=== PATIENT | female | born 1950 | race Caucasian/White ===

== ENCOUNTER 2020-11-04 13:41 | Inpatient (IN) ==
[~2020-11-04 13:41] MED LIST: KETAMINE 50 MG/ML ML IV PRN; MIDAZOLAM 2 MG/2 ML VIAL IV SCH; PROPOFOL 200 MG/20 ML VIAL IV SCH
--- NOTE | 2020-11-04 17:17 | General Surg History&Physical ---
HPI History of Present Illness Patient information: Note initiated : 11/04/20 at 5:16 pm Service Date, if different from initiated Date: [] Patient: Marge Benitez a 70 y/o F admitted on 11/04/20 for Esophogogastroduodenoscopy and Colonoscopy. Chief Complaint: [Abdominal pain] History of present illness: Ms. Benitez is a 70 year old F who presented to [facility] for evaluation of abdominal and pelvic cramping, had colonoscopy preformed by Dr Blank today who found a stricture in the sigmoid colon. No mass, felt to be more extrinsic compression likely due to scar tissue. Given her long history and good bowel prep, she is desires to be admitted to have the problem taken care of. no fever, no chills, no nausea or emisis. Review of Systems Review of systems: All systems reviewed, negative other than above. PFSH PFSH All Active Problems Palpitations (Chronic) Dyspnea (Chronic) Bronchiectasis (Chronic) Essential hypertension (Chronic) Breast lump or mass (Chronic) Squeezing chest pain (Chronic) Reactive airway disease (Chronic) Cough (Chronic) Dyspareunia (Chronic) Depression (Chronic) Headache (Chronic) Hair loss (Chronic) Hematochezia (Chronic) Elevated blood pressure reading without diagnosis of hypertension (Chronic) IBS (irritable bowel syndrome) (Chronic) Tuberculosis (Chronic) Numbness (Chronic) Malignant melanoma of skin of upper extremity (Chronic) Multiple sclerosis (Chronic) Medical History Breast lump or mass Bronchiectasis Cough Depression Dyspareunia Dyspnea Elevated blood pressure reading without diagnosis of hypertension Essential hypertension Hair loss Headache Hematochezia IBS (irritable bowel syndrome) Malignant melanoma of skin of upper extremity Multiple sclerosis Numbness Palpitations Reactive airway disease Squeezing chest pain Tuberculosis Indeterminate TB diagnosis Surgical History History of adenoidectomy History of cholecystectomy (~1980) History of hysterectomy History of melanoma excision (~2012) History of tonsillectomy Family History Father , age 63 Diabetes mellitus Heart disease Mother , age 61 Malignant carcinoid tumor of lung Lung cancer Unknown Arthritis Brother , age 56 Pancreatitis Sister Pancreatitis Grandmother , age 91 Colon cancer Social History marital status: life partner occupational status: employed physical activity: walking and bicycling smoking status: Former smoker quit date: 08/15/77 pack-years: 4 smoking status stop date: 08/15/79 alcohol intake frequency: a few times a month substance use type: does not use MEDS/ALLERGIES Home Medications and Allergies Home Medications Medication Instructions Recorded Confirmed Type losartan 25 mg tablet 25 mg PO QDAY 01/21/20 11/04/20 History cholecalciferol (vitamin D3) 125 125 mcg PO QDAY 01/30/20 11/04/20 History mcg (5,000 unit) capsule peginterferon beta-1a [Plegridy] 125 mcg SUBCUT Q2W 11/04/20 11/04/20 History Allergies Allergy/AdvReac Type Severity Reaction Status Date / Time No Known Drug Allergies Allergy Verified 11/04/20 13:57 Physical Examination Vital Signs Vital signs: Temp Pulse Resp BP Pulse Ox 97.1 F 66 18 153/98 100 11/04/20 14:38 11/04/20 16:53 11/04/20 16:53 11/04/20 16:53 11/04/20 16:53 General physical appearance General physical exam: well developed, well nourished and no distress Eyes Eye exam: PERRL and normal ocular movement ENT ENT exam: normal pinna, normal nares, normal mucosa, no hearing loss and no co ngestion Head Head exam IM: Present atraumatic and normocephalic Neck Neck exam: no masses, no bruits, trachea midline, no lymphadenopathy and no venous distension Cardiovascular Cardiovascular exam IM: Present normal rate and rhythm Respiratory Respiratory exam: normal expansion, normal respiratory effort, clear to percussion and clear to auscultation Abdomen Abdomen: Present soft, non tender and bowel sounds Hernia: Present none Genitourinary Genitourinary (Female): Present normal external genitalia Rectum Rectum: Present normal sphincter tone, no hemorrhoids, no tenderness, no masses and no bleeding Integumentary Integumentary: Present no rash, no growths and no abnormal pigmentation Neurologic Neurologic: Present normal coordination and normal sensation Musculoskeletal Musculoskeletal: Present normal gait and normal posture Psychiatric Psychiatric: Present oriented to time, oriented to person, oriented to place, speech is normal and memory intact Results Labs Labs: All other labs normal. A/P Narrative A/P Narrative: pelvic pain, sigmoid stricture. admit, clear liquid tonight, will add on schedule tomorrow for laparoscopic exploration, possible sigmoid colectomy Time Spent With Patient Time: Total time spent is greater than 50% in coordination of care (as documented) at patient's floor/unit and/or counseling patient: Total time spent with greater than 50% in coordination of care (as documented) at patient's floor/unit and/or counseling patient:: Greater than 35 minutes
[2020-11-04] MEDS: LACTATED RINGERS 1,000 ML IV SCH (17:54)
[2020-11-04] MEDS ORDERED: ACETAMINOPHEN 325 MG TABLET PO PRN (18:40)
[2020-11-04] MEDS: 0.9 % SODIUM CHLORIDE 10 ML SYRINGE IV SCH (21:41)
[2020-11-05] MEDS: LACTATED RINGERS 1,000 ML IV SCH ×3 (04:16→16:41)
[2020-11-05] MEDS: 0.9 % SODIUM CHLORIDE 10 ML SYRINGE IV SCH ×2 (04:42→16:41)
[2020-11-05] MEDS ORDERED: SCOPOLAMINE 1 PATCH PATCH TOPICAL PRN (08:14)
--- NOTE | 2020-11-05 09:01 | EGD Procedure Note ---
EGD Procedure Notes Procedure Information Patient information: Note initiated : 11/05/20 at 9:01 am Service Date: 11/04/20 Patient: Marge Benitez 70 y/o F admitted on 11/04/20 for Esophogogastroduodenoscopy and Colonoscopy. Pre-op diagnosis general: Abdominal pain. Weight loss. Post-Op Diagnosis general: Normal EGD. Nonulcer dyspepsia. Procedure: EGD with Bx Procedure Narrative: The procedure, alternatives and risks were discussed with the patient and the patient's questions were answered. With endoscopist-administered intravenous sedation, the Olympus video endoscope was introduced into the esophagus. The esophagus, stomach, and duodenum were examined sequentially. An inlet patch was seen in the proximal esophagus. There is no esophagitis nor hiatal hernia. The gastric mucosa, antrum, pyloric ring and duodenum were otherwise normal. Antral biopsy was taken for TYRELL test. The scope was withdrawn. Assessment: Normal EGD. Nonulcer dyspepsia.
--- NOTE | 2020-11-05 09:07 | Colonoscopy Procedure Note ---
Colonoscopy Procedure Notes Procedure Information Patient information: Note initiated : 11/05/20 at 9:02 am Service Date: 11/04/20 Patient: Marge Benitez 70 y/o F admitted on 11/04/20 for Esophogogastroduodenoscopy and Colonoscopy. Pre-op diagnosis general: Abdominal pain. Post-op diagnosis general: Fixed stenotic sigmoid colon causing obstruction. Procedure: Colonoscopy Procedure narrative: The procedure, alternatives and risks were discussed with the patient and the patient's questions were answered. With endoscopist- administered intravenous sedation, the Olympus colonoscope was introduced into the rectum. There was a fixed, strictured sigmoid colon with multiple diverticula. It was impossible to pass either the colonoscope or the pediatric colonoscope. Therefore an upper endoscope was maneuvered through to the hepatic flexure. There was no malignancy. Assessment: Fixed stenotic sigmoid colon causing obstruction. General surgeon Dr. Burnett was consulted and will see her for sigmoid resection.
[2020-11-05 09:45] LABS: Basophils # (Auto) 0.02 K/mcL (0.00-0.20); Basophils % (Auto) 0.4 % (0.0-2.0); Eosinophils # (Auto) 0.07 K/mcL (0.00-0.70); Eosinophils % (Auto) 1.5 % (0.0-7.0); Hematocrit 36.3 % (36.0-48.0); Lymphocytes % (Auto) 35.4 % (15.0-49.0); Mean Cell Volume 91.9 fL (80.0-100.0); Mean Corpuscular HGB Conc 33.1 g/dL (31.0-36.0); Mean Platelet Volume 10.6 fL (7.4-10.4); Monocytes % (Auto) 8.8 % (1.0-12.0); Neutrophils % (Auto) 53.9 % (38.0-78.0); Platelet Count 214 K/mcL (140-440); RBC 3.95 M/mcL (4.00-5.20); Red Cell Distribution Width 12.4 % (11.5-14.5); WBC 4.5 K/mcL (4.5-11.0)
[2020-11-05 10:03] LABS: Blood Urea Nitrogen 14 mg/dL (8-23); Calcium 8.7 mg/dL (8.6-10.4); Carbon Dioxide 29 mmol/L (22-30); Chloride 102 mmol/L (96-108); Glomerular Filtration Rate 89; Glucose 85 mg/dL (70-105)
[2020-11-05 10:26] LABS: INR 0.9 (0.9-1.1); Prothrombin Time 12.7 sec (11.9-14.5)
[2020-11-05 12:09] LABS: Appearance,Urine CLEAR (Clear); Bilirubin,Urine Negative (Negative); Color,Urine YELLOW; Culture Indicated,Urine No; Glucose,Urine (UA) Negative (Negative); Ketones,Urine 5 mg/dL (Negative); Leukocyte Esterase,Urine Negative /ug (Negative); Nitrate,Urine Negative (Negative); Protein,Urine Negative (Negative); Specific Gravity,Urine 1.009 (1.000-1.035); Urine Blood Negative (Negative); Urobilinogen,Urine Negative
[2020-11-05] MEDS ORDERED: SCOPOLAMINE 1 PATCH PATCH TOPICAL ONE (12:39)
[2020-11-05] MEDS ORDERED: ceFAZolin 2 GM in DEXTROSE 5% IN WATER 50 ML IV SCH (12:45)
[2020-11-05] MEDS ORDERED: SUGAMMADEX SODIUM 200 MG/2 ML VIAL IV ONE (13:00)
[2020-11-05] MEDS ORDERED: PROPOFOL 200 MG/20 ML VIAL IV ONE (13:00)
[2020-11-05] MEDS ORDERED: NALBUPHINE 10 MG/ML AMPUL IV ONE (13:00)
[2020-11-05] MEDS ORDERED: ONDANSETRON 4 MG/2 ML VIAL ONE (13:00)
[2020-11-05] MEDS ORDERED: LIDOCAINE HCL/PF 100 MG/5 ML SYRINGE IV ONE (13:00)
[2020-11-05] MEDS ORDERED: ROCURONIUM 10 MG/ML ML IV ONE (13:00)
[2020-11-05] MEDS ORDERED: NALOXONE HCL 0.4 MG/ML VIAL ONE (13:00)
[2020-11-05] MEDS ORDERED: PROMETHAZINE 25 MG/ML VIAL ONE (13:00)
[2020-11-05] MEDS ORDERED: MIDAZOLAM 5 MG/5 ML VIAL ONE (13:00)
[2020-11-05] MEDS ORDERED: fentaNYL 100 MCG/2 ML VIAL IV ONE (13:00)
[2020-11-05] MEDS ORDERED: DEXAMETHASONE 10 MG/ML VIAL ONE (13:00)
[2020-11-05] MEDS ORDERED: ceFAZolin 1 GM VIAL ONE (13:07)
[2020-11-05] MEDS ORDERED: METOPROLOL TARTRATE 5 MG/5 ML VIAL IV PRN (13:47)
[2020-11-05] MEDS ORDERED: ONDANSETRON 4 MG/2 ML VIAL IV PRN (13:47)
[2020-11-05] MEDS ORDERED: NALOXONE HCL 0.4 MG/ML VIAL IV PRN (13:47)
[2020-11-05] MEDS ORDERED: diphenhydrAMINE 50 MG/ML VIAL IV PRN (13:47)
[2020-11-05] MEDS ORDERED: METHOCARBAMOL 1,000 MG/10 ML VIAL IV PRN (13:47)
[2020-11-05] MEDS ORDERED: ePHEDrine 50 MG/ML AMPUL IV PRN (13:47)
[2020-11-05] MEDS ORDERED: IPRATROPIUM/ALBUTEROL 3 ML AMPUL.NEB NEB PRN (13:47)
[2020-11-05] MEDS ORDERED: MEPERIDINE 25 MG/ML VIAL IV PRN (13:47)
[2020-11-05] MEDS ORDERED: FLUMAZENIL 0.1 MG/ML ML IV PRN (13:47)
[2020-11-05] MEDS ORDERED: ATROPINE SULFATE 0.4 MG/ML VIAL IV PRN (13:47)
[2020-11-05] MEDS ORDERED: ACETAMINOPHEN 1,000 MG/100 ML BAG IV ONE (13:47)
[2020-11-05] MEDS ORDERED: fentaNYL 100 MCG/2 ML VIAL IV PRN (13:47)
[2020-11-05] MEDS ORDERED: LACTATED RINGERS 1,000 ML IV SCH (14:00)
[2020-11-05] MEDS ORDERED: LIDOCAINE 1% 20 ML VIAL SQ ONE (14:16)
[2020-11-05] MEDS ORDERED: BUPIVACAINE W/EPI 0.5% 50 ML VIAL IJ ONE (14:16)
--- NOTE | 2020-11-05 15:27 | Operative Note ---
Brief Operative Note Date of procedure: 11/05/20 Pre-op diagnosis: Sigmoid stricture, possible due to external compression Post-op diagnosis: other (Redundant sigmoid causing scar tissue and stricture in the pelvis) Procedure: Laparoscopic lysis of adhesions, laparoscopic sigmoid colectomy Grafts/Implants: No Anesthesia: GETA Findings: Redundant colon densely adherent to vaginal cuff Complications: none Surgeon: Hernán Burnett Estimated blood loss (cc): 25 Specimens Removed/Pathology: other (Sigmoid colon) Condition: stable Disposition: PACU Operative Note Operative Note: After risk benefits and alternatives to the procedure were discussed with the patient at length she verbalized understanding and desire to continue with the procedure. Patient was taken main operating room placed upon the operative table. General anesthesia was induced over endotracheal tube. Patient's prepped and draped in the standard sterile surgical fashion. Surgical timeout was taken to verify patient and procedure being performed. 1% lidocaine half percent Marcaine was used for local anesthesia throughout the case. A supraumbilical incision was made carried down through skin subtenons tissue. The fascia was opened under direct vision and a 12 mm trocar was placed. Abdominal cavity was insufflated with carbon dioxide and visual inspection revealed no injuries. 5 mm right upper quadrant and a 5 mm right lower quadrant trochars were then placed under direct vision. Attention was turned to the pelvis where there is a large amount of adhesions in the right lower quadrant. These were carefully taken down with sharp dissection. This allowed the small bowel to be removed out of the pelvis. The colon was then identified and followed from the descend ing colon to the sigmoid colon where there was a loop of sigmoid colon that was densely adherent to the vaginal cuff causing a obstructing lesion. This was carefully dissected free from the surrounding structures with sharp and electrocautery dissection. Once this is removed the colon was redundant and the area that was densely adherent appeared to be somewhat strictured therefore decision was made at this time to do a sigmoid resection. The the right lower quadrant 5 mm trocar was switched to a 12 mm trocar. A retrocolonic window was created at the rectosigmoid junction with a vessel sealing device the colon was then transected with Endo JAY stapler at this location. The mesentery was taken down with the vessel sealer device until adequate dissection was carried out proximal to the area of inflammation and stricture. A Pfannenstiel incision was then made and the colon was brought out through this area. The colon was transected approximately 5 cm proximal to the area of inflammation and sized up to 29 mm. A 29 EEA anvil was then placed in the colon it was pursestring closed with a 3-0 PDS suture and returned to the abdominal cavity. The appendiceal incision was closed with a oh looped PDS suture and pneumoperitoneum was reestablished. The colon was inspected down in the pelvis and it laid without tension therefore the rectum was serially dilated and a 29 EEA stapler was passed up the rectum under direct vision the anvil was brought out through the colon and attached to the anvil. A 29 EEA stapled anastomosis was performed and 2 good donuts were confirmed after anastomosis. A leak test was performed which showed no air leak around the anastomosis. Small amount of Tisseel was placed on the anastomosis, the colon was verified to not be twisted it laid without tension in the pelvis and the anastomosis was within good limits. Once this was done visual specks of the remainder the abdomen was once again inspected and found to be in good position. The right l ower quadrant 12 mm and the supraumbilical 12 mm trochars were both closed with interrupted 0 Vicryl sutures. CO2 and trochars were removed from the abdominal cavity under direct vision. Trocar sites were inspected for hemostasis. All skin incisions were closed with 4 Monocryl sutures and skin glue dressings were applied. Patient was then awakened from general anesthesia transported postanesthesia care unit awake alert in good condition.q
[2020-11-05] MEDS: KETOROLAC 15 MG/ML VIAL IV SCH ×2 (17:56→23:48)
[2020-11-06] MEDS: LACTATED RINGERS 1,000 ML IV SCH ×3 (02:32→22:06)
[2020-11-06] MEDS: KETOROLAC 15 MG/ML VIAL IV SCH ×3 (05:26→20:48)
--- NOTE | 2020-11-06 08:33 | General Surgery Progress Note ---
SUBJECTIVE Subjective Patient information: Note initiated : 11/06/20 at 8:31 am Service Date, if different from initiated Date: [] Patient: Marge Benitez 70 y/o F admitted on 11/04/20 for Esophogogastroduodenoscopy and Colonoscopy. Chief Complaint: [] Interval history: Postop day #1 status post laparoscopic assisted sigmoid colectomy. Patient is doing well, no complaints. She has no return of bowel function at this time. Constitutional Vitals: Vital Signs Temp Pulse Resp BP Pulse Ox 99 F 62 14 120/71 94 11/06/20 04:10 11/06/20 04:10 11/06/20 04:10 11/06/20 04:10 11/06/20 04:10 Period Temp Pulse Resp BP Sys/Allen Pulse Ox Last 24 Hr 97.0 F-99.0 F 62-84 9-20 120-165/69-99 94-100 Intake and Output 11/05/20 11/06/20 11/06/20 21:59 05:59 13:59 Intake Total 3100 1350 Output Total 600 1650 Balance 2500 -300 Weight 118 lb 6.4 oz Intake & Output: Intake & Output 11/05/20 11/06/20 11/06/20 21:59 05:59 13:59 Intake Total 3100 1350 Output Total 600 1650 Balance 2500 -300 Weight 118 lb 6.4 oz Intake: IV 1150 1000 Lactated Ringers 1,000 ml @ 100 1000 1000 mls/hr IV .Q10H [facility] Rx#: [id number] Ancef 2 gm In Dextrose 5% in 50 Water 50 ml @ 100 mls/hr IV PREOP [facility] Rx#:[id number] Oral 350 IV - Manual Only 1950 Output: Urine Catheter Amount 550 1650 Uretheral (Frank) 150 Estimated Blood Loss 50 Other: Urine Appearance Clear Clear Uretheral (Frank) Clear Clear Urine Color Pale Bright Yellow Uretheral (Frank) Pale Bright Yellow Urine Odor Normal General appearance: cooperative and no acute distress GI/Abdominal GI/Abdominal exam: Present soft and tenderness (Appropriately tender to palpation); Absent distended A/P Narrative A/P Narrative: Postop day #1 status post laparoscopic sigmoid colectomy. Awaiting return of bowel function. We will continue on clear liquid diet until return of bowel function. Encourage ambulation in the hallway minimum 3 times a day. Time Spent With Patient Time: Total time spent is greater than 50% in coordination of care (as documented) at patient's floor/unit and/or counseling patient:
[2020-11-06] MEDS: LOSARTAN 25 MG TABLET PO SCH (10:02)
[2020-11-07] MEDS: KETOROLAC 15 MG/ML VIAL IV SCH ×5 (03:25→16:49)
[2020-11-07] MEDS: ACETAMINOPHEN 500 MG TABLET PO PRN ×2 (03:32→23:59)
[2020-11-07] MEDS ORDERED: FAMOTIDINE/PF 20 MG/2 ML VIAL IV ONE (03:36)
[2020-11-07] MEDS: LOSARTAN 25 MG TABLET PO SCH (08:23)
[2020-11-07] MEDS: morphine 2 MG/ML VIAL IV PRN (08:23)
[2020-11-07] MEDS: LACTATED RINGERS 1,000 ML IV SCH ×2 (08:25→16:51)
[2020-11-08] MEDS: LACTATED RINGERS 1,000 ML IV SCH ×3 (02:52→22:41)
[2020-11-08 06:17] LABS: Basophils # (Auto) 0.03 K/mcL (0.00-0.20); Basophils % (Auto) 0.3 % (0.0-2.0); Eosinophils # (Auto) 0.04 K/mcL (0.00-0.70); Eosinophils % (Auto) 0.5 % (0.0-7.0); Hematocrit 32.6 % (36.0-48.0); Hemoglobin 10.6 g/dL (12.0-15.0); Lymphocytes # (Auto) 2.14 K/mcL (1.50-4.80); Lymphocytes % (Auto) 24.3 % (15.0-49.0); Mean Cell Volume 93.7 fL (80.0-100.0); Mean Corpuscular HGB Conc 32.5 g/dL (31.0-36.0); Mean Platelet Volume 10.6 fL (7.4-10.4); Monocytes # (Auto) 0.57 K/mcL (0.10-0.90); Monocytes % (Auto) 6.5 % (1.0-12.0); Neutrophils % (Auto) 68.4 % (38.0-78.0); Platelet Count 174 K/mcL (140-440); RBC 3.48 M/mcL (4.00-5.20); Red Cell Distribution Width 12.5 % (11.5-14.5); WBC 8.8 K/mcL (4.5-11.0)
[2020-11-08 06:39] LABS: Blood Urea Nitrogen 7 mg/dL (8-23); Calcium 8.2 mg/dL (8.6-10.4); Carbon Dioxide 28 mmol/L (22-30); Chloride 105 mmol/L (96-108); Glomerular Filtration Rate 75; Glucose 91 mg/dL (70-105)
[2020-11-08] MEDS: LOSARTAN 25 MG TABLET PO SCH (08:57)
--- NOTE | 2020-11-08 10:22 | General Surgery Progress Note ---
SUBJECTIVE Subjective Patient information: Note initiated : 11/08/20 at 10:20 am Service Date, if different from initiated Date: [] Patient: Marge Benitez 70 y/o F admitted on 11/04/20 for Esophogogastroduodenoscopy and Colonoscopy. Chief Complaint: [] Interval history: Postop day #3 status post laparoscopic sigmoid colectomy. Patient is doing well, ambulating, pain controlled. She is passing flatus. No bowel movement as of yet. Patient had a low-grade temperature last night to 101.2. Constitutional Vitals: Vital Signs Temp Pulse Resp BP Pulse Ox 98.9 F 75 20 138/73 97 11/08/20 07:24 11/08/20 02:54 11/08/20 07:24 11/08/20 07:24 11/08/20 07:24 Period Temp Pulse Resp BP Sys/Allen Pulse Ox Last 24 Hr 98.3 F-101.1 F 75-94 16-20 129-152/72-81 94-97 Intake and Output 11/07/20 11/08/20 11/08/20 21:59 05:59 13:59 Intake Total 1203 1200 Output Total 1300 700 Balance -97 500 Weight 116 lb 4.8 oz Intake & Output: Intake & Output 11/07/20 11/08/20 11/08/20 21:59 05:59 13:59 Intake Total 1203 1200 Output Total 1300 700 Balance -97 500 Weight 116 lb 4.8 oz Intake: IV 843 1000 Lactated Ringers 1,000 ml @ 028 904 0190 mls/hr IV .Q10H [facility] Rx#: [id number] Oral 360 200 Output: Void Amount 1300 700 Other: Urine Appearance Clear Clear Urine Color Pale Dark Yellow Urine Odor Normal General appearance: cooperative and no acute distress GI/Abdominal GI/Abdominal exam: Present normal bowel sounds, soft and tenderness (Appropriately tender to palpation); Absent distended Additional comments: Incisions are clean dry and intact A/P Narrative A/P Narrative: This is a pleasant 70-year-old female status post laparoscopic as sisted sigmoid colectomy. Patient is progressing as expected. We will keep 1 more day awaiting full return of bowel function. Time Spent With Patient Time: Total time spent is greater than 50% in coordination of care (as documented) at patient's floor/unit and/or counseling patient:
[2020-11-08] MEDS: ACETAMINOPHEN 500 MG TABLET PO PRN ×2 (13:12→23:03)
[2020-11-08] MEDS: ONDANSETRON 4 MG/2 ML VIAL IV PRN (13:13)
[2020-11-09 06:11] LABS: Basophils # (Auto) 0.03 K/mcL (0.00-0.20); Basophils % (Auto) 0.3 % (0.0-2.0); Eosinophils # (Auto) 0.03 K/mcL (0.00-0.70); Eosinophils % (Auto) 0.3 % (0.0-7.0); Hematocrit 31.7 % (36.0-48.0); Hemoglobin 10.6 g/dL (12.0-15.0); Lymphocytes # (Auto) 1.67 K/mcL (1.50-4.80); Lymphocytes % (Auto) 14.1 % (15.0-49.0); Mean Cell Volume 90.3 fL (80.0-100.0); Mean Corpuscular HGB Conc 33.4 g/dL (31.0-36.0); Mean Platelet Volume 10.3 fL (7.4-10.4); Monocytes # (Auto) 0.65 K/mcL (0.10-0.90); Monocytes % (Auto) 5.5 % (1.0-12.0); Neutrophils % (Auto) 79.8 % (38.0-78.0); Platelet Count 196 K/mcL (140-440); RBC 3.51 M/mcL (4.00-5.20); Red Cell Distribution Width 12.2 % (11.5-14.5); WBC 11.9 K/mcL (4.5-11.0)
[2020-11-09] MEDS: morphine 2 MG/ML VIAL IV PRN (07:38)
[2020-11-09] MEDS: LACTATED RINGERS 1,000 ML IV SCH (08:50)
--- NOTE | 2020-11-09 09:57 | General Surgery Progress Note ---
SUBJECTIVE Subjective Patient information: Note initiated : 11/09/20 at 9:55 am Service Date, if different from initiated Date: [] Patient: Marge Benitez 70 y/o F admitted on 11/04/20 for Esophogogastroduodenoscopy and Colonoscopy. Chief Complaint: [] Interval history: Postop day #4 status post laparoscopic sigmoid colectomy. Tolerating regular diet, has had multiple bowel movements however overnight she felt increased amount of abdominal pain. White blood cell count elevated this morning, temperature to 101.1. Constitutional Vitals: Vital Signs Temp Pulse Resp BP Pulse Ox 98.6 F 78 18 124/77 97 11/09/20 06:42 11/09/20 06:42 11/09/20 06:42 11/09/20 06:42 11/09/20 06:42 Period Temp Pulse Resp BP Sys/Allen Pulse Ox Last 24 Hr 97.8 F-100.6 F 78-93 16-20 124-163/71-86 94-98 Intake and Output 11/08/20 11/09/20 11/09/20 21:59 05:59 13:59 Intake Total 470 1370 1000 Output Total 1400 625 Balance -021 947 7796 Weight 118 lb 4.8 oz Intake & Output: Intake & Output 11/08/20 11/09/20 11/09/20 21:59 05:59 13:59 Intake Total 470 1370 1000 Output Total 1400 625 Balance -033 475 3381 Weight 118 lb 4.8 oz Intake: IV 970 1000 Lactated Ringers 1,000 ml @ 657 648 3365 mls/hr IV .Q10H [facility] Rx#: [id number] Oral 470 400 Output: Urine Catheter Amount 700 Void Amount 700 550 Stool 75 Other: Urine Appearance Clear Urine Color Bright Yellow Pale Bright Yellow Urine Odor Normal Normal Stool Size Small Stool Color Brown Blood Tinged Stool Consistency Liquid # Bowel Movements 2 General appearance: cooperative and no acute distress Respiratory Respiratory exam: Present normal respiratory exam GI/Abdominal GI/Abdominal exam: Present normal bowel sounds, soft and tenderness (Mild tender to palpation throughout, no rebound tenderness); Absent distended Psychiatric Psychiatric exam: Present normal affect A/P Narrative A/P Narrative: Postop day #4 status post laparoscopic sigmoid colectomy. Has return of bowel function, however elevated white blood cell count and increased abdominal pain overnight. We will get CT scan abdomen pelvis to rule out intra-abdominal pathology. Time Spent With Patient Time: Total time spent is greater than 50% in coordination of care (as documented) at patient's floor/unit and/or counseling patient:
[2020-11-09] MEDS ORDERED: 0.9 % SODIUM CHLORIDE 500 ML IV ONE (10:14)
[2020-11-09] MEDS: ONDANSETRON 4 MG/2 ML VIAL IV PRN (10:30)
[2020-11-09] MEDS ORDERED: VANCOMYCIN PER PHARMACY IV SCH (10:43)
--- NOTE | 2020-11-09 10:55 | Emergency Department Note ---
HPI General Limitations: no limitations History of Present Illness HPI Narrative: Narrative: Called to code white for hypotention Related Data Home Medications Medication Instructions Recorded Confirmed losartan 25 mg tablet 25 mg PO QDAY 01/21/20 11/04/20 cholecalciferol (vitamin D3) 125 125 mcg PO QDAY 01/30/20 11/04/20 mcg (5,000 unit) capsule Senna-S 1 tab PO BID 11/04/20 11/04/20 chromium picolinate 1,000 mcg PO QDAY 11/04/20 11/04/20 peginterferon beta-1a [Plegridy] 125 mcg SUBCUT Q2W 11/04/20 11/04/20 Allergies Allergy/AdvReac Type Severity Reaction Status Date / Time No Known Drug Allergies Allergy Verified 11/04/20 13:57 Review of Systems ROS ROS Narrative: Narrative: PFSH Narrative Patient History Narrative: Narrative: Medical/Surgical/Family History All Active Problems Palpitations (Chronic) Dyspnea (Chronic) Bronchiectasis (Chronic) Essential hypertension (Chronic) Breast lump or mass (Chronic) Squeezing chest pain (Chronic) Reactive airway disease (Chronic) Cough (Chronic) Dyspareunia (Chronic) Depression (Chronic) Headache (Chronic) Hair loss (Chronic) Hematochezia (Chronic) Elevated blood pressure reading without diagnosis of hypertension (Chronic) IBS (irritable bowel syndrome) (Chronic) Tuberculosis (Chronic) Numbness (Chronic) Malignant melanoma of skin of upper extremity (Chronic) Multiple sclerosis (Chronic) Medical History Breast lump or mass Bronchiectasis Cough Depression Dyspareunia Dyspnea Elevated blood pressure reading without diagnosis of hypertension Essential hypertension Hair loss Headache Hematochezia IBS (irritable bowel syndrome) Malignant melanoma of skin of upper extremity Multiple sclerosis Numbness Palpitations Reactive airway disease Squeezing chest pain Tuberculosis Indeterminate TB diagnosis Surgical History History of adenoidectomy History of cholecystectomy (~1980) History of hysterectomy History of melanoma excision (~2012) History of tonsillectomy Family History Father , age 63 Diabetes mellitus Heart disease Mother , age 61 Malignant carcinoid tumor of lung Lung cancer Unknown Arthritis Brother , age 56 Pancreatitis Sister Pancreatitis Grandmother , age 91 Colon cancer Social History Smoking Status: Former smoker Alcohol Intake Frequency: a few times a month Substance Use: does not use Exam Narrative Narrative: Narrative: General Limitations: no limitations General appearance: Present alert and in no apparent distress Head Head: Present atraumatic and normocephalic Eye Eye: Present normal appearance ENT ENT: Present mucous membranes dry Neck Neck: Present normal inspection Chest Chest: Present normal inspection Respiratory Respiratory: Present normal lung sounds bilaterally Cardiovascular Cardiovascular: Present regular rate and normal rhythm Adbominal Abdominal: Present soft Neurological Neurological: Present alert Psychiatric Psychiatric: Present normal affect Course Course Course Narrative: I was called to room 125 for a code white. Ms. Benitez is postop she was being taken to radiology for an abdominal CT scan where she became hypotensive and less responsive. When patient was placed back into bed no laying position blood pressure increased and mental status started clearing. Patient is noted to have elevated temperature. I ordered 2 L of IV normal saline, blood cultures urine cultures and a chest x-ray. When stable the patient should receive her abdominal pelvic CT scan as ordered. Vital Signs Vital signs: Vital Signs Temperature 97.1 F 11/04/20 14:01 Pulse Rate 75 11/04/20 14:01 Respiratory Rate 16 11/04/20 14:01 Blood Pressure 164/88 11/04/20 14:01 Pulse Oximetry (%) 97 11/04/20 14:01 Temperature 98.7 F 11/09/20 15:58 Pulse Rate 77 11/09/20 15:58 Respiratory Rate 16 11/09/20 15:58 Blood Pressure 111/73 11/09/20 15:58 Pulse Oximetry (%) 96 11/09/20 15:58 MDM MDM Narrative Medical decision making narrative: Narrative: Lab Data Result diagrams: 11/09/20 10:23 11/09/20 10:23 Labs: Lab Results 11/05/20 11/05/20 11/05/20 Range/Units 08:39 08:39 08:39 WBC (4.5-11.0) K/mcL RBC (4.00-5.20) M/mcL Hgb (12.0-15.0) g/dL Hct (36.0-48.0) % MCV (80.0-100.0) fL MCH (26.0-34.0) pg MCHC (31.0-36.0) g/dL RDW (11.5-14.5) % Plt Count (140-440) K/mcL MPV (7.4-10.4) fL Neut % (Auto) (38.0-78.0) % Lymph % (Auto) (15.0-49.0) % [place] % (Auto) (1.0-12.0) % Eos % (Auto) (0.0-7.0) % Baso % (Auto) (0.0-2.0) % Lymph # (Auto) (1.50-4.80) K/mcL [place] # (Auto) (0.10-0.90) K/mcL Eos # (Auto) (0.00-0.70) K/mcL Baso # (Auto) (0.00-0.20) K/mcL Seg Neutrophils % (38-78) % Lymphocytes % (15-49) % Monocytes % (Manual) (1-12) % Absolute Neutrophils (1.80-8.00) K/mcL Reactive Lymphocytes (0-2) % Platelet Estimate (Normal) RBC Morphology (Normal) PT 12.7 (11.9-14.5) sec INR 0.9 (0.9-1.1) Sodium 136 (133-145) mmol/L Potassium 3.6 (3.3-5.1) mmol/L Chloride 102 (96-108) mmol/L Carbon Dioxide 29 (22-30) mmol/L Anion Gap 5.0 L (8.0-16.0) BUN 14 (8-23) mg/dL Creatinine 0.7 (0.6-1.1) mg/dL GFR Calculation 89 Glucose 85 (70-105) mg/dL Uric Acid (2.5-8.0) mg/dL Calcium 8.7 (8.6-10.4) mg/dL Phosphorus (2.5-4.5) mg/dL Magnesium (1.6-2.5) mg/dL Total Bilirubin (0.1-1.0) mg/dL Direct Bilirubin (0-0.3) mg/dL GGT (5-36) U/L AST (<32) U/L ALT (<40) U/L Alkaline Phosphatase (39-117) U/L Lactate Dehydrogenase (135-225) U/L Total Protein (5.9-8.4) gm/dL Albumin (3.2-5.2) gm/dL Globulin (2.2-3.7) gm/dL Albumin/Globulin Ratio (1.0-2.3) Triglycerides (<150) mg/dL Urine Color Cancelled Urine Appearance Cancelled Urine pH Cancelled Ur Specific [place] Cancelled Urine Protein Cancelled Urine Glucose (UA) Cancelled Urine Ketones Cancelled Urine Occult Blood Cancelled Urine Nitrate Cancelled Ur Reducing Substances Cancelled Urine Bilirubin Cancelled Urine Ictotest Cancelled Prot Sulfosalicylic Acd Cancelled Urine Urobilinogen Cancelled Ur Leukocyte Esterase Cancelled Urine RBC Cancelled Urine WBC Cancelled Ur Squamous Epith Cells Cancelled Ur Transition Epith Cell Cancelled Ur Renal Epithelial Cell Cancelled Calcium Carbonate Cryst Cancelled Calcium Phosphate Cryst Cancelled Calcium Oxalate Crystal Cancelled Leucine Crystals Cancelled Cystine Crystals Cancelled Uric Acid Crystals Cancelled Triple Phos Crystals Cancelled Tyrosine Crystals Cancelled Other Crystals Cancelled Amorphous Crystals Cancelled Urine Bacteria Cancelled Cellular Casts Cancelled Epithelial Casts Cancelled Fatty Casts Cancelled Hyaline Casts Cancelled Granular Casts Cancelled Waxy Casts Cancelled Broad Casts Cancelled RBC Casts Cancelled WBC Casts Cancelled Other Casts Cancelled Urine Mucus Cancelled Urine Trichomonas Cancelled Ur Yeast w Hyphae Cancelled Urine Yeast (Budding) Cancelled Urine Sperm Cancelled Ur Oval Fat Bodies Cancelled Ur Free Fat Droplets Cancelled Ur Culture Indicated? Cancelled 11/05/20 11/05/20 11/08/20 Range/Units 08:39 09:15 05:14 WBC 4.5 8.8 (4.5-11.0) K/mcL RBC 3.95 L 3.48 L (4.00-5.20) M/mcL Hgb 12.0 10.6 L (12.0-15.0) g/dL Hct 36.3 32.6 L (36.0-48.0) % MCV 91.9 93.7 (80.0-100.0) fL MCH 30.4 30.5 (26.0-34.0) pg MCHC 33.1 32.5 (31.0-36.0) g/dL RDW 12.4 12.5 (11.5-14.5) % Plt Count 214 174 (140-440) K/mcL MPV 10.6 H 10.6 H (7.4-10.4) fL Neut % (Auto) 53.9 68.4 (38.0-78.0) % Lymph % (Auto) 35.4 24.3 (15.0-49.0) % [place] % (Auto) 8.8 6.5 (1.0-12.0) % Eos % (Auto) 1.5 0.5 (0.0-7.0) % Baso % (Auto) 0.4 0.3 (0.0-2.0) % Lymph # (Auto) 1.60 2.14 (1.50-4.80) K/mcL [place] # (Auto) 0.40 0.57 (0.10-0.90) K/mcL Eos # (Auto) 0.07 0.04 (0.00-0.70) K/mcL Baso # (Auto) 0.02 0.03 (0.00-0.20) K/mcL Seg Neutrophils % (38-78) % Lymphocytes % (15-49) % Monocytes % (Manual) (1-12) % Absolute Neutrophils 2.43 6.01 (1.80-8.00) K/mcL Reactive Lymphocytes (0-2) % Platelet Estimate (Normal) RBC Morphology (Normal) PT (11.9-14.5) sec INR (0.9-1.1) Sodium (133-145) mmol/L Potassium (3.3-5.1) mmol/L Chloride (96-108) mmol/L Carbon Dioxide (22-30) mmol/L Anion Gap (8.0-16.0) BUN (8-23) mg/dL Creatinine (0.6-1.1) mg/dL GFR Calculation Glucose (70-105) mg/dL Uric Acid (2.5-8.0) mg/dL Calcium (8.6-10.4) mg/dL Phosphorus (2.5-4.5) mg/dL Magnesium (1.6-2.5) mg/dL Total Bilirubin (0.1-1.0) mg/dL Direct Bilirubin (0-0.3) mg/dL GGT (5-36) U/L AST (<32) U/L ALT (<40) U/L Alkaline Phosphatase (39-117) U/L Lactate Dehydrogenase (135-225) U/L Total Protein (5.9-8.4) gm/dL Albumin (3.2-5.2) gm/dL Globulin (2.2-3.7) gm/dL Albumin/Globulin Ratio (1.0-2.3) Triglycerides (<150) mg/dL Urine Color Yellow Urine Appearance Clear Urine pH 7.0 Ur Specific [place] 1.009 Urine Protein Negative Urine Glucose (UA) Negative Urine Ketones 5 A Urine Occult Blood Negative Urine Nitrate Negative Ur Reducing Substances Urine Bilirubin Negative Urine Ictotest Prot Sulfosalicylic Acd Urine Urobilinogen Negative Ur Leukocyte Esterase Negative Urine RBC Urine WBC Ur Squamous Epith Cells Ur Transition Epith Cell Ur Renal Epithelial Cell Calcium Carbonate Cryst Calcium Phosphate Cryst Calcium Oxalate Crystal Leucine Crystals Cystine Crystals Uric Acid Crystals Triple Phos Crystals Tyrosine Crystals Other Crystals Amorphous Crystals Urine Bacteria Cellular Casts Epithelial Casts Fatty Casts Hyaline Casts Granular Casts Waxy Casts Broad Casts RBC Casts WBC Casts Other Casts Urine Mucus Urine Trichomonas Ur Yeast w Hyphae Urine Yeast (Budding) Urine Sperm Ur Oval Fat Bodies Ur Free Fat Droplets Ur Culture Indicated? No 11/08/20 11/09/20 11/09/20 Range/Units 05:14 05:04 10:23 WBC 11.9 H 12.6 H (4.5-11.0) K/mcL RBC 3.51 L 3.62 L (4.00-5.20) M/mcL Hgb 10.6 L 11.1 L (12.0-15.0) g/dL Hct 31.7 L 32.7 L (36.0-48.0) % MCV 90.3 90.3 (80.0-100.0) fL MCH 30.2 30.7 (26.0-34.0) pg MCHC 33.4 33.9 (31.0-36.0) g/dL RDW 12.2 12.2 (11.5-14.5) % Plt Count 196 204 (140-440) K/mcL MPV 10.3 10.5 H (7.4-10.4) fL Neut % (Auto) 79.8 H (38.0-78.0) % Lymph % (Auto) 14.1 L (15.0-49.0) % [place] % (Auto) 5.5 (1.0-12.0) % Eos % (Auto) 0.3 (0.0-7.0) % Baso % (Auto) 0.3 (0.0-2.0) % Lymph # (Auto) 1.67 (1.50-4.80) K/mcL [place] # (Auto) 0.65 (0.10-0.90) K/mcL Eos # (Auto) 0.03 (0.00-0.70) K/mcL Baso # (Auto) 0.03 (0.00-0.20) K/mcL Seg Neutrophils % 88 H (38-78) % Lymphocytes % 8 L (15-49) % Monocytes % (Manual) 3 (1-12) % Absolute Neutrophils 9.49 H (1.80-8.00) K/mcL Reactive Lymphocytes 1 (0-2) % Platelet Estimate Normal (Normal) RBC Morphology Normal (Normal) PT (11.9-14.5) sec INR (0.9-1.1) Sodium 139 (133-145) mmol/L Potassium 3.6 (3.3-5.1) mmol/L Chloride 105 (96-108) mmol/L Carbon Dioxide 28 (22-30) mmol/L Anion Gap 6.0 L (8.0-16.0) BUN 7 L (8-23) mg/dL Creatinine 0.8 (0.6-1.1) mg/dL GFR Calculation 75 Glucose 91 (70-105) mg/dL Uric Acid (2.5-8.0) mg/dL Calcium 8.2 L (8.6-10.4) mg/dL Phosphorus (2.5-4.5) mg/dL Magnesium (1.6-2.5) mg/dL Total Bilirubin (0.1-1.0) mg/dL Direct Bilirubin (0-0.3) mg/dL GGT (5-36) U/L AST (<32) U/L ALT (<40) U/L Alkaline Phosphatase (39-117) U/L Lactate Dehydrogenase (135-225) U/L Total Protein (5.9-8.4) gm/dL Albumin (3.2-5.2) gm/dL Globulin (2.2-3.7) gm/dL Albumin/Globulin Ratio (1.0-2.3) Triglycerides (<150) mg/dL Urine Color Urine Appearance Urine pH Ur Specific [place] Urine Protein Urine Glucose (UA) Urine Ketones Urine Occult Blood Urine Nitrate Ur Reducing Substances Urine Bilirubin Urine Ictotest Prot Sulfosalicylic Acd Urine Urobilinogen Ur Leukocyte Esterase Urine RBC Urine WBC Ur Squamous Epith Cells Ur Transition Epith Cell Ur Renal Epithelial Cell Calcium Carbonate Cryst Calcium Phosphate Cryst Calcium Oxalate Crystal Leucine Crystals Cystine Crystals Uric Acid Crystals Triple Phos Crystals Tyrosine Crystals Other Crystals Amorphous Crystals Urine Bacteria Cellular Casts Epithelial Casts Fatty Casts Hyaline Casts Granular Casts Waxy Casts Broad Casts RBC Casts WBC Casts Other Casts Urine Mucus Urine Trichomonas Ur Yeast w Hyphae Urine Yeast (Budding) Urine Sperm Ur Oval Fat Bodies Ur Free Fat Droplets Ur Culture Indicated? 11/09/20 Range/Units 10:23 WBC (4.5-11.0) K/mcL RBC (4.00-5.20) M/mcL Hgb (12.0-15.0) g/dL Hct (36.0-48.0) % MCV (80.0-100.0) fL MCH (26.0-34.0) pg MCHC (31.0-36.0) g/dL RDW (11.5-14.5) % Plt Count (140-440) K/mcL MPV (7.4-10.4) fL Neut % (Auto) (38.0-78.0) % Lymph % (Auto) (15.0-49.0) % [place] % (Auto) (1.0-12.0) % Eos % (Auto) (0.0-7.0) % Baso % (Auto) (0.0-2.0) % Lymph # (Auto) (1.50-4.80) K/mcL [place] # (Auto) (0.10-0.90) K/mcL Eos # (Auto) (0.00-0.70) K/mcL Baso # (Auto) (0.00-0.20) K/mcL Seg Neutrophils % (38-78) % Lymphocytes % (15-49) % Monocytes % (Manual) (1-12) % Absolute Neutrophils (1.80-8.00) K/mcL Reactive Lymphocytes (0-2) % Platelet Estimate (Normal) RBC Morphology (Normal) PT (11.9-14.5) sec INR (0.9-1.1) Sodium 133 (133-145) mmol/L Potassium 3.9 (3.3-5.1) mmol/L Chloride 99 (96-108) mmol/L Carbon Dioxide 24 (22-30) mmol/L Anion Gap 10.0 (8.0-16.0) BUN 9 (8-23) mg/dL Creatinine 0.7 (0.6-1.1) mg/dL GFR Calculation 89 Glucose 97 (70-105) mg/dL Uric Acid 2.7 (2.5-8.0) mg/dL Calcium 8.2 L (8.6-10.4) mg/dL Phosphorus 2.5 (2.5-4.5) mg/dL Magnesium 2.0 (1.6-2.5) mg/dL Total Bilirubin 0.6 (0.1-1.0) mg/dL Direct Bilirubin < 0.2 (0-0.3) mg/dL GGT 8 (5-36) U/L AST 15 (<32) U/L ALT 8 (<40) U/L Alkaline Phosphatase 48 (39-117) U/L Lactate Dehydrogenase 177 (135-225) U/L Total Protein 5.8 L (5.9-8.4) gm/dL Albumin 3.0 L (3.2-5.2) gm/dL Globulin 2.8 (2.2-3.7) gm/dL Albumin/Globulin Ratio 1.1 (1.0-2.3) Triglycerides 102 (<150) mg/dL Urine Color Urine Appearance Urine pH Ur Specific [place] Urine Protein Urine Glucose (UA) Urine Ketones Urine Occult Blood Urine Nitrate Ur Reducing Substances Urine Bilirubin Urine Ictotest Prot Sulfosalicylic Acd Urine Urobilinogen Ur Leukocyte Esterase Urine RBC Urine WBC Ur Squamous Epith Cells Ur Transition Epith Cell Ur Renal Epithelial Cell Calcium Carbonate Cryst Calcium Phosphate Cryst Calcium Oxalate Crystal Leucine Crystals Cystine Crystals Uric Acid Crystals Triple Phos Crystals Tyrosine Crystals Other Crystals Amorphous Crystals Urine Bacteria Cellular Casts Epithelial Casts Fatty Casts Hyaline Casts Granular Casts Waxy Casts Broad Casts RBC Casts WBC Casts Other Casts Urine Mucus Urine Trichomonas Ur Yeast w Hyphae Urine Yeast (Budding) Urine Sperm Ur Oval Fat Bodies Ur Free Fat Droplets Ur Culture Indicated? Discharge Plan Patient/Caregiver Discharge Instructions Prescriptions: No Action losartan 25 mg tablet 25 mg PO QDAY RF: 0 cholecalciferol (vitamin D3) 125 mcg (5,000 unit) capsule 125 mcg PO QDAY RF: 0 Plegridy 125 mcg/0.5 mL Syringe 125 mcg SUBCUT Q2W RF: 0 Senna-S 1 tab PO BID RF: 0 chromium picolinate 1,000 mcg Tablet 1,000 mcg PO QDAY RF: 0 Follow Up Plan Follow up with: Hernán Burnett MD [Physician] - 11/20/20 8:15 am Noa Key ARNP [Primary Care Provider] - Patient Disposition: Still a Patient
[2020-11-09] MEDS: SODIUM CHLORIDE IV SCH ×3 (11:00→12:20)
[2020-11-09] MEDS: COLD IV SCH ×3 (11:00→12:20)
[2020-11-09] MEDS ORDERED: PIPERACILLIN SODIUM/TAZOBACTAM 4.5 GM in DEXTROSE 5% IN WATER 50 ML IV SCH (11:00)
[2020-11-09 11:02] LABS: Hematocrit 32.7 % (36.0-48.0); Hemoglobin 11.1 g/dL (12.0-15.0); Mean Cell Volume 90.3 fL (80.0-100.0); Mean Corpuscular HGB Conc 33.9 g/dL (31.0-36.0); Mean Platelet Volume 10.5 fL (7.4-10.4); Platelet Count 204 K/mcL (140-440); RBC 3.62 M/mcL (4.00-5.20); Red Cell Distribution Width 12.2 % (11.5-14.5); WBC 12.6 K/mcL (4.5-11.0)
[2020-11-09] MEDS ORDERED: IOPAMIDOL 100 ML BOTTLE IV ONE (11:02)
--- NOTE | 2020-11-09 11:09 | Internal Medicine Consult Note ---
HPI Data of Consult Primary Care Provider: Hospitalist was consulted for a rapid response CODE sepsis triggered by fever, orthostatic hypotension, and trending leukocytosis. Noa Key is a 70-year-old female with a history of hypertension, reactive airway disease, multiple sclerosis (treated with pegylated interferon beta-1a), currently hospitalized following a laparoscopic sigmoid colon resection for a obstructing sigmoid stricture noted on colonoscopy 11/05/20. Briefly, the patient was hospitalized on 11/04/20 for EGD and colonoscopy noting the aforementioned stricture then underwent a laparoscopic lysis of adhesions and laparoscopic sigmoid colectomy on 11/05/2020. The post operative impression w as that there was redundant sigmoid causing scar tissue and stricture in the pelvis. The patient was progressing slowly post operatively however developed a fever of 101.2 on 11/08/20 and again had a fever on 11/09/20 along with orthostatic hypotension and new leukocytosis. Physical exam was most notable for abdominal tenderness, guarding, and erythema around the suprapubic laparoscopic surgical incision. Constitutional: positive for fever and fatigue Eyes: no vision changes or pain Cardiovascular: no chest pain, no palpitations Respiratory: no cough or dyspnea Gastrointestinal: positive for abodminal pain Genitourinary: no dysuria or difficulty voiding Musculoskeletal: no arthralgia or myalgia Integumentary: positive for abdominal erythema Neurological: no focal weakness or numbness Psychiatric: no anxiety or depression Head: Atraumatic, normal inspection. Eyes: normal appearance, no scleral icterus. Neck: full ROM Respiratory: no respiratory distress. Cardiovascular: normal rate and rhythm, S1, S2. GI/Abdominal: tenderness, guarding, erythema/cellulitis at suprapubic laparoscopic incision site. Extremities: full range of motion, nontender. Neurological: CN II-XII intact, intact motor, intact sensation. Psychiatric: anxious Skin: warm, normal color Consult Narrative cc:: CC: Hernán Burnett MD [facility] PFS All Active Problems Palpitations (Chronic) Dyspnea (Chronic) Bronchiectasis (Chronic) Essential hypertension (Chronic) Breast lump or mass (Chronic) Squeezing chest pain (Chronic) Reactive airway disease (Chronic) Cough (Chronic) Dyspareunia (Chronic) Depression (Chronic) Headache (Chronic) Hair loss (Chronic) Hematochezia (Chronic) Elevated blood pressure reading without diagnosis of hypertension (Chronic) IBS (irritable bowel syndrome) (Chronic) Tuberculosis (Chronic) Numbness (Chronic) Malignant melanoma of skin of upper extremity (Chronic) Multiple sclerosis (Chronic) Medical History Breast lump or mass Bronchiectasis Cough Depression Dyspareunia Dyspnea Elevated blood pressure reading without diagnosis of hypertension Essential hypertension Hair loss Headache Hematochezia IBS (irritable bowel syndrome) Malignant melanoma of skin of upper extremity Multiple sclerosis Numbness Palpitations Reactive airway disease Squeezing chest pain Tuberculosis Indeterminate TB diagnosis Surgical History History of adenoidectomy History of cholecystectomy (~1980) History of hysterectomy History of melanoma excision (~2012) History of tonsillectomy Family History Father , age 63 Diabetes mellitus Heart disease Mother , age 61 Malignant carcinoid tumor of lung Lung cancer Unknown Arthritis Brother , age 56 Pancreatitis Sister Pancreatitis Grandmother , age 91 Colon cancer Social History marital status: life partner occupational status: employed physical activity: walking and bicycling smoking status stop date: 08/15/79 alcohol intake frequency: a few times a month substance use type: does not use MEDS/ALLERGIES Home Medications and Allergies Home Medications Medication Instructions Recorded Confirmed Type losartan 25 mg tablet 25 mg PO QDAY 01/21/20 11/04/20 History cholecalciferol (vitamin D3) 125 125 mcg PO QDAY 01/30/20 11/04/20 History mcg (5,000 unit) capsule Senna-S 1 tab PO BID 11/04/20 11/04/20 History chromium picolinate 1,000 mcg PO QDAY 11/04/20 11/04/20 History peginterferon beta-1a [Plegridy] 125 mcg SUBCUT Q2W 11/04/20 11/04/20 History Allergies Allergy/AdvReac Type Severity Reaction Status Date / Time No Known Drug Allergies Allergy Verified 11/04/20 13:57 EXAM Constitutional Vitals: Temp Pulse Resp BP Pulse Ox 98.6 F 78 18 124/77 97 11/09/20 06:42 11/09/20 06:42 11/09/20 06:42 11/09/20 06:42 11/09/20 06:42 DATA Data Completed and Pending Labs: Labs from last 24 hours 11/09/20 11/09/20 11/09/20 10:23 10:23 05:04 WBC Pending 11.9 H RBC Pending 3.51 L Hgb Pending 10.6 L Hct Pending 31.7 L MCV Pending 90.3 MCH Pending 30.2 MCHC Pending 33.4 RDW Pending 12.2 Plt Count Pending 196 MPV Pending 10.3 Neut % (Auto) 79.8 H Lymph % (Auto) 14.1 L [place] % (Auto) 5.5 Eos % (Auto) 0.3 Baso % (Auto) 0.3 Lymph # (Auto) 1.67 [place] # (Auto) 0.65 Eos # (Auto) 0.03 Baso # (Auto) 0.03 Absolute Neutrophils 9.49 H Platelet Estimate Pending RBC Morphology Pending Sodium Pending Potassium Pending Chloride Pending Carbon Dioxide Pending Anion Gap Pending BUN Pending Creatinine Pending GFR Calculation Pending Glucose Pending Uric Acid Pending Calcium Pending Phosphorus Pending Magnesium Pending Total Bilirubin Pending Direct Bilirubin Pending GGT Pending AST Pending ALT Pending Alkaline Phosphatase Pending Lactate Dehydrogenase Pending Total Protein Pending Albumin Pending Globulin Pending Albumin/Globulin Ratio Pending Triglycerides Pending A/P Narrative A/P Narrative: Assessment: 70-year-old female with history of HTN, multiple sclerosis, status post laparoscopic sigmoid colectomy 11/05/20 for obstructing sigmoid stenosis now developing fever, cytosis, orthostatic hypotension, abdominal tenderness and possible abdominal cellulitis. Concerning for early sepsis secondary to surgical site infection/complication. Currently hemo dynamically stable, lactic acid 1.0. #Possible sepsis #Possible surgical site infection/complication #Abdominal cellulitis #Sigmoid stricture status post endoscopic colectomy #Essential hypertension #Multiple sclerosis Plan -IVF bolus 30 mL/kg then continuous (switched IVF from LR to NS for Zosyn to be compatible) -Blood cultures x2. -Vancomycin IV per Rx and Zosyn -CT abd/pelvis w/ con -Hold Losartan. -Transfer to ICU if hypotensive. -Surgery aware. Time Spent With Patient Time: Total time spent is greater than 50% in coordination of care (as documented) at patient's floor/unit and/or counseling patient:
[2020-11-09] MEDS: LOSARTAN 25 MG TABLET PO SCH (11:44)
[2020-11-09 11:51] LABS: ALT/SGPT 8 U/L (<40); AST/SGOT 15 U/L (<32); Albumin/Globulin Ratio 1.1 (1.0-2.3); Alkaline Phosphatase 48 U/L (39-117); Bilirubin,Direct < 0.2 mg/dL (0-0.3); Bilirubin,Total 0.6 mg/dL (0.1-1.0); Blood Urea Nitrogen 9 mg/dL (8-23); Calcium 8.2 mg/dL (8.6-10.4); Carbon Dioxide 24 mmol/L (22-30); Chloride 99 mmol/L (96-108); Globulin 2.8 gm/dL (2.2-3.7); Glomerular Filtration Rate 89; Glucose 97 mg/dL (70-105); Lactate Dehydrogenase 177 U/L (135-225); Lymphocytes % 8 % (15-49); Monocytes % (Manual) 3 % (1-12); Phosphorous 2.5 mg/dL (2.5-4.5); Platelet Estimate NORMAL (Normal); RBC Morphology NORMAL (Normal); Reactive Lymphocytes 1 % (0-2); Segmented Neutrophils % 88 % (38-78); Triglycerides 102 mg/dL (<150); Uric Acid 2.7 mg/dL (2.5-8.0)
[2020-11-09] MEDS: 0.9 % SODIUM CHLORIDE 1,000 ML IV SCH ×2 (12:00→21:58)
[2020-11-09] MEDS: VANCOMYCIN 1,000 MG in 0.9 % SODIUM CHLORIDE 250 ML IV SCH (12:54)
[2020-11-09] MEDS: ACETAMINOPHEN 500 MG TABLET PO PRN ×2 (14:30→21:58)
--- NOTE | 2020-11-09 15:09 | Cat Scan Report ---
CLINICAL INFORMATION: Abdominal pain. History of sigmoid colectomy. Possible rectal bleed. Hypotension COMPARISON: Abdomen and pelvic CT 10/10/2020 TECHNIQUE: Enteric contrast was utilized. 80 cc of Isovue-370 were injected intravenously, and 50 seconds later 2.5 mm helical slices were obtained from the lung apices through the subtrochanteric regions of the femurs. Following reconstruction, 2.5 mm sagittal, coronal and axial reformatted images were processed and reviewed at multiple windows and levels. 7 mm MIP reconstructions were obtained through the lungs to optimize nodule detection.The exam was performed using radiation dose optimization techniques including, but not limited to, automated exposure control, adjustment of the mA and/or kV according to patient size and use of iterative reconstruction technique. FINDINGS: Pulmonary parenchymal windows show subsegmental atelectasis in both posterior lower lobes. No infiltrates no effusions The mediastinal windows show the heart is normal in size with minimal scattered fibrofatty calcific plaque in the coronary arteries. The thoracic aorta is normal in diameter with mild diffuse intimal thickening. Pulmonary arteries also normal diameter - no emboli appreciated. There is no adenopathy in the mediastinal hilar or axillary regions. No mediastinal hemorrhage. The esophagus is grossly normal. Thyroid is unremarkable. Abdominal images show mild fatty change within the liver. There is a 14 mm cyst in the inferior right hepatic lobe. The gallbladder is surgically absent. Common bile duct is moderately dilated - 12 mm with abrupt tapering in the ampullary region. On prior CT, there was a periampullary diverticulum but this is difficult to appreciate on today's study. The pancreatic duct is normal in caliber. 18 mm cystic lesion in the uncinate process may represent simple cyst or low-grade IPMN. No change. Both kidneys, adrenal glands, spleen are normal. Aorta contains atherosclerotic plaque, but is normal diameter. Celiac, SMA, CANELO renal iliac arteries contain plaque, but no stenoses. Pelvic images show urinary bladder is unremarkable. Hysterectomy and oophorectomy changes noted. Partial sigmoid colectomy changes noted with surgical clips in the anastomotic site in the distal sigmoid colon. The stomach, small and large bowel are mildly dilated. No definite evidence for obstruction. Moderate simple ascites in the perihepatic, right paracolic gutter and deep true pelvis noted. 3.2 cm air-containing fluid collection in Camper's fascia in the anterior abdominal wall of the false pelvis appreciated. Small masses. Mild soft tissue swelling gas more inferiorly in Camper's fascia extending along the symphysis pubis. Presumably, this is related recent postsurgical incision. Moderate sheet like gas is seen in right upper quadrant anterior abdominal wall musculature between the external oblique and internal oblique appreciated also likely postsurgical. IMPRESSION: 1. No CT evidence for GI bleed. 2. Moderate simple ascites in the perihepatic and right paracolic gutter likely related related to recent surgery. No hemoperitoneum. 3. Mild ileus. No definite evidence for bowel obstruction. 4. Partial sigmoid colectomy changes 5. 3.2 cm fluid collection with gas in Camper's fascia in the false pelvis region at midline. Presumably, this represents site of surgical incision. Small abscess not excluded. 6. Moderate common bile duct dilatation - 14 mm presumably related to postcholecystectomy and periampullary diverticulum. No change 7. 18 mm cystic lesion in the uncinate process of the pancreas - stable. Simple cyst versus low-grade IPMN. Suggest follow-up CT or MRI in 6-12 months. Interpreted and Authenticated by: Arturo Jones 11/09/20
[2020-11-09 16:30] LABS: Appearance,Urine CLEAR (Clear); Bilirubin,Urine Negative (Negative); Color,Urine YELLOW; Culture Indicated,Urine No; Glucose,Urine (UA) Negative (Negative); Ketones,Urine 20 mg/dL (Negative); Leukocyte Esterase,Urine Negative /ug (Negative); Nitrate,Urine Negative (Negative); Protein,Urine Negative (Negative); Specific Gravity,Urine 1.058 (1.000-1.035); Urine Blood Negative (Negative); Urobilinogen,Urine Negative
[2020-11-09] MEDS: 0.9 % SODIUM CHLORIDE 10 ML SYRINGE IV SCH (21:04)
[2020-11-10] MEDS: morphine 2 MG/ML VIAL IV PRN (02:43)
[2020-11-10] MEDS: 0.9 % SODIUM CHLORIDE 1,000 ML IV SCH ×5 (02:51→19:57)
[2020-11-10] MEDS: 0.9 % SODIUM CHLORIDE 10 ML SYRINGE IV SCH ×3 (04:28→20:48)
[2020-11-10] MEDS: ONDANSETRON 4 MG/2 ML VIAL IV PRN (04:53)
--- NOTE | 2020-11-10 05:57 | XRay Report ---
INDICATION: ng tube placement TECHNIQUE: Supine abdomen. COMPARISON: CT scan dated 11/09/2020 FINDINGS:Esophagogastric tube in the body of the stomach. Sidehole of the catheter is below the diaphragm. Prominent gas-filled small bowel may represent ileus. Significant bowel obstruction was not demonstrated on CT scan dated 11/09/2020. Examination was initially interpreted by [facility] IMPRESSION: Esophagogastric tube in the stomach Interpreted and Authenticated by: Arturo Cuadra 11/10/20
[2020-11-10 06:21] LABS: Basophils # (Auto) 0.01 K/mcL (0.00-0.20); Basophils % (Auto) 0.2 % (0.0-2.0); Eosinophils # (Auto) 0.04 K/mcL (0.00-0.70); Eosinophils % (Auto) 0.9 % (0.0-7.0); Hematocrit 36.5 % (36.0-48.0); Hemoglobin 11.7 g/dL (12.0-15.0); Lymphocytes # (Auto) 1.95 K/mcL (1.50-4.80); Lymphocytes % (Auto) 42.6 % (15.0-49.0); Mean Cell Volume 96.1 fL (80.0-100.0); Mean Corpuscular HGB Conc 32.1 g/dL (31.0-36.0); Mean Platelet Volume 10.3 fL (7.4-10.4); Monocytes # (Auto) 0.26 K/mcL (0.10-0.90); Monocytes % (Auto) 5.7 % (1.0-12.0); Neutrophils % (Auto) 50.6 % (38.0-78.0); Platelet Count 280 K/mcL (140-440); Red Cell Distribution Width 12.8 % (11.5-14.5); WBC 4.6 K/mcL (4.5-11.0)
[2020-11-10 06:45] LABS: Blood Urea Nitrogen 12 mg/dL (8-23); Calcium 8.2 mg/dL (8.6-10.4); Carbon Dioxide 18 mmol/L (22-30); Chloride 108 mmol/L (96-108); Glomerular Filtration Rate 75; Glucose 101 mg/dL (70-105)
[2020-11-10] MEDS: VANCOMYCIN 1,000 MG in 0.9 % SODIUM CHLORIDE 250 ML IV SCH (09:09)
[2020-11-10] MEDS ORDERED: [UNRECOGNIZED DRUG - OTHER] IV PRN (10:14)
[2020-11-10] MEDS: ACETAMINOPHEN 650 MG/65 ML BAG IV PRN (10:38)
--- NOTE | 2020-11-10 12:59 | General Surgery Progress Note ---
SUBJECTIVE Subjective Patient information: Note initiated : 11/10/20 at 12:58 pm Service Date, if different from initiated Date: [] Patient: Marge Benitez 70 y/o F admitted on 11/04/20 for Esophogogastroduodenoscopy and Colonoscopy. Chief Complaint: [] Interval history: Post op from [facility] sigmoid, yesterdays work up noted. Over night, nausea and emisis along with abdominal cramping returned. CT with ileus and soft tissue fluid collection noted. Started on abx. Constitutional Vitals: Vital Signs Temp Pulse Resp BP Pulse Ox 100.4 F H 92 H 24 H 121/75 94 11/10/20 12:00 11/10/20 12:00 11/10/20 12:00 11/10/20 12:00 11/10/20 12:00 Period Temp Pulse Resp BP Sys/Allen Pulse Ox Last 24 Hr 97.9 F-103.0 F 77-93 15-24 111-141/71-77 93-98 Intake and Output 11/09/20 11/10/20 11/10/20 21:59 05:59 13:59 Intake Total 1000 1179 315 Output Total 650 301 Balance 350 878 315 Weight 118 lb 1 oz Intake & Output: Intake & Output 11/09/20 11/10/20 11/10/20 21:59 05:59 13:59 Intake Total 1000 1179 315 Output Total 650 301 Balance 350 878 315 Weight 118 lb 1 oz Intake: IV 1000 979 315 Sodium Chloride 0.9% 1,000 ml @ 1000 979 125 mls/hr IV .Q8H [facility] Rx#: [id number] Vancomycin 1,000 mg In Sodium 250 Chloride 0.9% 250 ml @ 250 mls/ hr IV Q24H [facility] Rx#:[id number] Oral 200 Tube Feeding 0 0 Output: Void Amount 500 100 # of times incontinent of urine 1 Urine/Stool Mix 150 200 Other: Urine Appearance Clear Clear Urine Color Dark Yellow Bright Yellow Urine Odor Normal Stool Size Moderate Moderate Moderate Stool Color Brown Brown Brown Yellow Stool Consistency Liquid Watery Liquid # Bowel Movements 1 # of times incontinent of 1 1 1 Bowels General appearance: cooperative and no acute distress GI/Abdominal GI/Abdominal exam: Present soft, distended and tenderness (Tender to palpation, no rebound, no garding) Additional comments: inferior incision opened at bedside, 15 cc pus removed. No evidence of stool. A/P Narrative A/P Narrative: Post op sigmoid colectomy, patient with superficial abscess and ileus. Continues to have good bowel function. Abscess opened cont NPO, ngt until distention resolves. Time Spent With Patient Time: Total time spent is greater than 50% in coordination of care (as documented) at patient's floor/unit and/or counseling patient:
--- NOTE | 2020-11-10 13:50 | Internal Med Progress Note ---
SUBJECTIVE Subjective Patient information: Note initiated : 11/10/20 at 1:38 pm Service Date, if different from initiated Date: [] Patient: Marge Benitez 70 y/o F admitted on 11/04/20 for Esophogoga stroduodenoscopy and Colonoscopy. Chief Complaint: [] Interval history: Hospitalist was consulted for a rapid response CODE sepsis triggered by fever, orthostatic hypotension, and trending leukocytosis. Noa Key is a 70-year-old female with a history of hypertension, reactive airway disease, multiple sclerosis (treated with pegylated interferon beta-1a), currently hospitalized following a laparoscopic sigmoid colon resection for a obstructing sigmoid stricture noted on colonoscopy on 11/05/20. The operative indicated there was redundant sigmoid causing scar tissue/adhesions very likely the reason for the sigmoid stricture. The patient was progressing slowly post-operatively however developed a fever of 101.2 on 11/08/20 and again had a fever on 11/09/20 along with orthostatic hypotension and new leukocytosis. Physical exam was most notable for abdominal tenderness, guarding, and erythema around the suprapubic laparoscopic surgical incision. Blood cultures, UA and urine culture, CT chest/abd/pelvis and broad spectrum antibiotics started. Surgery did not feel the CT scan was suggestive of a cause for her symptoms and UA did not suggest UTI nor is was there evidence of pneumnoia therefore Zosyn was discontinued. Vancomycin IV was continued due to concern of abdominal cellulitis. 11/10 Had NG placed overnight for concern of possible ileus. Persistent fevers today but leukocytosis resolved. Mild anion gap metabolic acidosis, lactic acid normal. Blood cx NGTD. Per report had multiple loose stools overnight and incontinent. Surgery performed I&D of inferior laparoscopic incision and drained puss consistent with abscess and probably the cause of fevers. Head: Atraumatic, normal inspection. Eyes: normal appearance, no scleral icterus. Neck: full ROM Respiratory: no respiratory distress. Cardiovascular: normal rate and rhythm, S1, S2. GI/Abdominal: tenderness most prominent in suprapubic and LLQ Extremities: full range of motion, nontender. Neurological: CN II-XII intact, intact motor, intact sensation. Psychiatric: normal mood. Skin: redness in suprapubic abdomen with stria Constitutional Vitals: Vital Signs Temp Pulse Resp BP Pulse Ox 100.4 F H 92 H 24 H 121/75 94 11/10/20 12:00 11/10/20 12:00 11/10/20 12:00 11/10/20 12:00 11/10/20 12:00 Period Temp Pulse Resp BP Sys/Allen Pulse Ox Last 24 Hr 97.9 F-103.0 F 77-93 15-24 111-141/71-77 93-98 Intake and Output 11/09/20 11/10/20 11/10/20 21:59 05:59 13:59 Intake Total 1000 1179 315 Output Total 650 301 275 Balance 350 878 40 Weight 53.552 kg Intake & Output: Intake & Output 11/09/20 11/10/20 11/10/20 21:59 05:59 13:59 Intake Total 1000 1179 315 Output Total 650 301 275 Balance 350 878 40 Weight 53.552 kg Intake: IV 1000 979 315 Sodium Chloride 0.9% 1,000 ml @ 1000 979 125 mls/hr IV .Q8H [facility] Rx#: [id number] Vancomycin 1,000 mg In Sodium 250 Chloride 0.9% 250 ml @ 250 mls/ hr IV Q24H [facility] Rx#:[id number] Oral 200 Tube Feeding 0 0 Output: Void Amount 500 100 # of times incontinent of urine 1 Urine/Stool Mix 150 200 275 Other: Urine Appearance Clear Clear Urine Color Dark Yellow Bright Yellow Urine Odor Normal Stool Size Moderate Moderate Moderate Stool Color Brown Brown Brown Yellow Stool Consistency Liquid Watery Liquid # Bowel Movements 1 # of times incontinent of 1 1 1 Bowels OBJ DATA Labs CBC & Chem 7: 11/10/20 05:05 11/10/20 05:05 Labs: Abnormal Lab Results 11/10/20 11/10/20 11/10/20 05:05 05:05 05:05 WBC RBC 3.80 L Hgb 11.7 L Hct MPV Neut % (Auto) Lymph % (Auto) Seg Neutrophils % Lymphocytes % Absolute Neutrophils Carbon Dioxide 18 L Anion Gap 17.0 H BUN Calcium 8.2 L C-Reactive Protein 11.80 H Total Protein Albumin Urine Ketones 11/09/20 11/09/20 11/09/20 15:10 10:23 10:23 WBC 12.6 H RBC 3.62 L Hgb 11.1 L Hct 32.7 L MPV 10.5 H Neut % (Auto) Lymph % (Auto) Seg Neutrophils % 88 H Lymphocytes % 8 L Absolute Neutrophils Carbon Dioxide Anion Gap BUN Calcium 8.2 L C-Reactive Protein Total Protein 5.8 L Albumin 3.0 L Urine Ketones 20 A 11/09/20 11/08/20 11/08/20 05:04 05:14 05:14 WBC 11.9 H RBC 3.51 L 3.48 L Hgb 10.6 L 10.6 L Hct 31.7 L 32.6 L MPV 10.6 H Neut % (Auto) 79.8 H Lymph % (Auto) 14.1 L Seg Neutrophils % Lymphocytes % Absolute Neutrophils 9.49 H Carbon Dioxide Anion Gap 6.0 L BUN 7 L Calcium 8.2 L C-Reactive Protein Total Protein Albumin Urine Ketones Meds: Medications Acetaminophen (Acetaminophen 500 Mg Tablet) 500 mg PO Q6HP PRN; Protocol PRN Reason: Per Pain Protocol Last Admin: 11/09/20 21:58 Dose: 500 mg Documented by: Sodium Chloride (Sodium Chloride 0.9%) 1,000 mls @ 125 mls/hr IV .Q8H [facility] Last Admin: 11/10/20 05:48 Dose: 125 mls/hr Documented by: Vancomycin HCl 1,000 mg/ (Sodium Chloride) 250 mls @ 250 mls/hr IV Q24H [facility] Last Infusion: 11/10/20 10:24 Dose: Infused Documented by: Acetaminophen (Ofirmev) 650 mg in 65 mls @ 130 mls/hr IV Q6HP PRN PRN Reason: PAIN/FEVER > 101 Last Infusion: 11/10/20 11:10 Dose: Infused Documented by: Morphine Sulfate (Morphine 2 Mg/Ml Vial) 2 mg IV Q2HP PRN; Protocol PRN Reason: Per Pain Protocol Last Admin: 11/10/20 02:43 Dose: 2 mg Documented by: Ondansetron HCl (Ondansetron 4 Mg/2 Ml Vial) 4 mg IV Q4HP PRN PRN Reason: Nausea And Vomiting Last Admin: 11/10/20 04:53 Dose: 4 mg Documented by: Sodium Chloride (0.9 % Sodium Chloride 10 Ml Syringe) 10 ml IV Q8 [facility] Last Admin: 11/10/20 04:28 Dose: Not Given Documented by: Vancomycin HCl (Vancomycin Per Pharmacy) 1 [place] [facility] [place] Protocol A/P Narrative A/P Narrative: Assessment: 70-year-old female with history of HTN, multiple sclerosis, status post laparoscopic sigmoid colectomy 11/05/20 for obstructing sigmoid stenosis later developed fever, cytosis, orthostatic hypotension, abdominal tenderness and possible abdominal cellulitis. CT abd/pelvis showed a fluid collection with gas in the lower laparoscopic surgical incision. This was opened at bedside by surgery and drained puss consistent with a small abscess, this abscess/cellulitis was likely the cause of the patient's fevers. #Abscess of laparoscopic incision site: drained at bedside #Abdominal cellulitis: improving #Possible ileus: resolving #Anion gap metabolic acidosis #Sigmoid stricture: status post laparoscopic colectomy #Essential hypertension #Multiple sclerosis #Stool incontinence Plan -Vancomycin IV per Rx continue until fevers resolve then could transition to doxycycline or linezolid to complete treatment. -F/u blood cultures x2: NGTD. -Follow CBC/CMP/CRP -Hold Losartan until fevers resolve. -NG per surgery. -Surgery following. Time Spent With Patient Time: Total time spent is greater than 50% in coordination of care (as documented) at patient's floor/unit and/or counseling patient: QUALITY VTE Deep Vein Thrombosis/Pulmonary Embolism Present on Admission: No
[2020-11-11] MEDS: 0.9 % SODIUM CHLORIDE 1,000 ML IV SCH ×2 (00:06→01:47)
[2020-11-11] MEDS: ACETAMINOPHEN 650 MG/65 ML BAG IV PRN ×3 (00:20→14:03)
[2020-11-11] MEDS: 0.9 % SODIUM CHLORIDE 10 ML SYRINGE IV SCH ×3 (04:13→21:13)
[2020-11-11 06:08] LABS: Hemoglobin 10.5 g/dL (12.0-15.0); Mean Cell Volume 92.2 fL (80.0-100.0); Mean Corpuscular HGB Conc 32.8 g/dL (31.0-36.0); Mean Platelet Volume 9.6 fL (7.4-10.4); Platelet Count 284 K/mcL (140-440); RBC 3.47 M/mcL (4.00-5.20); Red Cell Distribution Width 13.1 % (11.5-14.5); WBC 11.6 K/mcL (4.5-11.0)
[2020-11-11 06:32] LABS: ALT/SGPT 7 U/L (<40); AST/SGOT 12 U/L (<32); Albumin 2.4 gm/dL (3.2-5.2); Albumin/Globulin Ratio 0.9 (1.0-2.3); Alkaline Phosphatase 36 U/L (39-117); Bilirubin,Total 0.4 mg/dL (0.1-1.0); Blood Urea Nitrogen 16 mg/dL (8-23); Calcium 8.1 mg/dL (8.6-10.4); Carbon Dioxide 17 mmol/L (22-30); Chloride 111 mmol/L (96-108); Globulin 2.7 gm/dL (2.2-3.7); Glomerular Filtration Rate 65; Glucose 96 mg/dL (70-105)
[2020-11-11] MEDS ORDERED: POTASSIUM CHLORIDE 20 MEQ TABLET PO ONE (06:53)
[2020-11-11 07:33] LABS: Anisocytosis 1+ (None Seen); Band Neutrophils % 51 % (0-10); Lymphocytes % 8 % (15-49); Monocytes % (Manual) 2 % (1-12); Ovalocytes 2+ (None Seen); Platelet Estimate NORMAL (Normal); RBC Fragments FEW (None Seen); RBC Morphology ABNORMAL (Normal); Segmented Neutrophils % 39 % (38-78)
--- NOTE | 2020-11-11 07:49 | Internal Med Progress Note ---
SUBJECTIVE Subjective Patient information: Note initiated : 11/11/20 at 7:48 am Service Date, if different from initiated Date: [] Patient: Marge Benitez 70 y/o F admitted on 11/04/20 for Esophogoga stroduodenoscopy and Colonoscopy. Chief Complaint: [] Interval history: Hospitalist was consulted for a rapid response CODE sepsis triggered by fever, orthostatic hypotension, and trending leukocytosis. Marge Benitez is a 70-year-old female with a history of hypertension, reactive airway disease, multiple sclerosis (treated with pegylated interferon beta-1a), currently hospitalized following a laparoscopic sigmoid colon resection for a obstructing sigmoid stricture noted on colonoscopy on 11/05/20. The operative indicated there was redundant sigmoid causing scar tissue/adhesions very likely the reason for the sigmoid stricture. The patient was progressing slowly post- operatively however developed a fever of 101.2 on 11/08/20 and again had a fever on 11/09/20 along with orthostatic hypotension and new leukocytosis. Physical exam was most notable for abdominal tenderness, guarding, and erythema around the suprapubic laparoscopic surgical incision. Blood cultures, UA and urine culture, CT chest/abd/pelvis and broad spectrum antibiotics started. Surgery did not feel the CT scan was suggestive of a cause for her symptoms and UA did not suggest UTI nor is was there evidence of pneumonoia therefore Zosyn was discontinued. Vancomycin IV was continued due to concern of abdominal cellulitis. 11/10 Had NG placed overnight for concern of possible ileus. Persistent fevers today but leukocytosis resolved. Mild anion gap metabolic acidosis, lactic acid normal. Blood cx NGTD. Per report had multiple loose stools overnight and incontinent. Surgery performed I&D of inferior laparoscopic incision and drained puss consistent with abscess and probably the cause of fevers. 11/11 Afebrile overnight, still has NG tube, low potassium replaced. CRP increased and mild leukocytosis but overall looks better. Head: Atraumatic, normal inspection. Eyes: normal appearance, no scleral icterus. Neck: full ROM Respiratory: no respiratory distress. Cardiovascular: normal rate and rhythm, S1, S2. GI/Abdominal: tenderness most prominent in suprapubic and LLQ Extremities: full range of motion, nontender. Neurological: CN II-XII intact, intact motor, intact sensation. Psychiatric: normal mood. Skin: redness in suprapubic abdomen with stria Constitutional Vitals: Vital Signs Temp Pulse Resp BP Pulse Ox 98.7 F 90 22 137/80 96 11/11/20 03:58 11/11/20 03:58 11/11/20 03:58 11/11/20 03:58 11/11/20 03:58 Period Temp Pulse Resp BP Sys/Allen Pulse Ox Last 24 Hr 97.7 F-103.0 F 90-99 15-24 121-146/70-80 93-98 Intake and Output 11/10/20 11/11/20 11/11/20 21:59 05:59 13:59 Intake Total 0 1065 65 Output Total 800 450 Balance -800 615 65 Weight 54.522 kg Intake & Output: Intake & Output 11/10/20 11/11/20 11/11/20 21:59 05:59 13:59 Intake Total 0 1065 65 Output Total 800 450 Balance -800 615 65 Weight 54.522 kg Intake: IV 1065 65 Sodium Chloride 0.9% 1,000 ml @ 1000 125 mls/hr IV .Q8H [facility] Rx#: [id number] Tube Feeding 0 Output: Gastric Drainage 200 150 Right Nare 200 150 Void Amount 200 Urine/Stool Mix 600 100 Other: Urine Color Dark Yellow Stool Size Small Small Stool Color Green Green Stool Consistency Liquid Liquid Loose Watery # of times incontinent of 1 1 Bowels OBJ DATA Labs CBC & Chem 7: 11/11/20 05:09 11/11/20 05:09 Labs: Abnormal Lab Results 11/11/20 11/11/20 11/10/20 05:09 05:09 05:05 WBC 11.6 H RBC 3.47 L Hgb 10.5 L Hct 32.0 L MPV Neut % (Auto) Lymph % (Auto) Seg Neutrophils % Band Neutrophils % 51 H Lymphocytes % 8 L Absolute Neutrophils RBC Morphology Abnormal A Anisocytosis 1+ A Ovalocytes 2+ A RBC Fragments Few A Potassium 3.1 L Chloride 111 H Carbon Dioxide 17 L Anion Gap Calcium 8.1 L Alkaline Phosphatase 36 L C-Reactive Protein 30.00 H 11.80 H Total Protein 5.1 L Albumin 2.4 L Albumin/Globulin Ratio 0.9 L Urine Ketones 11/10/20 11/10/20 11/09/20 05:05 05:05 15:10 WBC RBC 3.80 L Hgb 11.7 L Hct MPV Neut % (Auto) Lymph % (Auto) Seg Neutrophils % Band Neutrophils % Lymphocytes % Absolute Neutrophils RBC Morphology Anisocytosis Ovalocytes RBC Fragments Potassium Chloride Carbon Dioxide 18 L Anion Gap 17.0 H Calcium 8.2 L Alkaline Phosphatase C-Reactive Protein Total Protein Albumin Albumin/Globulin Ratio Urine Ketones 20 A 11/09/20 11/09/20 11/09/20 10:23 10:23 05:04 WBC 12.6 H 11.9 H RBC 3.62 L 3.51 L Hgb 11.1 L 10.6 L Hct 32.7 L 31.7 L MPV 10.5 H Neut % (Auto) 79.8 H Lymph % (Auto) 14.1 L Seg Neutrophils % 88 H Band Neutrophils % Lymphocytes % 8 L Absolute Neutrophils 9.49 H RBC Morphology Anisocytosis Ovalocytes RBC Fragments Potassium Chloride Carbon Dioxide Anion Gap Calcium 8.2 L Alkaline Phosphatase C-Reactive Protein Total Protein 5.8 L Albumin 3.0 L Albumin/Globulin Ratio Urine Ketones Meds: Medications Acetaminophen (Acetaminophen 500 Mg Tablet) 500 mg PO Q6HP PRN; Protocol PRN Reason: Per Pain Protocol Last Admin: 11/09/20 21:58 Dose: 500 mg Documented by: Vancomycin HCl 1,000 mg/ (Sodium Chloride) 250 mls @ 250 mls/hr IV Q24H [facility] Last Infusion: 11/10/20 10:24 Dose: Infused Documented by: Acetaminophen (Ofirmev) 650 mg in 65 mls @ 130 mls/hr IV Q6HP PRN PRN Reason: PAIN/FEVER > 101 Last Infusion: 11/11/20 06:32 Dose: Infused Documented by: Potassium Chloride/Dextrose/Sod Cl (Dextrose 5%-1/2ns W/20meq Kcl) 1,000 mls @ 100 mls/hr IV .Q10H [facility] Morphine Sulfate (Morphine 2 Mg/Ml Vial) 2 mg IV Q2HP PRN; Protocol PRN Reason: Per Pain Protocol Last Admin: 11/10/20 02:43 Dose: 2 mg Documented by: Ondansetron HCl (Ondansetron 4 Mg/2 Ml Vial) 4 mg IV Q4HP PRN PRN Reason: Nausea And Vomiting Last Admin: 11/10/20 04:53 Dose: 4 mg Documented by: Sodium Chloride (0.9 % Sodium Chloride 10 Ml Syringe) 10 ml IV Q8 [facility] Last Admin: 11/11/20 04:13 Dose: Not Given Documented by: Vancomycin HCl (Vancomycin Per Pharmacy) 1 order IV UD [facility]; Protocol A/P Narrative A/P Narrative: Assessment: 70-year-old female with history of HTN, multiple sclerosis, status post laparoscopic sigmoid colectomy 11/05/20 for obstructing sigmoid stenosis later developed fever, cytosis, orthostatic hypotension, abdominal tenderness and possible abdominal cellulitis. CT abd/pelvis showed a fluid collection with gas in the lower laparoscopic surgical incision. This was opened at bedside by surgery and drained puss consistent with a small abscess, this abscess/cellulitis was likely the cause of the patient's fevers. #Abscess of laparoscopic incision site: drained at bedside #Abdominal cellulitis: probably resolved (has chronic erythema from Plegridy SQ injections) #Possible ileus: resolving #Anion gap metabolic acidosis: resolved #Sigmoid stricture: status post laparoscopic colectomy #Essential hypertension: stable #Multiple sclerosis: treated with Plegridy #Stool incontinence #Malnourishment #Generalized weakness Plan -Vancomycin IV per Rx continue until fevers resolve 48 hrs then could transition to doxycycline or linezolid to complete treatment for presumed MRSA abscess/[place] lulitis. -F/u blood cultures x2: NGTD. -Holding Losartan for now. -Wound cares for abscess. -NG per surgery. -Surgery following. Time Spent With Patient Time: Total time spent is greater than 50% in coordination of care (as documented) at patient's floor/unit and/or counseling patient: QUALITY VTE Deep Vein Thrombosis/Pulmonary Embolism Present on Admission: No
[2020-11-11] MEDS: DEXTROSE 5%-1/2NS W/20MEQ KCL 1,000 ML IV SCH ×3 (07:57→23:35)
[2020-11-11] MEDS: VANCOMYCIN 1,000 MG in 0.9 % SODIUM CHLORIDE 250 ML IV SCH ×3 (09:17→22:01)
--- NOTE | 2020-11-11 12:48 | General Surgery Progress Note ---
SUBJECTIVE Subjective Patient information: Note initiated : 11/11/20 at 12:45 pm Service Date, if different from initiated Date: [] Patient: Marge Benitez 70 y/o F admitted on 11/04/20 for Esophogogastroduodenoscopy and Colonoscopy. Chief Complaint: [] Interval history: Patient with elevated temperatures yesterday, have since decreased since drainage of abdominal incision. Patient feels less distended, less crampy abdominal pain, continues with loose bowel movements. Constitutional Vitals: Vital Signs Temp Pulse Resp BP Pulse Ox 97.9 F 89 20 132/72 97 11/11/20 12:00 11/11/20 12:00 11/11/20 12:00 11/11/20 12:00 11/11/20 12:00 Period Temp Pulse Resp BP Sys/Allen Pulse Ox Last 24 Hr 97.7 F-99.3 F 88-99 15-24 128-146/70-80 96-98 Intake and Output 11/10/20 11/11/20 11/11/20 21:59 05:59 13:59 Intake Total 0 1065 965 Output Total 800 450 501 Balance -800 615 464 Weight 120 lb 3.2 oz Intake & Output: Intake & Output 11/10/20 11/11/20 11/11/20 21:59 05:59 13:59 Intake Total 0 1065 965 Output Total 800 450 501 Balance -800 615 464 Weight 120 lb 3.2 oz Intake: IV 1065 865 Sodium Chloride 0.9% 1,000 ml @ 1000 800 125 mls/hr IV .Q8H [facility] Rx#: [id number] Oral 100 Tube Feeding 0 0 Output: Gastric Drainage 200 150 Right Nare 200 150 Void Amount 200 # of times incontinent of urine 1 Urine/Stool Mix 600 100 500 Other: Urine Color Dark Yellow Stool Size Small Small Small Stool Color Green Green Yellow Green Stool Consistency Liquid Liquid Watery Loose Watery Loose # Bowel Movements 1 # of times incontinent of 1 1 1 Bowels General appearance: cooperative and no acute distress Cardiovascular Cardiovascular exam: Present normal rate and rhythm GI/Abdominal GI/Abdominal exam: Present soft and tenderness (Mild tenderness throughout, less so since yesterday); Absent distended Additional comments: Incisions are clean dry and intact, inferior incision is open with good relation tissue, no evidence of continued drainage. A/P Narrative A/P Narrative: Postop laparoscopic assisted sigmoid colectomy, patient is slowly improving with what appears to be her return of bowel function. Clamp NG tube for 6 hours if tolerates will remove. Continue with ice chips as tolerated. Encourage ambulation. We will continue to follow fever curve and white blood cell count. Time Spent With Patient Time: Total time spent is greater than 50% in coordination of care (as documented) at patient's floor/unit and/or counseling patient:
[2020-11-11] MEDS ORDERED: 0.9 % SODIUM CHLORIDE 1,000 ML IV ONE (19:41)
[2020-11-11 20:59] LABS: Hematocrit 32.7 % (36.0-48.0); Hemoglobin 11.1 g/dL (12.0-15.0); Mean Cell Volume 89.3 fL (80.0-100.0); Mean Corpuscular HGB Conc 33.9 g/dL (31.0-36.0); Mean Platelet Volume 10.1 fL (7.4-10.4); Platelet Count 364 K/mcL (140-440); RBC 3.66 M/mcL (4.00-5.20); Red Cell Distribution Width 13.2 % (11.5-14.5); WBC 11.1 K/mcL (4.5-11.0)
[2020-11-11 21:01] LABS: ALT/SGPT 8 U/L (<40); AST/SGOT 16 U/L (<32); Albumin 2.7 gm/dL (3.2-5.2); Albumin/Globulin Ratio 0.9 (1.0-2.3); Alkaline Phosphatase 46 U/L (39-117); Bilirubin,Direct < 0.2 mg/dL (0-0.3); Bilirubin,Total 0.4 mg/dL (0.1-1.0); Blood Urea Nitrogen 20 mg/dL (8-23); Carbon Dioxide 19 mmol/L (22-30); Chloride 110 mmol/L (96-108); Glomerular Filtration Rate 75; Glucose 162 mg/dL (70-105); Lactate Dehydrogenase 170 U/L (135-225); Phosphorous 1.1 mg/dL (2.5-4.5); Triglycerides 97 mg/dL (<150); Uric Acid 3.3 mg/dL (2.5-8.0)
[2020-11-11 21:02] LABS: Band Neutrophils % 7 % (0-10); Lymphocytes % 6 % (15-49); Monocytes % (Manual) 4 % (1-12); Platelet Estimate NORMAL (Normal); RBC Morphology NORMAL (Normal); Segmented Neutrophils % 83 % (38-78)
[2020-11-11] MEDS: VANCOMYCIN ORAL SOL 1,000 MG/10 ML BOTTLE PO SCH (21:12)
[2020-11-11] MEDS: ONDANSETRON 4 MG/2 ML VIAL IV PRN (21:25)
[2020-11-11] MEDS: morphine 2 MG/ML VIAL IV PRN (21:28)
[2020-11-11] MEDS ORDERED: POTASSIUM PHOSPHATE 20 MEQ in DEXTROSE 5% IN WATER 250 ML IV ONE (21:57)
[2020-11-11] MEDS ORDERED: POTASSIUM PHOSPHATE 66 MEQ/15 ML VIAL IV ONE (22:59)
[2020-11-12] MEDS: DEXTROSE 5%-1/2NS W/20MEQ KCL 1,000 ML IV SCH ×2 (03:42→16:29)
[2020-11-12] MEDS: 0.9 % SODIUM CHLORIDE 10 ML SYRINGE IV SCH ×3 (04:12→20:54)
[2020-11-12 06:32] LABS: Hematocrit 28.6 % (36.0-48.0); Hemoglobin 9.7 g/dL (12.0-15.0); Mean Cell Volume 90.2 fL (80.0-100.0); Mean Corpuscular HGB Conc 33.9 g/dL (31.0-36.0); Platelet Count 340 K/mcL (140-440); RBC 3.17 M/mcL (4.00-5.20); Red Cell Distribution Width 13.4 % (11.5-14.5); WBC 11.4 K/mcL (4.5-11.0)
[2020-11-12 06:55] LABS: ALT/SGPT 7 U/L (<40); AST/SGOT 12 U/L (<32); Albumin 2.3 gm/dL (3.2-5.2); Albumin/Globulin Ratio 0.9 (1.0-2.3); Alkaline Phosphatase 41 U/L (39-117); Bilirubin,Direct < 0.2 mg/dL (0-0.3); Bilirubin,Total 0.3 mg/dL (0.1-1.0); Blood Urea Nitrogen 18 mg/dL (8-23); Calcium 8.4 mg/dL (8.6-10.4); Carbon Dioxide 20 mmol/L (22-30); Chloride 114 mmol/L (96-108); Globulin 2.7 gm/dL (2.2-3.7); Glomerular Filtration Rate 89; Glucose 142 mg/dL (70-105); Lactate Dehydrogenase 131 U/L (135-225); Phosphorous 1.9 mg/dL (2.5-4.5); Triglycerides 98 mg/dL (<150)
[2020-11-12] MEDS ORDERED: POTASSIUM PHOSPHATE 20 MEQ in DEXTROSE 5% IN WATER 250 ML IV ONE (08:00)
[2020-11-12 08:23] LABS: Acanthocytes FEW (None Seen); Band Neutrophils % 29 % (0-10); Dohle Bodies 1+ (None Seen); Lymphocytes % 12 % (15-49); Monocytes % (Manual) 2 % (1-12); Ovalocytes 1+ (None Seen); Platelet Estimate NORMAL (Normal); Poikilocytosis 1+ (None Seen); RBC Fragments FEW (None Seen); RBC Morphology ABNORMAL (Normal); Segmented Neutrophils % 57 % (38-78)
[2020-11-12] MEDS ORDERED: HYDROmorphone 0.5 MG/0.5 ML SYRINGE IV PRN (09:10)
[2020-11-12] MEDS ORDERED: IOPAMIDOL 100 ML BOTTLE IV ONE (09:47)
[2020-11-12] MEDS: VANCOMYCIN 1,000 MG in 0.9 % SODIUM CHLORIDE 250 ML IV SCH ×3 (10:00→20:51)
[2020-11-12] MEDS: ONDANSETRON 4 MG/2 ML VIAL IV PRN (10:16)
--- NOTE | 2020-11-12 10:33 | Cat Scan Report ---
INDICATION: abdominal pain and persistent fevers COMPARISON: None. TECHNIQUE: Axial images were obtained through the chest,abdomen and pelvis. Sagittally and coronally reformatted images. 70ml Isovue 370 injected intravenously. Oral contrast material was not administered FINDINGS: Chest CT: Lungs:No focal pulmonary parenchymal infiltrates. No calcified or noncalcified pulmonary parenchymal nodule. There is no honeycombing. No interlobular septal thickening. No significant centrilobular or paraseptal emphysema. There is mild parenchymal density in both lower lobes consistent with dependent atelectasis. Mediastinum:No pathologic mediastinal adenopathy. No hilar mass. Thoracic aorta is normal without aneurysmal dilatation Heart:No significant cardiomegaly. No pericardial effusion. Mild coronary artery calcification Pleura:Small bilateral pleural effusions Axilla, supraclavicular regions, chest wall:No pathologic axillary or supraclavicular adenopathy Musculoskeletal:Negative thoracic spine. No compression fractures. No lytic lesions. No paraspinal mass Abdomen/Pelvis: Liver:Negative liver. No focal intrahepatic mass. Liver contour is smooth. There is no ascites Gallbladder, bilary:Previous cholecystectomy. Common bile direct is dilated to 8 mm. No intrahepatic bile duct dilatation Spleen:No splenomegaly. No focal intrasplenic abnormality. Normal enhancement of splenic and portal veins. Pancreas:Low density lesion in the uncinate process of the pancreas. This measures approximately 11 x 12 mm. This may be a cyst. I PMT as possible. 6-[address] or MR follow-up recommended. Pancreas is otherwise negative Adrenal glands:Negative Kidneys, ureters, bladder:No solid renal mass. No hydronephrosis. No hydroureter. No ureteral stones Bladder is collapsed. There is intravesical gas. Clinical correlation for history of catheterization recommended. Gastrointestinal: Colon is relatively collapsed. There is an anastomotic suture line at the rectosigmoid junction consistent with previous partial colectomy. Dilated fluid and gas filled small bowel. Jejunal measures approximately 3 cm in cross-sectional diameter. A well-defined transition point is not identified although there is some collapsed small bowel in the pelvis. Appearance is consistent with mechanical small bowel obstruction. Appendix: The appendix is not well visualized. No evidence for appendicitis Vascular:There is calcification of the abdominal aorta. No abdominal aortic aneurysm. Celiac trunk and superior mesenteric artery are negative. No significant stenosis. Inferior mesenteric artery enhances Lymphatic:No pathologic retroperitoneal or mesenteric adenopathy Mesentery, peritoneum:There is ascitic fluid. With in the ascitic fluid in the pelvis there is free air. I am not given history of instrumentation. Infection is possible. Ruptured viscus is also possible. There is no free air in the upper abdomen. Reproductive:Uterus is not optimally visualized but appears to be present. No adnexal mass Musculoskeletal:No compression fractures. No lytic lesions. Sacrum, pelvis, hips are negative. No inguinal or abdominal wall hernia. There is subcutaneous gas within the infraumbilical abdominal wall. This has decreased since 11/09/2020. There is also gas within the anterolateral upper abdominal wall. This is unchanged. Dr. Burnett was called with these results, 11/12/2020, 10:15 IMPRESSION: 1. Small bilateral pleural effusions 2. 11 mm low-density lesion in the pancreatic head, unchanged 3. Dilated fluid and gas-filled small bowel consistent with mechanical small bowel obstruction 4. Ascitic fluid, increased since previous examination. There are gas bubbles within the pelvic ascitic fluid. 5. Intravesical gas 6. Previous partial colectomy with anastomotic sutures at the sigmoid rectal junction The exam was performed using radiation dose optimization techniques including, but not limited to, automated exposure control, adjustment of the mA and/or kV according to patient size and use of iterative reconstruction technique. Interpreted and Authenticated by: Arturo Cuadra 11/12/20
--- NOTE | 2020-11-12 10:43 | General Surgery Progress Note ---
SUBJECTIVE Subjective Patient information: Note initiated : 11/12/20 at 10:41 am Service Date, if different from initiated Date: [] Patient: Marge Benitez 70 y/o F admitted on 11/04/20 for Esophogogastroduodenoscopy and Colonoscopy. Chief Complaint: [] Interval history: Postop laparoscopic assisted sigmoid colectomy, patient reports feeling somewhat better today less distended with less abdominal cramping. Denies any fevers or chills. Constitutional Vitals: Vital Signs Temp Pulse Resp BP Pulse Ox 98.8 F 92 H 14 142/75 97 11/12/20 07:04 11/12/20 07:04 11/12/20 07:04 11/12/20 07:04 11/12/20 07:04 Period Temp Pulse Resp BP Sys/Allen Pulse Ox Last 24 Hr 97.9 F-101 F 89-104 14-24 132-176/72-94 96-98 Intake and Output 11/11/20 11/12/20 11/12/20 21:59 05:59 13:59 Intake Total 2415 1506.5455 Output Total 300 452 Balance 2115 1054.5455 Weight 120 lb 12.8 oz Intake & Output: Intake & Output 11/11/20 11/12/20 11/12/20 21:59 05:59 13:59 Intake Total 2415 1506.5455 Output Total 300 452 Balance 2115 1054.5455 Weight 120 lb 12.8 oz Intake: IV 2315 1506.5455 Sodium Chloride 0.9% 1,000 ml @ 1000 Wide Open IV BOLUS ONE Rx#: [id number] Dextrose 5%-1/2Ns W/20Meq KCl 1 1000 2 ,000 ml @ 100 mls/hr IV .Q10H [facility] Rx#:[id number] Lactated Ringers 1,000 ml @ 100 1000 mls/hr IV .Q10H [facility] Rx#: [id number] Potassium Phosphate 20 Meq In 254.5455 Dextrose 5% in Water 250 ml @ 127.273 mls/hr IV ONCE ONE Rx#: [id number] Vancomycin 1,000 mg In Sodium 250 250 Chloride 0.9% 250 ml @ 250 mls/ hr IV Q12H [facility] Rx#:[id number] Oral 100 0 Output: Void Amount 450 # of times incontinent of urine 2 Urine/Stool Mix 300 Other: Urine Appearance Clear Clear Urine Color Dark Yellow Dark Yellow Urine Odor Normal Normal Stool Size Moderate Copious Stool Color Green Green Stool Consistency Watery Watery # of times incontinent of 1 5 Bowels General appearance: cooperative and no acute distress GI/Abdominal GI/Abdominal exam: Present soft and tenderness (Improved tender to palpation); Absent distended A/P Narrative A/P Narrative: After patient seen by me, patient told hospitalist that her right lower quadrant pain has increased. CT scan was ordered. Review of CT scan with the radiologist shows increased peritoneal fluid adjacent to rectal stump. We will ask radiology to place drain and fluid for possible rectal stump leak. Time Spent With Patient Time: Total time spent is greater than 50% in coordination of care (as documented) at patient's floor/unit and/or counseling patient:
[2020-11-12] MEDS: VANCOMYCIN ORAL SOL 1,000 MG/10 ML BOTTLE PO SCH (11:13)
--- NOTE | 2020-11-12 11:44 | Internal Med Progress Note ---
SUBJECTIVE Subjective Patient information: Note initiated : 11/12/20 at 11:35 am Service Date, if different from initiated Date: [] Patient: Marge Benitez 70 y/o F admitted on 11/04/20 for Esophogog astroduodenoscopy and Colonoscopy. Chief Complaint: [] Interval history: Hospitalist was consulted for a rapid response CODE sepsis triggered by fever, orthostatic hypotension, and trending leukocytosis. Marge Benitez is a 70-year-old female with a history of hypertension, reactive airway disease, multiple sclerosis (treated with pegylated interferon beta-1a), currently hospitalized following a laparoscopic sigmoid colon resection for a obstructing sigmoid stricture noted on colonoscopy on 11/05/20. The operative indicated there was redundant sigmoid causing scar tissue/adhesions very likely the reason for the sigmoid stricture. The patient was progressing slowly post- operatively however developed a fever of 101.2 on 11/08/20 and again had a fever on 11/09/20 along with orthostatic hypotension and new leukocytosis. Physical exam was most notable for abdominal tenderness, guarding, and erythema around the suprapubic laparoscopic surgical incision. Blood cultures, UA and urine culture, CT chest/abd/pelvis and broad spectrum antibiotics started. Surgery did not feel the CT scan was suggestive of a cause for her symptoms and UA did not suggest UTI nor is was there evidence of pneumonoia therefore Zosyn was discontinued. Vancomycin IV was continued due to concern of abdominal cellulitis. 11/10 Had NG placed overnight for concern of possible ileus. Persistent fevers today but leukocytosis resolved. Mild anion gap metabolic acidosis, lactic acid normal. Blood cx NGTD. Per report had multiple loose stools overnight and incontinent. Surgery performed I&D of inferior laparoscopic incision and drained puss consistent with abscess and probably the cause of fevers. 11/11 Afebrile overnight, still has NG tube, low potassium replaced. CRP increased and mild leukocytosis but overall looks better. C diff GDH positive but A/B toxin negative-reflexed to C diff prc. Intermittent fevers. Nutritional status concerning-days since meals may need to consider TPN. 11/12 Continues to have abdominal pain, most sever in RLQ. Persistent watery diarrhea, C diff pcr negative. Repeat CT chest/abdomen/pelvis concerning for pelvis fluid collection and mechanical small bowel obstruction. Surgery ordered CT guided drain placement. Head: Atraumatic, normal inspection. Eyes: normal appearance, no scleral icterus. Neck: full ROM Respiratory: no respiratory distress. Cardiovascular: normal rate and rhythm, S1, S2. GI/Abdominal: tenderness most prominent in suprapubic and LLQ Extremities: full range of motion, nontender. Neurological: CN II-XII intact, intact motor, intact sensation. Psychiatric: normal mood. Skin: laparoscopic incision does not appear infected, redness in suprapubic abdomen with stria-chronic per patient. Constitutional Vitals: Vital Signs Temp Pulse Resp BP Pulse Ox 98.8 F 92 H 14 142/75 97 11/12/20 07:04 11/12/20 07:04 11/12/20 07:04 11/12/20 07:04 11/12/20 07:04 Period Temp Pulse Resp BP Sys/Allen Pulse Ox Last 24 Hr 97.9 F-101 F 89-104 14-24 132-176/72-94 96-98 Intake and Output 11/11/20 11/12/20 11/12/20 21:59 05:59 13:59 Intake Total 2415 1506.5455 254.5455 Output Total 300 452 Balance 2115 1054.5455 254.5455 Weight 54.794 kg Intake & Output: Intake & Output 11/11/20 11/12/20 11/12/20 21:59 05:59 13:59 Intake Total 2415 1506.5455 254.5455 Output Total 300 452 Balance 2115 1054.5455 254.5455 Weight 54.794 kg Intake: IV 2315 1506.5455 254.5455 Sodium Chloride 0.9% 1,000 ml @ 1000 Wide Open IV BOLUS ONE Rx#: [id number] Dextrose 5%-1/2Ns W/20Meq KCl 1 1000 2 ,000 ml @ 100 mls/hr IV .Q10H [facility] Rx#:[id number] Lactated Ringers 1,000 ml @ 100 1000 mls/hr IV .Q10H [facility] Rx#: [id number] Potassium Phosphate 20 Meq In 254.5455 254.5455 Dextrose 5% in Water 250 ml @ 127.273 mls/hr IV ONCE ONE Rx#: [id number] Vancomycin 1,000 mg In Sodium 250 250 Chloride 0.9% 250 ml @ 250 mls/ hr IV Q12H [facility] Rx#:[id number] Oral 100 0 Output: Void Amount 450 # of times incontinent of urine 2 Urine/Stool Mix 300 Other: Urine Appearance Clear Clear Urine Color Dark Yellow Dark Yellow Urine Odor Normal Normal Stool Size Moderate Copious Stool Color Green Green Stool Consistency Watery Watery # of times incontinent of 1 5 Bowels OBJ DATA Labs CBC & Chem 7: 11/12/20 05:16 11/12/20 05:16 Labs: Abnormal Lab Results 11/12/20 11/12/20 11/12/20 05:16 05:16 05:16 WBC 11.4 H RBC 3.17 L Hgb 9.7 L Hct 28.6 L Seg Neutrophils % Band Neutrophils % 29 H Lymphocytes % 12 L WBC Morphology Abnormal A Dohle Bodies 1+ A RBC Morphology Abnormal A Poikilocytosis 1+ A Anisocytosis Ovalocytes 1+ A Acanthocytes (Spur) Few A RBC Fragments Few A Potassium Chloride 114 H Carbon Dioxide 20 L Anion Gap Glucose 142 H Calcium 8.4 L Phosphorus 1.9 L Alkaline Phosphatase Lactate Dehydrogenase 131 L C-Reactive Protein 23.20 H Total Protein 5.0 L Albumin 2.3 L Albumin/Globulin Ratio 0.9 L Procalcitonin 60.98 H Urine Ketones 11/11/20 11/11/20 11/11/20 19:41 19:41 19:41 WBC 11.1 H RBC 3.66 L Hgb 11.1 L Hct 32.7 L Seg Neutrophils % 83 H Band Neutrophils % Lymphocytes % 6 L WBC Morphology Dohle Bodies RBC Morphology Poikilocytosis Anisocytosis Ovalocytes Acanthocytes (Spur) RBC Fragments Potassium Chloride 110 H Carbon Dioxide 19 L Anion Gap Glucose 162 H Calcium Phosphorus 1.1 L Alkaline Phosphatase Lactate Dehydrogenase C-Reactive Protein 33.00 H Total Protein 5.7 L Albumin 2.7 L Albumin/Globulin Ratio 0.9 L Procalcitonin Urine Ketones 11/11/20 11/11/20 11/10/20 05:09 05:09 05:05 WBC 11.6 H RBC 3.47 L Hgb 10.5 L Hct 32.0 L Seg Neutrophils % Band Neutrophils % 51 H Lymphocytes % 8 L WBC Morphology Dohle Bodies RBC Morphology Abnormal A Poikilocytosis Anisocytosis 1+ A Ovalocytes 2+ A Acanthocytes (Spur) RBC Fragments Few A Potassium 3.1 L Chloride 111 H Carbon Dioxide 17 L Anion Gap Glucose Calcium 8.1 L Phosphorus Alkaline Phosphatase 36 L Lactate Dehydrogenase C-Reactive Protein 30.00 H 11.80 H Total Protein 5.1 L Albumin 2.4 L Albumin/Globulin Ratio 0.9 L Procalcitonin Urine Ketones 11/10/20 11/10/20 11/09/20 05:05 05:05 15:10 WBC RBC 3.80 L Hgb 11.7 L Hct Seg Neutrophils % Band Neutrophils % Lymphocytes % WBC Morphology Dohle Bodies RBC Morphology Poikilocytosis Anisocytosis Ovalocytes Acanthocytes (Spur) RBC Fragments Potassium Chloride Carbon Dioxide 18 L Anion Gap 17.0 H Glucose Calcium 8.2 L Phosphorus Alkaline Phosphatase Lactate Dehydrogenase C-Reactive Protein Total Protein Albumin Albumin/Globulin Ratio Procalcitonin Urine Ketones 20 A 11/09/20 11/09/20 10:23 10:23 WBC RBC Hgb Hct Seg Neutrophils % 88 H Band Neutrophils % Lymphocytes % 8 L WBC Morphology Dohle Bodies RBC Morphology Poikilocytosis Anisocytosis Ovalocytes Acanthocytes (Spur) RBC Fragments Potassium Chloride Carbon Dioxide Anion Gap Glucose Calcium 8.2 L Phosphorus Alkaline Phosphatase Lactate Dehydrogenase C-Reactive Protein Total Protein 5.8 L Albumin 3.0 L Albumin/Globulin Ratio Procalcitonin Urine Ketones Meds: Medications Acetaminophen (Acetaminophen 500 Mg Tablet) 500 mg PO Q6HP PRN; Protocol PRN Reason: Per Pain Protocol Last Admin: 11/09/20 21:58 Dose: 500 mg Documented by: Hydromorphone HCl (Hydromorphone 0.5 Mg/0.5 Ml Syringe) 0.5 mg IV Q4HP PRN; Protocol PRN Reason: Per Pain Protocol Last Admin: 11/12/20 10:16 Dose: 0.5 mg Documented by: Acetaminophen (Ofirmev) 650 mg in 65 mls @ 130 mls/hr IV Q6HP PRN PRN Reason: PAIN/FEVER > 101 Last Infusion: 11/11/20 15:05 Dose: Infused Documented by: Potassium Chloride/Dextrose/Sod Cl (Dextrose 5%-1/2ns W/20meq Kcl) 1,000 mls @ 100 mls/hr IV .Q10H [facility] Last Admin: 11/12/20 03:42 Dose: Not Given Documented by: Vancomycin HCl 1,000 mg/ (Sodium Chloride) 250 mls @ 250 mls/hr IV Q12H [facility] Last Admin: 11/12/20 10:00 Dose: Not Given Documented by: Ondansetron HCl (Ondansetron 4 Mg/2 Ml Vial) 4 mg IV Q4HP PRN PRN Reason: Nausea And Vomiting Last Admin: 11/12/20 10:16 Dose: 4 mg Documented by: Sodium Chloride (0.9 % Sodium Chloride 10 Ml Syringe) 10 ml IV Q8 [facility] Last Admin: 11/12/20 04:12 Dose: Not Given Documented by: Vancomycin HCl (Vancomycin Per Pharmacy) 1 order IV UD [facility]; Protocol A/P Narrative A/P Narrative: Assessment: 70-year-old female with history of HTN, multiple sclerosis, status post laparoscopic sigmoid colectomy 11/05/20 for obstructing sigmoid stenosis later developed fever, cytosis, orthostatic hypotension, abdominal tenderness and possible abdominal cellulitis. Initial CT abd/pelvis showed a fluid collection with gas in the lower laparoscopic surgical incision, also mild ileus. The wound was opened at bedside by surgery and drained puss consistent with a small abscess, this abscess/cellulitis. Fever trend improved for about a day then recurred. C diff checked for diarrhea-positive GDH but negative toxin A/B, reflexed to C diff pcr which was negative. Repeat Abdominal xray consistent with mild ileus. NG tube placed and started suction, IV fluids, abdominal exam which initially improved but pain later recurred. Repeat CT chest/abd/pelvis concerning for mechanical small bowel obstruction, increased ascitic fluid compared to previous CT with gas bubbles in pelvic fluid, there was intravesicular gas. UA was not suggestive of UTI. Blood cultures NGTD. The patient continues to have intermittent fevers and generally not feeling well. CRP and procalcitonin elevated, CRP down trending. Concern for poor nutritional status. Surgery plans for CT guided drain placement into the pelvic fluid collection. #Free pelvis fluid and gas concerning for infection/abscess/small anastomotic leak #Recurrent fevers and leukocytosis possibly related to free pelvic fluid? #Abscess of laparoscopic incision site: stable drained 15 ml puss at bedside (secondary healing) #Abdominal cellulitis: resolved (has chronic erythema attributed Plegridy SQ injections) #Partial small bowel obstruction: surgery feels SBO is improving #Anion gap metabolic acidosis: improving #Diarrhea/tool incontinence: C diff GDH positive/toxin A/B negative, reflexed C diff pcr negative #Essential hypertension: stable #Severe protein calorie malnourishment #Sigmoid stricture d/t adhesions: s/p laparoscopic lysis of adhesions and sigmoid colectomy (11/05) #Multiple sclerosis: treated at home with intermittent Plegridy SQ (held this hospitalization) #Generalized weakness #Physical deconditioning Plan -CT guided drain placement w/ radiology-surgery to manage. -Follow culture for abdominal fluid collection-consider abx depending on results. -Vancomycin IV per Rx for cellulitis, could probably transition to oral soon, potentially doxycycline. -Discontinued oral vancomycin as C diff pcr negative. -IV fluid, monitor and replace electrolytes prn. -Start TPN per pharmacy, PICC placement. -Analgesics prn. -Daily labs. -F/u all cultures: NGTD. -Check stool WBC. -Holding Losartan and Plegridy for now. -Wound cares. -Diet per surgery. -Surgery primary/Hospitalist consulting. -DVT: per surgery -Code status: Statement Distribution Clerk Spent With Patient Time: Total time spent is greater than 50% in coordination of care (as documented) at patient's floor/unit and/or counseling patient: QUALITY VTE Deep Vein Thrombosis/Pulmonary Embolism Present on Admission: No
--- NOTE | 2020-11-12 11:48 | Surgical Pathology Report ---
Histology Microscopic Diagnosis Specimen A- COLON, SIGMOID, PARTIAL COLECTOMY: --- DIVERTICULOSIS, FIBROUS SEROSAL ADHESIONS AND ENTRAPPED MESONEPHRIC REMNANTS. --- VIABLE MARGINS OF RESECTION. --- ONE BENIGN LYMPH NODE. --- NO DYSPLASIA OR MALIGNANCY IDENTIFIED. (RLF) Clinical History Pelvic pain; sigmoid stricture. Microscopic Description: Within the muscular layer of the colon, there is a focus of bland cystic epithelial structures. Immunohistochemistry for CD10 (block A3) shows focal staining, and no iron staining is present. 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 Gross Description Received in formalin labeled sigmoid colon segment, is a segment of sigmoid colon received with both margins open. It measures 8.6 cm in length by 2.9 cm in diameter. The serosal surface is harrison-nguyen with up to 3.5 cm of pink-nguyen attached fat. The wall is up to 0.6 cm thick. The mucosa is nguyen and plicated. 1.7 cm from one margin there is a region of possible diverticula and a folded/kinked area, resulting in a possible area of stricture up to 1.9 cm in diameter. The margin closest to this is inked black. Sectioning through the fat reveals a 0.1 cm candidate lymph node. Certified Registered Nurse Practitioner sections are submitted in six cassettes: A1 - margins; A2 - possible diverticulum closest to inked margin; A3-A4 - composite section through area of possible stricture; A5 - random sections; A6 - candidate lymph node. (SCB:adj) IHC Disclaimer Some of the tests reported may not have been cleared or approved by the U.S. Food Drug Administration (FDA). However, the FDA has determined that such clearance or approval is not necessary. Pursuant to the requirements of CLIA, this laboratory has established and verified the accuracy and precision of all tests, and additional information about these tests is available upon request. All technical controls are adequate. Electronically Signed Ying Lehman MD, FCAP Electronically Signed 11/12/2020 11:46
[2020-11-12] MEDS ORDERED: TPN PER PHARMACY IV SCH (11:58)
[2020-11-12] MEDS ORDERED: LIDOCAINE 1% 20 ML VIAL SQ ONE (14:18)
--- NOTE | 2020-11-12 15:49 | Cat Scan Report ---
INDICATION: Abdominal pain. Previous partial sigmoid colectomy with end to side anastomosis and rectal stump. Large pelvic fluid collection consistent with abscess TECHNIQUE: Informed consent was obtained. Discussed the procedure as well as potential risks and complications including risk of bleeding. Large pelvic fluid collection was localized. 1% lidocaine was injected subcutaneously and deep. Serial dilatations were performed. A 10 Czech pigtail catheter was placed within the fluid collection. 50 mL foul-smelling fluid was removed and sent to the laboratory. The catheter was then hooked to a bag with gravity suction. Catheter was affixed to the skin and sutured in place. No immediate complications. IMPRESSION: Percutaneous pelvic abscess drainage as above. Interpreted and Authenticated by: Arturo Cuadra 11/12/20
[2020-11-12] MEDS ORDERED: FAT EMULSION 20% 250 ML IV SCH (16:00)
[2020-11-12] MEDS: CALCIUM GLUCONATE IV SCH (16:28)
[2020-11-12] MEDS: MAGNESIUM SULFATE IV SCH (16:28)
[2020-11-12] MEDS: [UNRECOGNIZED DRUG - OTHER] IV SCH (16:28)
[2020-11-12] MEDS: POTASSIUM CHLORIDE IV SCH (16:28)
[2020-11-12 17:59] LABS: ALT/SGPT 7 U/L (<40); AST/SGOT 14 U/L (<32); Albumin 2.4 gm/dL (3.2-5.2); Albumin/Globulin Ratio 0.8 (1.0-2.3); Alkaline Phosphatase 44 U/L (39-117); Bilirubin,Direct < 0.2 mg/dL (0-0.3); Bilirubin,Total 0.3 mg/dL (0.1-1.0); Blood Urea Nitrogen 17 mg/dL (8-23); Calcium 8.8 mg/dL (8.6-10.4); Carbon Dioxide 21 mmol/L (22-30); Chloride 111 mmol/L (96-108); Globulin 2.9 gm/dL (2.2-3.7); Glomerular Filtration Rate 99; Glucose 130 mg/dL (70-105); Lactate Dehydrogenase 164 U/L (135-225); Phosphorous 2.4 mg/dL (2.5-4.5); Triglycerides 127 mg/dL (<150); Uric Acid 2.8 mg/dL (2.5-8.0)
[2020-11-12 18:01] LABS: Prealbumin < 3.0 mg/dL (20-40)
[2020-11-12] MEDS: ACETAMINOPHEN 500 MG TABLET PO PRN (22:30)
[2020-11-13] MEDS: 0.9 % SODIUM CHLORIDE 10 ML SYRINGE IV SCH ×3 (05:32→22:49)
[2020-11-13 07:22] LABS: ALT/SGPT 7 U/L (<40); AST/SGOT 18 U/L (<32); Albumin 2.2 gm/dL (3.2-5.2); Albumin/Globulin Ratio 0.8 (1.0-2.3); Alkaline Phosphatase 65 U/L (39-117); Bilirubin,Direct < 0.2 mg/dL (0-0.3); Bilirubin,Total 0.3 mg/dL (0.1-1.0); Blood Urea Nitrogen 18 mg/dL (8-23); Carbon Dioxide 23 mmol/L (22-30); Chloride 111 mmol/L (96-108); Globulin 2.7 gm/dL (2.2-3.7); Glomerular Filtration Rate 93; Glucose 108 mg/dL (70-105); Lactate Dehydrogenase 156 U/L (135-225); Phosphorous 2.3 mg/dL (2.5-4.5); Triglycerides 138 mg/dL (<150); Uric Acid 2.7 mg/dL (2.5-8.0)
[2020-11-13 07:46] LABS: Basophils # (Auto) 0.03 K/mcL (0.00-0.20); Basophils % (Auto) 0.4 % (0.0-2.0); Eosinophils # (Auto) 0.04 K/mcL (0.00-0.70); Eosinophils % (Auto) 0.5 % (0.0-7.0); Hematocrit 26.8 % (36.0-48.0); Hemoglobin 9.1 g/dL (12.0-15.0); Lymphocytes # (Auto) 1.39 K/mcL (1.50-4.80); Lymphocytes % (Auto) 17.6 % (15.0-49.0); Mean Cell Volume 88.4 fL (80.0-100.0); Mean Platelet Volume 9.8 fL (7.4-10.4); Monocytes # (Auto) 0.56 K/mcL (0.10-0.90); Monocytes % (Auto) 7.1 % (1.0-12.0); Neutrophils % (Auto) 74.4 % (38.0-78.0); Platelet Count 364 K/mcL (140-440); RBC 3.03 M/mcL (4.00-5.20); Red Cell Distribution Width 13.3 % (11.5-14.5); WBC 7.9 K/mcL (4.5-11.0)
[2020-11-13] MEDS: ACETAMINOPHEN 500 MG TABLET PO PRN ×2 (07:56→22:45)
--- NOTE | 2020-11-13 09:55 | General Surgery Progress Note ---
SUBJECTIVE Subjective Patient information: Note initiated : 11/13/20 at 9:53 am Service Date, if different from initiated Date: [] Patient: Marge Benitez 70 y/o F admitted on 11/04/20 for Esophogogastroduodenoscopy and Colonoscopy. Chief Complaint: [] Interval history: Status post drainage of intra-abdominal fluid collection yesterday, patient feels much better today. She reports she feels that her bowels are returning back to normal, her pain is much less and she is starting to be able to tolerate a regular diet. She does report it takes her a while to eat however she is tolerating a regular diet at this time. She denies any fevers chills nausea or vomiting over the last 24 hours. Constitutional Vitals: Vital Signs Temp Pulse Resp BP Pulse Ox 96.9 F L 64 20 145/84 95 11/13/20 08:00 11/13/20 08:00 11/13/20 08:00 11/13/20 08:00 11/13/20 08:00 Period Temp Pulse Resp BP Sys/Allen Pulse Ox Last 24 Hr 96.9 F-100.1 F 64-104 16-22 130-167/70-89 93-97 Intake and Output 11/12/20 11/13/20 11/13/20 21:59 05:59 13:59 Intake Total 1488 250 Output Total 1375 515 Balance 113 -265 Weight 121 lb 9.6 oz Intake & Output: Intake & Output 11/12/20 11/13/20 11/13/20 21:59 05:59 13:59 Intake Total 1488 250 Output Total 1375 515 Balance 113 -265 Weight 121 lb 9.6 oz Intake: IV 1248 250 Dextrose 5%-1/2Ns W/20Meq KCl 1 998 ,000 ml @ 100 mls/hr IV .Q10H [facility] Rx#:[id number] Vancomycin 1,000 mg In Sodium 250 250 Chloride 0.9% 250 ml @ 250 mls/ hr IV Q12H [facility] Rx#:[id number] Oral 240 0 Output: Gastric Drainage 525 15 Right Lower Quadrant 525 15 Void Amount 550 Urine/Stool Mix 300 500 Other: Meal Nourishment/Supplement Percent of Meal Consumed 75% Feeding Ability Independent Urine Appearance Clear Urine Color Dark Yellow Urine Odor Normal Stool Size Moderate Stool Color Yellow Green Stool Consistency Liquid # of times incontinent of 5 1 Bowels General appearance: cooperative and no acute distress GI/Abdominal GI/Abdominal exam: Present soft; Absent distended and tenderness Additional comments: Abdominal drain with cloudy fluid A/P Narrative A/P Narrative: Postop laparoscopic assisted sigmoid colectomy with infected intra-abdominal fluid collection status post drainage yesterday. Patient's white count has decreased today, abdominal pain is much better, fever curve is improved. Continue with regular diet as tolerated. Time Spent With Patient Time: Total time spent is greater than 50% in coordination of care (as documented) at patient's floor/unit and/or counseling patient:
--- NOTE | 2020-11-13 11:08 | Internal Med Progress Note ---
SUBJECTIVE Subjective Patient information: Note initiated : 11/13/20 at 10:56 am Service Date, if different from initiated Date: [] Patient: Marge Benitez 70 y/o F admitted on 11/04/20 for Esophogog astroduodenoscopy and Colonoscopy. Chief Complaint: [] Interval history: Hospitalist was consulted for a rapid response CODE sepsis triggered by fever, orthostatic hypotension, and trending leukocytosis. Marge Benitez is a 70-year-old female with a history of hypertension, reactive airway disease, multiple sclerosis (treated with pegylated interferon beta-1a), currently hospitalized following a laparoscopic sigmoid colon resection for a obstructing sigmoid stricture noted on colonoscopy on 11/05/20. The operative indicated there was redundant sigmoid causing scar tissue/adhesions very likely the reason for the sigmoid stricture. The patient was progressing slowly post- operatively however developed a fever of 101.2 on 11/08/20 and again had a fever on 11/09/20 along with orthostatic hypotension and new leukocytosis. Physical exam was most notable for abdominal tenderness, guarding, and erythema around the suprapubic laparoscopic surgical incision. Blood cultures, UA and urine culture, CT chest/abd/pelvis and broad spectrum antibiotics started. Surgery did not feel the CT scan was suggestive of a cause for her symptoms and UA did not suggest UTI nor is was there evidence of pneumonoia therefore Zosyn was discontinued. Vancomycin IV was continued due to concern of abdominal cellulitis. 11/10 Had NG placed overnight for concern of possible ileus. Persistent fevers today but leukocytosis resolved. Mild anion gap metabolic acidosis, lactic acid normal. Blood cx NGTD. Per report had multiple loose stools overnight and incontinent. Surgery performed I&D of inferior laparoscopic incision and drained puss consistent with abscess and probably the cause of fevers. 11/11 Afebrile overnight, still has NG tube, low potassium replaced. CRP increased and mild leukocytosis but overall looks better. C diff GDH positive but A/B toxin negative-reflexed to C diff prc. Intermittent fevers. Nutritional status concerning-days since meals may need to consider TPN. 11/12 Continues to have abdominal pain, most sever in RLQ. Persistent watery diarrhea, C diff pcr negative. Repeat CT chest/abdomen/pelvis concerning for pelvis fluid collection and mechanical small bowel obstruction. Surgery ordered CT guided drain placement. 11/13 Improvement in oral intake so will hold off on TPN pending calorie count. Overall feels better after abdominal drain placement yesterday. Deescalate to Doxycycline for cellulitis. Downtrending hemoglobin. [facility]ge [facility]itez [address]OB[address] 1950 [address]Service Date:11/04/20 Admit Date: 11/04/20 [place], [place] [address]Rphejr # [id number] Ascencion Valadez M.D. MR #: [id number] Internal Med Progress NoteSigned with Addenda ADDENDUMThe patient is reluctant to start TPN, she wants to try oral intake first. That is reasonable, we discussed the rational for supplemental TPN in detail. I also updated her daughter by phone. Asked nursing staff to start a calorie count. Discontinued IV fluid now that a diet has been started. Amended By: Ascencion Valadez M.D. 11/12/201621 16211/12/201621 SUBJECTIVE Subjective Patient information: Note initiated : 11/12/20 at 11:35 am Service Date, if different from initiated Date: [] Patient: Marge Benitez a 70 y/o F admitted on 11/04/20 for Esophagogastroduodenoscopy and Colonoscopy. Chief Complaint: [] Interval history: Hospitalist was consulted for a rapid response CODE sepsis triggered by fever, orthostatic hypotension, and trending leukocytosis. Marge Benitez is a 70-year-old female with a history of hypertension, reactive airway disease, multiple sclerosis (treated with pegylated interferon beta-1a), currently hospitalized following a laparoscopic sigmoid colon resection for a obstructing sigmoid stricture noted on colonoscopy on 11/05/20. The operative indicated there was redundant sigmoid causing scar tissue/adhesions very likely the reason for the sigmoid stricture. The patient was progressing slowly post-o peratively however developed a fever of 101.2 on 11/08/20 and again had a fever on 11/09/20 along with orthostatic hypotension and new leukocytosis. Physical exam was most notable for abdominal tenderness, guarding, and erythema around the suprapubic laparoscopic surgical incision. Blood cultures, UA and urine culture, CT chest/abd/pelvis and broad spectrum antibiotics started. Surgery did not feel the CT scan was suggestive of a cause for her symptoms and UA did not suggest UTI nor is was there evidence of pneumonoia therefore Zosyn was discontinued. Vancomycin IV was continued due to concern of abdominal cellulitis. 11/10 Had NG placed overnight for concern of possible ileus. Persistent fevers today but leukocytosis resolved. Mild anion gap metabolic acidosis, lactic acid normal. Blood cx NGTD. Per report had multiple loose stools overnight and incontinent. Surgery performed I&D of inferior laparoscopic incision and drained puss consistent with abscess and probably the cause of fevers. 11/11 Afebrile overnight, still has NG tube, low potassium replaced. CRP increased and mild leukocytosis but overall looks better. C diff GDH positive but A/B toxin negative-reflexed to C diff prc. Intermittent fevers. Nutritional status concerning-days since meals may need to consider TPN. 11/12 Continues to have abdominal pain, most sever in RLQ. Persistent watery diarrhea, C diff pcr negative. Repeat CT chest/abdomen/pelvis concerning for pelvis fluid collection and mechanical small bowel obstruction. Surgery ordered CT guided drain placement. Head: Atraumatic, normal inspection. Eyes: normal appearance, no scleral icterus. Neck: full ROM Respiratory: no respiratory distress. Cardiovascular: normal rate and rhythm, S1, S2. GI/Abdominal: improvement in suprapubic abdominal tenderness, abdominal drain with serosanguinous fluid Extremities: full range of motion, nontender. Neurological: CN II-XII intact, intact motor, intact sensation. Psychiatric: normal mood. Skin: laparoscopic incision does not appear infected, redness in suprapubic abdomen with stria (chronic per patient). Constitutional Vitals: Vital Signs Temp Pulse Resp BP Pulse Ox 96.9 F L 64 20 145/84 95 11/13/20 08:00 11/13/20 08:00 11/13/20 08:00 11/13/20 08:00 11/13/20 08:00 Period Temp Pulse Resp BP Sys/Allen Pulse Ox Last 24 Hr 96.9 F-100.1 F 64-104 16-22 130-167/70-89 93-97 Intake and Output 11/12/20 11/13/20 11/13/20 21:59 05:59 13:59 Intake Total 1488 250 Output Total 1375 515 Balance 113 -265 Weight 55.157 kg Intake & Output: Intake & Output 11/12/20 11/13/20 11/13/20 21:59 05:59 13:59 Intake Total 1488 250 Output Total 1375 515 Balance 113 -265 Weight 55.157 kg Intake: IV 1248 250 Dextrose 5%-1/2Ns W/20Meq KCl 1 998 ,000 ml @ 100 mls/hr IV .Q10H [facility] Rx#:[id number] Vancomycin 1,000 mg In Sodium 250 250 Chloride 0.9% 250 ml @ 250 mls/ hr IV Q12H [facility] Rx#:[id number] Oral 240 0 Output: Gastric Drainage 525 15 Right Lower Quadrant 525 15 Void Amount 550 Urine/Stool Mix 300 500 Other: Meal Nourishment/Supplement Percent of Meal Consumed 75% Feeding Ability Independent Urine Appearance Clear Urine Color Dark Yellow Urine Odor Normal Stool Size Moderate Stool Color Yellow Green Stool Consistency Liquid # of times incontinent of 5 1 Bowels OBJ DATA Labs CBC & Chem 7: 11/13/20 05:30 11/13/20 05:30 Labs: Abnormal Lab Results 11/13/20 11/13/20 11/12/20 05:30 05:30 12:38 WBC RBC 3.03 L Hgb 9.1 L Hct 26.8 L Lymph # (Auto) 1.39 L Seg Neutrophils % Band Neutrophils % Lymphocytes % WBC Morphology Dohle Bodies RBC Morphology Poikilocytosis Anisocytosis Ovalocytes Acanthocytes (Spur) RBC Fragments Potassium Chloride 111 H 111 H Carbon Dioxide 21 L Creatinine 0.5 L Glucose 108 H 130 H Calcium Phosphorus 2.3 L 2.4 L Alkaline Phosphatase Lactate Dehydrogenase C-Reactive Protein Total Protein 4.9 L 5.3 L Albumin 2.2 L 2.4 L Albumin/Globulin Ratio 0.8 L 0.8 L Prealbumin < 3.0 L Procalcitonin 11/12/20 11/12/20 11/12/20 12:22 05:16 05:16 WBC RBC Hgb 9.6 L Hct Lymph # (Auto) Seg Neutrophils % Band Neutrophils % Lymphocytes % WBC Morphology Dohle Bodies RBC Morphology Poikilocytosis Anisocytosis Ovalocytes Acanthocytes (Spur) RBC Fragments Potassium Chloride 114 H Carbon Dioxide 20 L Creatinine Glucose 142 H Calcium 8.4 L Phosphorus 1.9 L Alkaline Phosphatase Lactate Dehydrogenase 131 L C-Reactive Protein 23.20 H Total Protein 5.0 L Albumin 2.3 L Albumin/Globulin Ratio 0.9 L Prealbumin Procalcitonin 60.98 H 11/12/20 11/11/20 11/11/20 05:16 19:41 19:41 WBC 11.4 H RBC 3.17 L Hgb 9.7 L Hct 28.6 L Lymph # (Auto) Seg Neutrophils % Band Neutrophils % 29 H Lymphocytes % 12 L WBC Morphology Abnormal A Dohle Bodies 1+ A RBC Morphology Abnormal A Poikilocytosis 1+ A Anisocytosis Ovalocytes 1+ A Acanthocytes (Spur) Few A RBC Fragments Few A Potassium Chloride 110 H Carbon Dioxide 19 L Creatinine Glucose 162 H Calcium Phosphorus 1.1 L Alkaline Phosphatase Lactate Dehydrogenase C-Reactive Protein 33.00 H Total Protein 5.7 L Albumin 2.7 L Albumin/Globulin Ratio 0.9 L Prealbumin Procalcitonin 11/11/20 11/11/20 11/11/20 19:41 05:09 05:09 WBC 11.1 H 11.6 H RBC 3.66 L 3.47 L Hgb 11.1 L 10.5 L Hct 32.7 L 32.0 L Lymph # (Auto) Seg Neutrophils % 83 H Band Neutrophils % 51 H Lymphocytes % 6 L 8 L WBC Morphology Dohle Bodies RBC Morphology Abnormal A Poikilocytosis Anisocytosis 1+ A Ovalocytes 2+ A Acanthocytes (Spur) RBC Fragments Few A Potassium 3.1 L Chloride 111 H Carbon Dioxide 17 L Creatinine Glucose Calcium 8.1 L Phosphorus Alkaline Phosphatase 36 L Lactate Dehydrogenase C-Reactive Protein 30.00 H Total Protein 5.1 L Albumin 2.4 L Albumin/Globulin Ratio 0.9 L Prealbumin Procalcitonin 11/10/20 05:05 WBC RBC Hgb Hct Lymph # (Auto) Seg Neutrophils % Band Neutrophils % Lymphocytes % WBC Morphology Dohle Bodies RBC Morphology Poikilocytosis Anisocytosis Ovalocytes Acanthocytes (Spur) RBC Fragments Potassium Chloride Carbon Dioxide Creatinine Glucose Calcium Phosphorus Alkaline Phosphatase Lactate Dehydrogenase C-Reactive Protein 11.80 H Total Protein Albumin Albumin/Globulin Ratio Prealbumin Procalcitonin Meds: Medications Acetaminophen (Acetaminophen 500 Mg Tablet) 500 mg PO Q6HP PRN; Protocol PRN Reason: Per Pain Protocol Last Admin: 11/13/20 07:56 Dose: 500 mg Documented by: Hydromorphone HCl (Hydromorphone 0.5 Mg/0.5 Ml Syringe) 0.5 mg IV Q4HP PRN; Protocol PRN Reason: Per Pain Protocol Acetaminophen (Ofirmev) 650 mg in 65 mls @ 130 mls/hr IV Q6HP PRN PRN Reason: PAIN/FEVER > 101 Last Infusion: 11/11/20 15:05 Dose: Infused Documented by: Vancomycin HCl 1,000 mg/ (Sodium Chloride) 250 mls @ 250 mls/hr IV Q12H COUNTS INCLUDE 234 BEDS AT THE [facility] Last Infusion: 11/12/20 22:30 Dose: Infused Documented by: Calcium Gluconate 4.65 meq/Magnesium Sulfate 16.24 meq/Potassium Chloride 20 meq/Potassium Phosphate 20 meq/Multivitamins/Minerals 10 ml/Amino Acids 1,038.5455 mls @ 25 mls/hr IV DAILY@1800 COUNTS INCLUDE 234 BEDS AT THE [facility] Last Admin: 11/12/20 16:28 Dose: Not Given Documented by: Fat Emulsion Intravenous (Intralipid 20%) 250 mls @ 25 mls/hr IV MoWeFr@1600 COUNTS INCLUDE 234 BEDS AT THE [facility] Last Admin: 11/12/20 16:28 Dose: Not Given Documented by: Ondansetron HCl (Ondansetron 4 Mg/2 Ml Vial) 4 mg IV Q4HP PRN PRN Reason: Nausea And Vomiting Last Admin: 11/12/20 10:16 Dose: 4 mg Documented by: Sodium Chloride (0.9 % Sodium Chloride 10 Ml Syringe) 10 ml IV Q8 COUNTS INCLUDE 234 BEDS AT THE [facility] Last Admin: 11/13/20 05:32 Dose: 10 ml Documented by: Vancomycin HCl (Vancomycin Per Pharmacy) 1 order IV [place] [facility] [place]; Protocol A/P Narrative A/P Narrative: 70-year-old female with history of HTN, multiple sclerosis, status post laparoscopic sigmoid colectomy 11/05/20 for obstructing sigmoid stenosis later developed fever, cytosis, orthostatic hypotension, abdominal tenderness and possible abdominal cellulitis. Initial CT abd/pelvis showed a fluid collection with gas in the lower laparoscopic surgical incision, also mild ileus. The wound was opened at bedside by surgery and drained puss consistent with a small abscess, this abscess/cellulitis. Fever trend improved for about a day then recurred. C diff checked for diarrhea-positive GDH but negative toxin A/B, reflexed to C diff pcr which was negative. Repeat Abdominal xray consistent with mild ileus. NG tube placed and started suction, IV fluids, abdominal exam which initially improved but pain later recurred. Repeat CT chest/abd/pelvis concerning for mechanical small bowel obstruction, increased ascitic fluid compared to previous CT with gas bubbles in pelvic fluid, there was intravesicular gas. UA was not suggestive of UTI. Blood cultures NGTD. The patient continues to have intermittent fevers and generally not feeling well. CRP and procalcitonin elevated, CRP down trending. Concern for poor nutritional status. Surgery ordered a CT guided drain placement into the pelvic fluid collection. The patient felt better after the drain was placed, serosanguineous fluid drained. #Free pelvis fluid and gas concerning for possible infection/abscess/small anastomotic leak: s/p CT drain placement 11/12 #Recurrent fevers and leukocytosis possibly related to free pelvic fluid: fever trend seems to be improving #Laparoscopic incision site abscess: drained 15 ml puss at bedside (secondary healing), stable #Abdominal cellulitis: resolved (has chronic erythema attributed Plegridy SQ injections) #Partial small bowel obstruction: probably resolved #Anion gap metabolic acidosis: resolved #Diarrhea/tool incontinence: C diff GDH positive/toxin A/B negative, reflexed C diff pcr negative #Sigmoid stricture d/t adhesions: s/p laparoscopic lysis of adhesions and sigmoid colectomy (11/05) #Multiple sclerosis: treated at home with intermittent Plegridy SQ (held this hospitalization) #Essential hypertension: stable #Severe protein calorie malnourishment #Generalized weakness #Physical deconditioning #Diarrhea Plan -Monitoring pelvic drain output. -Follow culture for abdominal fluid collection-consider abx depending on results. -Deescalate to doxycycline for abdominal cellulitis, discontinued Vanco. -Monitor and replace electrolytes prn. -Start TPN per pharmacy, PICC placement. -Analgesics prn. -F/u all cultures: NGTD. -Follow stool WBC. -Holding Losartan and Plegridy for now. -Wound cares. -Nutrition following. -Surgery primary/Hospitalist consulting. 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
[2020-11-13] MEDS: VANCOMYCIN 1,000 MG in 0.9 % SODIUM CHLORIDE 250 ML IV SCH ×2 (11:11→12:01)
[2020-11-13] MEDS: DOXYCYCLINE HYCLATE 100 MG TABLET.ORL PO SCH ×2 (11:48→22:44)
--- NOTE | 2020-11-13 13:16 | Internal Med Progress Note ---
SUBJECTIVE Subjective Patient information: Note initiated : 11/13/20 at 1:13 pm Service Date, if different from initiated Date: [] Patient: Marge Bentiez 70 y/o F admitted on 11/04/20 for Esophogoga stroduodenoscopy and Colonoscopy. Chief Complaint: [] Interval history: Interval history: Hospitalist was consulted for a rapid response CODE sepsis triggered by fever, orthostatic hypotension, and trending leukocytosis. Marge Benitez is a 70-year-old female with a history of hypertension, reactive airway disease, multiple sclerosis (treated with p egylated interferon beta-1a), currently hospitalized following a laparoscopic sigmoid colon resection for a obstructing sigmoid stricture noted on colonoscopy on 11/05/20. The operative indicated there was redundant sigmoid causing scar tissue/adhesions very likely the reason for the sigmoid stricture. The patient was progressing slowly post-operatively however developed a fever of 101.2 on 11/08/20 and again had a fever on 11/09/20 along with orthostatic hypotension and new leukocytosis. Physical exam was most notable for abdominal tenderness, guarding, and erythema around the suprapubic laparoscopic surgical incision. Blood cultures, UA and urine culture, CT chest/abd/pelvis and broad spectrum antibiotics started. Surgery did not feel the CT scan was suggestive of a cause for her symptoms and UA did not suggest UTI nor is was there evidence of pneumonoia therefore Zosyn was discontinued. Vancomycin IV was continued due to concern of abdominal cellulitis. 11/10 Had NG placed overnight for concern of possible ileus. Persistent fevers today but leukocytosis resolved. Mild anion gap metabolic acidosis, lactic acid normal. Blood cx NGTD. Per report had multiple loose stools overnight and incontinent. Surgery performed I&D of inferior laparoscopic incision and drained puss consistent with abscess and probably the cause of fevers. 11/11 Afebrile overnight, still has NG tube, low potassium replaced. CRP increased and mild leukocytosis but overall looks better. C diff GDH positive but A/B toxin negative-reflexed to C diff prc. Intermittent fevers. Nutritional status concerning-days since meals may need to consider TPN. 11/12 Continues to have abdominal pain, most sever in RLQ. Persistent watery diarrhea, C diff pcr negative. Repeat CT chest/abdomen/pelvis concerning for pelvis fluid collection and mechanical small bowel obstruction. Surgery ordered CT guided drain placement. 11/13 Improvement in oral intake so will hold off on TPN pending calorie count. Overall feels better after abdominal drain placement yesterday. Deescalate to Doxycycline for cellulitis. Downtrending hemoglobin. 11/14 Constitutional Vitals: Vital Signs Temp Pulse Resp BP Pulse Ox 96.9 F L 64 20 145/84 95 11/13/20 08:00 11/13/20 08:00 11/13/20 08:00 11/13/20 08:00 11/13/20 08:00 Period Temp Pulse Resp BP Sys/Allen Pulse Ox Last 24 Hr 96.9 F-100.1 F 64-104 16-22 130-167/70-89 93-97 Intake and Output 11/12/20 11/13/20 11/13/20 21:59 05:59 13:59 Intake Total 1488 250 Output Total 1375 515 Balance 113 -265 Weight 55.157 kg 55.157 kg Patient Weight 11/14/20 05:59 Weight 55.157 kg Intake & Output: Intake & Output 11/12/20 11/13/20 11/13/20 21:59 05:59 13:59 Intake Total 1488 250 Output Total 1375 515 Balance 113 -265 Weight 55.157 kg 55.157 kg Intake: IV 1248 250 Dextrose 5%-1/2Ns W/20Meq KCl 1 998 ,000 ml @ 100 mls/hr IV .Q10H [facility] Rx#:[id number] Vancomycin 1,000 mg In Sodium 250 250 Chloride 0.9% 250 ml @ 250 mls/ hr IV Q12H [facility] Rx#:[id number] Oral 240 0 Output: Gastric Drainage 525 15 Right Lower Quadrant 525 15 Void Amount 550 Urine/Stool Mix 300 500 Other: Meal Nourishment/Supplement Percent of Meal Consumed 75% Feeding Ability Independent Urine Appearance Clear Urine Color Dark Yellow Urine Odor Normal Stool Size Moderate Stool Color Yellow Green Stool Consistency Liquid # of times incontinent of 5 1 Bowels Exam: General: Alert, Awake, No acute Distress Eyes/N/T: EOMI, Head/Neck: neck supple, CV: RRR, No murmurs, Pulm: Clear b/l, no wheezing/rhonchi/rales Abd: soft, +BS x4, abd drain, Ext: no clubbing/cyanosis/edema Neuro: Alert, no focal deficits, moves all extremities, Skin: warm/dry OBJ DATA Labs CBC & Chem 7: 11/13/20 05:30 11/13/20 05:30 Labs: Abnormal Lab Results 11/13/20 11/13/20 11/12/20 05:30 05:30 12:38 WBC RBC 3.03 L Hgb 9.1 L Hct 26.8 L Lymph # (Auto) 1.39 L Seg Neutrophils % Band Neutrophils % Lymphocytes % WBC Morphology Dohle Bodies RBC Morphology Poikilocytosis Anisocytosis Ovalocytes Acanthocytes (Spur) RBC Fragments Potassium Chloride 111 H 111 H Carbon Dioxide 21 L Creatinine 0.5 L Glucose 108 H 130 H Calcium Phosphorus 2.3 L 2.4 L Alkaline Phosphatase Lactate Dehydrogenase C-Reactive Protein Total Protein 4.9 L 5.3 L Albumin 2.2 L 2.4 L Albumin/Globulin Ratio 0.8 L 0.8 L Prealbumin < 3.0 L Procalcitonin 11/12/20 11/12/20 11/12/20 12:22 05:16 05:16 WBC RBC Hgb 9.6 L Hct Lymph # (Auto) Seg Neutrophils % Band Neutrophils % Lymphocytes % WBC Morphology Dohle Bodies RBC Morphology Poikilocytosis Anisocytosis Ovalocytes Acanthocytes (Spur) RBC Fragments Potassium Chloride 114 H Carbon Dioxide 20 L Creatinine Glucose 142 H Calcium 8.4 L Phosphorus 1.9 L Alkaline Phosphatase Lactate Dehydrogenase 131 L C-Reactive Protein 23.20 H Total Protein 5.0 L Albumin 2.3 L Albumin/Globulin Ratio 0.9 L Prealbumin Procalcitonin 60.98 H 11/12/20 11/11/20 11/11/20 05:16 19:41 19:41 WBC 11.4 H RBC 3.17 L Hgb 9.7 L Hct 28.6 L Lymph # (Auto) Seg Neutrophils % Band Neutrophils % 29 H Lymphocytes % 12 L WBC Morphology Abnormal A Dohle Bodies 1+ A RBC Morphology Abnormal A Poikilocytosis 1+ A Anisocytosis Ovalocytes 1+ A Acanthocytes (Spur) Few A RBC Fragments Few A Potassium Chloride 110 H Carbon Dioxide 19 L Creatinine Glucose 162 H Calcium Phosphorus 1.1 L Alkaline Phosphatase Lactate Dehydrogenase C-Reactive Protein 33.00 H Total Protein 5.7 L Albumin 2.7 L Albumin/Globulin Ratio 0.9 L Prealbumin Procalcitonin 11/11/20 11/11/20 11/11/20 19:41 05:09 05:09 WBC 11.1 H 11.6 H RBC 3.66 L 3.47 L Hgb 11.1 L 10.5 L Hct 32.7 L 32.0 L Lymph # (Auto) Seg Neutrophils % 83 H Band Neutrophils % 51 H Lymphocytes % 6 L 8 L WBC Morphology Dohle Bodies RBC Morphology Abnormal A Poikilocytosis Anisocytosis 1+ A Ovalocytes 2+ A Acanthocytes (Spur) RBC Fragments Few A Potassium 3.1 L Chloride 111 H Carbon Dioxide 17 L Creatinine Glucose Calcium 8.1 L Phosphorus Alkaline Phosphatase 36 L Lactate Dehydrogenase C-Reactive Protein 30.00 H Total Protein 5.1 L Albumin 2.4 L Albumin/Globulin Ratio 0.9 L Prealbumin Procalcitonin Meds: Medications Acetaminophen (Acetaminophen 500 Mg Tablet) 500 mg PO Q6HP PRN; Protocol PRN Reason: Per Pain Protocol Last Admin: 11/13/20 07:56 Dose: 500 mg Documented by: Doxycycline Hyclate (Doxycycline Hyclate 100 Mg Tablet.Orl) 100 mg PO BID [facility]; Protocol Stop: 11/16/20 11:27 Last Admin: 11/13/20 11:48 Dose: 100 mg Documented by: Hydromorphone HCl (Hydromorphone 0.5 Mg/0.5 Ml Syringe) 0.5 mg IV Q4HP PRN; Protocol PRN Reason: Per Pain Protocol Acetaminophen (Ofirmev) 650 mg in 65 mls @ 130 mls/hr IV Q6HP PRN PRN Reason: PAIN/FEVER > 101 Last Infusion: 11/11/20 15:05 Dose: Infused Documented by: Calcium Gluconate 4.65 meq/Magnesium Sulfate 16.24 meq/Potassium Chloride 20 meq/Potassium Phosphate 20 meq/Multivitamins/Minerals 10 ml/Amino Acids 1,038.5455 mls @ 25 mls/hr IV DAILY@1800 [facility] Last Admin: 11/12/20 16:28 Dose: Not Given Documented by: Fat Emulsion Intravenous (Intralipid 20%) 250 mls @ 25 mls/hr IV MoWeFr@1600 [facility] Last Admin: 11/12/20 16:28 Dose: Not Given Documented by: Ondansetron HCl (Ondansetron 4 Mg/2 Ml Vial) 4 mg IV Q4HP PRN PRN Reason: Nausea And Vomiting Last Admin: 11/12/20 10:16 Dose: 4 mg Documented by: Sodium Chloride (0.9 % Sodium Chloride 10 Ml Syringe) 10 ml IV Q8 [facility] Last Admin: 11/13/20 05:32 Dose: 10 ml Documented by: A/P Narrative A/P Narrative: A: #Free pelvis fluid & gas concerning for possible infection/abscess/small anastomotic leak: s/p CT drain placement 11/12 #Recurrent fevers and leukocytosis possibly related to free pelvic fluid: fever trend seems to be improving #Laparoscopic incision site abscess: drained 15 ml puss at bedside (secondary healing), stable #Abdominal cellulitis: resolved (has chronic erythema attributed Plegridy SQ injections) #Partial small bowel obstruction: probably resolved #Anion gap metabolic acidosis: resolved #Diarrhea/tool incontinence: C diff GDH positive/toxin A/B negative, reflexed C diff pcr negative #Sigmoid stricture d/t adhesions: s/p laparoscopic lysis of adhesions and sigmoid colectomy (11/05) #Multiple sclerosis: treated at home with intermittent Plegridy SQ (held this hospitalization) #Essential hypertension: stable #Severe protein calorie malnourishment #Generalized weakness #Physical deconditioning #Diarrhea Plan -Monitoring pelvic drain output per surgeon. -Follow culture for abdominal fluid collection-consider abx depending on results. -Deescalate to doxycycline for abdominal cellulitis, discontinued Vanco. -Monitor and replace electrolytes prn. -Start TPN per pharmacy, PICC placement. -Analgesics prn. -F/u all cultures: NGTD. -Follow stool WBC. -Holding Losartan and Plegridy for now. -Wound cares. -Nutrition following. -Surgery primary/Hospitalist consulting -DVT: per surgery Code status: Stock Digger Spent With Patient Time: Total time spent is greater than 50% in coordination of care (as documented) at patient's floor/unit and/or counseling patient: QUALITY VTE Deep Vein Thrombosis/Pulmonary Embolism Present on Admission: No
[2020-11-13] MEDS: CALCIUM GLUCONATE IV SCH (17:21)
[2020-11-13] MEDS: MAGNESIUM SULFATE IV SCH (17:21)
[2020-11-13] MEDS: POTASSIUM CHLORIDE IV SCH (17:21)
[2020-11-13] MEDS: [UNRECOGNIZED DRUG - OTHER] IV SCH (17:21)
[2020-11-13] MEDS ORDERED: ENALAPRILAT 1.25 MG/ML VIAL IV PRN (19:30)
[2020-11-13] MEDS ORDERED: DOXYCYCLINE HYCLATE 100 MG TABLET.ORL PO SCH (21:00)
[2020-11-13] MEDS: LOSARTAN 25 MG TABLET PO SCH (22:44)
[2020-11-14] MEDS: 0.9 % SODIUM CHLORIDE 10 ML SYRINGE IV SCH ×4 (04:52→21:22)
[2020-11-14] MEDS: LABETALOL 5 MG/ML ML IV PRN ×2 (05:18→08:58)
--- NOTE | 2020-11-14 07:41 | Internal Med Progress Note ---
SUBJECTIVE Subjective Patient information: Note initiated : 11/14/20 at 7:38 am Service Date, if different from initiated Date: [] Patient: Marge Benitez 70 y/o F admitted on 11/04/20 for Esophogoga stroduodenoscopy and Colonoscopy. Chief Complaint: [] Interval history: Interval history: Hospitalist was consulted for a rapid response CODE sepsis triggered by fever, orthostatic hypotension, and trending leukocytosis. Marge Benitez is a 70-year-old female with a history of hypertension, reactive airway disease, multiple sclerosis (treated with p egylated interferon beta-1a), currently hospitalized following a laparoscopic sigmoid colon resection for a obstructing sigmoid stricture noted on colonoscopy on 11/05/20. The operative indicated there was redundant sigmoid causing scar tissue/adhesions very likely the reason for the sigmoid stricture. The patient was progressing slowly post-operatively however developed a fever of 101.2 on 11/08/20 and again had a fever on 11/09/20 along with orthostatic hypotension and new leukocytosis. Physical exam was most notable for abdominal tenderness, guarding, and erythema around the suprapubic laparoscopic surgical incision. Blood cultures, UA and urine culture, CT chest/abd/pelvis and broad spectrum antibiotics started. Surgery did not feel the CT scan was suggestive of a cause for her symptoms and UA did not suggest UTI nor is was there evidence of pneumonoia therefore Zosyn was discontinued. Vancomycin IV was continued due to concern of abdominal cellulitis. 11/10 Had NG placed overnight for concern of possible ileus. Persistent fevers today but leukocytosis resolved. Mild anion gap metabolic acidosis, lactic acid normal. Blood cx NGTD. Per report had multiple loose stools overnight and incontinent. Surgery performed I&D of inferior laparoscopic incision and drained puss consistent with abscess and probably the cause of fevers. 11/11 Afebrile overnight, still has NG tube, low potassium replaced. CRP increased and mild leukocytosis but overall looks better. C diff GDH positive but A/B toxin negative-reflexed to C diff prc. Intermittent fevers. Nutritional status concerning-days since meals may need to consider TPN. 11/12 Continues to have abdominal pain, most sever in RLQ. Persistent watery diarrhea, C diff pcr negative. Repeat CT chest/abdomen/pelvis concerning for pelvis fluid collection and mechanical small bowel obstruction. Surgery ordered CT guided drain placement. 11/13 Improvement in oral intake so will hold off on TPN pending calorie count. Overall feels better after abdominal drain placement yesterday. Deescalate to Doxycycline for cellulitis. Downtrending hemoglobin. 11/14 No overnight issues or new complaints. Afebrile. Abdominal drain still draining. Encourage oral intake. Review of Systems: denies headache/fever/chills/nausea/vomiting/chest or abdominal pain/cough/dyspnea/diarrhea. Otherwise see above. Constitutional Vitals: Vital Signs Temp Pulse Resp BP Pulse Ox 98.8 F 76 16 159/84 96 11/14/20 07:10 11/14/20 07:10 11/14/20 07:10 11/14/20 07:10 11/14/20 07:10 Period Temp Pulse Resp BP Sys/Allen Pulse Ox Last 24 Hr 96.6 F-98.8 F 64-89 15-20 138-179/82-94 93-97 Intake and Output 11/13/20 11/14/20 11/14/20 21:59 05:59 13:59 Intake Total 360 100 Output Total 700 725 Balance -340 -625 Weight 55.792 kg Intake & Output: Intake & Output 11/13/20 11/14/20 11/14/20 21:59 05:59 13:59 Intake Total 360 100 Output Total 700 725 Balance -340 -625 Weight 55.792 kg Intake: Oral 360 100 Output: Gastric Drainage 200 Right Lower Quadrant 200 Drainage 425 Right Abdomen Pigtail 425 Void Amount 200 300 Urine/Stool Mix 300 Other: Meal Breakfast Nourishment/Supplement Percent of Meal Consumed 25% 100% Nourishment/Supplement name applesauce Urine Appearance Mucous Threads Clear Clear Urine Color Bright Yellow Bright Yellow Straw Urine Odor Normal Normal Exam: General: Alert, Awake, No acute Distress Eyes/N/T: EOMI, Head/Neck: neck supple, CV: RRR, No murmurs, Pulm: Clear b/l, no wheezing/rhonchi/rales Abd: soft, +BS x4, abd drain, Ext: no clubbing/cyanosis/edema Neuro: Alert, no focal deficits, moves all extremities, Skin: warm/dry OBJ DATA Labs CBC & Chem 7: 11/13/20 05:30 11/13/20 05:30 Labs: Abnormal Lab Results 11/13/20 11/13/20 11/12/20 05:30 05:30 12:38 WBC RBC 3.03 L Hgb 9.1 L Hct 26.8 L Lymph # (Auto) 1.39 L Seg Neutrophils % Band Neutrophils % Lymphocytes % WBC Morphology Dohle Bodies RBC Morphology Poikilocytosis Ovalocytes Acanthocytes (Spur) RBC Fragments Chloride 111 H 111 H Carbon Dioxide 21 L Creatinine 0.5 L Glucose 108 H 130 H Calcium Phosphorus 2.3 L 2.4 L Lactate Dehydrogenase C-Reactive Protein Total Protein 4.9 L 5.3 L Albumin 2.2 L 2.4 L Albumin/Globulin Ratio 0.8 L 0.8 L Prealbumin < 3.0 L Procalcitonin 11/12/20 11/12/20 11/12/20 12:22 05:16 05:16 WBC RBC Hgb 9.6 L Hct Lymph # (Auto) Seg Neutrophils % Band Neutrophils % Lymphocytes % WBC Morphology Dohle Bodies RBC Morphology Poikilocytosis Ovalocytes Acanthocytes (Spur) RBC Fragments Chloride 114 H Carbon Dioxide 20 L Creatinine Glucose 142 H Calcium 8.4 L Phosphorus 1.9 L Lactate Dehydrogenase 131 L C-Reactive Protein 23.20 H Total Protein 5.0 L Albumin 2.3 L Albumin/Globulin Ratio 0.9 L Prealbumin Procalcitonin 60.98 H 11/12/20 11/11/20 11/11/20 05:16 19:41 19:41 WBC 11.4 H RBC 3.17 L Hgb 9.7 L Hct 28.6 L Lymph # (Auto) Seg Neutrophils % Band Neutrophils % 29 H Lymphocytes % 12 L WBC Morphology Abnormal A Dohle Bodies 1+ A RBC Morphology Abnormal A Poikilocytosis 1+ A Ovalocytes 1+ A Acanthocytes (Spur) Few A RBC Fragments Few A Chloride 110 H Carbon Dioxide 19 L Creatinine Glucose 162 H Calcium Phosphorus 1.1 L Lactate Dehydrogenase C-Reactive Protein 33.00 H Total Protein 5.7 L Albumin 2.7 L Albumin/Globulin Ratio 0.9 L Prealbumin Procalcitonin 11/11/20 19:41 WBC 11.1 H RBC 3.66 L Hgb 11.1 L Hct 32.7 L Lymph # (Auto) Seg Neutrophils % 83 H Band Neutrophils % Lymphocytes % 6 L WBC Morphology Dohle Bodies RBC Morphology Poikilocytosis Ovalocytes Acanthocytes (Spur) RBC Fragments Chloride Carbon Dioxide Creatinine Glucose Calcium Phosphorus Lactate Dehydrogenase C-Reactive Protein Total Protein Albumin Albumin/Globulin Ratio Prealbumin Procalcitonin Meds: Medications Acetaminophen (Acetaminophen 500 Mg Tablet) 500 mg PO Q6HP PRN; Protocol PRN Reason: Per Pain Protocol Last Admin: 11/13/20 22:45 Dose: 500 mg Documented by: Doxycycline Hyclate (Doxycycline Hyclate 100 Mg Tablet.Orl) 100 mg PO BID [facility]; Protocol Stop: 11/16/20 11:27 Last Admin: 11/13/20 22:44 Dose: 100 mg Documented by: Enalaprilat (Enalaprilat 1.25 Mg/Ml Vial) 0 mg IV Q2HP PRN PRN Reason: Hypertension Hydromorphone HCl (Hydromorphone 0.5 Mg/0.5 Ml Syringe) 0.5 mg IV Q4HP PRN; Protocol PRN Reason: Per Pain Protocol Acetaminophen (Ofirmev) 650 mg in 65 mls @ 130 mls/hr IV Q6HP PRN PRN Reason: PAIN/FEVER > 101 Last Infusion: 11/11/20 15:05 Dose: Infused Documented by: Calcium Gluconate 4.65 meq/Magnesium Sulfate 16.24 meq/Potassium Chloride 20 meq/Potassium Phosphate 20 meq/Multivitamins/Minerals 10 ml/Amino Acids 1,038.5455 mls @ 25 mls/hr IV DAILY@1800 [facility] Last Admin: 11/13/20 17:21 Dose: Not Given Documented by: Fat Emulsion Intravenous (Intralipid 20%) 250 mls @ 25 mls/hr IV MoWeFr@1600 [facility] Last Admin: 11/12/20 16:28 Dose: Not Given Documented by: Labetalol HCl (Labetalol 5 Mg/Ml Ml) 0 mg IV Q2HP PRN PRN Reason: Hypertension Last Admin: 11/14/20 05:18 Dose: 10 mg Documented by: Losartan Potassium (Losartan 25 Mg Tablet) 25 mg PO DAILY [facility] Last Admin: 11/13/20 22:44 Dose: 25 mg Documented by: Ondansetron HCl (Ondansetron 4 Mg/2 Ml Vial) 4 mg IV Q4HP PRN PRN Reason: Nausea And Vomiting Last Admin: 03/31/21 10:16 Dose: 4 mg Documented by: Sodium Chloride (0.9 % Sodium Chloride 10 Ml Syringe) 10 ml IV Q8 [facility] Last Admin: 11/14/20 04:52 Dose: 10 ml Documented by: A/P Narrative A/P Narrative: A: #Free pelvis fluid & gas concerning for possible infection/abscess/small anastomotic leak: s/p CT drain placement 11/12 #Recurrent fevers and leukocytosis likely related to free pelvic fluid: fever trend improved -afebrile since 11/11 #Laparoscopic incision site abscess: drained 15 ml puss at bedside (secondary healing), stable #Abdominal cellulitis: resolved (has chronic erythema attributed Plegridy SQ injections) #Partial small bowel obstruction: probably resolved #Anion gap metabolic acidosis: resolved #Diarrhea/tool incontinence: C diff GDH positive/toxin A/B negative, reflexed C diff pcr negative #Sigmoid stricture d/t adhesions: s/p laparoscopic lysis of adhesions and sigmoid colectomy (11/05) #Multiple sclerosis: treated at home with intermittent Plegridy SQ (held this hospitalization) #Essential hypertension: stable #Severe protein calorie malnourishment #Generalized weakness #Physical deconditioning #Diarrhea #HTN: Plan -Monitoring pelvic drain output per surgeon. -Follow culture for abdominal fluid collection-consider abx depending on results. -Deescalate to doxycycline for abdominal cellulitis, discontinued Vanco. -Monitor and replace electrolytes prn. -regular diet -Analgesics prn. -F/u all cultures: NGTD. -Follow stool WBC -restarted home Losartan, holding Plegridy for now. -Wound cares. -Nutrition following. -Surgery primary/Hospitalist consulting -DVT: per surgery Code status: Oyster Tonger Spent With Patient Time: Total time spent is greater than 50% in coordination of care (as documented) at patient's floor/unit and/or counseling patient: QUALITY VTE Deep Vein Thrombosis/Pulmonary Embolism Present on Admission: No
[2020-11-14] MEDS: LOSARTAN 25 MG TABLET PO SCH (08:06)
[2020-11-14] MEDS: DOXYCYCLINE HYCLATE 100 MG TABLET.ORL PO SCH ×2 (08:06→21:20)
[2020-11-14 08:32] LABS: ALT/SGPT 16 U/L (<40); AST/SGOT 37 U/L (<32); Albumin 2.4 gm/dL (3.2-5.2); Albumin/Globulin Ratio 0.9 (1.0-2.3); Alkaline Phosphatase 40 U/L (39-117); Bilirubin,Direct < 0.2 mg/dL (0-0.3); Bilirubin,Total 0.3 mg/dL (0.1-1.0); Blood Urea Nitrogen 18 mg/dL (8-23); Calcium 9.1 mg/dL (8.6-10.4); Carbon Dioxide 26 mmol/L (22-30); Chloride 108 mmol/L (96-108); Globulin 2.6 gm/dL (2.2-3.7); Glomerular Filtration Rate 99; Glucose 100 mg/dL (70-105); Lactate Dehydrogenase 199 U/L (135-225); Phosphorous 2.5 mg/dL (2.5-4.5); Triglycerides 142 mg/dL (<150); Uric Acid 2.2 mg/dL (2.5-8.0)
[2020-11-14] MEDS ORDERED: POTASSIUM CHLORIDE 20 MEQ TABLET PO ONE (08:43)
[2020-11-14] MEDS ORDERED: POTASSIUM CHLORIDE 40 MEQ in DEXTROSE 5% IN WATER 500 ML IV ONE (08:43)
[2020-11-14 08:54] LABS: Hematocrit 27.4 % (36.0-48.0); Hemoglobin 9.2 g/dL (12.0-15.0)
[2020-11-14] MEDS ORDERED: 0.9 % SODIUM CHLORIDE 10 ML SYRINGE IV PRN (14:01)
[2020-11-14] MEDS ORDERED: TPN PER PHARMACY IV SCH (14:01)
--- NOTE | 2020-11-14 16:59 | General Surgery Progress Note ---
SUBJECTIVE Subjective Patient information: Note initiated : 11/14/20 at 4:57 pm Service Date, if different from initiated Date: [] Patient: Marge Benitez 70 y/o F admitted on 11/04/20 for Esophogogastroduodenoscopy and Colonoscopy. Chief Complaint: [] Interval history: POD 8 s/p sigmoid colectomy, post op course complicated by superficial wound infection, intra-abdominal fluid collection, s/p drainage. Patient feels much better today, is tolerating more of a diet today, slowly more ambulatory. Constitutional Vitals: Vital Signs Temp Pulse Resp BP Pulse Ox 98.5 F 82 16 148/83 96 11/14/20 15:59 11/14/20 15:59 11/14/20 15:59 11/14/20 15:59 11/14/20 15:59 Period Temp Pulse Resp BP Sys/Allen Pulse Ox Last 24 Hr 97.6 F-98.8 F 75-89 15-16 138-159/75-88 93-97 Intake and Output 11/14/20 11/14/20 11/14/20 05:59 13:59 21:59 Intake Total 100 520 800 Output Total 725 400 400 Balance -625 120 400 Intake & Output: Intake & Output 11/14/20 11/14/20 11/14/20 05:59 13:59 21:59 Intake Total 100 520 800 Output Total 725 400 400 Balance -625 120 400 Intake: IV 520 Potassium Chloride 40 Meq In 520 Dextrose 5% in Water 500 ml @ 130 mls/hr IV ONCE ONE Rx#: [id number] Oral 100 800 Output: Drainage 425 200 Right Abdomen Pigtail 425 200 Void Amount 300 400 200 Other: Meal Nourishment/Supplement Breakfast Lunch Percent of Meal Consumed 100% 75% 100% Feeding Ability Independent Independent Nourishment/Supplement name applesauce Urine Appearance Clear Clear Clear Mucous Threads Mucous Threads Urine Color Bright Yellow Bright Yellow Bright Yellow Urine Odor Normal Normal General appearance: cooperative and no acute distress GI/Abdominal GI/Abdominal exam: Present soft; Absent distended and tenderness Additional comments: wound is clean, dry, pink. A/P Narrative A/P Narrative: POD 8, returning to baseline. continue with regular diet plan Home with drain, follow up next week for removal awaiting hospitalist clearance for discharge. Anticipate SNF tomorrow Time Spent With Patient Time: Total time spent is greater than 50% in coordination of care (as documented) at patient's floor/unit and/or counseling patient:
[2020-11-14] MEDS ORDERED: LORazepam 2 MG/ML VIAL IV ONE (17:00)
--- NOTE | 2020-11-15 06:10 | XRay Report ---
INDICATION: PICC PLACEMENT TECHNIQUE: AP portable supine chest x-ray COMPARISON: Previous chest x-ray dated 06/15/2006 FINDINGS:Left-sided PICC line with its tip in the superior vena cava. Lungs:Lungs are negative. No focal pulmonary parenchymal infiltrate or mass Heart, vascular:No significant cardiomegaly. Pulmonary vascularity is normal. No pulmonary edema or pulmonary congestion Mediastinum, shawn:No mediastinal widening. No hilar mass Pleura:No pleural fluid. No pleural-based mass or calcification Skeletal:Negative. Examination was initially interpreted by [facility] IMPRESSION: Left-sided PICC line in the superior vena cava Interpreted and Authenticated by: Arturo Cuadra 11/15/20
[2020-11-15 06:45] LABS: ALT/SGPT 29 U/L (<40); AST/SGOT 47 U/L (<32); Albumin 2.3 gm/dL (3.2-5.2); Albumin/Globulin Ratio 0.9 (1.0-2.3); Alkaline Phosphatase 41 U/L (39-117); Bilirubin,Direct < 0.2 mg/dL (0-0.3); Bilirubin,Total 0.2 mg/dL (0.1-1.0); Blood Urea Nitrogen 21 mg/dL (8-23); Calcium 8.7 mg/dL (8.6-10.4); Carbon Dioxide 27 mmol/L (22-30); Chloride 105 mmol/L (96-108); Globulin 2.6 gm/dL (2.2-3.7); Glomerular Filtration Rate 99; Glucose 96 mg/dL (70-105); Lactate Dehydrogenase 177 U/L (135-225); Phosphorous 2.9 mg/dL (2.5-4.5); Triglycerides 130 mg/dL (<150); Uric Acid 1.8 mg/dL (2.5-8.0)
--- NOTE | 2020-11-15 07:52 | Internal Med Progress Note ---
SUBJECTIVE Subjective Patient information: Note initiated : 11/15/20 at 7:51 am Service Date, if different from initiated Date: [] Patient: Marge Benitez 70 y/o F admitted on 11/04/20 for Esophogoga stroduodenoscopy and Colonoscopy. Chief Complaint: [] Interval history: Interval history: Hospitalist was consulted for a rapid response CODE sepsis triggered by fever, orthostatic hypotension, and trending leukocytosis. Marge Benitez is a 70-year-old female with a history of hypertension, reactive airway disease, multiple sclerosis (treated with p egylated interferon beta-1a), currently hospitalized following a laparoscopic sigmoid colon resection for a obstructing sigmoid stricture noted on colonoscopy on 11/05/20. The operative indicated there was redundant sigmoid causing scar tissue/adhesions very likely the reason for the sigmoid stricture. The patient was progressing slowly post-operatively however developed a fever of 101.2 on 11/08/20 and again had a fever on 11/09/20 along with orthostatic hypotension and new leukocytosis. Physical exam was most notable for abdominal tenderness, guarding, and erythema around the suprapubic laparoscopic surgical incision. Blood cultures, UA and urine culture, CT chest/abd/pelvis and broad spectrum antibiotics started. Surgery did not feel the CT scan was suggestive of a cause for her symptoms and UA did not suggest UTI nor is was there evidence of pneumonoia therefore Zosyn was discontinued. Vancomycin IV was continued due to concern of abdominal cellulitis. 11/10 Had NG placed overnight for concern of possible ileus. Persistent fevers today but leukocytosis resolved. Mild anion gap metabolic acidosis, lactic acid normal. Blood cx NGTD. Per report had multiple loose stools overnight and incontinent. Surgery performed I&D of inferior laparoscopic incision and drained puss consistent with abscess and probably the cause of fevers. 11/11 Afebrile overnight, still has NG tube, low potassium replaced. CRP increased and mild leukocytosis but overall looks better. C diff GDH positive but A/B toxin negative-reflexed to C diff prc. Intermittent fevers. Nutritional status concerning-days since meals may need to consider TPN. 11/12 Continues to have abdominal pain, most sever in RLQ. Persistent watery diarrhea, C diff pcr negative. Repeat CT chest/abdomen/pelvis concerning for pelvis fluid collection and mechanical small bowel obstruction. Surgery ordered CT guided drain placement. 4/ Improvement in oral intake so will hold off on TPN pending calorie count. Overall feels better after abdominal drain placement yesterday. Deescalate to Doxycycline for cellulitis. Downtrending hemoglobin. / No overnight issues or new complaints. Afebrile. Abdominal drain still draining. Encourage oral intake. /3 Feeling better. Sitting up in bed starting to eat her breakfast. No new pains or complaints. No nausea vomiting. Review of Systems: denies headache/fever/chills/nausea/vomiting/chest or abdominal pain/cough/dyspnea/diarrhea. Otherwise see above. Constitutional Vitals: Vital Signs Temp Pulse Resp BP Pulse Ox 98.5 F 79 16 133/84 96 11/15/20 06:41 11/15/20 06:41 11/15/20 06:41 11/15/20 06:41 11/15/20 06:41 Period Temp Pulse Resp BP Sys/Allen Pulse Ox Last 24 Hr 98.3 F-98.8 F 79-98 16-18 126-151/75-89 93-96 Intake and Output 11/14/20 11/15/20 11/15/20 21:59 05:59 13:59 Intake Total 800 300 Output Total 525 400 200 Balance 275 -100 -200 Weight 54.794 kg Intake & Output: Intake & Output 11/14/20 11/15/20 11/15/20 21:59 05:59 13:59 Intake Total 800 300 Output Total 525 400 200 Balance 275 -100 -200 Weight 54.794 kg Intake: Oral 800 300 Output: Drainage 200 125 Right Abdomen Pigtail 200 125 Void Amount 325 275 200 Other: Meal Lunch Percent of Meal Consumed 100% Feeding Ability Independent Urine Appearance Clear Clear Clear Urine Color Bright Yellow Bright Yellow Dark Yellow Urine Odor Normal Exam: General: Alert, Awake, No acute Distress Eyes/N/T: EOMI, Head/Neck: neck supple, CV: RRR, No murmurs, Pulm: Clear b/l, no wheezing/rhonchi/rales Abd: soft, +BS x4, abd drain, Ext: no clubbing/cyanosis/edema Neuro: Alert, no focal deficits, moves all extremities, Skin: warm/dry OBJ DATA Labs CBC & Chem 7: 11/14/20 05:15 11/15/20 05:28 Labs: Abnormal Lab Results 11/15/20 11/14/20 11/14/20 05:28 05:15 05:15 RBC Hgb 9.2 L Hct 27.4 L Lymph # (Auto) Band Neutrophils % Lymphocytes % WBC Morphology Dohle Bodies RBC Morphology Poikilocytosis Ovalocytes Acanthocytes (Spur) RBC Fragments Potassium 2.9 L* Chloride Carbon Dioxide Creatinine 0.5 L 0.5 L Glucose Uric Acid 1.8 L 2.2 L Phosphorus Magnesium 1.5 L AST 47 H 37 H Total Protein 4.9 L 5.0 L Albumin 2.3 L 2.4 L Albumin/Globulin Ratio 0.9 L 0.9 L Prealbumin 11/13/20 11/13/20 11/12/20 05:30 05:30 12:38 RBC 3.03 L Hgb 9.1 L Hct 26.8 L Lymph # (Auto) 1.39 L Band Neutrophils % Lymphocytes % WBC Morphology Dohle Bodies RBC Morphology Poikilocytosis Ovalocytes Acanthocytes (Spur) RBC Fragments Potassium Chloride 111 H 111 H Carbon Dioxide 21 L Creatinine 0.5 L Glucose 108 H 130 H Uric Acid Phosphorus 2.3 L 2.4 L Magnesium AST Total Protein 4.9 L 5.3 L Albumin 2.2 L 2.4 L Albumin/Globulin Ratio 0.8 L 0.8 L Prealbumin < 3.0 L 11/12/20 11/12/20 12:22 05:16 RBC Hgb 9.6 L Hct Lymph # (Auto) Band Neutrophils % 29 H Lymphocytes % 12 L WBC Morphology Abnormal A Dohle Bodies 1+ A RBC Morphology Abnormal A Poikilocytosis 1+ A Ovalocytes 1+ A Acanthocytes (Spur) Few A RBC Fragments Few A Potassium Chloride Carbon Dioxide Creatinine Glucose Uric Acid Phosphorus Magnesium AST Total Protein Albumin Albumin/Globulin Ratio Prealbumin Meds: Medications Acetaminophen (Acetaminophen 500 Mg Tablet) 500 mg PO Q6HP PRN; Protocol PRN Reason: Per Pain Protocol Last Admin: 11/13/20 22:45 Dose: 500 mg Documented by: Doxycycline Hyclate (Doxycycline Hyclate 100 Mg Tablet.Orl) 100 mg PO BID CRESCENCIO; Protocol Stop: 11/16/20 11:27 Last Admin: 11/14/20 21:20 Dose: 100 mg Documented by: Enalaprilat (Enalaprilat 1.25 Mg/Ml Vial) 0 mg IV Q2HP PRN PRN Reason: Hypertension Last Admin: 11/14/20 11:13 Dose: 0.625 mg Documented by: Heparin Sodium (Porcine) (Heparin Flush 10 Units/Ml 5 Ml Syringe) 2 ml IV Q12 [facility] Last Admin: 11/14/20 21:20 Dose: 2 ml Documented by: Hydromorphone HCl (Hydromorphone 0.5 Mg/0.5 Ml Syringe) 0.5 mg IV Q4HP PRN; Protocol PRN Reason: Per Pain Protocol Acetaminophen (Ofirmev) 650 mg in 65 mls @ 130 mls/hr IV Q6HP PRN PRN Reason: PAIN/FEVER > 101 Last Infusion: 11/11/20 15:05 Dose: Infused Documented by: Labetalol HCl (Labetalol 5 Mg/Ml Ml) 0 mg IV Q2HP PRN PRN Reason: Hypertension Last Admin: 11/14/20 08:58 Dose: 10 mg Documented by: Losartan Potassium (Losartan 25 Mg Tablet) 25 mg PO DAILY [facility] Last Admin: 11/14/20 08:06 Dose: 25 mg Documented by: Ondansetron HCl (Ondansetron 4 Mg/2 Ml Vial) 4 mg IV Q4HP PRN PRN Reason: Nausea And Vomiting Last Admin: 11/12/20 10:16 Dose: 4 mg Documented by: Sodium Chloride (0.9 % Sodium Chloride 10 Ml Syringe) 10 ml IV UD PRN PRN Reason: FLUSH Sodium Chloride (0.9 % Sodium Chloride 10 Ml Syringe) 10 ml IV Q12 [facility] Last Admin: 11/14/20 21:21 Dose: 10 ml Documented by: A/P Narrative A/P Narrative: A: #Free pelvis fluid & gas concerning for possible infection/abscess/small anastomotic leak: s/p CT drain placement 11/12 #Recurrent fevers and leukocytosis likely related to free pelvic fluid: fever trend improved -afebrile since 11/11 #Laparoscopic incision site abscess: drained 15 ml puss at bedside (secondary healing), stable #Abdominal cellulitis: resolved (has chronic erythema attributed Plegridy SQ i njections) #Partial small bowel obstruction: probably resolved #Anion gap metabolic acidosis: resolved #Diarrhea/tool incontinence: C diff GDH positive/toxin A/B negative, reflexed C diff pcr negative #Sigmoid stricture d/t adhesions: s/p laparoscopic lysis of adhesions and sigmoid colectomy (11/05) #Multiple sclerosis: treated at home with intermittent Plegridy SQ (held this hospitalization) #Essential hypertension: stable #Severe protein calorie malnourishment #Generalized weakness #Physical deconditioning #Diarrhea #HTN: Plan -Monitoring pelvic drain output per surgeon. -Follow culture for abdominal fluid collection-consider abx depending on results. -Deescalated to doxycycline for abdominal cellulitis, discontinued Vanco. -Monitor and replace electrolytes prn. -TPN ordered, defer diet advancement to surgeon -Analgesics prn. -restarted home Losartan, holding Plegridy for now. -Wound cares. -Nutrition following. 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
[2020-11-15] MEDS: 0.9 % SODIUM CHLORIDE 10 ML SYRINGE IV SCH ×2 (08:05→22:15)
[2020-11-15] MEDS: LOSARTAN 25 MG TABLET PO SCH (08:05)
[2020-11-15] MEDS: DOXYCYCLINE HYCLATE 100 MG TABLET.ORL PO SCH (08:05)
[2020-11-15] MEDS ORDERED: MAGNESIUM SULFATE 8.12 MEQ in DEXTROSE 5% IN WATER 50 ML IV ONE (10:00)
[2020-11-15] MEDS ORDERED: MAGNESIUM SULFATE IV SCH (13:00)
[2020-11-15] MEDS ORDERED: CALCIUM GLUCONATE IV SCH (13:00)
[2020-11-15] MEDS ORDERED: POTASSIUM CHLORIDE IV SCH (13:00)
[2020-11-15] MEDS ORDERED: [UNRECOGNIZED DRUG - OTHER] IV SCH (13:00)
--- NOTE | 2020-11-15 13:58 | General Surgery Progress Note ---
SUBJECTIVE Subjective Patient information: Note initiated : 11/15/20 at 1:56 pm Service Date, if different from initiated Date: [] Patient: Marge Benitez 70 y/o F admitted on 11/04/20 for Esophogogastroduodenoscopy and Colonoscopy. Chief Complaint: [] Principal diagnosis: Postop colectomy; pelvic abscess Interval history: Patient states that she feels better. She has been afebrile and her vital signs have been stable with normal pressures and pulse. She is anorexic and has been started on TPN. She has had a small amount of flatus but has not had a bowel movement of any kind for the last 3 days. The drainage from her pelvic drain is gross purulence. The volumes are actually increasing. Constitutional Vitals: Vital Signs Temp Pulse Resp BP Pulse Ox 98.4 F 82 18 130/73 94 11/15/20 11:42 11/15/20 11:42 11/15/20 11:42 11/15/20 11:42 11/15/20 11:42 Period Temp Pulse Resp BP Sys/Allen Pulse Ox Last 24 Hr 98.3 F-98.8 F 79-98 16-18 126-148/73-89 93-96 Intake and Output 11/14/20 11/15/20 11/15/20 21:59 05:59 13:59 Intake Total 800 300 292 Output Total 525 400 200 Balance 275 -100 92 Weight 120 lb 12.8 oz 120 lb 12.8 oz Patient Weight 11/16/20 05:59 Weight 120 lb 12.8 oz Intake & Output: Intake & Output 11/14/20 11/15/20 11/15/20 21:59 05:59 13:59 Intake Total 800 300 292 Output Total 525 400 200 Balance 275 -100 92 Weight 120 lb 12.8 oz 120 lb 12.8 oz Intake: Nourishment/Supplement quantity 240 (ml) IV 52 Magnesium Sulfate 8.12 Meq In 52 Dextrose 5% in Water 50 ml @ 52 mls/hr IV ONCE ONE Rx#: [id number] Oral 800 300 Output: Drainage 200 125 Right Abdomen Pigtail 200 125 Void Amount 325 275 200 Other: Meal Lunch Breakfast Percent of Meal Consumed 100% 75% Feeding Ability Independent Independent Urine Appearance Clear Clear Clear Urine Color Bright Yellow Bright Yellow Straw Urine Odor Normal Normal Head Head exam: Present atraumatic, normal inspection and normocephalic Eye Eye exam: Present EOMI, normal appearance and PERRL ENT ENT exam: Present mucous membranes moist and normal oropharynx Neck Neck exam: Present full ROM; Absent tenderness Respiratory Respiratory exam: Present normal respiratory exam and CTAB; Absent rales, rhonchi and wheezes Cardiovascular Cardiovascular exam: Present normal rate and rhythm, RRR, +S1 and +S2; Absent JVD GI/Abdominal GI/Abdominal exam: Present soft and tenderness (Mild tenderness in lower hypogastric area; drainage is grossly.; Open wound in the suprapubic area is clean) Extremities Exam Extremities exam: Present full ROM, normal inspection and neurovascular intact Neurological Exam Neurological exam: Present alert and normal gait Psychiatric Psychiatric exam: Present normal affect and normal mood Skin Skin exam: Absent erythema and rash A/P Assessment and plan (1) History of partial colectomy: Status: Acute (2) Pelvic abscess: Status: Acute (3) Essential hypertension: Status: Chronic Narrative A/P Narrative: We will continue on present therapy Advance TPN as tolerated Delay advancement of diet Time Spent With Patient Time: Total time spent is greater than 50% in coordination of care (as documented) at patient's floor/unit and/or counseling patient:
[2020-11-15] MEDS: PIPERACILLIN SODIUM/TAZOBACTAM 3.375 GM in DEXTROSE 5% IN WATER 50 ML IV SCH ×2 (15:24→21:00)
[2020-11-15] MEDS: HYDROmorphone 0.5 MG/0.5 ML SYRINGE IV PRN ×2 (16:08→20:58)
[2020-11-16] MEDS: PIPERACILLIN SODIUM/TAZOBACTAM 3.375 GM in DEXTROSE 5% IN WATER 50 ML IV SCH ×5 (00:17→23:46)
[2020-11-16 06:37] LABS: Basophils # (Auto) 0.03 K/mcL (0.00-0.20); Basophils % (Auto) 0.4 % (0.0-2.0); Eosinophils # (Auto) 0.21 K/mcL (0.00-0.70); Eosinophils % (Auto) 2.7 % (0.0-7.0); Hematocrit 26.9 % (36.0-48.0); Hemoglobin 8.9 g/dL (12.0-15.0); Lymphocytes % (Auto) 24.8 % (15.0-49.0); Mean Cell Volume 90.3 fL (80.0-100.0); Mean Corpuscular HGB Conc 33.1 g/dL (31.0-36.0); Mean Platelet Volume 9.4 fL (7.4-10.4); Monocytes # (Auto) 0.69 K/mcL (0.10-0.90); Neutrophils % (Auto) 63.1 % (38.0-78.0); Platelet Count 409 K/mcL (140-440); RBC 2.98 M/mcL (4.00-5.20); Red Cell Distribution Width 13.1 % (11.5-14.5); WBC 7.7 K/mcL (4.5-11.0)
[2020-11-16] MEDS: LOSARTAN 25 MG TABLET PO SCH (08:28)
[2020-11-16] MEDS: 0.9 % SODIUM CHLORIDE 10 ML SYRINGE IV SCH ×2 (08:29→21:41)
[2020-11-16 09:18] LABS: ALT/SGPT 45 U/L (<40); AST/SGOT 62 U/L (<32); Albumin 2.4 gm/dL (3.2-5.2); Albumin/Globulin Ratio 0.9 (1.0-2.3); Alkaline Phosphatase 41 U/L (39-117); Bilirubin,Direct < 0.2 mg/dL (0-0.3); Bilirubin,Total 0.2 mg/dL (0.1-1.0); Blood Urea Nitrogen 23 mg/dL (8-23); Calcium 8.3 mg/dL (8.6-10.4); Carbon Dioxide 28 mmol/L (22-30); Chloride 101 mmol/L (96-108); Globulin 2.6 gm/dL (2.2-3.7); Glomerular Filtration Rate 99; Glucose 112 mg/dL (70-105); Lactate Dehydrogenase 186 U/L (135-225); Phosphorous 3.4 mg/dL (2.5-4.5); Triglycerides 165 mg/dL (<150)
[2020-11-16] MEDS ORDERED: [UNRECOGNIZED DRUG - OTHER] IV SCH (13:00)
[2020-11-16] MEDS ORDERED: CALCIUM GLUCONATE IV SCH (13:00)
[2020-11-16] MEDS ORDERED: POTASSIUM CHLORIDE IV SCH (13:00)
[2020-11-16] MEDS ORDERED: MAGNESIUM SULFATE IV SCH (13:00)
[2020-11-16] MEDS: HYDROmorphone 0.5 MG/0.5 ML SYRINGE IV PRN ×2 (13:17→19:46)
--- NOTE | 2020-11-16 17:32 | General Surgery Progress Note ---
SUBJECTIVE Subjective Patient information: Note initiated : 11/16/20 at 5:27 pm Service Date, if different from initiated Date: [] Patient: Marge Benitez 70 y/o F admitted on 11/04/20 for Esophogogastroduodenoscopy and Colonoscopy. Chief Complaint: [] Principal diagnosis: Postop colectomy; pelvic abscess Interval history: Patient states that she feels better. She has had some flatus output but still has not had a bowel movement. She took in some solid food earlier today and states that she feels tight. She denies nausea or vomiting. She has been afebrile and her white blood count remains normal. Cultures of the drainage taken directly from the pigtail catheter is growing gram-negative bacillus. Identification is not available but it should be covered by Zosyn. The amount of drainage is slightly decreased from yesterday. She had 375 cc of output yesterday. She probably needs to have another pelvic CT but I will wait until Dr. Burnett decides this tomorrow since she is stable. Constitutional Vitals: Vital Signs Temp Pulse Resp BP Pulse Ox 97.9 F 86 16 130/76 97 11/16/20 15:25 11/16/20 15:25 11/16/20 15:25 11/16/20 15:25 11/16/20 15:25 Period Temp Pulse Resp BP Sys/Allen Pulse Ox Last 24 Hr 97.8 F-99.3 F 82-93 16-24 120-153/73-88 95-97 Intake and Output 11/16/20 11/16/20 11/16/20 05:59 13:59 21:59 Intake Total 340 340 360 Output Total 570 550 400 Balance -230 -210 -40 Intake & Output: Intake & Output 11/16/20 11/16/20 11/16/20 05:59 13:59 21:59 Intake Total 340 340 360 Output Total 570 550 400 Balance -230 -210 -40 Intake: Nourishment/Supplement quantity 240 (ml) IV 100 100 Zosyn 3.375 gm In Dextrose 5% 100 100 in Water 50 ml @ 100 mls/hr IV Q6H [facility] Rx#:[id number] Oral 240 360 Output: Gastric Drainage 120 Right Lower Quadrant 120 Void Amount 450 550 400 Other: Meal Nourishment/Supplement Breakfast Lunch Percent of Meal Consumed 100% 75% 75% Feeding Ability Independent Independent Nourishment/Supplement name Ensure Urine Appearance Clear Clear Mucous Threads Mucous Threads Urine Color Bright Yellow Bright Yellow Bright Yellow Urine Odor Normal Normal Neck Neck exam: Present full ROM; Absent tenderness Respiratory Respiratory exam: Present normal respiratory exam and CTAB; Absent rales, rh onchi and wheezes Cardiovascular Cardiovascular exam: Present normal rate and rhythm, RRR, +S1 and +S2; Absent JVD GI/Abdominal GI/Abdominal exam: Present soft and tenderness (Mild tenderness in lower hypogastric area; drainage is grossly purulent.; Open wound in the suprapubic area is clean) Extremities Exam Extremities exam: Present full ROM, normal inspection and neurovascular intact A/P Assessment and plan (1) Pelvic abscess: Status: Acute (2) History of partial colectomy: Status: Acute Narrative A/P Narrative: We will continue on present antibiotics and continue TPN since her p.o. intake is marginal. 2 view abdominal x-ray because of continued complaints of bloating Time Spent With Patient Time: Total time spent is greater than 50% in coordination of care (as documented) at patient's floor/unit and/or counseling patient:
--- NOTE | 2020-11-16 18:46 | XRay Report ---
INDICATION: FOR F/U OF ILEUS TECHNIQUE: Supine and upright abdomen. COMPARISON: Previous CT scan dated 11/12/2020 and plain film abdomen dated 11/10/2020 FINDINGS:There is a percutaneous drainage catheter within the pelvis. There is pelvic gas which may be within the bladder or probable abscess cavity. There is gas and fecal material within the colon. There is small bowel gas. Bowel gas pattern is nonspecific. Small bowel is dilated to approximately 4.0 cm in maximum cross-sectional diameter. Follow-up CT scan may be helpful to assess probable abscess and gas collection. IMPRESSION: 1. Gas and fecal material within the colon. There is mildly dilated gas-filled small bowel 2. Gas collection within the pelvis. Anatomic location is not certain and follow-up CT scan may be helpful. Interpreted and Authenticated by: Arturo Cuadra 11/16/20
[2020-11-17] MEDS: PIPERACILLIN SODIUM/TAZOBACTAM 3.375 GM in DEXTROSE 5% IN WATER 50 ML IV SCH ×4 (06:05→23:55)
--- NOTE | 2020-11-17 08:02 | Internal Med Progress Note ---
SUBJECTIVE Subjective Patient information: Note initiated : 11/17/20 at 7:56 am Service Date, if different from initiated Date: [] Patient: Marge Benitez 70 y/o F admitted on 11/04/20 for Esophogoga stroduodenoscopy and Colonoscopy. Chief Complaint: [] Principal diagnosis: Postop colectomy; pelvic abscess Interval history: Interval history: Hospitalist was consulted for a rapid response CODE sepsis triggered by fever, orthostatic hypotension, and trending leukocytosis. Marge Benitez is a 70-year-old female with a history of hypertension, reactive airway disease, multiple sclerosis (treated with pegylated interferon beta-1a), currently hospitalized following a laparoscopic sigmoid colon resection for a obstructing sigmoid stricture noted on colonoscopy on 11/05/20. The operative indicated there was redundant sigmoid causing scar tissue/adhesions very likely the reason for the sigmoid stricture. The patient was progressing slowly post-operatively however developed a fever of 101.2 on 11/08/20 and again had a fever on 11/09/20 along with orthostatic hypotension and new leukocytosis. Physical exam was most notable for abdominal tenderness, guarding, and erythema around the suprapubic laparoscopic surgical incision. Blood cultures, UA and urine culture, CT chest/abd/pelvis and broad spectrum antibiotics started. Surgery did not feel the CT scan was suggestive of a cause for her symptoms and UA did not suggest UTI nor is was there evidence of pneumonoia therefore Zosyn was discontinued. Vancomycin IV was continued due to concern of abdominal cellulitis. 11/10 Had NG placed overnight for concern of possible ileus. Persistent fevers today but leukocytosis resolved. Mild anion gap metabolic acidosis, lactic acid normal. Blood cx NGTD. Per report had multiple loose stools overnight and incontinent. Surgery performed I&D of inferior laparoscopic incision and drained puss consistent with abscess and probably the cause of fevers. 11/11 Afebrile overnight, still has NG tube, low potassium replaced. CRP increased and mild leukocytosis but overall looks better. C diff GDH positive but A/B toxin negative-reflexed to C diff prc. Intermittent fevers. Nutritional status concerning-days since meals may need to consider TPN. 11/12 Continues to have abdominal pain, most sever in RLQ. Persistent watery diarrhea, C diff pcr negative. Repeat CT chest/abdomen/pelvis concerning for pelvis fluid collection and mechanical small bowel obstruction. Surgery ordered CT guided drain placement. 4/ Improvement in oral intake so will hold off on TPN pending calorie count. Overall feels better after abdominal drain placement yesterday. Deescalate to Doxycycline for cellulitis. Downtrending hemoglobin. 4/2 No overnight issues or new complaints. Afebrile. Abdominal drain still draining. Encourage oral intake. 4/3 Feeling better. Sitting up in bed starting to eat her breakfast. No new pains or complaints. No nausea vomiting. 4/5 No new events overnight complaints. Patient states she her appetite is getting little bit better. Fluid culture growing gram-negative bacillus. Review of Systems: denies headache/fever/chills/nausea/vomiting/chest or abdominal pain/cough/dyspnea/diarrhea. Otherwise see above. Constitutional Vitals: Vital Signs Temp Pulse Resp BP Pulse Ox 98.2 F 81 20 128/78 95 11/17/20 06:49 11/17/20 06:49 11/17/20 06:49 11/17/20 06:49 11/17/20 06:49 Period Temp Pulse Resp BP Sys/Allen Pulse Ox Last 24 Hr 97.9 F-98.9 F 81-87 14-20 128-146/76-81 94-97 Intake and Output 11/16/20 11/17/20 11/17/20 21:59 05:59 13:59 Intake Total 410 50 50 Output Total 950 650 200 Balance -540 -600 -150 Weight 54.93 kg Intake & Output: Intake & Output 11/16/20 11/17/20 11/17/20 21:59 05:59 13:59 Intake Total 410 50 50 Output Total 950 650 200 Balance -540 -600 -150 Weight 54.93 kg Intake: IV 50 50 50 Zosyn 3.375 gm In Dextrose 5% 50 50 50 in Water 50 ml @ 100 mls/hr IV Q6H [facility] Rx#:[id number] Oral 360 Output: Void Amount 950 650 200 Other: Meal Lunch Percent of Meal Consumed 75% Feeding Ability Independent Urine Appearance Clear Clear Urine Color Bright Yellow Bright Yellow Straw Urine Odor Normal Normal Normal Stool Size Small Stool Color Brown Stool Consistency Soft # Bowel Movements 1 Exam: General: Alert, Awake, No acute Distress Eyes/N/T: EOMI, Head/Neck: neck supple, CV: RRR, No murmurs, Pulm: Clear b/l, no wheezing/rhonchi/rales Abd: soft, +BS x4, abd drain, Ext: no clubbing/cyanosis/edema Neuro: Alert, no focal deficits, moves all extremities, Skin: warm/dry OBJ DATA Labs CBC & Chem 7: 11/16/20 05:15 11/16/20 08:32 Labs: Abnormal Lab Results 11/16/20 11/16/20 11/15/20 08:32 05:15 05:28 RBC 2.98 L Hgb 8.9 L Hct 26.9 L Potassium 3.2 L Anion Gap 6.0 L Creatinine 0.5 L 0.5 L Glucose 112 H Uric Acid 1.0 L 1.8 L Calcium 8.3 L Magnesium 1.5 L AST 62 H 47 H ALT 45 H Total Protein 5.0 L 4.9 L Albumin 2.4 L 2.3 L Albumin/Globulin Ratio 0.9 L 0.9 L Triglycerides 165 H 11/14/20 11/14/20 05:15 05:15 RBC Hgb 9.2 L Hct 27.4 L Potassium 2.9 L* Anion Gap Creatinine 0.5 L Glucose Uric Acid 2.2 L Calcium Magnesium AST 37 H ALT Total Protein 5.0 L Albumin 2.4 L Albumin/Globulin Ratio 0.9 L Triglycerides Meds: Medications Acetaminophen (Acetaminophen 500 Mg Tablet) 500 mg PO Q6HP PRN; Protocol PRN Reason: Per Pain Protocol Last Admin: 11/13/20 22:45 Dose: 500 mg Documented by: Enalaprilat (Enalaprilat 1.25 Mg/Ml Vial) 0 mg IV Q2HP PRN PRN Reason: Hypertension Last Admin: 11/14/20 11:13 Dose: 0.625 mg Documented by: Heparin Sodium (Porcine) (Heparin Flush 10 Units/Ml 5 Ml Syringe) 2 ml IV Q12 [facility] Last Admin: 11/16/20 21:41 Dose: 2 ml Documented by: Hydromorphone HCl (Hydromorphone 0.5 Mg/0.5 Ml Syringe) 0.5 mg IV Q4HP PRN; Protocol PRN Reason: Per Pain Protocol Last Admin: 11/16/20 19:46 Dose: 0.5 mg Documented by: Acetaminophen (Ofirmev) 650 mg in 65 mls @ 130 mls/hr IV Q6HP PRN PRN Reason: PAIN/FEVER > 101 Last Infusion: 11/11/20 15:05 Dose: Infused Documented by: Fat Emulsion Intravenous (Intralipid 20%) 250 mls @ 25 mls/hr IV [id number] [facility] Piperacillin Sod/Tazobactam (Sod 3.375 gm/ Dextrose) 50 mls @ 100 mls/hr IV Q6H [facility]; Protocol Last Infusion: 11/17/20 06:35 Dose: Infused Documented by: Calcium Gluconate 4.65 meq/Magnesium Sulfate 16.24 meq/Potassium Chloride 30 meq/Potassium Phosphate 20 meq/Multivitamins/Minerals 10 ml/Sodium Chloride 30 meq/ Amino Acids 1,051.0455 mls @ 50 mls/hr IV DAILY@1300 [facility] Last Admin: 11/16/20 13:18 Dose: 50 mls/hr Documented by: Labetalol HCl (Labetalol 5 Mg/Ml Ml) 0 mg IV Q2HP PRN PRN Reason: Hypertension Last Admin: 11/14/20 08:58 Dose: 10 mg Documented by: Losartan Potassium (Losartan 25 Mg Tablet) 25 mg PO DAILY [facility] Last Admin: 11/16/20 08:28 Dose: 25 mg Documented by: Ondansetron HCl (Ondansetron 4 Mg/2 Ml Vial) 4 mg IV Q4HP PRN PRN Reason: Nausea And Vomiting Last Admin: 11/12/20 10:16 Dose: 4 mg Documented by: Sodium Chloride (0.9 % Sodium Chloride 10 Ml Syringe) 10 ml IV UD PRN PRN Reason: FLUSH Sodium Chloride (0.9 % Sodium Chloride 10 Ml Syringe) 10 ml IV Q12 [facility] Last Admin: 11/16/20 21:41 Dose: 10 ml Documented by: A/P Narrative A/P Narrative: A: #Free pelvis fluid & gas concerning for possible infection/abscess/small anastomotic leak: s/p CT drain placement 11/12 -drain cx with GNB #Recurrent fevers and leukocytosis likely related to free pelvic fluid: fever trend improved -resolved #Laparoscopic incision site abscess: drained 15 ml puss at bedside (secondary healing), stable #Abdominal cellulitis: resolved (has chronic erythema attributed Plegridy SQ injections) #Partial small bowel obstruction: resolved #Anion gap metabolic acidosis: resolved #Diarrhea/tool incontinence: C diff GDH positive/toxin A/B negative, reflexed C diff pcr negative #Sigmoid stricture d/t adhesions: s/p laparoscopic lysis of adhesions and sigmoid colectomy (11/05) #Multiple sclerosis: treated at home with intermittent Plegridy SQ (held this hospitalization) #Essential hypertension: stable #Severe protein calorie malnourishment #Generalized weakness #Physical deconditioning #HTN: Plan -Monitoring pelvic drain output per surgeon -Abx per Surgery -TPN ordered, defer diet advancement to surgeon -Analgesics prn. -restarted home Losartan, holding Plegridy for now. -Wound cares. -Nutrition following. 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
[2020-11-17] MEDS: ACETAMINOPHEN 650 MG/65 ML BAG IV PRN ×2 (08:51→21:19)
[2020-11-17] MEDS: LOSARTAN 25 MG TABLET PO SCH (09:15)
[2020-11-17] MEDS ORDERED: POTASSIUM CHLORIDE IV SCH ×2 (11:00→14:00)
[2020-11-17] MEDS ORDERED: MAGNESIUM SULFATE IV SCH ×2 (11:00→14:00)
[2020-11-17] MEDS ORDERED: [UNRECOGNIZED DRUG - OTHER] IV SCH ×2 (11:00→14:00)
[2020-11-17] MEDS ORDERED: CALCIUM GLUCONATE IV SCH ×2 (11:00→14:00)
[2020-11-17] MEDS: 0.9 % SODIUM CHLORIDE 10 ML SYRINGE IV SCH ×2 (11:19→22:22)
[2020-11-17] MEDS: HYDROmorphone 0.5 MG/0.5 ML SYRINGE IV PRN ×2 (11:23→18:21)
[2020-11-17 12:21] LABS: ALT/SGPT 58 U/L (<40); AST/SGOT 63 U/L (<32); Albumin 2.7 gm/dL (3.2-5.2); Alkaline Phosphatase 54 U/L (39-117); Bilirubin,Direct < 0.2 mg/dL (0-0.3); Bilirubin,Total 0.2 mg/dL (0.1-1.0); Blood Urea Nitrogen 19 mg/dL (8-23); Calcium 8.4 mg/dL (8.6-10.4); Carbon Dioxide 27 mmol/L (22-30); Chloride 100 mmol/L (96-108); Globulin 2.8 gm/dL (2.2-3.7); Glomerular Filtration Rate 93; Glucose 131 mg/dL (70-105); Lactate Dehydrogenase 259 U/L (135-225); Phosphorous 3.5 mg/dL (2.5-4.5); Triglycerides 160 mg/dL (<150); Uric Acid 0.9 mg/dL (2.5-8.0)
[2020-11-17] MEDS ORDERED: IOPAMIDOL 100 ML BOTTLE IV ONE ×3 (12:45→17:50)
--- NOTE | 2020-11-17 12:56 | Cat Scan Report ---
INDICATION: follow up drain COMPARISON: Previous CT scan dated 11/12/2020. Previous plain film examination dated 11/16/2020 TECHNIQUE: Axial images were obtained through the abdomen and pelvis. Sagittally and coronally reformatted images. 80 mL Isovue 370 injected intravenously. Rectal contrast material was given FINDINGS: Lung bases:Negative. No pulmonary parenchymal nodule. There are bilateral pleural effusions. These are slightly larger than on 11/12/2020 Liver:Negative. No focal intrahepatic mass. No focal abnormality. Liver contour is smooth. No evidence for cirrhosis Gallbladder, bilary:Previous cholecystectomy. Common bile measures 10 mm. No significant intrahepatic bile duct dilatation. No detectable choledocholithiasis Spleen:No splenomegaly. Normal enhancement of splenic and portal veins. Pancreas:Low-density lesion in the uncinate process of the pancreatic head is again identified. This is unchanged. Adrenal glands:Negative Kidneys, ureters, bladder:No solid renal mass. No hydronephrosis. No obstructing calculi. There is no hydroureter. No ureteral stone Bladder is not well distended. There is a small amount of intravesical gas. Clinical correlation for history of instrumentation recommended Gastrointestinal: Colon is distended due to rectal contrast administration. There is irregularity of the rectal stump and apparent contrast extravasation into this patient's abscess cavity. Appearance is consistent with dehiscence at the rectal stump. Small bowel is fluid-filled and moderately distended. This may be due to abscess. Mechanical small bowel obstruction is not suspected. Stomach and duodenum are unremarkable Appendix: The appendix is not well visualized. No evidence for appendicitis Vascular:There is atherosclerotic calcification of the abdominal aorta. No abdominal aortic aneurysm Lymphatic:No retroperitoneal or mesenteric adenopathy Mesentery, peritoneum: There is a pelvic abscess. There is a drainage catheter within this abscess. Abscess contains fluid and gas. This has decreased in size since predrainage study dated 11/12/2020. There is contrast with in this abscess cavity consistent with dehiscence at the rectal stump Reproductive:Uterus is not identified Musculoskeletal:No lumbar compression fractures. Sacrum and pelvis are negative. No hip fracture. No abdominal wall or inguinal hernia IMPRESSION: 1. Fluid, gas, contrast material within the pelvic abscess. Pelvic drainage catheter remains present 2. Findings are consistent with dehiscence at the rectal stump and contrast leaking 3. Mildly dilated fluid filled small bowel suggesting ileus 4. Low density lesion in the uncinate process of the pancreatic head, unchanged 5. Bilateral pleural effusions The exam was performed using radiation dose optimization techniques including, but not limited to, automated exposure control, adjustment of the mA and/or kV according to patient size and use of iterative reconstruction technique. Interpreted and Authenticated by: Arturo Cuadra 11/17/20
[2020-11-17] MEDS ORDERED: 0.9 % SODIUM CHLORIDE 250 ML IV SCH (14:45)
[2020-11-17] MEDS ORDERED: LIDOCAINE HCL/PF 100 MG/5 ML SYRINGE IV ONE (15:19)
[2020-11-17] MEDS ORDERED: ROCURONIUM 10 MG/ML ML IV ONE (15:19)
[2020-11-17] MEDS ORDERED: ONDANSETRON 4 MG/2 ML VIAL ONE (15:19)
[2020-11-17] MEDS ORDERED: GLYCOPYRROLATE 0.2 MG/ML VIAL IV ONE (15:19)
[2020-11-17] MEDS ORDERED: DEXAMETHASONE 10 MG/ML VIAL ONE (15:19)
[2020-11-17] MEDS ORDERED: MIDAZOLAM 2 MG/2 ML VIAL ONE (15:19)
[2020-11-17] MEDS ORDERED: fentaNYL 100 MCG/2 ML VIAL IV ONE (15:19)
[2020-11-17] MEDS ORDERED: KETAMINE 100 MG/ML ML ONE (15:19)
[2020-11-17] MEDS ORDERED: PROPOFOL 200 MG/20 ML VIAL IV ONE (15:19)
[2020-11-17] MEDS ORDERED: DEXTROSE 31 GM ORAL.SUSP PO PRN ×2 (15:47→17:50)
[2020-11-17] MEDS ORDERED: DEXTROSE 50% 50 ML VIAL IV PRN ×2 (15:47→17:50)
[2020-11-17] MEDS ORDERED: FAT EMULSION 20% 250 ML IV SCH (16:00)
[2020-11-17] MEDS ORDERED: IPRATROPIUM/ALBUTEROL 3 ML AMPUL.NEB NEB PRN (16:05)
[2020-11-17] MEDS ORDERED: ONDANSETRON 4 MG/2 ML VIAL IV PRN (16:05)
[2020-11-17] MEDS ORDERED: PROMETHAZINE 25 MG/ML VIAL IV PRN (16:05)
[2020-11-17] MEDS ORDERED: MEPERIDINE 25 MG/ML VIAL IV PRN (16:05)
[2020-11-17] MEDS ORDERED: BENZOCAINE/MENTHOL 1 LOZENGE PO PRN (16:05)
[2020-11-17] MEDS ORDERED: LACTATED RINGERS 1,000 ML IV SCH (16:15)
--- NOTE | 2020-11-17 16:37 | Operative Note ---
Brief Operative Note Date of procedure: 11/17/20 Pre-op diagnosis: Status post laparoscopic assisted sigmoid with rectal stump leak Post-op diagnosis: same Procedure: Exploratory laparotomy, resection of sigmoid rectal anastomosis with end ostomy Anesthesia: GETA Findings: Small rectal stump leak Complications: none Surgeon: Hernán Bunrett Estimated blood loss (cc): 10 Specimens Removed/Pathology: other (Portion of sigmoid and end rectum) Condition: stable Disposition: PACU Operative Note Operative Note: After risk benefits and alternatives to the procedure discussed with patient at length she verbalized understanding and desire to continue with the procedure. Patient was taken main operating place upon the operative table. General anesthesia was induced over endotracheal tube. Patient's prepped and draped in the standard sterile surgical fashion. Surgical timeout was taken to verify patient and procedure being performed. A midline laparotomy incision was made carried down through skin and simultaneous tissue. Abdominal cavity was entered under direct vision and expiration showed mildly dilated small bowel and a fluid collection in the pelvis. The previous adhesions were carefully broken up and the pelvis was irrigated and inspected. There was a small rectal stump leak the right side of the staple line. The previous anastomosis appeared intact, however due to the infection decision was made to take down the anastomosis and do a diverting ostomy. The sigmoid colon was transected and then the rectum was transected just distal to the anastomosis. This portion of the sigmoid and rectum were passed off the field for surgical pathology. Hemostasis was obtained, small additional amount of mesentery was mobilized in between clamps and 2-0 Vicryl ties. The sigmoid colon was mobilized until it reached the anterior abdominal wall without tension. Several adhesions of the small bowel were carefully broken up and the small bowel was ran from the ligament of Treitz down to the terminal ileum to ensure no pathology. The small bowel was then returned to this anatomical position. The pelvis was copiously irrigated and all irrigant was removed from the abdominal cavity. A ten Cymro Kristian drain was placed into the pelvis and brought out through a right-sided incision. A ostomy site was created on the left side with a cruciate incision on the fascia the rectus muscle was spread and the ostomy site was dilated to 2 fingerbreadths in the normal fashion. The end of the sigmoid was brought out to the skin. The midline fascial defect was reapproximated with a running looped PDS suture. Skin edges were stapled closed. Dressings were applied. The drain was sutured in place with interrupted 2-0 nylon suture and then the ostomy was matured with interrupted 3-0 Vicryl sutures in the standard fashion. The ostomy was pink and patent and a ostomy appliance was applied. Patient was then awakened from anesthesia transferred postanesthesia care unit awake alert in good condition.
[2020-11-17] MEDS: fentaNYL 100 MCG/2 ML VIAL IV PRN ×4 (16:52→17:08)
[2020-11-17] MEDS ORDERED: ACETAMINOPHEN 500 MG TABLET PO PRN (17:50)
[2020-11-17] MEDS ORDERED: ENALAPRILAT 1.25 MG/ML VIAL IV PRN (17:50)
[2020-11-17] MEDS ORDERED: LABETALOL 5 MG/ML ML IV PRN (17:50)
[2020-11-17] MEDS ORDERED: TPN PER PHARMACY IV SCH (17:50)
[2020-11-17] MEDS ORDERED: INSULIN LISPRO 1 UNIT/0.01 ML UNIT SQ SCH (18:00)
[2020-11-17] MEDS: FAT EMULSION 20% 250 ML IV SCH (18:02)
[2020-11-17] MEDS: INSULIN LISPRO 1 UNIT/0.01 ML UNIT SQ SCH ×2 (18:11→23:55)
[2020-11-17] MEDS: KETOROLAC 15 MG/ML VIAL IV PRN (22:15)
[2020-11-18] MEDS: HYDROmorphone 0.5 MG/0.5 ML SYRINGE IV PRN ×5 (00:02→21:22)
[2020-11-18] MEDS: ACETAMINOPHEN 650 MG/65 ML BAG IV PRN ×3 (04:59→19:27)
[2020-11-18] MEDS: KETOROLAC 15 MG/ML VIAL IV PRN ×3 (05:02→19:26)
[2020-11-18] MEDS: 0.9 % SODIUM CHLORIDE 10 ML SYRINGE IV PRN (05:06)
[2020-11-18] MEDS: INSULIN LISPRO 1 UNIT/0.01 ML UNIT SQ SCH ×4 (05:49→23:45)
[2020-11-18] MEDS: PIPERACILLIN SODIUM/TAZOBACTAM 3.375 GM in DEXTROSE 5% IN WATER 50 ML IV SCH ×4 (05:50→23:46)
[2020-11-18 06:58] LABS: Basophils # (Auto) 0.08 K/mcL (0.00-0.20); Basophils % (Auto) 0.2 % (0.0-2.0); Eosinophils # (Auto) 0 K/mcL (0.00-0.70); Eosinophils % (Auto) 0 % (0.0-7.0); Hematocrit 27.6 % (36.0-48.0); Hemoglobin 9.2 g/dL (12.0-15.0); Lymphocytes # (Auto) 1.49 K/mcL (1.50-4.80); Lymphocytes % (Auto) 4.4 % (15.0-49.0); Mean Cell Volume 90.5 fL (80.0-100.0); Mean Corpuscular HGB Conc 33.3 g/dL (31.0-36.0); Mean Platelet Volume 9.3 fL (7.4-10.4); Monocytes # (Auto) 1.02 K/mcL (0.10-0.90); Neutrophils % (Auto) 92.4 % (38.0-78.0); Platelet Count 526 K/mcL (140-440); RBC 3.05 M/mcL (4.00-5.20); Red Cell Distribution Width 13.2 % (11.5-14.5); WBC 34.2 K/mcL (4.5-11.0)
[2020-11-18 07:31] LABS: Prealbumin 16.8 mg/dL (20.0-40.0)
[2020-11-18 07:32] LABS: ALT/SGPT 42 U/L (<40); AST/SGOT 37 U/L (<32); Albumin 2.6 gm/dL (3.2-5.2); Alkaline Phosphatase 45 U/L (39-117); Bilirubin,Direct < 0.2 mg/dL (0-0.3); Bilirubin,Total < 0.2 mg/dL (0.1-1.0); Blood Urea Nitrogen 17 mg/dL (8-23); Calcium 8.3 mg/dL (8.6-10.4); Carbon Dioxide 25 mmol/L (22-30); Chloride 102 mmol/L (96-108); Globulin 2.5 gm/dL (2.2-3.7); Glomerular Filtration Rate 93; Glucose 203 mg/dL (70-105); Lactate Dehydrogenase 206 U/L (135-225); Phosphorous 3.3 mg/dL (2.5-4.5); Triglycerides 101 mg/dL (<150)
--- NOTE | 2020-11-18 07:47 | Internal Med Progress Note ---
SUBJECTIVE Subjective Patient information: Note initiated : 11/18/20 at 7:41 am Service Date, if different from initiated Date: [] Patient: Marge Benitez 70 y/o F admitted on 11/04/20 for Esophogoga stroduodenoscopy and Colonoscopy. Chief Complaint: [] Principal diagnosis: Postop colectomy; pelvic abscess Interval history: Interval history: Hospitalist was consulted for a rapid response CODE sepsis triggered by fever, orthostatic hypotension, and trending leukocytosis. Marge Benitez is a 70-year-old female with a history of hypertension, reactive airway disease, multiple sclerosis (treated with pegylated interferon beta-1a), currently hospitalized following a laparoscopic sigmoid colon resection for a obstructing sigmoid stricture noted on colonoscopy on 11/05/20. The operative indicated there was redundant sigmoid causing scar tissue/adhesions very likely the reason for the sigmoid stricture. The patient was progressing slowly post-operatively however developed a fever of 101.2 on 11/08/20 and again had a fever on 11/09/20 along with orthostatic hypotension and new leukocytosis. Physical exam was most notable for abdominal tenderness, guarding, and erythema around the suprapubic laparoscopic surgical incision. Blood cultures, UA and urine culture, CT chest/abd/pelvis and broad spectrum antibiotics started. Surgery did not feel the CT scan was suggestive of a cause for her symptoms and UA did not suggest UTI nor is was there evidence of pneumonoia therefore Zosyn was discontinued. Vancomycin IV was continued due to concern of abdominal cellulitis. 11/10 Had NG placed overnight for concern of possible ileus. Persistent fevers today but leukocytosis resolved. Mild anion gap metabolic acidosis, lactic acid normal. Blood cx NGTD. Per report had multiple loose stools overnight and incontinent. Surgery performed I&D of inferior laparoscopic incision and drained puss consistent with abscess and probably the cause of fevers. 11/11 Afebrile overnight, still has NG tube, low potassium replaced. CRP increased and mild leukocytosis but overall looks better. C diff GDH positive but A/B toxin negative-reflexed to C diff prc. Intermittent fevers. Nutritional status concerning-days since meals may need to consider TPN. 11/12 Continues to have abdominal pain, most sever in RLQ. Persistent watery diarrhea, C diff pcr negative. Repeat CT chest/abdomen/pelvis concerning for pelvis fluid collection and mechanical small bowel obstruction. Surgery ordered CT guided drain placement. 4/ Improvement in oral intake so will hold off on TPN pending calorie count. Overall feels better after abdominal drain placement yesterday. Deescalate to Doxycycline for cellulitis. Downtrending hemoglobin. 4/2 No overnight issues or new complaints. Afebrile. Abdominal drain still draining. Encourage oral intake. / Feeling better. Sitting up in bed starting to eat her breakfast. No new pains or complaints. No nausea vomiting. /5 No new events overnight complaints. Patient states she her appetite is getting little bit better. Fluid culture growing gram-negative bacillus. / Patient had rectal stump leak and had to be taken back to the OR yesterday. Resting in bed this morning. Tolerating a clear liquid diet. Review of Systems: denies headache/fever/chills/nausea/vomiting/chest pain/cough/dyspnea/diarrhea. Otherwise see above. Constitutional Vitals: Vital Signs Temp Pulse Resp BP Pulse Ox 98.0 F 71 18 146/84 98 11/18/20 07:24 11/18/20 07:24 11/18/20 07:24 11/18/20 07:24 11/18/20 07:24 Period Temp Pulse Resp BP Sys/Allen Pulse Ox Last 24 Hr 96.9 F-98.5 F 71-96 12-33 126-187/61-98 85-100 Intake and Output 11/17/20 11/18/20 11/18/20 21:59 05:59 13:59 Intake Total 2931.5455 530 Output Total 1210 1180 Balance 1721.5455 -650 Weight 60.192 kg Intake & Output: Intake & Output 11/17/20 11/18/20 11/18/20 21:59 05:59 13:59 Intake Total 2931.5455 530 Output Total 1210 1180 Balance 1721.5455 -650 Weight 60.192 kg Intake: IV 1331.5455 430 Calcium Gluconate 4.65 Meq 281.5455 Magnesium Sulfate 16.24 Meq Potassium Chloride 30 Meq Potassium Phosphate 20 Meq Infuvite Adult 10 ml Sodium Chloride 40 Meq In Clinimix 5%- 20% Solution 1,000 ml @ 50 mls/ hr IV Q21H [facility] Rx#:[id number] Intralipid 20% 250 ml @ 25 mls/ 250 hr IV [id number]@1600 [facility] Rx#: [id number] Lactated Ringers 1,000 ml @ 20 1000 mls/hr IV .Q24H [facility] Rx#: [id number] Zosyn 3.375 gm In Dextrose 5% 50 50 in Water 50 ml @ 100 mls/hr IV Q6H [facility] Rx#:[id number] Oral 100 IV - Manual Only 1600 Output: Drainage 110 Right Abdomen Pigtail 110 Drainage 350 80 Right Abdomen RUSS Drain 100 80 Right Abdomen Pigtail 250 Urine Catheter Amount 100 1100 Void Amount 650 Other: Urine Appearance Clear Clear Reinserted Frank Clear Urine Color Bright Yellow Bright Yellow Reinserted Frank Bright Yellow Urine Odor Normal Stool Size Moderate Stool Color Brown Stool Consistency Liquid Loose # Bowel Movements 1 Exam: General: Alert, Awake, No acute Distress Eyes/N/T: EOMI, Head/Neck: neck supple, CV: RRR, No murmurs, Pulm: Clear b/l, no wheezing/rhonchi/rales Abd: soft, decreased BS x4, abd drain, Ext: no clubbing/cyanosis/edema Neuro: Alert, no focal deficits, moves all extremities, Skin: warm/dry OBJ DATA Labs CBC & Chem 7: 11/18/20 05:14 11/18/20 05:14 Labs: Abnormal Lab Results 11/18/20 11/18/20 11/17/20 05:14 05:14 10:31 WBC 34.2 H* RBC 3.05 L Hgb 9.2 L Hct 27.6 L Plt Count 526 H Neut % (Auto) 92.4 H Lymph % (Auto) 4.4 L Lymph # (Auto) 1.49 L [place] # (Auto) 1.02 H Absolute Neutrophils 31.65 H Sodium 132 L Potassium Anion Gap 5.0 L 7.0 L Creatinine Glucose 203 H 131 H Uric Acid 1.0 L 0.9 L Calcium 8.3 L 8.4 L AST 37 H 63 H ALT 42 H 58 H Lactate Dehydrogenase 259 H Total Protein 5.1 L 5.5 L Albumin 2.6 L 2.7 L Albumin/Globulin Ratio Prealbumin 16.8 L Triglycerides 160 H 11/16/20 11/16/20 08:32 05:15 WBC RBC 2.98 L Hgb 8.9 L Hct 26.9 L Plt Count Neut % (Auto) Lymph % (Auto) Lymph # (Auto) [place] # (Auto) Absolute Neutrophils Sodium Potassium 3.2 L Anion Gap 6.0 L Creatinine 0.5 L Glucose 112 H Uric Acid 1.0 L Calcium 8.3 L AST 62 H ALT 45 H Lactate Dehydrogenase Total Protein 5.0 L Albumin 2.4 L Albumin/Globulin Ratio 0.9 L Prealbumin Triglycerides 165 H Meds: Medications Acetaminophen (Acetaminophen 500 Mg Tablet) 500 mg PO Q6HP PRN; Protocol PRN Reason: Per Pain Protocol Dextrose (Dextrose 50% 50 Ml Vial) 0 ml IV UD PRN PRN Reason: Hypoglycemia Diagnostic Test (Pha) (Accu-Chek 1 Each Strip) 1 each FS Q6 [facility] Last Admin: 11/18/20 05:48 Dose: 1 each Documented by: Enalaprilat (Enalaprilat 1.25 Mg/Ml Vial) 0 mg IV Q2HP PRN PRN Reason: Hypertension Glucose (Dextrose 31 Gm Oral.Susp) 15 gm PO PRN PRN PRN Reason: Hypoglycemia Heparin Sodium (Porcine) (Heparin Flush 10 Units/Ml 5 Ml Syringe) 2 ml IV Q12 [facility] Last Admin: 11/17/20 21:19 Dose: 2 ml Documented by: Hydromorphone HCl (Hydromorphone 0.5 Mg/0.5 Ml Syringe) 0.5 mg IV Q4HP PRN; Protocol PRN Reason: Per Pain Protocol Last Admin: 11/18/20 00:02 Dose: 0.5 mg Documented by: Calcium Gluconate 4.65 meq/Magnesium Sulfate 16.24 meq/Potassium Chloride 30 meq/Potassium Phosphate 20 meq/Multivitamins/Minerals 10 ml/Sodium Chloride 40 meq/ Amino Acids 1,053.5455 mls @ 50 mls/hr IV Q21H [facility] Last Admin: 11/17/20 18:00 Dose: 50 mls/hr Documented by: Fat Emulsion Intravenous (Intralipid 20%) 250 mls @ 25 mls/hr IV [id number]@1600 [facility] Last Infusion: 11/18/20 04:18 Dose: Infused Documented by: Piperacillin Sod/Tazobactam (Sod 3.375 gm/ Dextrose) 50 mls @ 100 mls/hr IV Q6H [facility]; Protocol Last Admin: 11/18/20 05:50 Dose: 100 mls/hr Documented by: Acetaminophen (Ofirmev) 650 mg in 65 mls @ 130 mls/hr IV Q6HP PRN; Protocol PRN Reason: PAIN/FEVER > 101 Last Infusion: 11/18/20 05:49 Dose: Infused Documented by: Calcium Gluconate 5 meq/Magnesium Sulfate 8.12 meq/Potassium Chloride 10 meq/Potassium Phosphate 20 meq/Multivitamins/Minerals 10 ml/Sodium Chloride 60 meq/ Amino Acids 1,047.2981 mls @ 50 mls/hr IV Q21H [facility] Insulin Human Lispro (Insulin Lispro 1 Unit/0.01 Ml Unit) 0 unit SQ Q6 [facility]; Protocol Last Admin: 11/18/20 05:49 Dose: 3 units Documented by: Ketorolac Tromethamine (Ketorolac 15 Mg/Ml Vial) 15 mg IV Q6HP PRN PRN Reason: Per Pain Protocol Stop: 11/20/20 20:22 Last Admin: 11/18/20 05:02 Dose: 15 mg Documented by: Labetalol HCl (Labetalol 5 Mg/Ml Ml) 0 mg IV Q2HP PRN PRN Reason: Hypertension Losartan Potassium (Losartan 25 Mg Tablet) 25 mg PO DAILY [facility] Sodium Chloride (0.9 % Sodium Chloride 10 Ml Syringe) 10 ml IV Q12 [facility] Last Admin: 11/17/20 22:22 Dose: 10 ml Documented by: Sodium Chloride (0.9 % Sodium Chloride 10 Ml Syringe) 10 ml IV UD PRN PRN Reason: FLUSH Last Admin: 11/18/20 05:06 Dose: 10 ml Documented by: A/P Narrative A/P Narrative: A: #Free pelvis fluid & gas concerning for possible infection/abscess/small anastomotic leak: -s/p CT drain placement 11/12; drain cx with GNB -s/p Ex lap for rectal stump leak with rectal anastomosis & end ostomy (11/17) #Recurrent fevers and leukocytosis likely related to free pelvic fluid: fever trend improved -fevers resolved. Leukocytosis resolved but increased after surgery (likely reactive) on good abx coverage #Laparoscopic incision site abscess: drained 15 ml puss at bedside (secondary healing), stable #Abdominal cellulitis: resolved (has chronic erythema attributed Plegridy SQ injections) #Partial small bowel obstruction: resolved #Anion gap metabolic acidosis: resolved #Diarrhea/tool incontinence: C diff GDH positive/toxin A/B negative, reflexed C diff pcr negative #Sigmoid stricture d/t adhesions: s/p laparoscopic lysis of adhesions and sigmoid colectomy (11/05) #Multiple sclerosis: treated at home with intermittent Plegridy SQ (held this hospitalization) #Essential hypertension: stable #Severe protein calorie malnourishment #Generalized weakness #Physical deconditioning #HTN: #Anemia: Plan -pelvic drain per surgeon -Abx per Surgery -TPN, defer diet advancement to surgeon -Analgesics prn -cont home Losartan, holding Plegridy for now. -Wound cares. -Nutrition following. -Surgery primary/Hospitalist consulting -DVT: per surgery Code status: Quality Tester Spent With Patient Time: Total time spent is greater than 50% in coordination of care (as documented) at patient's floor/unit and/or counseling patient: QUALITY VTE Deep Vein Thrombosis/Pulmonary Embolism Present on Admission: No
[2020-11-18] MEDS: CALCIUM GLUCONATE IV SCH (08:49)
[2020-11-18] MEDS: MAGNESIUM SULFATE IV SCH (08:49)
[2020-11-18] MEDS: [UNRECOGNIZED DRUG - OTHER] IV SCH (08:49)
[2020-11-18] MEDS: POTASSIUM CHLORIDE IV SCH (08:49)
[2020-11-18] MEDS: LOSARTAN 25 MG TABLET PO SCH (08:56)
[2020-11-18] MEDS: 0.9 % SODIUM CHLORIDE 10 ML SYRINGE IV SCH ×2 (08:57→21:15)
--- NOTE | 2020-11-18 09:31 | General Surgery Progress Note ---
SUBJECTIVE Subjective Patient information: Note initiated : 11/18/20 at 9:30 am Service Date, if different from initiated Date: [] Patient: Marge Benitez 70 y/o F admitted on 11/04/20 for Esophogogastroduodenoscopy and Colonoscopy. Chief Complaint: [] Principal diagnosis: Postop colectomy; pelvic abscess Interval history: Postop day #1 status post exploratory laparotomy, end ostomy for rectal stump leak. Patient is tolerating clears, no ostomy output as of yet. Constitutional Vitals: Vital Signs Temp Pulse Resp BP Pulse Ox 98.0 F 71 18 146/84 98 11/18/20 07:24 11/18/20 07:24 11/18/20 07:24 11/18/20 07:24 11/18/20 07:24 Period Temp Pulse Resp BP Sys/Allen Pulse Ox Last 24 Hr 96.9 F-98.5 F 71-96 12-33 126-187/61-98 85-100 Intake and Output 11/17/20 11/18/20 11/18/20 21:59 05:59 13:59 Intake Total 2931.5455 530 1103.5455 Output Total 1210 1180 Balance 1721.5455 -650 1103.5455 Weight 132 lb 11.2 oz Intake & Output: Intake & Output 11/17/20 11/18/20 11/18/20 21:59 05:59 13:59 Intake Total 2931.5455 530 1103.5455 Output Total 1210 1180 Balance 1721.5455 -650 1103.5455 Weight 132 lb 11.2 oz Intake: IV 1331.5455 430 1103.5455 Calcium Gluconate 4.65 Meq 281.5455 1053.5455 Magnesium Sulfate 16.24 Meq Potassium Chloride 30 Meq Potassium Phosphate 20 Meq Infuvite Adult 10 ml Sodium Chloride 40 Meq In Clinimix 5%- 20% Solution 1,000 ml @ 50 mls/ hr IV Q21H [facility] Rx#:[id number] Intralipid 20% 250 ml @ 25 mls/ 250 hr IV [id number]@1600 [facility] Rx#: [id number] Lactated Ringers 1,000 ml @ 20 1000 mls/hr IV .Q24H [facility] Rx#: [id number] Zosyn 3.375 gm In Dextrose 5% 50 50 50 in Water 50 ml @ 100 mls/hr IV Q6H [facility] Rx#:[id number] Oral 100 IV - Manual Only 1600 Output: Drainage 110 Right Abdomen Pigtail 110 Drainage 350 80 Right Abdomen RUSS Drain 100 80 Right Abdomen Pigtail 250 Urine Catheter Amount 100 1100 Void Amount 650 Other: Urine Appearance Clear Clear Reinserted Frank Clear Urine Color Bright Yellow Bright Yellow Reinserted Frank Bright Yellow Urine Odor Normal Stool Size Moderate Stool Color Brown Stool Consistency Liquid Loose # Bowel Movements 1 General appearance: cooperative and no acute distress GI/Abdominal GI/Abdominal exam: Present soft and tenderness; Absent distended Additional comments: Appropriate tender to palpation. Midline incision is clean dry and intact. Ostomy is pink A/P Narrative A/P Narrative: Postop day #1 status post exploratory laparotomy with and ostomy for rectal stump leak. Awaiting return of bowel function, encourage ambulation. Continue with TPN. Time Spent With Patient Time: Total time spent is greater than 50% in coordination of care (as documented) at patient's floor/unit and/or counseling patient:
[2020-11-19] MEDS: HYDROmorphone 0.5 MG/0.5 ML SYRINGE IV PRN ×8 (01:41→23:49)
[2020-11-19] MEDS: ACETAMINOPHEN 650 MG/65 ML BAG IV PRN ×3 (03:16→23:07)
[2020-11-19] MEDS: KETOROLAC 15 MG/ML VIAL IV PRN ×2 (03:16→16:41)
[2020-11-19] MEDS: PIPERACILLIN SODIUM/TAZOBACTAM 3.375 GM in DEXTROSE 5% IN WATER 50 ML IV SCH ×4 (05:40→23:50)
[2020-11-19] MEDS: INSULIN LISPRO 1 UNIT/0.01 ML UNIT SQ SCH ×4 (05:42→23:17)
[2020-11-19] MEDS: MAGNESIUM SULFATE IV SCH (06:15)
[2020-11-19] MEDS: CALCIUM GLUCONATE IV SCH (06:15)
[2020-11-19] MEDS: [UNRECOGNIZED DRUG - OTHER] IV SCH (06:15)
[2020-11-19] MEDS: POTASSIUM CHLORIDE IV SCH (06:15)
[2020-11-19 06:36] LABS: Basophils # (Auto) 0.06 K/mcL (0.00-0.20); Basophils % (Auto) 0.3 % (0.0-2.0); Eosinophils # (Auto) 0.32 K/mcL (0.00-0.70); Eosinophils % (Auto) 1.4 % (0.0-7.0); Hematocrit 28.5 % (36.0-48.0); Hemoglobin 9.4 g/dL (12.0-15.0); Lymphocytes # (Auto) 2.36 K/mcL (1.50-4.80); Lymphocytes % (Auto) 10.7 % (15.0-49.0); Mean Cell Volume 92.2 fL (80.0-100.0); Mean Platelet Volume 9.3 fL (7.4-10.4); Monocytes # (Auto) 1.22 K/mcL (0.10-0.90); Monocytes % (Auto) 5.5 % (1.0-12.0); Neutrophils % (Auto) 82.1 % (38.0-78.0); Platelet Count 640 K/mcL (140-440); RBC 3.09 M/mcL (4.00-5.20); Red Cell Distribution Width 13.2 % (11.5-14.5); WBC 22.1 K/mcL (4.5-11.0)
[2020-11-19] MEDS ORDERED: HYDROmorphone 0.5 MG/0.5 ML SYRINGE IV PRN (06:59)
[2020-11-19] MEDS: ONDANSETRON 4 MG/2 ML VIAL IV PRN (07:09)
[2020-11-19 07:11] LABS: ALT/SGPT 32 U/L (<40); AST/SGOT 33 U/L (<32); Albumin 2.6 gm/dL (3.2-5.2); Alkaline Phosphatase 47 U/L (39-117); Bilirubin,Direct < 0.2 mg/dL (0-0.3); Bilirubin,Total < 0.2 mg/dL (0.1-1.0); Blood Urea Nitrogen 23 mg/dL (8-23); Calcium 7.9 mg/dL (8.6-10.4); Carbon Dioxide 28 mmol/L (22-30); Chloride 101 mmol/L (96-108); Globulin 2.6 gm/dL (2.2-3.7); Glomerular Filtration Rate 93; Glucose 92 mg/dL (70-105); Lactate Dehydrogenase 159 U/L (135-225); Phosphorous 3.3 mg/dL (2.5-4.5); Triglycerides 211 mg/dL (<150); Uric Acid 1.2 mg/dL (2.5-8.0)
[2020-11-19 07:13] LABS: Prealbumin 16.9 mg/dL (20.0-40.0)
--- NOTE | 2020-11-19 08:05 | General Surgery Progress Note ---
SUBJECTIVE Subjective Patient information: Note initiated : 11/19/20 at 8:03 am Service Date, if different from initiated Date: [] Patient: Marge Benitez 70 y/o F admitted on 11/04/20 for Esophogogastroduodenoscopy and Colonoscopy. Chief Complaint: [] Principal diagnosis: Postop colectomy; pelvic abscess Interval history: Postop day #2 status post exploratory laparotomy and ostomy for rectal stump leak. Patient was feeling well yesterday, ambulatory. Overnight she had increased abdominal pain but reports that she feels somewhat better this morning. There is no flatus out of the ostomy appliance as of yet. She has abdominal distention this morning. Constitutional Vitals: Vital Signs Temp Pulse Resp BP Pulse Ox 98.2 F 82 18 119/71 96 11/19/20 07:25 11/19/20 07:25 11/19/20 07:25 11/19/20 07:25 11/19/20 07:25 Period Temp Pulse Resp BP Sys/Allen Pulse Ox Last 24 Hr 97.9 F-98.4 F 74-82 16-20 118-139/71-75 95-98 Intake and Output 11/18/20 11/19/20 11/19/20 21:59 05:59 13:59 Intake Total 565 1327.2981 50 Output Total 445 600 Balance 283 357.7537 50 Weight 131 lb 6.4 oz Intake & Output: Intake & Output 11/18/20 11/19/20 11/19/20 21:59 05:59 13:59 Intake Total 565 1327.2981 50 Output Total 445 600 Balance 255 644.5488 50 Weight 131 lb 6.4 oz Intake: IV 115 1127.2981 50 Calcium Gluconate 5 Meq 1012.2981 Magnesium Sulfate 8.12 Meq Potassium Chloride 10 Meq Potassium Phosphate 20 Meq Infuvite Adult 10 ml Sodium Chloride 60 Meq In Clinimix 5%- 20% Solution 1,000 ml @ 50 mls/ hr IV Q21H [facility] Rx#:[id number] Zosyn 3.375 gm In Dextrose 5% 50 50 50 in Water 50 ml @ 100 mls/hr IV Q6H [facility] Rx#:[id number] Oral 450 200 Output: Drainage 70 100 Right Abdomen RUSS Drain 70 100 Urine Catheter Amount 375 500 Other: Urine Appearance Clear Urine Color Bright Yellow Bright Yellow Urine Odor Normal Normal General appearance: cooperative and no acute distress GI/Abdominal GI/Abdominal exam: Present soft, distended and tenderness (Appropriately tender to palpation, midline incision is clean dry and intact. Ostomy is pink, small amount of fluid, no flatus) A/P Narrative A/P Narrative: Postop day #2 status post exploratory laparotomy. Awaiting return of bowel function, encourage ambulation. Continue with TPN. White count returning to normal Time Spent With Patient Time: Total time spent is greater than 50% in coordination of care (as documented) at patient's floor/unit and/or counseling patient:
[2020-11-19] MEDS: 0.9 % SODIUM CHLORIDE 10 ML SYRINGE IV SCH ×2 (08:55→20:24)
[2020-11-19] MEDS: LOSARTAN 25 MG TABLET PO SCH ×3 (10:02→12:36)
--- NOTE | 2020-11-19 12:24 | Internal Med Progress Note ---
SUBJECTIVE Subjective Patient information: Note initiated : 11/20/20 at 12:20 pm Service Date, if different from initiated Date: [] Patient: Marge Benitez 70 y/o F admitted on 11/04/20 for Esophogog astroduodenoscopy and Colonoscopy. Chief Complaint: [] Principal diagnosis: Postop colectomy; pelvic abscess Interval history: Hospitalist was consulted for a rapid response CODE sepsis triggered by fever, orthostatic hypotension, and trending leukocytosis. Marge Benitez is a 70-year-old female with a history of hypertension, reactive airway disease, multiple sclerosis (treated with pegylated interferon beta-1a), currently hospitalized following a laparoscopic sigmoid colon resection for a obstructing sigmoid stricture noted on colonoscopy on 11/05/20. The operative indicated there was redundant sigmoid causing scar tissue/adhesions very likely the reason for the sigmoid stricture. The patient was progressing slowly post- operatively however developed a fever of 101.2 on 11/08/20 and again had a fever on 11/09/20 along with orthostatic hypotension and new leukocytosis. Physical exam was most notable for abdominal tenderness, guarding, and erythema around the suprapubic laparoscopic surgical incision. Blood cultures, UA and urine culture, CT chest/abd/pelvis and broad spectrum antibiotics started. Surgery did not feel the CT scan was suggestive of a cause for her symptoms and UA did not suggest UTI nor is was there evidence of pneumonoia therefore Zosyn was discontinued. Vancomycin IV was continued due to concern of abdominal cellulitis. 11/10 Had NG placed overnight for concern of possible ileus. Persistent fevers today but leukocytosis resolved. Mild anion gap metabolic acidosis, lactic acid normal. Blood cx NGTD. Per report had multiple loose stools overnight and incontinent. Surgery performed I&D of inferior laparoscopic incision and drained puss consistent with abscess and probably the cause of fevers. 11/11 Afebrile overnight, still has NG tube, low potassium replaced. CRP increased and mild leukocytosis but overall looks better. C diff GDH positive but A/B toxin negative-reflexed to C diff prc. Intermittent fevers. Nutritional status concerning-days since meals may need to consider TPN. 11/12 Continues to have abdominal pain, most sever in RLQ. Persistent watery diarrhea, C diff pcr negative. Repeat CT chest/abdomen/pelvis concerning for pelvis fluid collection and mechanical small bowel obstruction. Surgery ordered CT guided drain placement. 4/ Improvement in oral intake so will hold off on TPN pending calorie count. Overall feels better after abdominal drain placement yesterday. Deescalate to Doxycycline for cellulitis. Downtrending hemoglobin. 4/2 No overnight issues or new complaints. Afebrile. Abdominal drain still draining. Encourage oral intake. / Feeling better. Sitting up in bed starting to eat her breakfast. No new pains or complaints. No nausea vomiting. 11/17 No new events overnight complaints. Patient states she her appetite is getting little bit better. Fluid culture growing gram-negative bacillus. 11/18 Patient had rectal stump leak and had to be taken back to the OR yesterday. Resting in bed this morning. Tolerating a clear liquid diet. 11/20 Resting today, feels nauseous. Head: Atraumatic, normal inspection. Eyes: normal appearance, no scleral icterus. Neck: full ROM Respiratory: no respiratory distress. Cardiovascular: normal rate and rhythm, S1, S2. GI/Abdominal: improvement in suprapubic abdominal tenderness, abdominal drain with serosanguinous fluid Extremities: full range of motion, nontender. Neurological: CN II-XII intact, intact motor, intact sensation. Psychiatric: normal mood. Skin: laparoscopic incision does not appear infected, redness in suprapubic abdomen with stria (chronic per patient). Constitutional Vitals: Vital Signs Temp Pulse Resp BP Pulse Ox 98.2 F 82 20 107/72 96 11/19/20 07:25 11/19/20 07:25 11/19/20 10:07 11/19/20 10:07 11/19/20 07:25 Period Temp Pulse Resp BP Sys/Allen Pulse Ox Last 24 Hr 97.9 F-98.4 F 74-82 16-20 107-133/71-75 95-98 Intake and Output 11/18/20 11/19/20 11/19/20 21:59 05:59 13:59 Intake Total 565 1327.2981 115 Output Total 445 600 Balance 494 020.1946 115 Weight 59.602 kg Intake & Output: Intake & Output 11/18/20 11/19/20 11/19/20 21:59 05:59 13:59 Intake Total 565 1327.2981 115 Output Total 445 600 Balance 318 810.5582 115 Weight 59.602 kg Intake: IV 115 1127.2981 115 Calcium Gluconate 5 Meq 1012.2981 Magnesium Sulfate 8.12 Meq Potassium Chloride 10 Meq Potassium Phosphate 20 Meq Infuvite Adult 10 ml Sodium Chloride 60 Meq In Clinimix 5%- 20% Solution 1,000 ml @ 50 mls/ hr IV Q21H [facility] Rx#:[id number] Zosyn 3.375 gm In Dextrose 5% 50 50 50 in Water 50 ml @ 100 mls/hr IV Q6H [facility] Rx#:[id number] Oral 450 200 Output: Drainage 70 100 Right Abdomen RUSS Drain 70 100 Urine Catheter Amount 375 500 Other: Urine Appearance Clear Urine Color Bright Yellow Bright Yellow Urine Odor Normal Normal Exam: General: Alert, Awake, No acute Distress Eyes/N/T: EOMI, Head/Neck: neck supple, CV: RRR, No murmurs, Pulm: Clear b/l, no wheezing/rhonchi/rales Abd: soft, decreased BS x4, abd drain, Ext: no clubbing/cyanosis/edema Neuro: Alert, no focal deficits, moves all extremities, Skin: warm/dry OBJ DATA Labs CBC & Chem 7: 11/19/20 05:35 11/19/20 05:35 Labs: Abnormal Lab Results 11/19/20 11/19/20 11/18/20 05:35 05:35 05:14 WBC 22.1 H RBC 3.09 L Hgb 9.4 L Hct 28.5 L Plt Count 640 H Neut % (Auto) 82.1 H Lymph % (Auto) 10.7 L Lymph # (Auto) [place] # (Auto) 1.22 H Absolute Neutrophils 18.16 H Sodium 132 L Anion Gap 5.0 L 5.0 L Glucose 203 H Uric Acid 1.2 L 1.0 L Calcium 7.9 L 8.3 L AST 33 H 37 H ALT 42 H Lactate Dehydrogenase Total Protein 5.2 L 5.1 L Albumin 2.6 L 2.6 L Prealbumin 16.9 L 16.8 L Triglycerides 211 H 11/18/20 11/17/20 05:14 10:31 WBC 34.2 H* RBC 3.05 L Hgb 9.2 L Hct 27.6 L Plt Count 526 H Neut % (Auto) 92.4 H Lymph % (Auto) 4.4 L Lymph # (Auto) 1.49 L [place] # (Auto) 1.02 H Absolute Neutrophils 31.65 H Sodium Anion Gap 7.0 L Glucose 131 H Uric Acid 0.9 L Calcium 8.4 L AST 63 H ALT 58 H Lactate Dehydrogenase 259 H Total Protein 5.5 L Albumin 2.7 L Prealbumin Triglycerides 160 H Meds: Medications Acetaminophen (Acetaminophen 500 Mg Tablet) 500 mg PO Q6HP PRN; Protocol PRN Reason: Per Pain Protocol Dextrose (Dextrose 50% 50 Ml Vial) 0 ml IV UD PRN PRN Reason: Hypoglycemia Diagnostic Test (Pha) (Accu-Chek 1 Each Strip) 1 each FS Q6 [facility] Last Admin: 11/19/20 12:02 Dose: 1 each Documented by: Enalaprilat (Enalaprilat 1.25 Mg/Ml Vial) 0 mg IV Q2HP PRN PRN Reason: Hypertension Glucose (Dextrose 31 Gm Oral.Susp) 15 gm PO PRN PRN PRN Reason: Hypoglycemia Heparin Sodium (Porcine) (Heparin Flush 10 Units/Ml 5 Ml Syringe) 2 ml IV Q12 [facility] Last Admin: 11/19/20 10:02 Dose: 2 ml Documented by: Hydromorphone HCl (Hydromorphone 0.5 Mg/0.5 Ml Syringe) 0.5 mg IV Q2HP PRN; Protocol PRN Reason: Per Pain Protocol Last Admin: 11/19/20 11:17 Dose: 0.5 mg Documented by: Fat Emulsion Intravenous (Intralipid 20%) 250 mls @ 25 mls/hr IV [id number]@1600 [facility] Last Infusion: 11/18/20 04:18 Dose: Infused Documented by: Piperacillin Sod/Tazobactam (Sod 3.375 gm/ Dextrose) 50 mls @ 100 mls/hr IV Q6H [facility]; Protocol Last Admin: 11/19/20 11:59 Dose: 100 mls/hr Documented by: Acetaminophen (Ofirmev) 650 mg in 65 mls @ 130 mls/hr IV Q6HP PRN; Protocol PRN Reason: PAIN/FEVER > 101 Last Infusion: 11/19/20 11:48 Dose: Infused Documented by: Calcium Gluconate 5 meq/Magnesium Sulfate 8.12 meq/Potassium Chloride 10 meq/Potassium Phosphate 20 meq/Multivitamins/Minerals 10 ml/Sodium Chloride 60 meq/ Amino Acids 1,047.2981 mls @ 50 mls/hr IV Q21H [facility] Last Admin: 11/19/20 06:15 Dose: 50 mls/hr Documented by: Insulin Human Lispro (Insulin Lispro 1 Unit/0.01 Ml Unit) 0 unit SQ Q6 [facility]; Protocol Last Admin: 11/19/20 12:02 Dose: Not Given Documented by: Ketorolac Tromethamine (Ketorolac 15 Mg/Ml Vial) 15 mg IV Q6HP PRN PRN Reason: Per Pain Protocol Stop: 11/20/20 20:22 Last Admin: 11/19/20 03:16 Dose: 15 mg Documented by: Labetalol HCl (Labetalol 5 Mg/Ml Ml) 0 mg IV Q2HP PRN PRN Reason: Hypertension Losartan Potassium (Losartan 25 Mg Tablet) 25 mg PO DAILY [facility] Ondansetron HCl (Ondansetron 4 Mg/2 Ml Vial) 4 mg IV Q4HP PRN PRN Reason: Nausea And Vomiting Last Admin: 11/19/20 07:09 Dose: 4 mg Documented by: Sodium Chloride (0.9 % Sodium Chloride 10 Ml Syringe) 10 ml IV Q12 [facility] Last Admin: 11/19/20 08:55 Dose: 10 ml Documented by: Sodium Chloride (0.9 % Sodium Chloride 10 Ml Syringe) 10 ml IV UD PRN PRN Reason: FLUSH Last Admin: 11/18/20 05:06 Dose: 10 ml Documented by: A/P Narrative A/P Narrative: Assessment: #Free pelvis fluid & gas concerning for possible infection/abscess/small anastomotic leak: -s/p CT drain placement 11/12; drain cx with GNB -s/p Ex lap for rectal stump leak with rectal anastomosis & end ostomy (11/17) #Recurrent fevers and leukocytosis likely related to free pelvic fluid: fever trend improved -fevers resolved. Leukocytosis resolved but increased after surgery (likely reactive) on good abx coverage #Laparoscopic incision site abscess: drained 15 ml puss at bedside (secondary healing), stable #Abdominal cellulitis: resolved (has chronic erythema attributed Plegridy SQ injections) #Partial small bowel obstruction: resolved #Anion gap metabolic acidosis: resolved #Diarrhea/tool incontinence: C diff GDH positive/toxin A/B negative, reflexed C diff pcr negative #Sigmoid stricture d/t adhesions: s/p laparoscopic lysis of adhesions and sigmoid colectomy (11/05) #Multiple sclerosis: treated at home with intermittent Plegridy SQ (held this hospitalization) #Essential hypertension: stable #Severe protein calorie malnourishment #Generalized weakness #Physical deconditioning #HTN: #Anemia: Plan -pelvic drain per surgeon -Abx per Surgery -TPN, defer diet advancement to surgeon -Analgesics prn -cont home Losartan, holding Plegridy for now. -Wound cares. -Nutrition following. -Surgery primary/Hospitalist consulting -DVT: per surgery Code status: [employer] Spent With Patient Time: Total time spent is greater than 50% in coordination of care (as documented) at patient's floor/unit and/or counseling patient: QUALITY VTE Deep Vein Thrombosis/Pulmonary Embolism Present on Admission: No
[2020-11-19] MEDS: FAT EMULSION 20% 250 ML IV SCH (16:40)
[2020-11-20] MEDS: HYDROmorphone 0.5 MG/0.5 ML SYRINGE IV PRN ×6 (02:46→21:37)
[2020-11-20] MEDS: POTASSIUM CHLORIDE IV SCH (02:49)
[2020-11-20] MEDS: CALCIUM GLUCONATE IV SCH (02:49)
[2020-11-20] MEDS: [UNRECOGNIZED DRUG - OTHER] IV SCH (02:49)
[2020-11-20] MEDS: MAGNESIUM SULFATE IV SCH (02:49)
[2020-11-20] MEDS: ONDANSETRON 4 MG/2 ML VIAL IV PRN ×2 (02:54→07:16)
[2020-11-20] MEDS: INSULIN LISPRO 1 UNIT/0.01 ML UNIT SQ SCH ×3 (05:40→17:38)
[2020-11-20] MEDS: PIPERACILLIN SODIUM/TAZOBACTAM 3.375 GM in DEXTROSE 5% IN WATER 50 ML IV SCH ×3 (05:53→17:05)
[2020-11-20] MEDS: 0.9 % SODIUM CHLORIDE 10 ML SYRINGE IV SCH ×2 (08:15→20:48)
[2020-11-20] MEDS: LOSARTAN 25 MG TABLET PO SCH (08:15)
[2020-11-20] MEDS ORDERED: PROMETHAZINE 25 MG/ML VIAL IV PRN (11:04)
--- NOTE | 2020-11-20 11:04 | General Surgery Progress Note ---
SUBJECTIVE Subjective Patient information: Note initiated : 11/20/20 at 11:02 am Service Date, if different from initiated Date: [] Patient: Marge Benitez 70 y/o F admitted on 11/04/20 for Esophogogastroduodenoscopy and Colonoscopy. Chief Complaint: [] Principal diagnosis: Postop colectomy; pelvic abscess Interval history: Postop day #3 status post exploratory laparotomy, end ostomy for rectal stump leak following sigmoid colectomy. Patient still feels distended, nausea and no ostomy output as of yet. Constitutional Vitals: Vital Signs Temp Pulse Resp BP Pulse Ox 97.2 F 97 H 20 140/77 97 11/20/20 08:00 11/20/20 08:00 11/20/20 08:00 11/20/20 08:00 11/20/20 08:00 Period Temp Pulse Resp BP Sys/Allen Pulse Ox Last 24 Hr 97.2 F-99.2 F 83-98 18-20 112-145/68-85 93-98 Intake and Output 11/19/20 11/20/20 11/20/20 21:59 05:59 13:59 Intake Total 250 1393 50 Output Total 550 1310 400 Balance -300 83 -350 Weight 132 lb 4.8 oz Intake & Output: Intake & Output 11/19/20 11/20/20 11/20/20 21:59 05:59 13:59 Intake Total 250 1393 50 Output Total 550 1310 400 Balance -300 83 -350 Weight 132 lb 4.8 oz Intake: IV 50 1393 50 Calcium Gluconate 5 Meq 1028 Magnesium Sulfate 8.12 Meq Potassium Chloride 10 Meq Potassium Phosphate 20 Meq Infuvite Adult 10 ml Sodium Chloride 60 Meq In Clinimix 5%- 20% Solution 1,000 ml @ 50 mls/ hr IV Q21H [facility] Rx#:[id number] Intralipid 20% 250 ml @ 25 mls/ 250 hr IV MoWeFr@1600 [facility] Rx#: [id number] Zosyn 3.375 gm In Dextrose 5% 50 50 50 in Water 50 ml @ 100 mls/hr IV Q6H [facility] Rx#:[id number] Oral 200 0 Output: Drainage 100 35 Right Abdomen RUSS Drain 100 35 Urine Catheter Amount 450 850 Stool 0 Emesis 425 400 Other: Urine Appearance Clear Clear Clear Reinserted Frank Clear Urine Color Light Alexandrea Bright Yellow Bright Yellow Reinserted Frank Bright Yellow Bright Yellow Urine Odor Normal Normal Reinserted Frank Normal Stool Size Smear Stool Color Green Brown Stool Consistency Liquid Soft # Bowel Movements 1 # Emeses 2 General appearance: cooperative and no acute distress GI/Abdominal GI/Abdominal exam: Present soft and distended; Absent guarding and rebound Additional comments: Ostomy is pink, no flatus in bag as of yet A/P Narrative A/P Narrative: Awaiting return of bowel function on postop day #3. Encourage ambulation, will continue with antinausea medications to allow her to ambulate without difficulty. Time Spent With Patient Time: Total time spent is greater than 50% in coordination of care (as documented) at patient's floor/unit and/or counseling patient:
--- NOTE | 2020-11-20 13:33 | Surgical Pathology Report ---
Histology Microscopic Diagnosis Specimen A- COLON, SIGMOID, SEGMENTAL RESECTION: --- SEGMENT OF COLON WITH SEROSAL ADHESIONS AND ATTACHED INFLAMMATORY EXUDATE. --- MARGINS VIABLE. Procedural Impression Status post laparoscopic assisted sigmoid with rectal stump leak. Gross Description Received in formalin labeled portion of sigmoid, is a segment of sigmoid received with both margins stapled. It is 4 cm in length by up to 4.5 cm in diameter. The serosa is harrison-nguyen with nguyen attached fat with possible harrison-nguyen exudate. The wall is up to 0.9 cm. The mucosa is nguyen and plicated. Grossly there are no candidate lymph nodes identified. [employer] sections are submitted in two cassettes: A1 - margins; A2 - random sections including areas containing possible exudate. Microscopic Diagnosis Specimen B- RECTUM, SUBMITTED "STUMP", SEGMENTAL RESECTION: --- DIVERTICULOSIS. --- SEROSAL ADHESIONS AND ATTACHED INFLAMMATORY EXUDATE. --- MARGINS VIABLE. (DMT) Gross Description Received in formalin labeled portion of rectal stump, is a portion of bowel received with both anand stapled. It is 4 cm in length by up to 3.5 cm in diameter. The serosa is harrison-nguyen with possible exudate. The wall is up to 0.6 cm thick. The serosa is nguyen and plicated. There is an area of possible diverticula. Grossly there are not candidate lymph nodes identified. [employer] sections are submitted in three cassettes: B1 - margins; B2 - cash posting representative section of possible diverticula; B3 - random sections including areas of harrison-nguyen exudate. (SCB:adj) Electronically Signed Jose Garcia MD, FCAP Electronically Signed 11/20/2020 13:31
[2020-11-21] MEDS: POTASSIUM CHLORIDE IV SCH ×2 (00:12→21:01)
[2020-11-21] MEDS: [UNRECOGNIZED DRUG - OTHER] IV SCH ×2 (00:12→21:01)
[2020-11-21] MEDS: MAGNESIUM SULFATE IV SCH ×2 (00:12→21:01)
[2020-11-21] MEDS: CALCIUM GLUCONATE IV SCH ×2 (00:12→21:01)
[2020-11-21] MEDS: PIPERACILLIN SODIUM/TAZOBACTAM 3.375 GM in DEXTROSE 5% IN WATER 50 ML IV SCH ×5 (00:13→23:50)
[2020-11-21] MEDS: INSULIN LISPRO 1 UNIT/0.01 ML UNIT SQ SCH ×5 (00:49→23:56)
[2020-11-21] MEDS: HYDROmorphone 0.5 MG/0.5 ML SYRINGE IV PRN ×4 (01:17→19:30)
[2020-11-21] MEDS: ACETAMINOPHEN 650 MG/65 ML BAG IV PRN ×4 (03:48→22:54)
[2020-11-21 06:35] LABS: Basophils # (Auto) 0.07 K/mcL (0.00-0.20); Basophils % (Auto) 0.5 % (0.0-2.0); Eosinophils % (Auto) 2.1 % (0.0-7.0); Hematocrit 23.5 % (36.0-48.0); Hemoglobin 7.6 g/dL (12.0-15.0); Lymphocytes # (Auto) 2.14 K/mcL (1.50-4.80); Lymphocytes % (Auto) 15.2 % (15.0-49.0); Mean Cell Volume 95.1 fL (80.0-100.0); Mean Corpuscular HGB Conc 32.3 g/dL (31.0-36.0); Mean Platelet Volume 9.1 fL (7.4-10.4); Monocytes # (Auto) 0.88 K/mcL (0.10-0.90); Monocytes % (Auto) 6.2 % (1.0-12.0); Platelet Count 646 K/mcL (140-440); RBC 2.47 M/mcL (4.00-5.20); Red Cell Distribution Width 13.5 % (11.5-14.5); WBC 14.1 K/mcL (4.5-11.0)
[2020-11-21 06:57] LABS: ALT/SGPT 35 U/L (<40); AST/SGOT 37 U/L (<32); Albumin 2.4 gm/dL (3.2-5.2); Albumin/Globulin Ratio 0.9 (1.0-2.3); Alkaline Phosphatase 76 U/L (39-117); Bilirubin,Direct < 0.2 mg/dL (0-0.3); Bilirubin,Total < 0.2 mg/dL (0.1-1.0); Blood Urea Nitrogen 18 mg/dL (8-23); Calcium 8.2 mg/dL (8.6-10.4); Carbon Dioxide 27 mmol/L (22-30); Chloride 102 mmol/L (96-108); Globulin 2.7 gm/dL (2.2-3.7); Glomerular Filtration Rate 99; Glucose 132 mg/dL (70-105); Lactate Dehydrogenase 149 U/L (135-225); Phosphorous 3.2 mg/dL (2.5-4.5); Prealbumin 15.6 mg/dL (20.0-40.0); Triglycerides 206 mg/dL (<150); Uric Acid 1.1 mg/dL (2.5-8.0)
[2020-11-21] MEDS: LOSARTAN 25 MG TABLET PO SCH (08:10)
[2020-11-21] MEDS: 0.9 % SODIUM CHLORIDE 10 ML SYRINGE IV SCH ×2 (08:10→21:00)
--- NOTE | 2020-11-21 08:22 | General Surgery Progress Note ---
SUBJECTIVE Subjective Patient information: Note initiated : 11/21/20 at 8:20 am Service Date, if different from initiated Date: [] Patient: Marge Benitez 70 y/o F admitted on 11/04/20 for Esophogogastroduodenoscopy and Colonoscopy. Chief Complaint: [] Principal diagnosis: Postop colectomy; pelvic abscess Interval history: Patient out of bed to chair this am, feels somewhat better, minimal drainage from ostomy. Constitutional Vitals: Vital Signs Temp Pulse Resp BP Pulse Ox 100.1 F H 80 15 133/72 98 11/21/20 06:46 11/21/20 06:46 11/21/20 06:46 11/21/20 06:46 11/21/20 06:46 Period Temp Pulse Resp BP Sys/Allen Pulse Ox Last 24 Hr 97.8 F-100.1 F 80-94 15-20 118-133/67-72 96-98 Intake and Output 11/20/20 11/21/20 11/21/20 21:59 05:59 13:59 Intake Total 50 1402.2981 50 Output Total 700 1175 250 Balance -461 868.5314 -200 Weight 129 lb 9 oz Intake & Output: Intake & Output 11/20/20 11/21/20 11/21/20 21:59 05:59 13:59 Intake Total 50 1402.2981 50 Output Total 700 1175 250 Balance -979 214.4765 -200 Weight 129 lb 9 oz Intake: IV 50 1162.2981 50 Calcium Gluconate 5 Meq 1047.2981 Magnesium Sulfate 8.12 Meq Potassium Chloride 10 Meq Potassium Phosphate 20 Meq Infuvite Adult 10 ml Sodium Chloride 60 Meq In Clinimix 5%- 20% Solution 1,000 ml @ 50 mls/ hr IV Q21H [facility] Rx#:[id number] Zosyn 3.375 gm In Dextrose 5% 50 50 50 in Water 50 ml @ 100 mls/hr IV Q6H [facility] Rx#:[id number] Oral 240 Output: Drainage 50 25 Right Abdomen RUSS Drain 50 25 Urine Catheter Amount 650 1150 250 Reinserted Frank 250 Other: Urine Appearance Cloudy Clear Clear Reinserted Frank Clear Urine Color Bright Yellow Bright Yellow Bright Yellow Reinserted Frank Bright Yellow Urine Odor Strong Normal Stool Size Small Stool Color Brown Stool Consistency Soft Loose General appearance: cooperative and no acute distress GI/Abdominal GI/Abdominal exam: Present soft, distended and tenderness (appropriate tenderness, inc clean, dry, ostomy pink); Absent guarding A/P Narrative A/P Narrative: Slowly improving, awaiting return of bowel function Time Spent With Patient Time: Total time spent is greater than 50% in coordination of care (as documented) at patient's floor/unit and/or counseling patient:
--- NOTE | 2020-11-21 11:38 | Internal Med Progress Note ---
SUBJECTIVE Subjective Patient information: Note initiated : 11/21/20 at 11:25 am Service Date, if different from initiated Date: [] Patient: Marge Benitez 70 y/o F admitted on 11/04/20 for Esophogog astroduodenoscopy and Colonoscopy. Chief Complaint: [] Principal diagnosis: Postop colectomy; pelvic abscess Interval history: Hospitalist was consulted for a rapid response CODE sepsis triggered by fever, orthostatic hypotension, and trending leukocytosis. Marge Benitez is a 70-year-old female with a history of hypertension, reactive airway disease, multiple sclerosis (treated with pegylated interferon beta-1a), currently hospitalized following a laparoscopic sigmoid colon resection for a obstructing sigmoid stricture noted on colonoscopy on 11/05/20. The operative indicated there was redundant sigmoid causing scar tissue/adhesions very likely the reason for the sigmoid stricture. The patient was progressing slowly post- operatively however developed a fever of 101.2 on 11/08/20 and again had a fever on 11/09/20 along with orthostatic hypotension and new leukocytosis. Physical exam was most notable for abdominal tenderness, guarding, and erythema around the suprapubic laparoscopic surgical incision. Blood cultures, UA and urine culture, CT chest/abd/pelvis and broad spectrum antibiotics started. Surgery did not feel the CT scan was suggestive of a cause for her symptoms and UA did not suggest UTI nor is was there evidence of pneumonoia therefore Zosyn was discontinued. Vancomycin IV was continued due to concern of abdominal cellulitis. 11/10 Had NG placed overnight for concern of possible ileus. Persistent fevers today but leukocytosis resolved. Mild anion gap metabolic acidosis, lactic acid normal. Blood cx NGTD. Per report had multiple loose stools overnight and incontinent. Surgery performed I&D of inferior laparoscopic incision and drained puss consistent with abscess and probably the cause of fevers. 11/11 Afebrile overnight, still has NG tube, low potassium replaced. CRP increased and mild leukocytosis but overall looks better. C diff GDH positive but A/B toxin negative-reflexed to C diff prc. Intermittent fevers. Nutritional status concerning-days since meals may need to consider TPN. 11/12 Continues to have abdominal pain, most sever in RLQ. Persistent watery diarrhea, C diff pcr negative. Repeat CT chest/abdomen/pelvis concerning for pelvis fluid collection and mechanical small bowel obstruction. Surgery ordered CT guided drain placement. 4 Improvement in oral intake so will hold off on TPN pending calorie count. Overall feels better after abdominal drain placement yesterday. Deescalate to Doxycycline for cellulitis. Downtrending hemoglobin. 4/2 No overnight issues or new complaints. Afebrile. Abdominal drain still draining. Encourage oral intake. / Feeling better. Sitting up in bed starting to eat her breakfast. No new pains or complaints. No nausea vomiting. 11/17 No new events overnight complaints. Patient states she her appetite is getting little bit better. Fluid culture growing gram-negative bacillus. 11/18 Patient had rectal stump leak and had to be taken back to the OR yesterday. Resting in bed this morning. Tolerating a clear liquid diet. 11/20 Resting today, feels nauseous. 11/21 Feels much better today, able to work with PT. Care conference held at bedside, likely discharge plan will be to [facility] due to ongoing need for TPN. WBC decreasing, overall improvement. General surgery planning to remove drain soon, anticipates about 4 more days of antibiotic. Constitutional Vitals: Vital Signs Temp Pulse Resp BP Pulse Ox 100.1 F H 80 15 133/72 98 11/21/20 06:46 11/21/20 06:46 11/21/20 06:46 11/21/20 06:46 11/21/20 06:46 Period Temp Pulse Resp BP Sys/Allen Pulse Ox Last 24 Hr 97.8 F-100.1 F 80-94 15-20 118-133/67-72 96-98 Intake and Output 11/20/20 11/21/20 11/21/20 21:59 05:59 13:59 Intake Total 50 1402.2981 115 Output Total 700 1175 251 Balance -033 611.7441 -136 Weight 58.769 kg Intake & Output: Intake & Output 11/20/20 11/21/20 11/21/20 21:59 05:59 13:59 Intake Total 50 1402.2981 115 Output Total 700 1175 251 Balance -405 816.2502 -136 Weight 58.769 kg Intake: IV 50 1162.2981 115 Calcium Gluconate 5 Meq 1047.2981 Magnesium Sulfate 8.12 Meq Potassium Chloride 10 Meq Potassium Phosphate 20 Meq Infuvite Adult 10 ml Sodium Chloride 60 Meq In Clinimix 5%- 20% Solution 1,000 ml @ 50 mls/ hr IV Q21H [facility] Rx#:[id number] Zosyn 3.375 gm In Dextrose 5% 50 50 50 in Water 50 ml @ 100 mls/hr IV Q6H [facility] Rx#:[id number] Oral 240 Output: Drainage 50 25 Right Abdomen RUSS Drain 50 25 Urine Catheter Amount 650 1150 250 Reinserted Frank 250 Urine/Stool Mix 1 Other: Urine Appearance Cloudy Clear Clear Reinserted Frank Clear Urine Color Bright Yellow Bright Yellow Bright Yellow Reinserted Frank Bright Yellow Urine Odor Strong Normal Stool Size Small Stool Color Brown Brown Stool Consistency Soft Liquid Loose # Voids 1 Exam: Head: Atraumatic, normal inspection. Eyes: normal appearance, no scleral icterus. Neck: full ROM Respiratory: no respiratory distress. Cardiovascular: normal rate and rhythm, S1, S2. GI/Abdominal: abdominal drain with serosanguineous fluid, ostomy with gas but minimal stool Extremities: full range of motion, nontender. Neurological: CN II-XII intact, intact motor, intact sensation. Psychiatric: normal mood. OBJ DATA Labs CBC & Chem 7: 11/21/20 05:15 11/21/20 05:15 Labs: Abnormal Lab Results 11/21/20 11/21/20 11/19/20 05:15 05:15 05:35 WBC 14.1 H RBC 2.47 L Hgb 7.6 L Hct 23.5 L Plt Count 646 H Neut % (Auto) Lymph % (Auto) Alfalfa # (Auto) Absolute Neutrophils 10.70 H Anion Gap 5.0 L 5.0 L Creatinine 0.5 L Glucose 132 H Uric Acid 1.1 L 1.2 L Calcium 8.2 L 7.9 L GGT 44 H AST 37 H 33 H Total Protein 5.1 L 5.2 L Albumin 2.4 L 2.6 L Albumin/Globulin Ratio 0.9 L Prealbumin 15.6 L 16.9 L Triglycerides 206 H 211 H 11/19/20 05:35 WBC 22.1 H RBC 3.09 L Hgb 9.4 L Hct 28.5 L Plt Count 640 H Neut % (Auto) 82.1 H Lymph % (Auto) 10.7 L Alfalfa # (Auto) 1.22 H Absolute Neutrophils 18.16 H Anion Gap Creatinine Glucose Uric Acid Calcium GGT AST Total Protein Albumin Albumin/Globulin Ratio Prealbumin Triglycerides Meds: Medications Acetaminophen (Acetaminophen 500 Mg Tablet) 500 mg PO Q6HP PRN; Protocol PRN Reason: Per Pain Protocol Dextrose (Dextrose 50% 50 Ml Vial) 0 ml IV UD PRN PRN Reason: Hypoglycemia Diagnostic Test (Pha) (Accu-Chek 1 Each Strip) 1 each FS Q6 [facility] Last Admin: 11/21/20 05:41 Dose: 1 each Documented by: Enalaprilat (Enalaprilat 1.25 Mg/Ml Vial) 0 mg IV Q2HP PRN PRN Reason: Hypertension Glucose (Dextrose 31 Gm Oral.Susp) 15 gm PO PRN PRN PRN Reason: Hypoglycemia Heparin Sodium (Porcine) (Heparin Flush 10 Units/Ml 5 Ml Syringe) 2 ml IV Q12 [facility] Last Admin: 11/21/20 08:07 Dose: 2 ml Documented by: Hydromorphone HCl (Hydromorphone 0.5 Mg/0.5 Ml Syringe) 0.5 mg IV Q2HP PRN; Protocol PRN Reason: Per Pain Protocol Last Admin: 11/21/20 08:07 Dose: 0.5 mg Documented by: Fat Emulsion Intravenous (Intralipid 20%) 250 mls @ 25 mls/hr IV MoWeFr@1600 [facility] Last Infusion: 11/20/20 02:44 Dose: Infused Documented by: Piperacillin Sod/Tazobactam (Sod 3.375 gm/ Dextrose) 50 mls @ 100 mls/hr IV Q6H [facility]; Protocol Last Infusion: 11/21/20 06:15 Dose: Infused Documented by: Acetaminophen (Ofirmev) 650 mg in 65 mls @ 130 mls/hr IV Q6HP PRN; Protocol PRN Reason: PAIN/FEVER > 101 Last Infusion: 11/21/20 10:35 Dose: Infused Documented by: Calcium Gluconate 5 meq/Magnesium Sulfate 8.12 meq/Potassium Chloride 10 meq/Potassium Phosphate 20 meq/Multivitamins/Minerals 10 ml/Sodium Chloride 60 meq/ Amino Acids 1,047.2981 mls @ 50 mls/hr IV Q21H [facility] Stop: 11/21/20 19:59 Last Admin: 11/21/20 00:12 Dose: 50 mls/hr Documented by: Calcium Gluconate 5 meq/Magnesium Sulfate 8.12 meq/Potassium Chloride 10 meq/Potassium Phosphate 20 meq/Multivitamins/Minerals 10 ml/Sodium Chloride 80 meq/ Amino Acids 1,052.2981 mls @ 50 mls/hr IV Q21H [facility] Insulin Human Lispro (Insulin Lispro 1 Unit/0.01 Ml Unit) 0 unit SQ Q6 [facility]; Protocol Last Admin: 11/21/20 05:41 Dose: Not Given Documented by: Labetalol HCl (Labetalol 5 Mg/Ml Ml) 0 mg IV Q2HP PRN PRN Reason: Hypertension Losartan Potassium (Losartan 25 Mg Tablet) 25 mg PO DAILY [facility] Last Admin: 11/21/20 08:10 Dose: 25 mg Documented by: Ondansetron HCl (Ondansetron 4 Mg/2 Ml Vial) 4 mg IV Q4HP PRN PRN Reason: Nausea And Vomiting Last Admin: 11/20/20 07:16 Dose: 4 mg Documented by: Promethazine HCl (Promethazine 25 Mg/Ml Vial) 12.5 mg IV Q4-6HP PRN PRN Reason: Nausea And Vomiting Sodium Chloride (0.9 % Sodium Chloride 10 Ml Syringe) 10 ml IV Q12 [facility] Last Admin: 11/21/20 08:10 Dose: 10 ml Documented by: Sodium Chloride (0.9 % Sodium Chloride 10 Ml Syringe) 10 ml IV UD PRN PRN Reason: FLUSH Last Admin: 11/18/20 05:06 Dose: 10 ml Documented by: A/P Narrative A/P Narrative: #Sigmoid stricture s/p laparoscopic resection c/b anastomotic leak followed by exploratory laparotomy for resection of sigmoid-rectal anastomosis and end ostomy creation. -s/p laparoscopic lysis of adhesions, sigmoid colectomy 11/05 -s/p CT drain placement 11/12; drain cx with Klebsiella, Enterobacter, Pseudomonas (all sensitive to Zosyn) -s/p Ex lap for rectal stump leak with rectal anastomosis & end ostomy (11/17) #Recurrent fevers and leukocytosis likely related to free pelvic fluid: fever trend improved -intermittent fevers -WBC improving #Multiple sclerosis: treated at home with intermittent Plegridy SQ (held this hospitalization) #Essential hypertension: stable #Severe protein calorie malnourishment #Generalized weakness #Physical deconditioning #HTN: #Anemia: Plan -pelvic drain per surgeon -Abx per Surgery -TPN, defer diet advancement to surgeon -Analgesics prn -cont home Losartan, holding Plegridy. -Wound cares. -Nutrition following. -Surgery primary/Hospitalist consulting -DVT ppx: per surgery -Code status: full -Disposition: NIACH Time Spent With Patient Time: Total time spent is greater than 50% in coordination of care (as documented) at patient's floor/unit and/or counseling patient: QUALITY VTE Deep Vein Thrombosis/Pulmonary Embolism Present on Admission: No
[2020-11-21] MEDS: FAT EMULSION 20% 250 ML IV SCH (15:13)
[2020-11-22] MEDS: HYDROmorphone 0.5 MG/0.5 ML SYRINGE IV PRN ×5 (01:11→19:38)
[2020-11-22] MEDS: INSULIN LISPRO 1 UNIT/0.01 ML UNIT SQ SCH ×4 (06:15→23:45)
[2020-11-22 07:08] LABS: ALT/SGPT 62 U/L (<40); AST/SGOT 56 U/L (<32); Albumin 2.4 gm/dL (3.2-5.2); Albumin/Globulin Ratio 0.8 (1.0-2.3); Alkaline Phosphatase 87 U/L (39-117); Bilirubin,Direct < 0.2 mg/dL (0-0.3); Bilirubin,Total 0.2 mg/dL (0.1-1.0); Blood Urea Nitrogen 18 mg/dL (8-23); Calcium 8.5 mg/dL (8.6-10.4); Carbon Dioxide 27 mmol/L (22-30); Chloride 103 mmol/L (96-108); Globulin 2.9 gm/dL (2.2-3.7); Glomerular Filtration Rate 99; Glucose 120 mg/dL (70-105); Lactate Dehydrogenase 170 U/L (135-225); Triglycerides 149 mg/dL (<150); Uric Acid 1.1 mg/dL (2.5-8.0)
[2020-11-22] MEDS: PIPERACILLIN SODIUM/TAZOBACTAM 3.375 GM in DEXTROSE 5% IN WATER 50 ML IV SCH ×4 (07:36→23:45)
--- NOTE | 2020-11-22 09:04 | General Surgery Progress Note ---
SUBJECTIVE Subjective Patient information: Note initiated : 11/22/20 at 9:02 am Service Date, if different from initiated Date: [] Patient: Marge Benitez 70 y/o F admitted on 11/04/20 for Esophogogastroduodenoscopy and Colonoscopy. Chief Complaint: [] Principal diagnosis: Postop colectomy; pelvic abscess Interval history: Postop exploratory laparotomy and ostomy for rectal stump leak following a sigmoid colectomy. Patient felt large amount of movement of bowels yesterday had felt better, she now has increased cramping with some distention with only minimal fluid out of the ostomy at this time. Constitutional Vitals: Vital Signs Temp Pulse Resp BP Pulse Ox 98.4 F 83 15 118/63 98 11/22/20 06:42 11/22/20 06:42 11/22/20 06:42 11/22/20 06:42 11/22/20 06:42 Period Temp Pulse Resp BP Sys/Allen Pulse Ox Last 24 Hr 97.7 F-98.9 F 83-94 15-24 116-142/63-77 97-100 Intake and Output 11/21/20 11/22/20 11/22/20 21:59 05:59 13:59 Intake Total 465 465 50 Output Total 195 900 Balance 270 -435 50 Weight 121 lb 12.8 oz Intake & Output: Intake & Output 11/21/20 11/22/20 11/22/20 21:59 05:59 13:59 Intake Total 465 465 50 Output Total 195 900 Balance 270 -435 50 Weight 121 lb 12.8 oz Intake: Nourishment/Supplement quantity 250 (ml) IV 115 365 50 Intralipid 20% 250 ml @ 25 mls/ 250 hr IV MoWeFr@1600 [facility] Rx#: [id number] Zosyn 3.375 gm In Dextrose 5% 50 50 50 in Water 50 ml @ 100 mls/hr IV Q6H [facility] Rx#:[id number] Oral 100 100 Output: Drainage 20 25 Right Abdomen RUSS Drain 20 25 Void Amount 175 875 Other: Nourishment/Supplement name ensure Urine Appearance Clear Clear Urine Color Bright Yellow Bright Yellow Urine Odor Normal Normal # Voids 1 General appearance: cooperative and no acute distress Respiratory Respiratory exam: Present normal respiratory exam GI/Abdominal GI/Abdominal exam: Present normal bowel sounds, soft and tenderness (Appropriately tender to palpation, ostomy is pink, midline incision is clean); Absent distended A/P Narrative A/P Narrative: Status post and ostomy, awaiting return of bowel function. No nausea or vomiting Encourage ambulation, continue with clear liquid diet. Time Spent With Patient Time: Total time spent is greater than 50% in coordination of care (as documented) at patient's floor/unit and/or counseling patient:
[2020-11-22] MEDS: 0.9 % SODIUM CHLORIDE 10 ML SYRINGE IV SCH ×2 (09:05→19:38)
[2020-11-22] MEDS: LOSARTAN 25 MG TABLET PO SCH (09:05)
[2020-11-22 09:48] LABS: Basophils % (Auto) 0.8 % (0.0-2.0); Eosinophils # (Auto) 0.44 K/mcL (0.00-0.70); Eosinophils % (Auto) 3.5 % (0.0-7.0); Hematocrit 24.3 % (36.0-48.0); Hemoglobin 7.7 g/dL (12.0-15.0); Lymphocytes # (Auto) 2.59 K/mcL (1.50-4.80); Lymphocytes % (Auto) 20.4 % (15.0-49.0); Mean Cell Volume 95.7 fL (80.0-100.0); Mean Corpuscular HGB Conc 31.7 g/dL (31.0-36.0); Monocytes # (Auto) 0.81 K/mcL (0.10-0.90); Monocytes % (Auto) 6.4 % (1.0-12.0); Neutrophils % (Auto) 68.9 % (38.0-78.0); Platelet Count 719 K/mcL (140-440); RBC 2.54 M/mcL (4.00-5.20); Red Cell Distribution Width 13.8 % (11.5-14.5); WBC 12.7 K/mcL (4.5-11.0)
[2020-11-22 10:15] LABS: ALT/SGPT 63 U/L (<40); AST/SGOT 53 U/L (<32); Albumin 2.4 gm/dL (3.2-5.2); Albumin/Globulin Ratio 0.8 (1.0-2.3); Alkaline Phosphatase 89 U/L (39-117); Bilirubin,Direct < 0.2 mg/dL (0-0.3); Bilirubin,Total 0.2 mg/dL (0.1-1.0); Blood Urea Nitrogen 19 mg/dL (8-23); Calcium 8.7 mg/dL (8.6-10.4); Carbon Dioxide 27 mmol/L (22-30); Chloride 103 mmol/L (96-108); Globulin 3.1 gm/dL (2.2-3.7); Glomerular Filtration Rate 93; Glucose 98 mg/dL (70-105); Lactate Dehydrogenase 174 U/L (135-225); Phosphorous 3.8 mg/dL (2.5-4.5); Triglycerides 144 mg/dL (<150); Uric Acid 1.1 mg/dL (2.5-8.0)
--- NOTE | 2020-11-22 14:20 | Internal Med Progress Note ---
SUBJECTIVE Subjective Patient information: Note initiated : 11/22/20 at 2:19 pm Service Date, if different from initiated Date: [] Patient: Marge Benitez 70 y/o F admitted on 11/04/20 for Esophogoga stroduodenoscopy and Colonoscopy. Chief Complaint: [] Principal diagnosis: Postop colectomy; pelvic abscess Interval history: Hospitalist was consulted for a rapid response CODE sepsis triggered by fever, orthostatic hypotension, and trending leukocytosis. Marge Benitez is a 70-year-old female with a history of hypertension, reactive airway disease, multiple sclerosis (treated with pegylated interferon beta-1a), currently hospitalized following a laparoscopic sigmoid colon resection for a obstructing sigmoid stricture noted on colonoscopy on 11/05/20. The operative indicated there was redundant sigmoid causing scar tissue/adhesions very likely the reason for the sigmoid stricture. The patient was progressing slowly post- operatively however developed a fever of 101.2 on 11/08/20 and again had a fever on 11/09/20 along with orthostatic hypotension and new leukocytosis. Physical exam was most notable for abdominal tenderness, guarding, and erythema around the suprapubic laparoscopic surgical incision. Blood cultures, UA and urine culture, CT chest/abd/pelvis and broad spectrum antibiotics started. Surgery did not feel the CT scan was suggestive of a cause for her symptoms and UA did not suggest UTI nor is was there evidence of pneumonoia therefore Zosyn was discontinued. Vancomycin IV was continued due to concern of abdominal cellulitis. 11/10 Had NG placed overnight for concern of possible ileus. Persistent fevers today but leukocytosis resolved. Mild anion gap metabolic acidosis, lactic acid normal. Blood cx NGTD. Per report had multiple loose stools overnight and incontinent. Surgery performed I&D of inferior laparoscopic incision and drained puss consistent with abscess and probably the cause of fevers. 11/11 Afebrile overnight, still has NG tube, low potassium replaced. CRP increased and mild leukocytosis but overall looks better. C diff GDH positive but A/B toxin negative-reflexed to C diff prc. Intermittent fevers. Nutritional status concerning-days since meals may need to consider TPN. 11/12 Continues to have abdominal pain, most sever in RLQ. Persistent watery diarrhea, C diff pcr negative. Repeat CT chest/abdomen/pelvis concerning for pelvis fluid collection and mechanical small bowel obstruction. Surgery ordered CT guided drain placement. 4 Improvement in oral intake so will hold off on TPN pending calorie count. Overall feels better after abdominal drain placement yesterday. Deescalate to Doxycycline for cellulitis. Downtrending hemoglobin. 4/2 No overnight issues or new complaints. Afebrile. Abdominal drain still draining. Encourage oral intake. 4/ Feeling better. Sitting up in bed starting to eat her breakfast. No new pains or complaints. No nausea vomiting. 11/17 No new events overnight complaints. Patient states she her appetite is getting little bit better. Fluid culture growing gram-negative bacillus. 11/18 Patient had rectal stump leak and had to be taken back to the OR yesterday. Resting in bed this morning. Tolerating a clear liquid diet. 11/20 Resting today, feels nauseous. 11/21 Feels much better today, able to work with PT. Care conference held at bedside, likely discharge plan will be to [facility] due to ongoing need for TPN. WBC decreasing, overall improvement. General surgery planning to remove drain soon, anticipates about 4 more days of antibiotic. 11/22 Feels bloated today. WBC continues to trend toward normal, no fevers. Constitutional Vitals: Vital Signs Temp Pulse Resp BP Pulse Ox 97.8 F 88 14 117/71 99 11/22/20 11:50 11/22/20 11:50 11/22/20 11:50 11/22/20 11:50 11/22/20 11:50 Period Temp Pulse Resp BP Sys/Allen Pulse Ox Last 24 Hr 97.7 F-98.9 F 83-94 14-24 117-142/63-77 97-100 Intake and Output 11/22/20 11/22/20 11/22/20 05:59 13:59 21:59 Intake Total 465 50 50 Output Total 900 Balance -435 50 50 Intake & Output: Intake & Output 11/22/20 11/22/20 11/22/20 05:59 13:59 21:59 Intake Total 465 50 50 Output Total 900 Balance -435 50 50 Intake: IV 365 50 50 Intralipid 20% 250 ml @ 25 mls/ 250 hr IV MoWeFr@1600 [facility] Rx#: [id number] Zosyn 3.375 gm In Dextrose 5% 50 50 50 in Water 50 ml @ 100 mls/hr IV Q6H [facility] Rx#:[id number] Oral 100 Output: Drainage 25 Right Abdomen RUSS Drain 25 Void Amount 875 Other: Urine Appearance Clear Urine Color Bright Yellow Urine Odor Normal Exam: Head: Atraumatic, normal inspection. Eyes: normal appearance, no scleral icterus. Neck: full ROM Respiratory: no respiratory distress. Cardiovascular: normal rate and rhythm, S1, S2. GI/Abdominal: abdominal distention, pelvic drain with serosanguineous fluid, ostomy with gas and some semi-formed stool, bowel sounds present, soft, no guarding Extremities: full range of motion, nontender. Neurological: CN II-XII intact, intact motor, intact sensation. Psychiatric: normal mood. OBJ DATA Labs CBC & Chem 7: 11/22/20 07:45 11/22/20 07:45 Labs: Abnormal Lab Results 11/22/20 11/22/20 11/22/20 07:45 07:45 05:40 WBC 12.7 H RBC 2.54 L Hgb 7.7 L Hct 24.3 L Plt Count 719 H Absolute Neutrophils 8.76 H Anion Gap 6.0 L 5.0 L Creatinine 0.5 L Glucose 120 H Uric Acid 1.1 L 1.1 L Calcium 8.5 L GGT 59 H 63 H AST 53 H 56 H ALT 63 H 62 H Total Protein 5.5 L 5.3 L Albumin 2.4 L 2.4 L Albumin/Globulin Ratio 0.8 L 0.8 L Prealbumin Triglycerides 11/21/20 11/21/20 05:15 05:15 WBC 14.1 H RBC 2.47 L Hgb 7.6 L Hct 23.5 L Plt Count 646 H Absolute Neutrophils 10.70 H Anion Gap 5.0 L Creatinine 0.5 L Glucose 132 H Uric Acid 1.1 L Calcium 8.2 L GGT 44 H AST 37 H ALT Total Protein 5.1 L Albumin 2.4 L Albumin/Globulin Ratio 0.9 L Prealbumin 15.6 L Triglycerides 206 H Meds: Medications Acetaminophen (Acetaminophen 500 Mg Tablet) 500 mg PO Q6HP PRN; Protocol PRN Reason: Per Pain Protocol Dextrose (Dextrose 50% 50 Ml Vial) 0 ml IV UD PRN PRN Reason: Hypoglycemia Diagnostic Test (Pha) (Accu-Chek 1 Each Strip) 1 each FS Q6 [facility] Last Admin: 11/22/20 12:00 Dose: 1 each Documented by: Enalaprilat (Enalaprilat 1.25 Mg/Ml Vial) 0 mg IV Q2HP PRN PRN Reason: Hypertension Glucose (Dextrose 31 Gm Oral.Susp) 15 gm PO PRN PRN PRN Reason: Hypoglycemia Heparin Sodium (Porcine) (Heparin Flush 10 Units/Ml 5 Ml Syringe) 2 ml IV Q12 [facility] Last Admin: 11/22/20 09:05 Dose: 2 ml Documented by: Hydromorphone HCl (Hydromorphone 0.5 Mg/0.5 Ml Syringe) 0.5 mg IV Q2HP PRN; Protocol PRN Reason: Per Pain Protocol Last Admin: 11/22/20 12:01 Dose: 0.5 mg Documented by: Fat Emulsion Intravenous (Intralipid 20%) 250 mls @ 25 mls/hr IV MoWeFr@1600 [facility] Last Infusion: 11/22/20 01:35 Dose: Infused Documented by: Piperacillin Sod/Tazobactam (Sod 3.375 gm/ Dextrose) 50 mls @ 100 mls/hr IV Q6H [facility]; Protocol Last Infusion: 11/22/20 14:14 Dose: Infused Documented by: Acetaminophen (Ofirmev) 650 mg in 65 mls @ 130 mls/hr IV Q6HP PRN; Protocol PRN Reason: PAIN/FEVER > 101 Last Infusion: 11/21/20 23:31 Dose: Infused Documented by: Calcium Gluconate 5 meq/Magnesium Sulfate 8.12 meq/Potassium Chloride 10 meq/Potassium Phosphate 20 meq/Multivitamins/Minerals 10 ml/Sodium Chloride 80 meq/ Amino Acids 1,052.2981 mls @ 50 mls/hr IV Q21H [facility] Stop: 11/22/20 17:59 Last Admin: 11/21/20 21:01 Dose: 50 mls/hr Documented by: Calcium Gluconate 5 meq/Magnesium Sulfate 8.12 meq/Potassium Chloride 10 meq/Potassium Phosphate 15 meq/Multivitamins/Minerals 10 ml/Sodium Chloride 80 meq/ Amino Acids 1,051.1617 mls @ 50 mls/hr IV Q21H [facility] Insulin Human Lispro (Insulin Lispro 1 Unit/0.01 Ml Unit) 0 unit SQ Q6 [facility]; Protocol Last Admin: 11/22/20 12:00 Dose: Not Given Documented by: Labetalol HCl (Labetalol 5 Mg/Ml Ml) 0 mg IV Q2HP PRN PRN Reason: Hypertension Losartan Potassium (Losartan 25 Mg Tablet) 25 mg PO DAILY [facility] Last Admin: 11/22/20 09:05 Dose: Not Given Documented by: Ondansetron HCl (Ondansetron 4 Mg/2 Ml Vial) 4 mg IV Q4HP PRN PRN Reason: Nausea And Vomiting Last Admin: 11/20/20 07:16 Dose: 4 mg Documented by: Promethazine HCl (Promethazine 25 Mg/Ml Vial) 12.5 mg IV Q4-6HP PRN PRN Reason: Nausea And Vomiting Sodium Chloride (0.9 % Sodium Chloride 10 Ml Syringe) 10 ml IV Q12 [facility] Last Admin: 11/22/20 09:05 Dose: 10 ml Documented by: Sodium Chloride (0.9 % Sodium Chloride 10 Ml Syringe) 10 ml IV UD PRN PRN Reason: FLUSH Last Admin: 11/18/20 05:06 Dose: 10 ml Documented by: A/P Narrative A/P Narrative: #Sigmoid stricture s/p laparoscopic resection c/b anastomotic leak followed by exploratory laparotomy for resection of sigmoid-rectal anastomosis and end ostomy creation. -s/p laparoscopic lysis of adhesions, sigmoid colectomy 11/05 -s/p CT drain placement 11/12; drain cx with Klebsiella, Enterobacter, Pseudomonas (all sensitive to Zosyn) -s/p Ex lap for rectal stump leak with rectal anastomosis & end ostomy (11/17) #Leukocytosis likely related to anastomotic leak: improving leukocytosis #Multiple sclerosis: treated at home with intermittent Plegridy SQ (held this hospitalization) #Essential hypertension: stable #Severe protein calorie malnourishment: on TPN #Generalized weakness #Physical deconditioning #HTN: #Anemia: Plan -pelvic drain per surgeon -Abx per Surgery -TPN, defer diet advancement to surgeon -Analgesics prn -cont home Losartan, holding Plegridy. -monitoring CBC -Wound cares. -Nutrition following. -Surgery primary/Hospitalist consulting -DVT ppx: per surgery -Code status: full -Disposition: NIACH Time Spent With Patient Time: Total time spent is greater than 50% in coordination of care (as documented) at patient's floor/unit and/or counseling patient: QUALITY VTE Deep Vein Thrombosis/Pulmonary Embolism Present on Admission: No
[2020-11-22] MEDS: [UNRECOGNIZED DRUG - OTHER] IV SCH (16:50)
[2020-11-22] MEDS: CALCIUM GLUCONATE IV SCH (16:50)
[2020-11-22] MEDS: POTASSIUM CHLORIDE IV SCH (16:50)
[2020-11-22] MEDS: MAGNESIUM SULFATE IV SCH (16:50)
[2020-11-22] MEDS ORDERED: CALCIUM GLUCONATE IV SCH (18:00)
[2020-11-22] MEDS ORDERED: [UNRECOGNIZED DRUG - OTHER] IV SCH (18:00)
[2020-11-22] MEDS ORDERED: MAGNESIUM SULFATE IV SCH (18:00)
[2020-11-22] MEDS ORDERED: POTASSIUM CHLORIDE IV SCH (18:00)
[2020-11-22] MEDS: 0.9 % SODIUM CHLORIDE 10 ML SYRINGE IV PRN (21:15)
[2020-11-22] MEDS: ACETAMINOPHEN 650 MG/65 ML BAG IV PRN (21:16)
[2020-11-23] MEDS: HYDROmorphone 0.5 MG/0.5 ML SYRINGE IV PRN ×6 (00:21→23:36)
[2020-11-23] MEDS: PIPERACILLIN SODIUM/TAZOBACTAM 3.375 GM in DEXTROSE 5% IN WATER 50 ML IV SCH ×4 (05:58→23:14)
[2020-11-23] MEDS: INSULIN LISPRO 1 UNIT/0.01 ML UNIT SQ SCH ×4 (05:58→23:17)
[2020-11-23] MEDS: LOSARTAN 25 MG TABLET PO SCH (08:46)
[2020-11-23] MEDS: 0.9 % SODIUM CHLORIDE 10 ML SYRINGE IV SCH ×3 (08:47→20:39)
[2020-11-23 08:48] LABS: Basophils # (Auto) 0.07 K/mcL (0.00-0.20); Basophils % (Auto) 0.8 % (0.0-2.0); Eosinophils % (Auto) 3.3 % (0.0-7.0); Hematocrit 25.6 % (36.0-48.0); Lymphocytes # (Auto) 2.17 K/mcL (1.50-4.80); Lymphocytes % (Auto) 23.8 % (15.0-49.0); Mean Cell Volume 110.8 fL (80.0-100.0); Mean Corpuscular HGB Conc 27.3 g/dL (31.0-36.0); Mean Platelet Volume 8.7 fL (7.4-10.4); Monocytes # (Auto) 0.73 K/mcL (0.10-0.90); Neutrophils % (Auto) 64.1 % (38.0-78.0); Platelet Count 644 K/mcL (140-440); RBC 2.31 M/mcL (4.00-5.20); Red Cell Distribution Width 14.6 % (11.5-14.5); WBC 9.1 K/mcL (4.5-11.0)
--- NOTE | 2020-11-23 08:55 | General Surgery Progress Note ---
SUBJECTIVE Subjective Patient information: Note initiated : 11/23/20 at 8:53 am Service Date, if different from initiated Date: [] Patient: Marge Benitez 70 y/o F admitted on 11/04/20 for Esophogogastroduodenoscopy and Colonoscopy. Chief Complaint: [] Principal diagnosis: Postop colectomy; pelvic abscess Interval history: Patient feels better this morning, her fullness and distention is gone, her ostomy started passing flatus and small amount of stool. She has been ambulatory. She has no nausea vomiting fevers or chills. Constitutional Vitals: Vital Signs Temp Pulse Resp BP Pulse Ox 97.4 F 82 16 120/71 96 11/23/20 07:08 11/23/20 07:08 11/23/20 07:08 11/23/20 07:08 11/23/20 07:08 Period Temp Pulse Resp BP Sys/Allen Pulse Ox Last 24 Hr 97.4 F-98.3 F 76-96 14-17 117-143/71-85 96-99 Intake and Output 11/22/20 11/23/20 11/23/20 21:59 05:59 13:59 Intake Total 2504.5962 450 690 Output Total 865 770 200 Balance 1639.5962 -320 490 Weight 120 lb 8 oz Intake & Output: Intake & Output 11/22/20 11/23/20 11/23/20 21:59 05:59 13:59 Intake Total 2504.5962 450 690 Output Total 865 770 200 Balance 1639.5962 -320 490 Weight 120 lb 8 oz Intake: IV 2264.5962 50 50 Calcium Gluconate 5 Meq 9.5962 Magnesium Sulfate 8.12 Meq Potassium Chloride 10 Meq Potassium Phosphate 20 Meq Infuvite Adult 10 ml Sodium Chloride 60 Meq In Clinimix 5%- 20% Solution 1,000 ml @ 50 mls/ hr IV Q21H [facility] Rx#:[id number] Zosyn 3.375 gm In Dextrose 5% 100 50 50 in Water 50 ml @ 100 mls/hr IV Q6H [facility] Rx#:[id number] Oral 240 400 640 Output: Drainage 15 10 Right Abdomen RUSS Drain 15 10 Void Amount 850 750 200 Stool 10 Other: Meal Breakfast Percent of Meal Consumed 75% Feeding Ability Independent Urine Appearance Clear Clear Clear Urine Color Bright Yellow Bright Yellow Bright Yellow Urine Odor Normal Normal Strong Stool Size Small Stool Color Brown Brown Stool Consistency Liquid Liquid Loose # Voids 1 General appearance: cooperative and no acute distress GI/Abdominal GI/Abdominal exam: Present normal bowel sounds and soft; Absent distended and tenderness Additional comments: Ostomy is pink A/P Narrative A/P Narrative: Postop sigmoid colectomy with end ostomy, now has ostomy output. Acute events diet as tolerated. Anticipate SNF tomorrow. Time Spent With Patient Time: Total time spent is greater than 50% in coordination of care (as documented) at patient's floor/unit and/or counseling patient:
[2020-11-23 10:07] LABS: Basophils # (Auto) 0.12 K/mcL (0.00-0.20); Eosinophils # (Auto) 0.39 K/mcL (0.00-0.70); Eosinophils % (Auto) 3.4 % (0.0-7.0); Hematocrit 25.7 % (36.0-48.0); Hemoglobin 8.1 g/dL (12.0-15.0); Lymphocytes # (Auto) 2.62 K/mcL (1.50-4.80); Lymphocytes % (Auto) 22.5 % (15.0-49.0); Mean Cell Volume 96.3 fL (80.0-100.0); Mean Corpuscular HGB Conc 31.5 g/dL (31.0-36.0); Mean Platelet Volume 8.7 fL (7.4-10.4); Monocytes # (Auto) 0.87 K/mcL (0.10-0.90); Monocytes % (Auto) 7.5 % (1.0-12.0); Neutrophils % (Auto) 65.6 % (38.0-78.0); Platelet Count 710 K/mcL (140-440); RBC 2.67 M/mcL (4.00-5.20); Red Cell Distribution Width 13.9 % (11.5-14.5); WBC 11.6 K/mcL (4.5-11.0)
[2020-11-23 10:28] LABS: ALT/SGPT 69 U/L (<40); AST/SGOT 55 U/L (<32); Albumin 2.6 gm/dL (3.2-5.2); Albumin/Globulin Ratio 0.8 (1.0-2.3); Alkaline Phosphatase 93 U/L (39-117); Bilirubin,Direct < 0.2 mg/dL (0-0.3); Bilirubin,Total < 0.2 mg/dL (0.1-1.0); Blood Urea Nitrogen 17 mg/dL (8-23); Calcium 8.7 mg/dL (8.6-10.4); Carbon Dioxide 24 mmol/L (22-30); Chloride 100 mmol/L (96-108); Globulin 3.2 gm/dL (2.2-3.7); Glomerular Filtration Rate 93; Glucose 107 mg/dL (70-105); Lactate Dehydrogenase 232 U/L (135-225); Phosphorous 3.6 mg/dL (2.5-4.5); Triglycerides 199 mg/dL (<150); Uric Acid 1.4 mg/dL (2.5-8.0)
--- NOTE | 2020-11-23 12:37 | Internal Med Progress Note ---
SUBJECTIVE Subjective Patient information: Note initiated : 11/23/20 at 12:36 pm Service Date, if different from initiated Date: [] Patient: Marge Benitez 70 y/o F admitted on 11/04/20 for Esophogog astroduodenoscopy and Colonoscopy. Chief Complaint: [] Principal diagnosis: Postop colectomy; pelvic abscess Interval history: Hospitalist was consulted for a rapid response CODE sepsis triggered by fever, orthostatic hypotension, and trending leukocytosis. Marge Benitez is a 70-year-old female with a history of hypertension, reactive airway disease, multiple sclerosis (treated with pegylated interferon beta-1a), currently hospitalized following a laparoscopic sigmoid colon resection for a obstructing sigmoid stricture noted on colonoscopy on 11/05/20. The operative indicated there was redundant sigmoid causing scar tissue/adhesions very likely the reason for the sigmoid stricture. The patient was progressing slowly post- operatively however developed a fever of 101.2 on 11/08/20 and again had a fever on 11/09/20 along with orthostatic hypotension and new leukocytosis. Physical exam was most notable for abdominal tenderness, guarding, and erythema around the suprapubic laparoscopic surgical incision. Blood cultures, UA and urine culture, CT chest/abd/pelvis and broad spectrum antibiotics started. Surgery did not feel the CT scan was suggestive of a cause for her symptoms and UA did not suggest UTI nor is was there evidence of pneumonoia therefore Zosyn was discontinued. Vancomycin IV was continued due to concern of abdominal cellulitis. 11/10 Had NG placed overnight for concern of possible ileus. Persistent fevers today but leukocytosis resolved. Mild anion gap metabolic acidosis, lactic acid normal. Blood cx NGTD. Per report had multiple loose stools overnight and incontinent. Surgery performed I&D of inferior laparoscopic incision and drained puss consistent with abscess and probably the cause of fevers. 11/11 Afebrile overnight, still has NG tube, low potassium replaced. CRP increased and mild leukocytosis but overall looks better. C diff GDH positive but A/B toxin negative-reflexed to C diff prc. Intermittent fevers. Nutritional status concerning-days since meals may need to consider TPN. 11/12 Continues to have abdominal pain, most sever in RLQ. Persistent watery diarrhea, C diff pcr negative. Repeat CT chest/abdomen/pelvis concerning for pelvis fluid collection and mechanical small bowel obstruction. Surgery ordered CT guided drain placement. 4 Improvement in oral intake so will hold off on TPN pending calorie count. Overall feels better after abdominal drain placement yesterday. Deescalate to Doxycycline for cellulitis. Downtrending hemoglobin. 4/2 No overnight issues or new complaints. Afebrile. Abdominal drain still draining. Encourage oral intake. 4/ Feeling better. Sitting up in bed starting to eat her breakfast. No new pains or complaints. No nausea vomiting. 11/17 No new events overnight complaints. Patient states she her appetite is getting little bit better. Fluid culture growing gram-negative bacillus. 11/18 Patient had rectal stump leak and had to be taken back to the OR yesterday. Resting in bed this morning. Tolerating a clear liquid diet. 11/20 Resting today, feels nauseous. 11/21 Feels much better today, able to work with PT. Care conference held at bedside, likely discharge plan will be to [facility] due to ongoing need for TPN. WBC decreasing, overall improvement. General surgery planning to remove drain soon, anticipates about 4 more days of antibiotic. 11/22 Feels bloated today. WBC continues to trend toward normal, no fevers. 11/23 More bowel movements today, continues to feel bloated but things she is on the mend now. Diet advanced to regular. Constitutional Vitals: Vital Signs Temp Pulse Resp BP Pulse Ox 97.4 F 82 16 120/71 96 11/23/20 07:08 11/23/20 07:08 11/23/20 07:08 11/23/20 07:08 11/23/20 07:08 Period Temp Pulse Resp BP Sys/Allen Pulse Ox Last 24 Hr 97.4 F-98.3 F 76-96 15-17 120-143/71-85 96-98 Intake and Output 11/22/20 11/23/20 11/23/20 21:59 05:59 13:59 Intake Total 2504.5962 450 690 Output Total 865 770 200 Balance 1639.5962 -320 490 Weight 54.658 kg Intake & Output: Intake & Output 11/22/20 11/23/20 11/23/20 21:59 05:59 13:59 Intake Total 2504.5962 450 690 Output Total 865 770 200 Balance 1639.5962 -320 490 Weight 54.658 kg Intake: IV 2264.5973 50 50 Calcium Gluconate 5 Meq 2099.5962 Magnesium Sulfate 8.12 Meq Potassium Chloride 10 Meq Potassium Phosphate 20 Meq Infuvite Adult 10 ml Sodium Chloride 60 Meq In Clinimix 5%- 20% Solution 1,000 ml @ 50 mls/ hr IV Q21H [facility] Rx#:[id number] Zosyn 3.375 gm In Dextrose 5% 100 50 50 in Water 50 ml @ 100 mls/hr IV Q6H [facility] Rx#:[id number] Oral 240 400 640 Output: Drainage 15 10 Right Abdomen RUSS Drain 15 10 Void Amount 850 750 200 Stool 10 Other: Meal Breakfast Percent of Meal Consumed 75% Feeding Ability Independent Urine Appearance Clear Clear Clear Urine Color Bright Yellow Bright Yellow Bright Yellow Urine Odor Normal Normal Strong Stool Size Small Stool Color Brown Brown Stool Consistency Liquid Liquid Loose # Voids 1 Exam: Head: Atraumatic, normal inspection. Eyes: normal appearance, no scleral icterus. Neck: full ROM Respiratory: no respiratory distress. Cardiovascular: normal rate and rhythm, S1, S2. GI/Abdominal: abdominal distention, pelvic drain with serosanguineous fluid, ostomy with gas and some semi-formed stool, bowel sounds present, soft, no guarding Extremities: full range of motion, nontender. Neurological: CN II-XII intact, intact motor, intact sensation. Psychiatric: normal mood. OBJ DATA Labs CBC & Chem 7: 11/23/20 09:28 11/23/20 09:28 Labs: Abnormal Lab Results 11/23/20 11/23/20 11/23/20 09:28 09:28 07:53 WBC 11.6 H RBC 2.67 L 2.31 L Hgb 8.1 L 7.0 L* Hct 25.7 L 25.6 L MCV 110.8 H MCHC 27.3 L RDW 14.6 H Plt Count 710 H 644 H Absolute Neutrophils Anion Gap Creatinine Glucose 107 H Uric Acid 1.4 L Calcium GGT 62 H AST 55 H ALT 69 H Lactate Dehydrogenase 232 H Total Protein 5.8 L Albumin 2.6 L Albumin/Globulin Ratio 0.8 L Prealbumin Triglycerides 199 H 11/22/20 11/22/20 11/22/20 07:45 07:45 05:40 WBC 12.7 H RBC 2.54 L Hgb 7.7 L Hct 24.3 L MCV MCHC RDW Plt Count 719 H Absolute Neutrophils 8.76 H Anion Gap 6.0 L 5.0 L Creatinine 0.5 L Glucose 120 H Uric Acid 1.1 L 1.1 L Calcium 8.5 L GGT 59 H 63 H AST 53 H 56 H ALT 63 H 62 H Lactate Dehydrogenase Total Protein 5.5 L 5.3 L Albumin 2.4 L 2.4 L Albumin/Globulin Ratio 0.8 L 0.8 L Prealbumin Triglycerides 11/21/20 11/21/20 05:15 05:15 WBC 14.1 H RBC 2.47 L Hgb 7.6 L Hct 23.5 L MCV MCHC RDW Plt Count 646 H Absolute Neutrophils 10.70 H Anion Gap 5.0 L Creatinine 0.5 L Glucose 132 H Uric Acid 1.1 L Calcium 8.2 L GGT 44 H AST 37 H ALT Lactate Dehydrogenase Total Protein 5.1 L Albumin 2.4 L Albumin/Globulin Ratio 0.9 L Prealbumin 15.6 L Triglycerides 206 H Meds: Medications Acetaminophen (Acetaminophen 500 Mg Tablet) 500 mg PO Q6HP PRN; Protocol PRN Reason: Per Pain Protocol Dextrose (Dextrose 50% 50 Ml Vial) 0 ml IV UD PRN PRN Reason: Hypoglycemia Diagnostic Test (Pha) (Accu-Chek 1 Each Strip) 1 each FS Q6 [facility] Last Admin: 11/23/20 11:08 Dose: 1 each Documented by: Enalaprilat (Enalaprilat 1.25 Mg/Ml Vial) 0 mg IV Q2HP PRN PRN Reason: Hypertension Glucose (Dextrose 31 Gm Oral.Susp) 15 gm PO PRN PRN PRN Reason: Hypoglycemia Heparin Sodium (Porcine) (Heparin Flush 10 Units/Ml 5 Ml Syringe) 2 ml IV Q12 [facility] Last Admin: 11/23/20 08:46 Dose: 2 ml Documented by: Hydromorphone HCl (Hydromorphone 0.5 Mg/0.5 Ml Syringe) 0.5 mg IV Q2HP PRN; Protocol PRN Reason: Per Pain Protocol Last Admin: 11/23/20 11:01 Dose: 0.5 mg Documented by: Fat Emulsion Intravenous (Intralipid 20%) 250 mls @ 25 mls/hr IV [id number] [facility] Last Infusion: 11/22/20 01:35 Dose: Infused Documented by: Piperacillin Sod/Tazobactam (Sod 3.375 gm/ Dextrose) 50 mls @ 100 mls/hr IV Q6H [facility]; Protocol Last Admin: 11/23/20 11:00 Dose: 100 mls/hr Documented by: Acetaminophen (Ofirmev) 650 mg in 65 mls @ 130 mls/hr IV Q6HP PRN; Protocol PRN Reason: PAIN/FEVER > 101 Last Infusion: 11/22/20 21:50 Dose: Infused Documented by: Calcium Gluconate 5 meq/Magnesium Sulfate 8.12 meq/Potassium Chloride 10 meq /Potassium Phosphate 15 meq/Multivitamins/Minerals 10 ml/Sodium Chloride 80 meq/ Amino Acids 1,051.1617 mls @ 50 mls/hr IV Q21H [facility] Stop: 11/23/20 13:59 Last Admin: 11/22/20 16:50 Dose: 50 mls/hr Documented by: Calcium Gluconate 5 meq/Magnesium Sulfate 8.12 meq/Potassium Chloride 10 meq/Potassium Phosphate 15 meq/Multivitamins/Minerals 10 ml/Sodium Chloride 100 meq/ Amino Acids 1,056.1617 mls @ 50 mls/hr IV Q21H [facility] Insulin Human Lispro (Insulin Lispro 1 Unit/0.01 Ml Unit) 0 unit SQ Q6 [facility]; Protocol Last Admin: 11/23/20 11:08 Dose: Not Given Documented by: Labetalol HCl (Labetalol 5 Mg/Ml Ml) 0 mg IV Q2HP PRN PRN Reason: Hypertension Losartan Potassium (Losartan 25 Mg Tablet) 25 mg PO DAILY [facility] Last Admin: 11/23/20 08:46 Dose: 25 mg Documented by: Ondansetron HCl (Ondansetron 4 Mg/2 Ml Vial) 4 mg IV Q4HP PRN PRN Reason: Nausea And Vomiting Last Admin: 11/20/20 07:16 Dose: 4 mg Documented by: Promethazine HCl (Promethazine 25 Mg/Ml Vial) 12.5 mg IV Q4-6HP PRN PRN Reason: Nausea And Vomiting Sodium Chloride (0.9 % Sodium Chloride 10 Ml Syringe) 10 ml IV Q12 [facility] Last Admin: 11/23/20 08:47 Dose: 10 ml Documented by: Sodium Chloride (0.9 % Sodium Chloride 10 Ml Syringe) 10 ml IV UD PRN PRN Reason: FLUSH Last Admin: 11/22/20 21:15 Dose: 10 ml Documented by: A/P Narrative A/P Narrative: #Sigmoid stricture s/p laparoscopic resection c/b anastomotic leak followed by exploratory laparotomy for resection of sigmoid-rectal anastomosis and end ostomy creation. -s/p laparoscopic lysis of adhesions, sigmoid colectomy 11/05 -s/p CT drain placement 11/12; drain cx with Klebsiella, Enterobacter, Pseudomonas (all sensitive to Zosyn) -s/p Ex lap for rectal stump leak with rectal anastomosis & end ostomy (11/17) #Leukocytosis likely related to anastomotic leak: improving leukocytosis #Multiple sclerosis: treated at home with intermittent Plegridy SQ (held this hospitalization) #Essential hypertension: stable #Severe protein calorie malnourishment: on TPN #Generalized weakness #Physical deconditioning #HTN: #Anemia: Plan -pelvic drain per surgeon -Abx per Surgery -TPN, defer diet advancement to surgeon -Analgesics prn -cont home Losartan, holding Plegridy. -monitoring CBC -Wound cares. -Nutrition following. -Surgery primary/Hospitalist consulting -DVT ppx: per surgery -Code status: full -Disposition: NIACH Time Spent With Patient Time: Total time spent is greater than 50% in coordination of care (as documented) at patient's floor/unit and/or counseling patient: QUALITY VTE Deep Vein Thrombosis/Pulmonary Embolism Present on Admission: No
[2020-11-23] MEDS: ACETAMINOPHEN 650 MG/65 ML BAG IV PRN (13:50)
[2020-11-23] MEDS ORDERED: [UNRECOGNIZED DRUG - OTHER] IV SCH (14:00)
[2020-11-23] MEDS ORDERED: MAGNESIUM SULFATE IV SCH (14:00)
[2020-11-23] MEDS ORDERED: CALCIUM GLUCONATE IV SCH (14:00)
[2020-11-23] MEDS ORDERED: POTASSIUM CHLORIDE IV SCH (14:00)
[2020-11-24] MEDS: ACETAMINOPHEN 650 MG/65 ML BAG IV PRN (02:39)
[2020-11-24] MEDS: HYDROmorphone 0.5 MG/0.5 ML SYRINGE IV PRN ×5 (02:53→23:50)
[2020-11-24] MEDS: PIPERACILLIN SODIUM/TAZOBACTAM 3.375 GM in DEXTROSE 5% IN WATER 50 ML IV SCH (05:08)
[2020-11-24] MEDS: 0.9 % SODIUM CHLORIDE 10 ML SYRINGE IV SCH ×5 (05:09→21:16)
[2020-11-24] MEDS: INSULIN LISPRO 1 UNIT/0.01 ML UNIT SQ SCH ×4 (05:09→23:29)
[2020-11-24 07:45] LABS: ALT/SGPT 55 U/L (<40); AST/SGOT 39 U/L (<32); Albumin 2.9 gm/dL (3.2-5.2); Albumin/Globulin Ratio 1.2 (1.0-2.3); Alkaline Phosphatase 86 U/L (39-117); Bilirubin,Direct < 0.2 mg/dL (0-0.3); Bilirubin,Total < 0.2 mg/dL (0.1-1.0); Blood Urea Nitrogen 20 mg/dL (8-23); Calcium 8.8 mg/dL (8.6-10.4); Carbon Dioxide 26 mmol/L (22-30); Chloride 101 mmol/L (96-108); Globulin 2.4 gm/dL (2.2-3.7); Glomerular Filtration Rate 93; Glucose 89 mg/dL (70-105); Lactate Dehydrogenase 187 U/L (135-225); Phosphorous 4.3 mg/dL (2.5-4.5); Triglycerides 219 mg/dL (<150); Uric Acid 1.3 mg/dL (2.5-8.0)
[2020-11-24] MEDS: LOSARTAN 25 MG TABLET PO SCH (09:39)
[2020-11-24] MEDS ORDERED: [UNRECOGNIZED DRUG - OTHER] IV SCH (11:00)
[2020-11-24] MEDS ORDERED: MVI IV SCH (11:00)
[2020-11-24] MEDS ORDERED: POTASSIUM PHOSPHATE IV SCH (11:00)
[2020-11-24] MEDS ORDERED: MAGNESIUM SULFATE IV SCH (11:00)
[2020-11-24] MEDS ORDERED: CALCIUM GLUCONATE IV SCH (11:00)
[2020-11-24] MEDS ORDERED: HYDROcodone/APAP 5/325MG TABLET PO PRN (11:29)
--- NOTE | 2020-11-24 16:14 | General Surgery Progress Note ---
SUBJECTIVE Subjective Patient information: Note initiated : 11/24/20 at 4:12 pm Service Date, if different from initiated Date: [] Patient: Marge Benitez 70 y/o F admitted on 11/04/20 for Esophogogastroduodenoscopy and Colonoscopy. Chief Complaint: [] Principal diagnosis: Postop colectomy; pelvic abscess Interval history: Patient much improved overnight, took approximately 75% of p.o. intake yesterday, ostomy is functioning well. She is ambulatory and eating without difficulty. Constitutional Vitals: Vital Signs Temp Pulse Resp BP Pulse Ox 97.9 F 80 20 126/76 100 11/24/20 12:00 11/24/20 12:00 11/24/20 12:00 11/24/20 12:00 11/24/20 12:00 Period Temp Pulse Resp BP Sys/Allen Pulse Ox Last 24 Hr 97.6 F-98.2 F 78-86 14-20 125-136/72-77 95-100 Intake and Output 11/24/20 11/24/20 11/24/20 05:59 13:59 21:59 Intake Total 1013 993 Output Total 665 1850 Balance 348 -857 Weight 122 lb 9 oz Patient Weight 11/25/20 05:59 Weight 122 lb 9 oz Intake & Output: Intake & Output 11/24/20 11/24/20 11/24/20 05:59 13:59 21:59 Intake Total 1013 993 Output Total 665 1850 Balance 348 -857 Weight 122 lb 9 oz Intake: IV 893 293 Calcium Gluconate 5 Meq 728 293 Magnesium Sulfate 8.12 Meq Potassium Chloride 10 Meq Potassium Phosphate 15 Meq Infuvite Adult 10 ml Sodium Chloride 100 Meq In Clinimix 5% -20% Solution 1,000 ml @ 50 mls /hr IV Q21H [facility] Rx#:[id number] Zosyn 3.375 gm In Dextrose 5% 100 in Water 50 ml @ 100 mls/hr IV Q6H [facility] Rx#:[id number] Oral 120 700 Output: Drainage 5 Right Abdomen RUSS Drain 5 Void Amount 400 850 Stool 260 1000 Other: Meal Lunch Percent of Meal Consumed 75% Feeding Ability Assist with Tray Set Up Urine Appearance Clear Urine Color Straw Urine Odor Normal Stool Size Smear Stool Color Brown Stool Consistency Soft # Voids 1 General appearance: cooperative and no acute distress GI/Abdominal GI/Abdominal exam: Present normal bowel sounds and soft; Absent distended and tenderness Additional comments: RUSS drain removed at the bedside A/P Narrative A/P Narrative: Patient feels much better at this time. Will advance diet as tolerated. Decrease TPN in half. Anticipate to continue to wean TPN and advance diet over the next day. We will need home health for ostomy help. Time Spent With Patient Time: Total time spent is greater than 50% in coordination of care (as documented) at patient's floor/unit and/or counseling patient:
[2020-11-24] MEDS: traMADol 50 MG TABLET PO PRN (21:15)
[2020-11-25] MEDS: 0.9 % SODIUM CHLORIDE 10 ML SYRINGE IV SCH ×3 (04:54→16:03)
[2020-11-25] MEDS: traMADol 50 MG TABLET PO PRN ×2 (04:54→11:46)
[2020-11-25] MEDS: INSULIN LISPRO 1 UNIT/0.01 ML UNIT SQ SCH (04:55)
[2020-11-25 06:29] LABS: Basophils # (Auto) 0.12 K/mcL (0.00-0.20); Basophils % (Auto) 1.1 % (0.0-2.0); Eosinophils # (Auto) 0.29 K/mcL (0.00-0.70); Eosinophils % (Auto) 2.6 % (0.0-7.0); Hematocrit 25.8 % (36.0-48.0); Lymphocytes # (Auto) 3.01 K/mcL (1.50-4.80); Lymphocytes % (Auto) 26.9 % (15.0-49.0); Mean Cell Volume 95.9 fL (80.0-100.0); Monocytes # (Auto) 0.81 K/mcL (0.10-0.90); Monocytes % (Auto) 7.2 % (1.0-12.0); Neutrophils % (Auto) 62.2 % (38.0-78.0); Platelet Count 678 K/mcL (140-440); RBC 2.69 M/mcL (4.00-5.20); Red Cell Distribution Width 14.1 % (11.5-14.5); WBC 11.2 K/mcL (4.5-11.0)
[2020-11-25 06:56] LABS: ALT/SGPT 45 U/L (<40); AST/SGOT 30 U/L (<32); Albumin 3.1 gm/dL (3.2-5.2); Albumin/Globulin Ratio 1.1 (1.0-2.3); Alkaline Phosphatase 83 U/L (39-117); Bilirubin,Direct < 0.2 mg/dL (0-0.3); Bilirubin,Total < 0.2 mg/dL (0.1-1.0); Blood Urea Nitrogen 19 mg/dL (8-23); Carbon Dioxide 27 mmol/L (22-30); Chloride 102 mmol/L (96-108); Globulin 2.9 gm/dL (2.2-3.7); Glomerular Filtration Rate 99; Glucose 92 mg/dL (70-105); Lactate Dehydrogenase 185 U/L (135-225); Phosphorous 3.9 mg/dL (2.5-4.5); Triglycerides 204 mg/dL (<150); Uric Acid 2.1 mg/dL (2.5-8.0)
[2020-11-25] MEDS: LOSARTAN 25 MG TABLET PO SCH (08:52)
--- NOTE | 2020-11-25 10:23 | Internal Med Progress Note ---
SUBJECTIVE Subjective Patient information: Note initiated : 11/24/20 at 10:21 pm Service Date, if different from initiated Date: [] Patient: Marge Benitez 70 y/o F admitted on 11/04/20 for Esophogog astroduodenoscopy and Colonoscopy. Chief Complaint: [] Principal diagnosis: Postop colectomy; pelvic abscess Interval history: Hospitalist was consulted for a rapid response CODE sepsis triggered by fever, orthostatic hypotension, and trending leukocytosis. Marge Benitez is a 70-year-old female with a history of hypertension, reactive airway disease, multiple sclerosis (treated with pegylated interferon beta-1a), currently hospitalized following a laparoscopic sigmoid colon resection for a obstructing sigmoid stricture noted on colonoscopy on 11/05/20. The operative indicated there was redundant sigmoid causing scar tissue/adhesions very likely the reason for the sigmoid stricture. The patient was progressing slowly post- operatively however developed a fever of 101.2 on 11/08/20 and again had a fever on 11/09/20 along with orthostatic hypotension and new leukocytosis. Physical exam was most notable for abdominal tenderness, guarding, and erythema around the suprapubic laparoscopic surgical incision. Blood cultures, UA and urine culture, CT chest/abd/pelvis and broad spectrum antibiotics started. Surgery did not feel the CT scan was suggestive of a cause for her symptoms and UA did not suggest UTI nor is was there evidence of pneumonoia therefore Zosyn was discontinued. Vancomycin IV was continued due to concern of abdominal cellulitis. 11/10 Had NG placed overnight for concern of possible ileus. Persistent fevers today but leukocytosis resolved. Mild anion gap metabolic acidosis, lactic acid normal. Blood cx NGTD. Per report had multiple loose stools overnight and incontinent. Surgery performed I&D of inferior laparoscopic incision and drained puss consistent with abscess and probably the cause of fevers. 11/11 Afebrile overnight, still has NG tube, low potassium replaced. CRP increased and mild leukocytosis but overall looks better. C diff GDH positive but A/B toxin negative-reflexed to C diff prc. Intermittent fevers. Nutritional status concerning-days since meals may need to consider TPN. 11/12 Continues to have abdominal pain, most sever in RLQ. Persistent watery diarrhea, C diff pcr negative. Repeat CT chest/abdomen/pelvis concerning for pelvis fluid collection and mechanical small bowel obstruction. Surgery ordered CT guided drain placement. 11/13 Improvement in oral intake so will hold off on TPN pending calorie count. Overall feels better after abdominal drain placement yesterday. Deescalate to Doxycycline for cellulitis. Downtrending hemoglobin. 4/2 No overnight issues or new complaints. Afebrile. Abdominal drain still draining. Encourage oral intake. / Feeling better. Sitting up in bed starting to eat her breakfast. No new pains or complaints. No nausea vomiting. 11/17 No new events overnight complaints. Patient states she her appetite is getting little bit better. Fluid culture growing gram-negative bacillus. 11/18 Patient had rectal stump leak and had to be taken back to the OR yesterday. Resting in bed this morning. Tolerating a clear liquid diet. 11/20 Resting today, feels nauseous. 11/21 Feels much better today, able to work with PT. Care conference held at bedside, likely discharge plan will be to [facility] due to ongoing need for TPN. WBC decreasing, overall improvement. General surgery planning to remove drain soon, anticipates about 4 more days of antibiotic. 11/22 Feels bloated today. WBC continues to trend toward normal, no fevers. 11/23 More bowel movements today, continues to feel bloated but things she is on the mend now. Diet advanced to regular. 11/24-patient doing well. No overnight events. TPN now at 25 cc an hour and being weaned off. Tolerating diet and meeting 75% calorie goal p.o. Postop care ongoing per surgery. No further recommendations from hospitalist service. Patient will be transferred to swing bed status for continued posthospitalization rehab/postop care and nutrition interventions likely in the next 24 hours. Constitutional Vitals: Vital Signs Temp Pulse Resp BP Pulse Ox 98.1 F 78 20 122/68 97 11/25/20 07:35 11/25/20 07:35 11/25/20 07:35 11/25/20 07:35 11/25/20 07:35 Period Temp Pulse Resp BP Sys/Allen Pulse Ox Last 24 Hr 97.9 F-99.5 F 78-98 14-20 122-145/68-80 96-100 Intake and Output 11/24/20 11/25/20 11/25/20 21:59 05:59 13:59 Intake Total 529 240 Output Total 800 275 150 Balance -800 254 90 Weight 52.571 kg Intake & Output: Intake & Output 11/24/20 11/25/20 11/25/20 21:59 05:59 13:59 Intake Total 529 240 Output Total 800 275 150 Balance -800 254 90 Weight 52.571 kg Intake: IV 429 Calcium Gluconate 5 Meq 429 Magnesium Sulfate 8.12 Meq Potassium Phosphate 10 Meq Infuvite Adult 10 ml Sodium Chloride 100 Meq In Clinimix 5% -20% Solution 1,000 ml @ 25 mls /hr IV Q24H [facility] Rx#:[id number] Oral 100 240 Output: Void Amount 800 275 150 Stool 0 Other: Meal Nourishment/Supplement Percent of Meal Consumed 100% Feeding Ability Assist with Tray Set Up Urine Appearance Clear Clear Urine Color Bright Yellow Bright Yellow Straw Urine Odor Normal # Voids 2 1 OBJ DATA Labs CBC & Chem 7: 11/25/20 05:00 11/25/20 05:00 Labs: Abnormal Lab Results 11/25/20 11/25/20 11/24/20 05:00 05:00 05:10 WBC 11.2 H RBC 2.69 L Hgb 8.0 L Hct 25.8 L MCV MCHC RDW Plt Count 678 H Anion Gap 6.0 L 7.0 L Creatinine 0.5 L Glucose Uric Acid 2.1 L 1.3 L GGT 51 H 55 H AST 39 H ALT 45 H 55 H Lactate Dehydrogenase Total Protein 5.3 L Albumin 3.1 L 2.9 L Albumin/Globulin Ratio Triglycerides 204 H 219 H 11/23/20 11/23/20 11/23/20 09:28 09:28 07:53 WBC 11.6 H RBC 2.67 L 2.31 L Hgb 8.1 L 7.0 L* Hct 25.7 L 25.6 L MCV 110.8 H MCHC 27.3 L RDW 14.6 H Plt Count 710 H 644 H Anion Gap Creatinine Glucose 107 H Uric Acid 1.4 L GGT 62 H AST 55 H ALT 69 H Lactate Dehydrogenase 232 H Total Protein 5.8 L Albumin 2.6 L Albumin/Globulin Ratio 0.8 L Triglycerides 199 H Meds: Medications Acetaminophen (Acetaminophen 500 Mg Tablet) 500 mg PO Q6HP PRN; Protocol PRN Reason: Per Pain Protocol Dextrose (Dextrose 50% 50 Ml Vial) 0 ml IV UD PRN PRN Reason: Hypoglycemia Diagnostic Test (Pha) (Accu-Chek 1 Each Strip) 1 each FS Q6 CRESCENCIO Last Admin: 11/25/20 04:54 Dose: 1 each Documented by: Enalaprilat (Enalaprilat 1.25 Mg/Ml Vial) 0 mg IV Q2HP PRN PRN Reason: Hypertension Glucose (Dextrose 31 Gm Oral.Susp) 15 gm PO PRN PRN PRN Reason: Hypoglycemia Heparin Sodium (Porcine) (Heparin Flush 10 Units/Ml 5 Ml Syringe) 2 ml IV Q12 CRESCENCIO Last Admin: 11/25/20 08:53 Dose: 2 ml Documented by: Hydromorphone HCl (Hydromorphone 0.5 Mg/0.5 Ml Syringe) 0.5 mg IV Q2HP PRN; Protocol PRN Reason: Per Pain Protocol Last Admin: 11/24/20 23:50 Dose: 0.5 mg Documented by: Acetaminophen (Ofirmev) 650 mg in 65 mls @ 130 mls/hr IV Q6HP PRN; Protocol PRN Reason: PAIN/FEVER > 101 Last Infusion: 11/24/20 03:00 Dose: Infused Documented by: Insulin Human Lispro (Insulin Lispro 1 Unit/0.01 Ml Unit) 0 unit SQ Q6 CRESCENCIO; Protocol Last Admin: 11/25/20 04:55 Dose: Not Given Documented by: Labetalol HCl (Labetalol 5 Mg/Ml Ml) 0 mg IV Q2HP PRN PRN Reason: Hypertension Losartan Potassium (Losartan 25 Mg Tablet) 25 mg PO DAILY [facility] Last Admin: 11/25/20 08:52 Dose: 25 mg Documented by: Ondansetron HCl (Ondansetron 4 Mg/2 Ml Vial) 4 mg IV Q4HP PRN PRN Reason: Nausea And Vomiting Last Admin: 11/20/20 07:16 Dose: 4 mg Documented by: Sodium Chloride (0.9 % Sodium Chloride 10 Ml Syringe) 10 ml IV Q12 CRESCENCIO Last Admin: 11/25/20 08:52 Dose: 10 ml Documented by: Sodium Chloride (0.9 % Sodium Chloride 10 Ml Syringe) 10 ml IV UD PRN PRN Reason: FLUSH Last Admin: 11/22/20 21:15 Dose: 10 ml Documented by: Sodium Chloride (0.9 % Sodium Chloride 10 Ml Syringe) 10 ml IV Q8 CRESCENCIO Last Admin: 11/25/20 04:54 Dose: 10 ml Documented by: Tramadol HCl (Tramadol 50 Mg Tablet) 50 - 100 mg PO Q6HP PRN; Protocol PRN Reason: Pain Last Admin: 11/25/20 04:54 Dose: 50 mg Documented by: A/P Narrative A/P Narrative: #Sigmoid stricture s/p laparoscopic resection c/b anastomotic leak followed by exploratory laparotomy for resection of sigmoid-rectal anastomosis and end ostomy creation. -s/p laparoscopic lysis of adhesions, sigmoid colectomy 11/05 -s/p CT drain placement 11/12; drain cx with Klebsiella, Enterobacter, Pseudomonas (all sensitive to Zosyn) -s/p Ex lap for rectal stump leak with rectal anastomosis & end ostomy (11/17) #Leukocytosis likely related to anastomotic leak: improving leukocytosis #Multiple sclerosis: treated at home with intermittent Plegridy SQ (held this hospitalization) #Essential hypertension: stable #Severe protein calorie malnourishment: on TPN, weaning as tolerated. #Generalized weakness #Physical deconditioning #HTN: #Anemia: Plan -pelvic drain per surgeon -Abx per Surgery -Wound cares/nutrition support -DVT ppx: per surgery -Disposition: Swing bed admission likely in 24 hours. Time Spent With Patient Time: Total time spent is greater than 50% in coordination of care (as documented) at patient's floor/unit and/or counseling patient: QUALITY VTE Deep Vein Thrombosis/Pulmonary Embolism Present on Admission: No
--- NOTE | 2020-11-25 12:16 | Discharge Summary ---
Discharge Provider Provider Patient information: Note initiated : 11/25/20 at 12:13 pm Service Date, if different from initiated Date: [] Patient: Marge Benitez a 70 y/o F admitted on 11/04/20 for Esophogogastroduodenoscopy and Colonoscopy. Discharge diagnosis #Sigmoid stricture s/p laparoscopic resection c/b anastomotic leak followed by exploratory laparotomy for resection of sigmoid-rectal anastomosis and end ostomy creation. -s/p laparoscopic lysis of adhesions, sigmoid colectomy 11/05 -s/p CT drain placement 11/12; drain cx with Klebsiella, Enterobacter, Pseudomonas (all sensitive to Zosyn) -s/p Ex lap for rectal stump leak with rectal anastomosis & end ostomy (11/17) #Leukocytosis likely related to anastomotic leak: Improved #Multiple sclerosis: treated at home with intermittent Plegridy SQ (held this hospitalization) #Essential hypertension: stable #Severe protein calorie malnourishment: Stop TPN, transition to oral diet as per surgery. #Generalized weakness/Physical deconditioning ongoing PT OT #HTN: Stable #Anemia: Stable Brief Hospital course Hospitalist was consulted for a rapid response CODE sepsis triggered by fever, orthostatic hypotension, and trending leukocytosis. Marge Benitez is a 70-year-old female with a history of hypertension, reactive airway disease, multiple sclerosis (treated with pegylated interferon beta-1a), currently hospitalized following a laparoscopic sigmoid colon resection for a obstructing sigmoid stricture noted on colonoscopy on 11/05/20. The operative indicated there was redundant sigmoid causing scar tissue/adhesions very likely the reason for the sigmoid stricture. The patient was progressing slowly post-operatively however developed a fever of 101.2 on 11/08/20 and again had a fever on 11/09/20 along with orthostatic hypotension and new leukocytosis. Physical exam was most notable for abdominal tenderness, guarding, and erythema around the suprapubic laparoscopic surgical incision. Blood cultures, UA and urine culture, CT chest/abd/pelvis and broad spectrum antibiotics started. Surgery did not feel the CT scan was suggestive of a cause for her symptoms and UA did not suggest UTI nor is was there evidence of pneumonoia therefore Zosyn was discontinued. Vancomycin IV was continued due to concern of abdominal cellulitis. 11/10 Had NG placed overnight for concern of possible ileus. Persistent fevers today but leukocytosis resolved. Mild anion gap metabolic acidosis, lactic acid normal. Blood cx NGTD. Per report had multiple loose stools overnight and incontinent. Surgery performed I&D of inferior laparoscopic incision and drained puss consistent with abscess and probably the cause of fevers. 11/11 Afebrile overnight, still has NG tube, low potassium replaced. CRP increased and mild leukocytosis but overall looks better. C diff GDH positive but A/B toxin negative-reflexed to C diff prc. Intermittent fevers. Nutritional status concerning-days since meals may need to consider TPN. 11/12 Continues to have abdominal pain, most sever in RLQ. Persistent watery diarrhea, C diff pcr negative. Repeat CT chest/abdomen/pelvis concerning for pelvis fluid collection and mechanical small bowel obstruction. Surgery ordered CT guided drain placement. 11/13 Improvement in oral intake so will hold off on TPN pending calorie count. Overall feels better after abdominal drain placement yesterday. Deescalate to Doxycycline for cellulitis. Downtrending hemoglobin. 11/14 No overnight issues or new complaints. Afebrile. Abdominal drain still draining. Encourage oral intake. 11/15 Feeling better. Sitting up in bed starting to eat her breakfast. No new pains or complaints. No nausea vomiting. 11/17 No new events overnight complaints. Patient states she her appetite is getting little bit better. Fluid culture growing gram-negative bacillus. 11/18 Patient had rectal stump leak and had to be taken back to the OR yesterday. Resting in bed this morning. Tolerating a clear liquid diet. 11/20 Resting today, feels nauseous. 11/21 Feels much better today, able to work with PT. Care conference held at bedside, likely discharge plan will be to [facility] due to ongoing need for TPN. WBC decreasing, overall improvement. General surgery planning to remove drain soon, anticipates about 4 more days of antibiotic. 11/22 Feels bloated today. WBC continues to trend toward normal, no fevers. 11/23 More bowel movements today, continues to feel bloated but things she is on the mend now. Diet advanced to regular. 11/24-patient doing well. No overnight events. TPN now at 25 cc an hour and being weaned off. Tolerating diet and meeting 75% calorie goal p.o. Postop care ongoing per surgery. No further recommendations from hospitalist service. Patient will be transferred to swing bed status for continued posthospitalization rehab/postop care and nutrition interventions likely in the next 24 hours. 11/25-patient transitioning to oral diet. DC TPN. Continue postop care per Surgery recommendations. No overnight fever chills nausea vomiting. Colostomy site draining well. No anxiety. No significant operative site.. No further recommendations from hospital service. Continue aggressive PT OT/nutrition support Date of admission: 11/04/20 17:03 Discharge date: 11/25/20 Primary care physician: Noa Key Consults: 11/09/20 10:14 Consult to Physician [CONS] Stat Comment: Consulting Provider: Ascencion Valadez Reason For Exam: Physician to Consult Discharge Meds Discharge Medications Home Medications losartan 25 mg tablet 25 mg PO QDAY 01/21/20 [History Confirmed 11/04/20 Last Taken Unknown] cholecalciferol (vitamin D3) 125 mcg (5,000 unit) capsule 125 mcg PO QDAY 01/30/20 [History Confirmed 11/04/20 Last Taken Unknown] Senna-S 1 tab PO BID 11/04/20 [History Confirmed 11/04/20 Last Taken 11/03/20 21:00] chromium picolinate 1,000 mcg PO QDAY 11/04/20 [History Confirmed 11/04/20 Last Taken 11/02/20 08:00] peginterferon beta-1a [Plegridy] 125 mcg SUBCUT Q2W 11/04/20 [History Confirmed 11/04/20 Last Taken Unknown] COURSE Hospital Course Hospital course: . Discharge diagnosis: . Time Spent with Patient Time attestation: Total time spent providing and/or coordinating discharge se rvices: EXAM Constitutional Vitals: Temp Pulse Resp BP Pulse Ox 97.9 F 86 20 120/71 99 11/25/20 11:54 11/25/20 11:54 11/25/20 11:54 11/25/20 11:54 11/25/20 11:54 Discharge Data Data Completed and Pending Labs on day of discharge: Labs from last 24 hours 11/25/20 11/25/20 05:00 05:00 WBC 11.2 H RBC 2.69 L Hgb 8.0 L Hct 25.8 L MCV 95.9 MCH 29.7 MCHC 31.0 RDW 14.1 Plt Count 678 H MPV 9.0 Neut % (Auto) 62.2 Lymph % (Auto) 26.9 [place] % (Auto) 7.2 Eos % (Auto) 2.6 Baso % (Auto) 1.1 Lymph # (Auto) 3.01 [place] # (Auto) 0.81 Eos # (Auto) 0.29 Baso # (Auto) 0.12 Absolute Neutrophils 6.95 Sodium 135 Potassium 4.5 Chloride 102 Carbon Dioxide 27 Anion Gap 6.0 L BUN 19 Creatinine 0.5 L GFR Calculation 99 Glucose 92 Uric Acid 2.1 L Calcium 9.0 Phosphorus 3.9 Magnesium 2.1 Total Bilirubin < 0.2 Direct Bilirubin < 0.2 GGT 51 H AST 30 ALT 45 H Alkaline Phosphatase 83 Lactate Dehydrogenase 185 Total Protein 6.0 Albumin 3.1 L Globulin 2.9 Albumin/Globulin Ratio 1.1 Triglycerides 204 H Discharge Plan Patient/Caregiver Discharge Instructions Activity: increase activity as tolerated Diet: Regular Diet Instructions: How to Care for Your Chest or Abdominal Catheter (DC), How to Care for Your PICC (Peripherally Inserted Central Catheter) (DC), Colectomy Diet (DC) Prescriptions: No Action losartan 25 mg tablet 25 mg PO QDAY RF: 0 cholecalciferol (vitamin D3) 125 mcg (5,000 unit) capsule 125 mcg PO QDAY RF: 0 Plegridy 125 mcg/0.5 mL Syringe 125 mcg SUBCUT Q2W RF: 0 Senna-S 1 tab PO BID RF: 0 chromium picolinate 1,000 mcg Tablet 1,000 mcg PO QDAY RF: 0 Follow Up Plan Follow up with: Hernán Burnett MD [Physician] - 11/20/20 8:15 am Noa Key ARNP [Primary Care Provider] - Patient Disposition: Xfer As Swing Bed ([facility]) Rehab Potential: Fair I certify that the patient requires SNF services: Yes Overall status at discharge: patient is progressing back to baseline Discharge Orders: Discharge Order (Routine); Ordered 11/25/20 Ordered By: Colin PETERSON VTE Deep Vein Thrombosis/Pulmonary Embolism Present on Admission: No
== END 2020-11-25 14:26 | disposition swing bed (61) | DRG 329 ==
LOC: SSSU 13:41 → MEDSUR 17:03
PROVIDERS: ADMIT Surgery; ATTEND Internal Medicine

== ENCOUNTER 2021-07-28 07:30 | Inpatient (IN) ==
[2021-07-17 20:39] LABS: Basophils # (Auto) 0.02 K/mcL (0.00-0.30); Basophils % (Auto) 0.3 % (0.0-2.0); Eosinophils # (Auto) 0.09 K/mcL (0.00-0.70); Eosinophils % (Auto) 1.5 % (0.0-7.0); Hematocrit 36.6 % (34.1-44.9); Hemoglobin 12.1 g/dL (11.2-15.7); Lymphocytes # (Auto) 2.31 K/mcL (1.50-4.80); Lymphocytes % (Auto) 38.6 % (15.5-49.0); Mean Corpuscular HGB Conc 33.1 g/dL (31.0-36.0); Mean Platelet Volume 10.4 fL (7.4-10.4); Monocytes % (Auto) 8.4 % (1.0-12.0); Neutrophils % (Auto) 51.2 % (38.0-78.0); Platelet Count 261 K/mcL (140-440); RBC 4.02 M/mcL (3.59-5.38); Red Cell Distribution Width 12.8 % (11.5-14.5)
[2021-07-17 20:53] LABS: ALT/SGPT 21 U/L (<40); AST/SGOT 24 U/L (<32); Albumin 4.1 gm/dL (3.2-5.2); Albumin/Globulin Ratio 1.2 (1.0-2.3); Alkaline Phosphatase 75 U/L (39-117); Bilirubin,Total 0.2 mg/dL (0.1-1.0); Blood Urea Nitrogen 19 mg/dL (8-23); Calcium 9.6 mg/dL (8.6-10.4); Carbon Dioxide 25 mmol/L (22-30); Chloride 104 mmol/L (96-108); Globulin 3.5 gm/dL (2.2-3.7); Glomerular Filtration Rate 75; Glucose 74 mg/dL (70-105)
--- NOTE | 2021-07-18 16:50 | EKG ---
[facility] Test Date: 2021-07-17 Pat Name: Marge Benitez Department: [facility] Room: Gender: Female [employer] Winder: : 1950 Requested By: Rambo Saldaña Order Number: [id number] Reading MD: Jose Peng Measurements Intervals [place] Rate: 61 P: 51 MA: 166 QRS: 47 QRSD: 86 T: 52 QT: 424 QTc: 427 Interpretive Statements Sinus rhythm Electronically Signed On 07-18-2021 16:49:54 PST by Jose Peng /[email or web address]/[email or web address]/[id number]
[~2021-07-28 07:30] MED LIST changes: +IPRATROPIUM/ALBUTEROL 3 ML AMPUL.NEB NEB PRN; -KETAMINE 50 MG/ML ML IV PRN; -MIDAZOLAM 2 MG/2 ML VIAL IV SCH; -PROPOFOL 200 MG/20 ML VIAL IV SCH; +SCOPOLAMINE 1 PATCH PATCH TOPICAL PRN; +ceFAZolin 2 GM in DEXTROSE 5% IN WATER 50 ML IV SCH
[2021-07-28] MEDS ORDERED: MAGNESIUM SULFATE 2 GM/50 ML BAG IV ONE ×2 (11:00→11:05)
[2021-07-28] MEDS ORDERED: ROPIVACAINE HCL/PF 30 ML VIAL IJ ONE ×2 (11:00→11:05)
[2021-07-28] MEDS ORDERED: ePHEDrine 50 MG/5 ML SYRINGE (ANEST) IV ONE (11:05)
[2021-07-28] MEDS ORDERED: ONDANSETRON 4 MG/2 ML VIAL ONE (11:05)
[2021-07-28] MEDS ORDERED: fentaNYL 250 MCG/5 ML VIAL IV ONE (11:05)
[2021-07-28] MEDS ORDERED: LIDOCAINE HCL/PF 100 MG/5 ML SYRINGE IV ONE (11:05)
[2021-07-28] MEDS ORDERED: SUGAMMADEX SODIUM 200 MG/2 ML VIAL IV ONE (11:05)
[2021-07-28] MEDS ORDERED: PROPOFOL 200 MG/20 ML VIAL IV ONE (11:05)
[2021-07-28] MEDS ORDERED: KETAMINE 50 MG/ML Syringe (ANEST) IV ONE (11:05)
[2021-07-28] MEDS ORDERED: DEXAMETHASONE 10 MG/ML VIAL ONE (11:05)
[2021-07-28] MEDS ORDERED: NALOXONE HCL 0.4 MG/ML VIAL IV PRN (12:37)
[2021-07-28] MEDS ORDERED: ACETAMINOPHEN 750 MG/75 ML BAG IV ONE (12:37)
[2021-07-28] MEDS ORDERED: diphenhydrAMINE 50 MG/ML VIAL IV PRN (12:37)
[2021-07-28] MEDS ORDERED: ONDANSETRON 4 MG/2 ML VIAL IV PRN (12:37)
[2021-07-28] MEDS ORDERED: PROMETHAZINE 25 MG/ML VIAL IV PRN (12:37)
[2021-07-28] MEDS ORDERED: BENZOCAINE/MENTHOL 1 LOZENGE PO PRN (12:37)
[2021-07-28] MEDS ORDERED: IPRATROPIUM/ALBUTEROL 3 ML AMPUL.NEB NEB PRN (12:37)
[2021-07-28] MEDS ORDERED: MEPERIDINE 25 MG/ML VIAL IV PRN (12:37)
[2021-07-28] MEDS ORDERED: LACTATED RINGERS 250 ML IV PRN (12:37)
[2021-07-28] MEDS ORDERED: LACTATED RINGERS 1,000 ML IV SCH (12:45)
[2021-07-28] MEDS ORDERED: KETOROLAC 10 MG TABLET PO PRN (13:40)
[2021-07-28] MEDS ORDERED: morphine 4 MG/ML VIAL IV PRN (13:40)
--- NOTE | 2021-07-28 13:40 | Operative Note ---
Brief Operative Note Date of procedure: 07/28/21 Pre-op diagnosis: Attention to ostomy secondary to rectal stump leak after sig moid colectomy Post-op diagnosis: same Procedure: Exploratory laparotomy, extensive lysis of adhesions, ostomy reversal with splenic flexure mobilization, incision revision. Grafts/Implants: No Anesthesia: GETA Findings: Multiple midline and pelvic adhesions Complications: none Surgeon: Hernán Burnett Specimens Removed/Pathology: other (Ostomy) Condition: stable Disposition: floor Operative Note Operative Note: After risk benefits and alternatives to the procedure was discussed with the patient at length she verbalized understanding and desire to continue with the procedure. Patient was taken the operating room placed supine on the operating table. General esthesia was induced over endotracheal tube. Patient's prepped and draped in the standard sterile surgical fashion. Surgical timeout was taken to verify patient and procedure being performed. The previous midline incision was used and carried down through skin and subcutaneous tissue. The abdomen was entered and there was large amount of small bowel attached to the midline. These were carefully taken down with blunt and Metzenbaum sharp dissection. Once a midline was completely free it was opened throughout the prior incision down to the pubis. There was a large amount of adhesions to the anterior abdominal wall separate from the midline these were also taken down with blunt and sharp dissection. Abdominal expiration was undertaken and a large amount of small bowel was adhesed in the pelvis these were carefully taken down with sharp and blunt dissection until the bowel was able to be ran from the ligament of Treitz down to the terminal ileum. 2 small serosal injuries were identified these were carefully closed with interrupted 3-0 Vicryl suture. The ostomy was then transected at the level of the fascia with a JAY stapler it reached the pelvis but under small amount of tension therefore the white line of Toldt's was completely taken down up to the splenic flexure again it reached the pelvis under small amount of tension therefore decision was made to fully mobilized the splenic flexure. The lesser sac was entered at the mid transverse colon and the mesentery was divided using a energy device across to the splenic flexure which fully mobilized the splenic flexure. Once this is done the descending colon reached into the pelvis without tension whatsoever. The splenic flexure was inspected for hemostasis and was lightly irrigated and all irrigant was suctioned free from the left upper quadrant. The descending colon to rectal anastomosis was performed in a [id number], functional end-to-end stapled anastomosis. Posterior wall was brought together with interrupted 3-0 Vicryl sutures and the enterotomy was closed with a running 3-0 PDS suture. The anterior wall was reinforced with interrupted 3-0 Vicryl sutures. The anastomosis was tested and found to be widely patent and hemostatic. The descending colon laid in the pelvis without any tension. Tisseel was placed around the anastomosis to add to the strength. Once this is done the abdominal cavity was explored, was found to be hemostatic. Bowel was returned to its anatomical position. The NG tube was inspected and found to be in the stomach in good position. The remainder ostomy was then cored out of the subcutaneous tissue using electrocautery. It was passed off the field for surgical pathology. The vaginal duct was closed with a running 0 PDS suture. The midline abdominal cavity was closed using a running looped 0 PDS suture. The patient's prior Pfannenstiel incision had some prior inflammation due to the transection of the 2 incisions therefore the Pfannenstiel incision was excised and both the midline and the Pfannenstiel incisions were then closed with interrupted 3-0 Vicryl followed by running 4-0 Monocryl suture. The midline and Pfannenstiel incisions were then covered with skin glue dressings. The ostomy site was then closed using a pursestring 0 Vicryl suture and it was packed with Betadine soaked Kerlix gauze. A 4 x 4 and tape dressings were applied to this incision. Patient was then awakened from anesthesia transported postanesthesia care unit awake alert in good condition.
[2021-07-28] MEDS: fentaNYL 100 MCG/2 ML VIAL IV PRN ×2 (14:39→14:54)
[2021-07-28] MEDS: ONDANSETRON 4 MG/2 ML VIAL IV PRN (14:49)
[2021-07-28] MEDS: DEXTROSE 5%-1/2NS 1,000 ML IV SCH (14:59)
[2021-07-28] MEDS: HYDROmorphone 0.5 MG/0.5 ML SYRINGE IV PRN ×2 (16:32→21:44)
[2021-07-28] MEDS: FLUTICASONE HFA 220MCG INHALER INH SCH (21:45)
[2021-07-29] MEDS: DEXTROSE 5%-1/2NS 1,000 ML IV SCH ×3 (00:36→19:49)
[2021-07-29] MEDS: HYDROmorphone 0.5 MG/0.5 ML SYRINGE IV PRN ×7 (04:25→22:29)
[2021-07-29 07:05] LABS: Basophils # (Auto) 0.02 K/mcL (0.00-0.30); Basophils % (Auto) 0.1 % (0.0-2.0); Eosinophils # (Auto) 0 K/mcL (0.00-0.70); Eosinophils % (Auto) 0 % (0.0-7.0); Hematocrit 32.7 % (34.1-44.9); Hemoglobin 10.4 g/dL (11.2-15.7); Lymphocytes # (Auto) 1.43 K/mcL (1.50-4.80); Lymphocytes % (Auto) 7.9 % (15.5-49.0); Mean Cell Volume 91.6 fL (80.0-100.0); Mean Corpuscular HGB Conc 31.8 g/dL (31.0-36.0); Monocytes # (Auto) 0.79 K/mcL (0.10-0.90); Monocytes % (Auto) 4.4 % (1.0-12.0); Neutrophils % (Auto) 87.6 % (38.0-78.0); Platelet Count 211 K/mcL (140-440); RBC 3.57 M/mcL (3.59-5.38); Red Cell Distribution Width 13.2 % (11.5-14.5); WBC 18.1 K/mcL (4.5-11.0)
[2021-07-29] MEDS: FLUTICASONE HFA 220MCG INHALER INH SCH ×2 (07:47→22:32)
[2021-07-29 09:20] LABS: Blood Urea Nitrogen 17 mg/dL (8-23); Carbon Dioxide 23 mmol/L (22-30); Chloride 99 mmol/L (96-108); Glomerular Filtration Rate 88; Glucose 173 mg/dL (70-105)
[2021-07-29] MEDS ORDERED: ROPIVACAINE HCL/PF 20 ML VIAL IJ ONE (09:50)
--- NOTE | 2021-07-29 09:55 | Procedure Note ---
Procedures - Nerve Block Nerve Block 2 Consent obtained: verbal consent Time out performed: Yes Procedure: Ultrasound guided Injectate: 0.5% ropivicaine Volume (ml): 20 Side: left, right Nerve blocks: other (Bilateral rectus sheath catheters) Procedure successful: Yes Patient tolerated procedure: well Ultrasound Guided Nerve Procedure: Relevant anatomy identified (N,A,V), Local anesthetic: Spread visualized (Bilateral rectus sheath catheters assessed, re- dosed, left in place for future doses. )
--- NOTE | 2021-07-29 12:33 | General Surgery Progress Note ---
SUBJECTIVE Subjective Patient information: Note initiated : 07/29/21 at 12:31 pm Service Date, if different from initiated Date: [] Patient: Marge Benitez 71 y/o F admitted on 07/28/21 for Colostomy Reversal. Chief Complaint: [] Interval history: Postop day #1 status post exploratory laparotomy with ostomy reversal and extensive lysis of adhesions. Patient feels well today, minimal pain. Patient asked to ambulate multiple times yesterday, was told she was not allowed to ambulate. Constitutional Vitals: Vital Signs Temp Pulse Resp BP Pulse Ox 98.3 F 95 H 16 149/70 97 07/29/21 09:12 07/29/21 09:12 07/29/21 09:12 07/29/21 09:50 07/29/21 09:12 Period Temp Pulse Resp BP Sys/Allen Pulse Ox Last 24 Hr 97.0 F-99.8 F 69-95 10-24 108-172/61-82 95-100 Intake and Output 07/28/21 07/29/21 07/29/21 21:59 05:59 13:59 Intake Total 75 962 1000 Output Total 210 845 315 Balance -135 117 685 Weight 118 lb 3.2 oz Intake & Output: Intake & Output 07/28/21 07/29/21 07/29/21 21:59 05:59 13:59 Intake Total 75 962 1000 Output Total 210 845 315 Balance -135 117 685 Weight 118 lb 3.2 oz Intake: IV 75 962 1000 Dextrose 5%-1/2Ns IV Solution 1 962 1000 ,000 ml @ 100 mls/hr IV .Q10H [facility] Rx#:[id number] Oral 0 Tube Feeding 0 0 Output: Gastric Drainage 10 20 90 Right Nare 10 20 90 Urine Catheter Amount 200 825 225 Other: Urine Appearance Clear Clear Clear Uretheral (Frank) Cloudy Clear Urine Color Pale Bright Yellow Brown Green Uretheral (Frank) Pale Bright Yellow Urine Odor Normal General appearance: cooperative and no acute distress GI/Abdominal GI/Abdominal exam: Present soft; Absent distended or tenderness Additional comments: Incision is clean dry and intact A/P Narrative A/P Narrative: Postoperative day #1 status post ostomy reversal. Awaiting return of bowel function. Patient to ambulate minimum 3 times daily, orders were written for patient to ambulate yesterday. This has been addressed with charge nurse and patient will ambulate today. Continue n.p.o., NG tube until return of bowel function. May take home medication with sips and clamp NG tube as written for yesterday. Time Spent With Patient Time: Total time spent is greater than 50% in coordination of care (as documented) at patient's floor/unit and/or counseling patient:
[2021-07-29] MEDS: ONDANSETRON 4 MG/2 ML VIAL IV PRN ×2 (12:55→23:01)
[2021-07-30] MEDS: HYDROmorphone 0.5 MG/0.5 ML SYRINGE IV PRN ×3 (04:05→11:39)
[2021-07-30] MEDS: ACETAMINOPHEN 650 MG/65 ML BAG IV PRN ×2 (04:44→11:40)
[2021-07-30] MEDS ORDERED: ACETAMINOPHEN 1,000 MG/100 ML BAG IV ONE (04:48)
[2021-07-30] MEDS: DEXTROSE 5%-1/2NS 1,000 ML IV SCH ×2 (05:16→16:12)
[2021-07-30 06:50] LABS: Basophils # (Auto) 0.01 K/mcL (0.00-0.30); Basophils % (Auto) 0.1 % (0.0-2.0); Eosinophils # (Auto) 0 K/mcL (0.00-0.70); Eosinophils % (Auto) 0 % (0.0-7.0); Hematocrit 30.8 % (34.1-44.9); Hemoglobin 9.8 g/dL (11.2-15.7); Lymphocytes # (Auto) 1.41 K/mcL (1.50-4.80); Lymphocytes % (Auto) 10.1 % (15.5-49.0); Mean Cell Volume 91.4 fL (80.0-100.0); Mean Corpuscular HGB Conc 31.8 g/dL (31.0-36.0); Mean Platelet Volume 10.2 fL (7.4-10.4); Monocytes # (Auto) 0.86 K/mcL (0.10-0.90); Monocytes % (Auto) 6.2 % (1.0-12.0); Neutrophils % (Auto) 83.6 % (38.0-78.0); Platelet Count 214 K/mcL (140-440); RBC 3.37 M/mcL (3.59-5.38); Red Cell Distribution Width 13.2 % (11.5-14.5); WBC 13.9 K/mcL (4.5-11.0)
[2021-07-30 07:31] LABS: ALT/SGPT 12 U/L (<40); AST/SGOT 16 U/L (<32); Albumin 3.2 gm/dL (3.2-5.2); Albumin/Globulin Ratio 1.1 (1.0-2.3); Alkaline Phosphatase 60 U/L (39-117); Bilirubin,Total 0.5 mg/dL (0.1-1.0); Blood Urea Nitrogen 10 mg/dL (8-23); Calcium 7.9 mg/dL (8.6-10.4); Carbon Dioxide 27 mmol/L (22-30); Chloride 99 mmol/L (96-108); Globulin 2.8 gm/dL (2.2-3.7); Glomerular Filtration Rate 88; Glucose 133 mg/dL (70-105)
[2021-07-30] MEDS: FLUTICASONE HFA 220MCG INHALER INH SCH ×2 (08:14→20:36)
[2021-07-30] MEDS: ONDANSETRON 4 MG/2 ML VIAL IV PRN (08:15)
--- NOTE | 2021-07-30 09:39 | General Surgery Progress Note ---
SUBJECTIVE Subjective Patient information: Note initiated : 07/30/21 at 9:35 am Service Date, if different from initiated Date: [] Patient: Marge Benitez 71 y/o F admitted on 07/28/21 for Colostomy Reversal. Chief Complaint: [] Principal diagnosis: Postop day #2 status post ostomy reversal Interval history: Patient ambulated 4 times yesterday, no flatus or bowel movement yet. Patient reports she feels gas moving through her abdomen but is not passed gas yet. She reports mild nausea with no emesis. Minimal output out of the NG tube. Patient reports minimal abdominal pain and no abdominal distention. Constitutional Vitals: Vital Signs Temp Pulse Resp BP Pulse Ox 97.2 F 69 20 186/79 97 07/30/21 07:06 07/30/21 07:06 07/30/21 07:06 07/30/21 07:06 07/30/21 07:06 Period Temp Pulse Resp BP Sys/Allen Pulse Ox Last 24 Hr 97.2 F-102.2 F 69-100 16-28 142-186/64-97 90-98 Intake and Output 07/29/21 07/30/21 07/30/21 21:59 05:59 13:59 Intake Total 917 1010 0 Output Total 260 1150 Balance 657 -140 0 Weight 117 lb 9.6 oz Intake & Output: Intake & Output 07/29/21 07/30/21 07/30/21 21:59 05:59 13:59 Intake Total 917 1010 0 Output Total 260 1150 Balance 657 -140 0 Weight 117 lb 9.6 oz Intake: IV 917 1010 Dextrose 5%-1/2Ns IV Solution 1 917 945 ,000 ml @ 100 mls/hr IV .Q10H [facility] Rx#:[id number] Oral 0 Tube Feeding 0 0 0 Output: Gastric Drainage 10 100 Right Nare 10 100 Urine Catheter Amount 250 1050 Other: Urine Appearance Clear Clear Uretheral (Frank) Clear Urine Color Bright Yellow Pale Uretheral (Frank) Bright Yellow General appearance: cooperative and no acute distress GI/Abdominal GI/Abdominal exam: Present soft and tenderness; Absent distended Additional comments: Incision is clean dry and intact A/P Narrative A/P Narrative: Low-grade fever overnight. Ambulated multiple times today. Abdomen nondiste nded. White count returning to normal. Continue n.p.o., NG tube until return of bowel function. Continue with ambulation, will follow fever curve. Time Spent With Patient Time: Total time spent is greater than 50% in coordination of care (as documented) at patient's floor/unit and/or counseling patient:
[2021-07-30] MEDS ORDERED: ROPIVACAINE HCL/PF 20 ML VIAL IJ ONE (11:15)
--- NOTE | 2021-07-30 11:28 | Procedure Note ---
Procedures - Nerve Block Nerve Block 2 Consent obtained: verbal consent, written consent Date of Procedure: 07/30/21 Time out performed: Yes Procedure: Ultrasound guided Needle Gauge Used: 19 (catheter in situ) Injectate: ropi 0.5% Volume (ml): 20 Side: left Nerve blocks: other (rectus sheath block) Procedure successful: Yes Patient tolerated procedure: well Ultrasound Guided Nerve Procedure: Relevant anatomy identified (N,A,V), Local anesthetic: Spread visualized Complications: none Additional comments: pt reports good relief, "hardly any pain", OOB without significant limiting pain expresses desire to redose the catheters site clean, skin normal, no leak redosed without difficulty thom well catheter left in place Nerve Block 1 Consent obtained: verbal consent, written consent Date of Procedure: 07/30/21 Time out performed: Yes Procedure: Ultrasound guided Needle Gauge Used: 19 (catheter in situ) Injectate: ropi 0.5% Volume (ml): 20 Side: right Nerve blocks: other (rectus sheath block) Procedure successful: Yes Patient tolerated procedure: well, no complications Ultrasound Guided Nerve Procedure: Relevant anatomy identified (N,A,V), Local anesthetic: Spread visualized, Vascular puncture avoided Complications: none Additional comments: pt reports good relief, "hardly any pain", OOB without significant limiting pain expresses desire to redose the catheters site clean, skin normal, no leak redosed without difficulty thom well catheter left in place
[2021-07-30] MEDS ORDERED: METOCLOPRAMIDE 10 MG/2 ML VIAL IV SCH (12:00)
--- NOTE | 2021-07-30 17:38 | Surgical Pathology Report ---
Histology Microscopic Diagnosis Specimen A- SKIN AND COLON, COLOSTOMY TAKEDOWN: --- COLOSTOMY SITE WITH ASSOCIATED CHRONIC INFLAMMATION AND FIBROSIS. --- MARGIN VIABLE. (DMT) Gross Description Received in formalin labeled ostomy, is a portion of nguyen tissue. It is 2.9 x 2.9 cm. Extending centrally from the skin surface is a 2.8 x 2.7 cm opening of colon. The attached colon is a 4.3 cm in length by 1.9 cm in diameter portion of colon. The mucosal surface is stapled and inked black. The wall is up to 0.3 cm thick. The mucosa is nguyen and plicated. Jewel B[employer] sections are submitted in three cassettes: A1 - colon margin; A2 - ends of nguyen tissue; A3 - motor vehicle representative sections of transition from central exposed portion of colon to mucosal surface. (SCB:michelle) Electronically Signed Jose Garcia MD, FCAP Electronically Signed 07/30/2021 15:18
[2021-07-31] MEDS: ACETAMINOPHEN 650 MG/65 ML BAG IV PRN
[2021-07-31] MEDS: HYDROmorphone 0.5 MG/0.5 ML SYRINGE IV PRN ×5 (02:20→21:34)
[2021-07-31] MEDS: DEXTROSE 5%-1/2NS 1,000 ML IV SCH ×3 (02:20→21:15)
[2021-07-31 08:26] LABS: Basophils # (Auto) 0.02 K/mcL (0.00-0.30); Basophils % (Auto) 0.2 % (0.0-2.0); Eosinophils # (Auto) 0.06 K/mcL (0.00-0.70); Eosinophils % (Auto) 0.5 % (0.0-7.0); Hematocrit 31.7 % (34.1-44.9); Hemoglobin 10.1 g/dL (11.2-15.7); Lymphocytes # (Auto) 1.51 K/mcL (1.50-4.80); Lymphocytes % (Auto) 13.5 % (15.5-49.0); Mean Cell Volume 92.7 fL (80.0-100.0); Mean Corpuscular HGB Conc 31.9 g/dL (31.0-36.0); Monocytes # (Auto) 0.62 K/mcL (0.10-0.90); Monocytes % (Auto) 5.5 % (1.0-12.0); Neutrophils % (Auto) 80.3 % (38.0-78.0); Platelet Count 233 K/mcL (140-440); RBC 3.42 M/mcL (3.59-5.38); WBC 11.2 K/mcL (4.5-11.0)
[2021-07-31 09:07] LABS: Blood Urea Nitrogen 10 mg/dL (8-23); Calcium 8.5 mg/dL (8.6-10.4); Carbon Dioxide 25 mmol/L (22-30); Chloride 105 mmol/L (96-108); Glomerular Filtration Rate 93; Glucose 99 mg/dL (70-105)
[2021-07-31] MEDS ORDERED: ROPIVACAINE HCL/PF 30 ML VIAL IJ ONE (09:50)
--- NOTE | 2021-07-31 10:12 | Procedure Note ---
Procedures - Nerve Block Nerve Block 2 Consent obtained: verbal consent Date of Procedure: 07/31/21 Procedure: Ultrasound guided Needle Gauge Used: 19 (catheter in situ) Injectate: Ropivicaine 0.5% Volume (ml): 30 (15cc per catheter) Side: left, right Nerve blocks: other (bilateral rectus sheath (sub-costal TAP)) Patient tolerated procedure: well Ultrasound Guided Nerve Procedure: Local anesthetic: Spread visualized Depth at Skin: 6 Additional comments: POD 3: Patient resting in bed; reports increase in pain requesting additional dosing of rectus sheath catheters. Patient reports relief after follow up dosing yesterday, OOB without difficulty. Catheter sites remain clean/dry without drainage or erythema. Position/spread verified with ultrasound, bilat catheters re-dosed with 15 cc ropivicaine 0.5% (total of 30cc). Catheters left in place, plan on assessing/re-dosing tomorrow.
[2021-07-31] MEDS: FLUTICASONE HFA 220MCG INHALER INH SCH ×2 (10:52→21:15)
--- NOTE | 2021-07-31 11:43 | General Surgery Progress Note ---
SUBJECTIVE Subjective Patient information: Note initiated : 07/31/21 at 11:42 am Service Date, if different from initiated Date: [] Patient: Marge Benitez 71 y/o F admitted on 07/28/21 for Colostomy Reversal. Chief Complaint: [] Principal diagnosis: Postop day #3 status post ostomy reversal Interval history: Patient with small amount of flatus overnight, she continues to ambulate. No nausea, vomiting fevers or chills. Constitutional Vitals: Vital Signs Temp Pulse Resp BP Pulse Ox 98.2 F 82 16 148/75 99 07/31/21 06:42 07/31/21 06:42 07/31/21 06:42 07/31/21 09:30 07/31/21 07:55 Period Temp Pulse Resp BP Sys/Allen Pulse Ox Last 24 Hr 97.0 F-98.2 F 73-92 16-20 134-181/75-97 96-99 Intake and Output 07/30/21 07/31/21 07/31/21 21:59 05:59 13:59 Intake Total 1000 1065 0 Output Total 1625 1700 450 Balance -625 -635 -450 Weight 113 lb 3.2 oz Intake & Output: Intake & Output 07/30/21 07/31/21 07/31/21 21:59 05:59 13:59 Intake Total 1000 1065 0 Output Total 1625 1700 450 Balance -625 -635 -450 Weight 113 lb 3.2 oz Intake: IV 1000 1065 Dextrose 5%-1/2Ns IV Solution 1 1000 1000 ,000 ml @ 100 mls/hr IV .Q10H [facility] Rx#:[id number] Oral 0 Tube Feeding 0 0 0 Output: Gastric Drainage 300 150 Right Nare 300 150 Urine Catheter Amount 375 1550 450 Void Amount 950 Other: Urine Appearance Clear Clear Clear Uretheral (Frank) Clear Clear Urine Color Pale Bright Yellow Bright Yellow Uretheral (Frnak) Bright Yellow Bright Yellow Urine Odor Normal General appearance: cooperative and no acute distress GI/Abdominal GI/Abdominal exam: Present soft and tenderness (Minimal tenderness); Absent distended Additional comments: Incision is clean dry and intact A/P Narrative A/P Narrative: Slowly progressing as expected. Continue with ambulation. Clamp NG tube, DC Frank. Time Spent With Patient Time: Total time spent is greater than 50% in coordination of care (as documented) at patient's floor/unit and/or counseling patient:
[2021-07-31] MEDS: ONDANSETRON 4 MG/2 ML VIAL IV PRN (21:22)
[2021-08-01] MEDS: ACETAMINOPHEN 650 MG/65 ML BAG IV PRN ×3 (00:51→21:53)
[2021-08-01] MEDS: PRAMIPEXOLE 0.25 MG TABLET PO SCH ×2 (00:55→17:04)
[2021-08-01] MEDS: HYDROmorphone 0.5 MG/0.5 ML SYRINGE IV PRN ×3 (04:05→23:48)
[2021-08-01] MEDS: ONDANSETRON 4 MG/2 ML VIAL IV PRN ×2 (05:28→21:53)
[2021-08-01] MEDS: DEXTROSE 5%-1/2NS 1,000 ML IV SCH ×2 (08:34→18:51)
[2021-08-01] MEDS ORDERED: MAGNESIUM SULFATE 2 GM/50 ML BAG IV ONE (09:35)
[2021-08-01] MEDS ORDERED: ROPIVACAINE HCL/PF 20 ML VIAL IJ ONE (09:35)
--- NOTE | 2021-08-01 10:26 | General Surgery Progress Note ---
SUBJECTIVE Subjective Patient information: Note initiated : 08/01/21 at 10:24 am Service Date, if different from initiated Date: [] Patient: Marge Benitez 71 y/o F admitted on 07/28/21 for Colostomy Reversal. Chief Complaint: [] Principal diagnosis: Postop day #4 status post ostomy reversal Interval history: Patient ambulated 4 times yesterday, has had several episodes of flatus, however minimal at this time. Patient was feeling well until she ambulated this morning and post ambulation she felt nauseous and had a small amount of emesis. Patient has no fevers chills. She is ambulatory. Constitutional Vitals: Vital Signs Temp Pulse Resp BP Pulse Ox 97.3 F 73 15 165/86 97 08/01/21 07:23 08/01/21 07:23 08/01/21 07:23 08/01/21 07:23 08/01/21 08:20 Period Temp Pulse Resp BP Sys/Allen Pulse Ox Last 24 Hr 97.3 F-98.8 F 73-90 15-19 144-179/73-90 96-97 Intake and Output 07/31/21 08/01/21 08/01/21 21:59 05:59 13:59 Intake Total 512 674 6328 Output Total 1600 550 625 Balance -723 -420 375 Weight 108 lb 9.6 oz Intake & Output: Intake & Output 07/31/21 08/01/21 08/01/21 21:59 05:59 13:59 Intake Total 012 423 1308 Output Total 1600 550 625 Balance -723 -420 375 Weight 108 lb 9.6 oz Intake: IV 965 513 9988 Dextrose 5%-1/2Ns IV Solution 1 877 1000 ,000 ml @ 100 mls/hr IV .Q10H [facility] Rx#:[id number] Oral 0 Tube Feeding 0 0 0 Output: Urine Catheter Amount 1250 Void Amount 350 550 625 Other: Urine Appearance Clear Clear Clear Urine Color Bright Yellow Bright Yellow Pale Urine Odor Normal Normal # Bowel Movements 0 General appearance: cooperative and no acute distress Head Head exam: Present normal inspection Respiratory Respiratory exam: Present normal respiratory exam Cardiovascular Cardiovascular exam: Present normal rate and rhythm GI/Abdominal GI/Abdominal exam: Present normal bowel sounds and soft; Absent distended or tenderness Additional comments: Incision is clean dry and intact A/P Narrative A/P Narrative: Postop day #4 status post ostomy reversal. Awaiting return of bowel function, has some early signs of return of bowel function, did have 1 episode of nausea with emesis this morning. Plan: Place NG tube back to suction, abdomen is not distended however will check residual amount in stomach to rule out postoperative ileus. Continue ambulation minimum 3 times daily. Time Spent With Patient Time: Total time spent is greater than 50% in coordination of care (as documented) at patient's floor/unit and/or counseling patient:
--- NOTE | 2021-08-01 10:27 | Procedure Note ---
Procedures - Nerve Block Nerve Block 2 Consent obtained: verbal consent Date of Procedure: 08/01/21 Needle Gauge Used: 19 (catheter in situ bilat) Injectate: Ropivicaine 0.5% Volume (ml): 15 (with 250 mg mag sulfate (6cc) bilat) Side: left, right Nerve blocks: other (follow-up injection bilat rectus sheath catheters) Procedure successful: Yes Patient tolerated procedure: well Ultrasound Guided Nerve Procedure: Local anesthetic: Spread visualized Depth at Skin: 6 bilat Complications: none Additional comments: POD 4: Patient doing well. Continues to report significant pain relief with follow-up injections of nerve catheters. Patient ambulating without difficulty, no fevers or chills overnight. Catheter sites assessed: bilat sites clean and dry without drainage or erythema. Bilateral catheters remain in good position, re-dosed with 15cc Ropivicaine 0.5% and mag sulfate 250mg per site. Catheters left in place, plan on re-dosing tomorrow am.
[2021-08-01] MEDS: LOSARTAN 25 MG TABLET PO SCH (11:40)
[2021-08-01] MEDS: FLUTICASONE HFA 220MCG INHALER INH SCH ×2 (11:44→22:13)
[2021-08-02] MEDS: DEXTROSE 5%-1/2NS 1,000 ML IV SCH ×3 (04:01→16:18)
[2021-08-02] MEDS: ACETAMINOPHEN 650 MG/65 ML BAG IV PRN (04:28)
[2021-08-02] MEDS: ONDANSETRON 4 MG/2 ML VIAL IV PRN ×2 (04:29→23:13)
[2021-08-02] MEDS: HYDROmorphone 0.5 MG/0.5 ML SYRINGE IV PRN ×4 (04:29→23:12)
[2021-08-02 07:23] LABS: Basophils # (Auto) 0.04 K/mcL (0.00-0.30); Basophils % (Auto) 0.3 % (0.0-2.0); Eosinophils # (Auto) 0.23 K/mcL (0.00-0.70); Hemoglobin 10.2 g/dL (11.2-15.7); Lymphocytes # (Auto) 1.38 K/mcL (1.50-4.80); Mean Cell Volume 90.4 fL (80.0-100.0); Mean Corpuscular HGB Conc 31.9 g/dL (31.0-36.0); Mean Platelet Volume 9.4 fL (7.4-10.4); Monocytes # (Auto) 0.87 K/mcL (0.10-0.90); Monocytes % (Auto) 7.6 % (1.0-12.0); Neutrophils % (Auto) 78.1 % (38.0-78.0); Platelet Count 363 K/mcL (140-440); RBC 3.54 M/mcL (3.59-5.38); Red Cell Distribution Width 12.4 % (11.5-14.5); WBC 11.5 K/mcL (4.5-11.0)
[2021-08-02 07:45] LABS: Blood Urea Nitrogen 10 mg/dL (8-23); Calcium 8.3 mg/dL (8.6-10.4); Carbon Dioxide 22 mmol/L (22-30); Chloride 100 mmol/L (96-108); Glomerular Filtration Rate 93; Glucose 117 mg/dL (70-105)
[2021-08-02] MEDS ORDERED: MAGNESIUM SULFATE 2 GM/50 ML BAG IV ONE (10:10)
[2021-08-02] MEDS ORDERED: ROPIVACAINE HCL/PF 30 ML VIAL IJ ONE (10:10)
--- NOTE | 2021-08-02 10:30 | General Surgery Progress Note ---
SUBJECTIVE Subjective Patient information: Note initiated : 08/02/21 at 10:27 am Service Date, if different from initiated Date: [] Patient: Marge Benitez 71 y/o F admitted on 07/28/21 for Colostomy Reversal. Chief Complaint: [] Principal diagnosis: Postop day #5 status post ostomy reversal Interval history: Ambulated multiple times yesterday, has some nausea yesterday morning, NG tube was placed back to suction with no output. NG tube was reclamped and patient started on clears. This morning patient has increased nausea, NG tube replaced to suction with no output. Patient does report small amount of flatus. Constitutional Vitals: Vital Signs Temp Pulse Resp BP Pulse Ox 97.3 F 79 18 174/86 98 08/02/21 07:02 08/02/21 07:02 08/02/21 07:02 08/02/21 07:02 08/02/21 08:50 Period Temp Pulse Resp BP Sys/Allen Pulse Ox Last 24 Hr 97.2 F-98.3 F 79-88 12-18 161-181/75-90 96-98 Intake and Output 08/01/21 08/02/21 08/02/21 21:59 05:59 13:59 Intake Total 1000 1090 0 Output Total 610 250 275 Balance 390 840 -275 Weight 108 lb 3.2 oz Intake & Output: Intake & Output 08/01/21 08/02/21 08/02/21 21:59 05:59 13:59 Intake Total 1000 1090 0 Output Total 610 250 275 Balance 390 840 -275 Weight 108 lb 3.2 oz Intake: IV 1000 1090 Dextrose 5%-1/2Ns IV Solution 1 1000 960 ,000 ml @ 100 mls/hr IV .Q10H [facility] Rx#:[id number] Tube Feeding 0 0 0 Output: Gastric Drainage 10 Right Nare 10 Void Amount 600 250 275 Other: Urine Appearance Clear Clear Clear Urine Color Bright Yellow Bright Yellow Dark Yellow Urine Odor Normal # Voids 1 1 # Unmeasured Emesis 2 # Bowel Movements 0 General appearance: cooperative and no acute distress Respiratory Respiratory exam: Present normal respiratory exam Cardiovascular Cardiovascular exam: Present normal rate and rhythm GI/Abdominal GI/Abdominal exam: Present normal bowel sounds and soft; Absent distended or tenderness Additional comments: Incision is clean dry and intact A/P Narrative A/P Narrative: Postoperative day #5 status post ostomy reversal. Patient with active bowel sounds, flat abdomen, minimal NG tube output and small amount of flatus although she does have continued nausea. Plan: I will add Phenergan and follow-up in the next several hours to see if this helps. If nausea resolves will clamp NG tube and continue with clear liquid diet. Continue with ambulation minimum 3 times daily. Time Spent With Patient Time: Total time spent is greater than 50% in coordination of care (as documented) at patient's floor/unit and/or counseling patient:
--- NOTE | 2021-08-02 10:30 | Procedure Note ---
Procedures - Nerve Block Nerve Block 2 Consent obtained: verbal consent Date of Procedure: 08/02/21 Needle Gauge Used: 19 (catheter in situ bilat) Injectate: Ropivicaine 0.5% Volume (ml): 15 (with 250mg mag sulfate (6cc) bilat) Side: left, right Nerve blocks: other (follow-up injection bilat rectus sheath catheters) Procedure successful: Yes Patient tolerated procedure: well Ultrasound Guided Nerve Procedure: Local anesthetic: Spread visualized Depth at Skin: 6 bilat Complications: none Additional comments: POD 5: Patient continues to report relief with follow-up catheter injections. Bilat catheter sites assessed. Catheters remain secured in good position, sites clean and dry without drainage or erythema. No fevers or chills overnight. Bilateral catheters redosed with 15cc Ropivicaine and 250mg of mag sulfate. Catheters left in place. Plan on re-dose and d/c catheters tomorrow am.
[2021-08-02] MEDS: PROMETHAZINE 25 MG/ML VIAL IV PRN (10:44)
[2021-08-02] MEDS: FLUTICASONE HFA 220MCG INHALER INH SCH ×2 (10:49→22:11)
[2021-08-02] MEDS: LOSARTAN 25 MG TABLET PO SCH (13:11)
[2021-08-02] MEDS ORDERED: BENZOCAINE/MENTHOL 1 LOZENGE PO PRN (16:14)
[2021-08-03] MEDS: DEXTROSE 5%-1/2NS 1,000 ML IV SCH ×3 (02:17→22:21)
[2021-08-03] MEDS: PROMETHAZINE 25 MG/ML VIAL IV PRN (02:27)
[2021-08-03] MEDS: HYDROmorphone 0.5 MG/0.5 ML SYRINGE IV PRN ×5 (04:09→21:35)
[2021-08-03 06:41] LABS: Basophils # (Auto) 0.04 K/mcL (0.00-0.30); Basophils % (Auto) 0.3 % (0.0-2.0); Eosinophils # (Auto) 0.28 K/mcL (0.00-0.70); Eosinophils % (Auto) 2.3 % (0.0-7.0); Hematocrit 29.5 % (34.1-44.9); Hemoglobin 9.5 g/dL (11.2-15.7); Lymphocytes # (Auto) 1.58 K/mcL (1.50-4.80); Lymphocytes % (Auto) 13.2 % (15.5-49.0); Mean Cell Volume 89.1 fL (80.0-100.0); Mean Corpuscular HGB Conc 32.2 g/dL (31.0-36.0); Mean Platelet Volume 9.4 fL (7.4-10.4); Monocytes # (Auto) 1.16 K/mcL (0.10-0.90); Monocytes % (Auto) 9.7 % (1.0-12.0); Neutrophils % (Auto) 74.5 % (38.0-78.0); Platelet Count 393 K/mcL (140-440); RBC 3.31 M/mcL (3.59-5.38); Red Cell Distribution Width 12.5 % (11.5-14.5)
[2021-08-03 07:07] LABS: Blood Urea Nitrogen 11 mg/dL (8-23); Calcium 8.1 mg/dL (8.6-10.4); Carbon Dioxide 25 mmol/L (22-30); Chloride 102 mmol/L (96-108); Glomerular Filtration Rate 88; Glucose 120 mg/dL (70-105)
[2021-08-03] MEDS: ACETAMINOPHEN 650 MG/65 ML BAG IV PRN ×3 (07:55→23:39)
[2021-08-03] MEDS ORDERED: TPN PER PHARMACY IV SCH (08:02)
--- NOTE | 2021-08-03 08:02 | General Surgery Progress Note ---
SUBJECTIVE Subjective Patient information: Note initiated : 08/03/21 at 8:00 am Service Date, if different from initiated Date: [] Patient: Marge Benitez 71 y/o F admitted on 07/28/21 for Colostomy Reversal. Chief Complaint: [] Principal diagnosis: Postop day #6 status post ostomy reversal Interval history: Patient reports less nausea overnight, more crampy abdominal pain. Patient did not ambulate his mealtimes yesterday secondary to nausea in the morning although she now reports that is much better. Constitutional Vitals: Vital Signs Temp Pulse Resp BP Pulse Ox 100.2 F H 95 H 22 149/83 95 08/03/21 07:55 08/03/21 07:44 08/03/21 07:44 08/03/21 07:44 08/03/21 07:44 Period Temp Pulse Resp BP Sys/Allen Pulse Ox Last 24 Hr 97.5 F-100.2 F 82-95 16-22 146-168/74-84 94-98 Intake and Output 08/02/21 08/03/21 08/03/21 21:59 05:59 13:59 Intake Total 1000 998 Output Total 200 350 Balance 800 648 Weight 108 lb Intake & Output: Intake & Output 08/02/21 08/03/21 08/03/21 21:59 05:59 13:59 Intake Total 1000 998 Output Total 200 350 Balance 800 648 Weight 108 lb Intake: IV 1000 998 Dextrose 5%-1/2Ns IV Solution 1 1000 998 ,000 ml @ 100 mls/hr IV .Q10H [facility] Rx#:[id number] Tube Feeding 0 0 Output: Void Amount 200 350 Other: Meal Dinner Percent of Meal Consumed 5% Feeding Ability Independent Urine Appearance Clear Clear Urine Color Bright Yellow Bright Yellow # Voids 1 General appearance: cooperative and no acute distress Respiratory Respiratory exam: Present normal respiratory exam GI/Abdominal GI/Abdominal exam: Present normal bowel sounds and soft; Absent distended or tenderness Additional comments: Incision is clean dry and intact, abdomen is soft nontender A/P Narrative A/P Narrative: Postop day #6 status post ostomy reversal. Still awaiting return of bowel fun ction. Plan: Continue with gum chewing, ambulation. We will start TPN. Dr. Ortiz to cover this week. Time Spent With Patient Time: Total time spent is greater than 50% in coordination of care (as documented) at patient's floor/unit and/or counseling patient:
--- NOTE | 2021-08-03 08:25 | XRay Report ---
HISTORY: Follow-up partial small bowel obstruction, prior colostomy reversal FINDINGS: There is a moderate amount of air within nondilated large and small intestine. Largest loops of small intestine are seen in the left lower pelvis and measure up to 2.8 cm. There is a nasogastric tube within the decompressed stomach. No free intra-abdominal air is present. A row of anastomotic sutures is seen deep in the pelvis and there are clips in the gallbladder fossa. There is no apparent soft tissue mass or abnormal calcification. Vertically oriented band of scar or discoid atelectasis is seen medially in the left lower lobe. IMPRESSION: No evidence of bowel obstruction Interpreted and Authenticated by: Smooth Ornleas 08/03/21
[2021-08-03] MEDS: LOSARTAN 25 MG TABLET PO SCH (09:52)
[2021-08-03] MEDS: FLUTICASONE HFA 220MCG INHALER INH SCH ×2 (09:52→21:35)
[2021-08-03] MEDS: ONDANSETRON 4 MG/2 ML VIAL IV PRN ×2 (09:53→18:09)
--- NOTE | 2021-08-03 11:17 | Procedure Note ---
Procedures - Nerve Block Nerve Block 2 Consent obtained: verbal consent Date of Procedure: 08/03/21 Needle Gauge Used: 19 (catheters in situ bilat) Injectate: Ropivicaine 0.5% Volume (ml): 15 (with mag sulfate 250mg (6cc) bilat) Side: left, right Nerve blocks: other (follow-up injection bilateral rectus shealth catheters) Procedure successful: Yes Patient tolerated procedure: well Ultrasound Guided Nerve Procedure: Local anesthetic: Spread visualized Depth at Skin: 6 bilat Complications: none Additional comments: POD 6: Patient continues to improve. OOB without difficulty, ambulating daily. NG tube remains clamped, patient tolerating well. Bowels appear active on ultrasound. Patient without fever or chills overnight. Catheters remain in good position, sites clean and dry without drainage or erythema. Bilat catheters re-dosed with 15cc Ropiviaine 0.5% with mag sulfate 250mg. Catheters d/c'd. Both catheters fully intact, bandaid applied.
[2021-08-03] MEDS: PRAMIPEXOLE 0.25 MG TABLET PO PRN (11:58)
[2021-08-03] MEDS ORDERED: 0.9 % SODIUM CHLORIDE 10 ML SYRINGE IV PRN (16:13)
--- NOTE | 2021-08-03 17:48 | XRay Report ---
HISTORY: PICC line placement FINDINGS: PICC line has been inserted through the left arm with the tip in the superior vena cava at the level of the azygos arch. There is no pneumothorax, pleural effusion or widening of the mediastinum. Nasogastric tube passes through the esophagus into the upper fundus of the stomach. The lungs are clear. Heart size is normal. There may be a small amount of free intra-abdominal air. The patient had abdominal surgery six days ago. IMPRESSION: No complication following PICC line insertion. Medical surgery nursing was called with report Interpreted and Authenticated by: Smooth Ornelas 08/03/21
[2021-08-03] MEDS: 0.9 % SODIUM CHLORIDE 10 ML SYRINGE IV SCH (21:36)
[2021-08-03] MEDS ORDERED: METHOCARBAMOL 1,000 MG/10 ML VIAL ONE (22:15)
[2021-08-03] MEDS: METHOCARBAMOL 1,000 MG/10 ML VIAL IV PRN (22:20)
[2021-08-04] MEDS: HYDROmorphone 0.5 MG/0.5 ML SYRINGE IV PRN ×2 (02:02→11:24)
[2021-08-04] MEDS: PRAMIPEXOLE 0.25 MG TABLET PO PRN (02:02)
[2021-08-04 06:59] LABS: Basophils # (Auto) 0.06 K/mcL (0.00-0.30); Basophils % (Auto) 0.3 % (0.0-2.0); Eosinophils # (Auto) 0.01 K/mcL (0.00-0.70); Eosinophils % (Auto) 0.1 % (0.0-7.0); Hematocrit 31.4 % (34.1-44.9); Hemoglobin 9.9 g/dL (11.2-15.7); Lymphocytes % (Auto) 6.2 % (15.5-49.0); Mean Cell Volume 90.2 fL (80.0-100.0); Mean Corpuscular HGB Conc 31.5 g/dL (31.0-36.0); Mean Platelet Volume 9.3 fL (7.4-10.4); Monocytes # (Auto) 0.91 K/mcL (0.10-0.90); Monocytes % (Auto) 4.7 % (1.0-12.0); Neutrophils % (Auto) 88.7 % (38.0-78.0); Platelet Count 372 K/mcL (140-440); RBC 3.48 M/mcL (3.59-5.38); Red Cell Distribution Width 12.9 % (11.5-14.5)
[2021-08-04] MEDS: PROMETHAZINE 25 MG/ML VIAL IV PRN ×2 (07:18→19:51)
[2021-08-04 07:28] LABS: Blood Urea Nitrogen 16 mg/dL (8-23); Calcium 8.3 mg/dL (8.6-10.4); Carbon Dioxide 22 mmol/L (22-30); Chloride 99 mmol/L (96-108); Glomerular Filtration Rate 46; Glucose 142 mg/dL (70-105)
--- NOTE | 2021-08-04 08:06 | General Surgery Progress Note ---
SUBJECTIVE Subjective Patient information: Note initiated : 08/04/21 at 8:04 am Service Date, if different from initiated Date: [] Patient: Marge Benitez 71 y/o F admitted on 07/28/21 for Colostomy Reversal. Chief Complaint: [POD #7 Colostomy Takedown and Reversal] Had increased pain and cramping late yesterday, NGT replaced to suction with some relief but then also had what she felt were muscular like abdominal wall contractions - given requested muscle relaxant in Robaxin with some relief. Has passed some gas, continues to have profound nausea not well controlled with medications. Principal diagnosis: Postop day #7 status post ostomy reversal Constitutional Vitals: Vital Signs Temp Pulse Resp BP Pulse Ox 99.6 F H 110 H 22 122/69 95 08/04/21 07:17 08/04/21 07:17 08/04/21 07:17 08/04/21 07:17 08/04/21 07:17 Period Temp Pulse Resp BP Sys/Allen Pulse Ox Last 24 Hr 98.2 F-101.5 F 79-110 106-154/63-84 93-97 Intake and Output 08/03/21 08/04/21 08/04/21 21:59 05:59 13:59 Intake Total 265 1315 Output Total 350 150 Balance -85 1165 Weight 105 lb 14.4 oz Intake & Output: Intake & Output 08/03/21 08/04/21 08/04/21 21:59 05:59 13:59 Intake Total 265 1315 Output Total 350 150 Balance -85 1165 Weight 105 lb 14.4 oz Intake: IV 65 1065 Dextrose 5%-1/2Ns IV Solution 1 1000 ,000 ml @ 100 mls/hr IV .Q10H [facility] Rx#:[id number] Oral 200 250 Tube Feeding 0 0 Output: Gastric Drainage 150 Right Nare 150 Void Amount 350 Other: Urine Appearance Clear Urine Color Dark Yellow Urine Odor Strong General appearance: no acute distress Exam: seems in No Acute Distress but is minimally conversant Head Head exam: Present atraumatic and normocephalic Respiratory Additional comments: no evident respiratory distress Cardiovascular Cardiovascular exam: Present normal rate and rhythm and RRR GI/Abdominal Additional comments: belly seems soft and non distended, minimally tender without obvious peritoneal findings and incision looks good Extremities Exam Additional comments: well perfused A/P Narrative A/P Narrative: POD #7 Colostomy takedown and reversal Persistent pain despite fairly benign exam findings in setting of increasing WBC, BUN, MEDICAL CSR and HR Rule out leak with CT A/P with rectal water soluble contrast only Broaden AB coverage Continue NGT for now with NPO except meds/sips and re check labs in AM Time Spent With Patient Time: Total time spent is greater than 50% in coordination of care (as documented) at patient's floor/unit and/or counseling patient:
[2021-08-04 08:34] LABS: Phosphorous 5.9 mg/dL (2.5-4.5)
[2021-08-04] MEDS ORDERED: 0.9 % SODIUM CHLORIDE 1,000 ML IV SCH (09:15)
[2021-08-04] MEDS ORDERED: DEXTROSE 5%-NS 1,000 ML IV SCH (09:15)
[2021-08-04] MEDS: ACETAMINOPHEN 650 MG/65 ML BAG IV PRN (10:00)
[2021-08-04] MEDS: LOSARTAN 25 MG TABLET PO SCH (10:09)
[2021-08-04] MEDS: FLUTICASONE HFA 220MCG INHALER INH SCH ×2 (10:10→21:30)
[2021-08-04] MEDS: 0.9 % SODIUM CHLORIDE 10 ML SYRINGE IV SCH ×3 (10:10→21:30)
[2021-08-04] MEDS: PIPERACILLIN SODIUM/TAZOBACTAM 3.375 GM in DEXTROSE 5% IN WATER 50 ML IV SCH ×3 (10:29→21:28)
[2021-08-04] MEDS ORDERED: [UNRECOGNIZED DRUG - OTHER] IV SCH (11:00)
[2021-08-04] MEDS ORDERED: CALCIUM GLUCONATE IV SCH (11:00)
[2021-08-04] MEDS ORDERED: SODIUM CHLORIDE IV SCH (11:00)
[2021-08-04] MEDS ORDERED: MAGNESIUM SULFATE IV SCH (11:00)
[2021-08-04] MEDS ORDERED: IOPAMIDOL 100 ML BOTTLE IV ONE (11:25)
--- NOTE | 2021-08-04 11:48 | Cat Scan Report ---
History: Follow-up after reversal of a colostomy, evaluate for colonic leak TECHNIQUE: Rectal catheter was inserted and dilute water-soluble Gastrografin contrast was injected. Patient also received intravenous nonionic contrast. Patient was scanned during the portal venous phase from the diaphragm through the symphysis pubis. Sagittal and coronal reformats were created. Radiation exposure was limited using dose reduction technology. FINDINGS: There are tiny bilateral layering pleural effusions. There is minor dependent atelectasis posteriorly in both lung bases. Large amount of free intra-abdominal air is present, predominantly in the midabdomen and right upper quadrant. There is also extravasated rectal contrast which forms an air-fluid level adjacent to the liver. The extravasated contrast extends up to the diaphragm. Much of the rectal contrast passed through the level of anastomosis into the distal sigmoid colon. There is an anastomotic leak along the superior border of the sutures. Superior and lateral to the anastomosis there is a loculated pocket of extravasated history graft which measures 5.6 x 7.4 cm. It has irregular perez. From this large collection there is a narrow tract which the contrast passes through into a smaller loculated collection of fluid located in the right upper pelvis. A smaller pocket is 3 x 5 cm size. From a small pocket there is free extravasation of barium and air into the peritoneal space in the mid and upper abdomen. The contrast which remained within the lumen of the large intestine extended to the level of the proximal transverse colon. Moderate amount stool mixed with contrast and nondilated large intestine. The small intestine is not abnormally dilated. The stomach is decompressed by a nasogastric tube. The liver and spleen are normal. The gallbladder is been removed. Lungs are nondilated. The pancreas, adrenals and kidneys are normal. Urinary bladder is incompletely distended but appears normal. Patient had a prior hysterectomy. IMPRESSION: Anastomotic leak in the distal sigmoid colon with a large amount of extravasated contrast into the abdomen and pelvis Dr. Ortiz was called with the report Interpreted and Authenticated by: Smooth Ornelas 08/04/21
[2021-08-04] MEDS: ONDANSETRON 4 MG/2 ML VIAL IV PRN ×2 (13:09→18:38)
[2021-08-04] MEDS ORDERED: CIPROFLOXACIN 400 MG/200 ML BAG IV ONE (13:23)
[2021-08-04] MEDS ORDERED: metroNIDAZOLE 500 MG/100 ML BAG IV ONE (13:24)
[2021-08-04] MEDS ORDERED: LIDOCAINE HCL/PF 100 MG/5 ML SYRINGE IV ONE (13:29)
[2021-08-04] MEDS ORDERED: ROCURONIUM 10 MG/ML ML IV ONE (13:29)
[2021-08-04] MEDS ORDERED: SUGAMMADEX SODIUM 200 MG/2 ML VIAL IV ONE (13:29)
[2021-08-04] MEDS ORDERED: ONDANSETRON 4 MG/2 ML VIAL ONE (13:29)
[2021-08-04] MEDS ORDERED: TRANEXAMIC ACID 1,000 MG/10 ML VIAL ONE (13:29)
[2021-08-04] MEDS ORDERED: PROPOFOL 200 MG/20 ML VIAL IV ONE (13:29)
[2021-08-04] MEDS ORDERED: MIDAZOLAM 2 MG/2 ML VIAL ONE (13:29)
[2021-08-04] MEDS ORDERED: DEXAMETHASONE 10 MG/ML VIAL ONE (13:29)
[2021-08-04] MEDS ORDERED: MAGNESIUM SULFATE 2 GM/50 ML BAG IV ONE (13:29)
[2021-08-04] MEDS ORDERED: GLYCOPYRROLATE 0.2 MG/ML VIAL IV ONE (13:29)
[2021-08-04] MEDS ORDERED: KETAMINE 50 MG/ML Syringe (ANEST) IV ONE (13:29)
[2021-08-04] MEDS: DEXTROSE 5%-1/2NS 1,000 ML IV SCH ×2 (14:13→16:41)
[2021-08-04] MEDS ORDERED: ePHEDrine 50 MG/ML AMPUL IV PRN (14:30)
[2021-08-04] MEDS ORDERED: IPRATROPIUM/ALBUTEROL 3 ML AMPUL.NEB NEB PRN (14:30)
[2021-08-04] MEDS ORDERED: fentaNYL 100 MCG/2 ML VIAL IV PRN (14:30)
[2021-08-04] MEDS ORDERED: MEPERIDINE 50 MG/ML VIAL IM PRN (14:30)
[2021-08-04] MEDS ORDERED: MEPERIDINE 25 MG/ML VIAL IV PRN (14:30)
[2021-08-04] MEDS ORDERED: PROMETHAZINE 25 MG/ML VIAL IM PRN (14:30)
[2021-08-04] MEDS ORDERED: PROMETHAZINE 25 MG/ML VIAL IV PRN (14:30)
[2021-08-04] MEDS ORDERED: ACETAMINOPHEN 1,000 MG/100 ML BAG IV ONE (14:30)
[2021-08-04] MEDS ORDERED: LACTATED RINGERS 1,000 ML IV SCH (14:30)
[2021-08-04] MEDS ORDERED: PIPERACILLIN SODIUM/TAZOBACTAM 3.375 GM in DEXTROSE 5% IN WATER 50 ML IV SCH (15:15)
--- NOTE | 2021-08-04 15:19 | Brief Operative Note ---
Brief Operative Note Date of procedure: 08/04/21 Pre-op diagnosis: Anastomotic Leak Post-op diagnosis: same Procedure: Ex Lap, washout, repair anastomotic leak, drain placement and diverting loop ileostomy Grafts/Implants: No Anesthesia: GETA Findings: disrupted suture line on the anastomotic sidewall at what appeared to be the common channel enterotomy; anastomosis otherwise appeared well perfused and intact Complications: none Surgeon: Mehran Ortiz Hand Fur Cleaner: Hernán Burnett Estimated blood loss (cc): 50 Specimens Removed/Pathology: none sent Condition: stable Disposition: PACU
[2021-08-04] MEDS: HYDROmorphone PCA 30 MG/30 ML PCA.VIAL IV PRN ×2 (15:56→20:38)
[2021-08-04 18:43] LABS: WBC 19.2 K/mcL (4.5-11.0)
[2021-08-05] MEDS: DEXTROSE 5%-1/2NS 1,000 ML IV SCH ×2 (01:18→08:40)
[2021-08-05] MEDS: PIPERACILLIN SODIUM/TAZOBACTAM 3.375 GM in DEXTROSE 5% IN WATER 50 ML IV SCH ×3 (05:46→21:36)
[2021-08-05] MEDS: 0.9 % SODIUM CHLORIDE 10 ML SYRINGE IV SCH ×5 (05:48→21:08)
[2021-08-05] MEDS: ONDANSETRON 4 MG/2 ML VIAL IV PRN ×2 (05:55→23:58)
[2021-08-05 08:03] LABS: Hematocrit 29.4 % (34.1-44.9); Hemoglobin 10.1 g/dL (11.2-15.7); Mean Cell Volume 86.2 fL (80.0-100.0); Mean Corpuscular HGB Conc 34.4 g/dL (31.0-36.0); Mean Platelet Volume 9.5 fL (7.4-10.4); Platelet Count 382 K/mcL (140-440); RBC 3.41 M/mcL (3.59-5.38); WBC 16.6 K/mcL (4.5-11.0)
[2021-08-05 08:14] LABS: Blood Urea Nitrogen 29 mg/dL (8-23); Carbon Dioxide 21 mmol/L (22-30); Chloride 97 mmol/L (96-108); Glomerular Filtration Rate 51; Glucose 244 mg/dL (70-105); Phosphorous 2.4 mg/dL (2.5-4.5)
[2021-08-05] MEDS: FLUTICASONE HFA 220MCG INHALER INH SCH ×2 (08:40→20:25)
--- NOTE | 2021-08-05 10:09 | General Surgery Progress Note ---
SUBJECTIVE Subjective Patient information: Note initiated : 08/05/21 at 10:03 am Service Date, if different from initiated Date: [] Patient: Marge Benitez 71 y/o F admitted on 07/28/21 for Colostomy Reversal. Chief Complaint: [POD #1,#8] Having some pain issues this am, fevers and tachycardia have largely resolved. Denies SOB or Chest Pain. Principal diagnosis: Postop day #8 status post ostomy reversal Constitutional Vitals: Vital Signs Temp Pulse Resp BP Pulse Ox 98.1 F 104 H 18 113/66 95 08/05/21 08:00 08/05/21 08:00 08/05/21 08:00 08/05/21 08:00 08/05/21 08:00 Period Temp Pulse Resp BP Sys/Allen Pulse Ox Last 24 Hr 97.4 F-99.5 F 43-108 16-25 89-127/55-69 81-100 Intake and Output 08/04/21 08/05/21 08/05/21 21:59 05:59 13:59 Intake Total 1400 1000 50 Output Total 685 545 Balance 715 455 50 Weight 117 lb 1.6 oz Intake & Output: Intake & Output 08/04/21 08/05/21 08/05/21 21:59 05:59 13:59 Intake Total 1400 1000 50 Output Total 685 545 Balance 715 455 50 Weight 117 lb 1.6 oz Intake: IV 1400 1000 50 Dextrose 5%-1/2Ns IV Solution 1 1000 ,000 ml @ 125 mls/hr IV .Q8H [facility] Rx#:[id number] Dextrose 5%-Ns IV Solution 1, 1000 000 ml @ 125 mls/hr IV .Q8H [facility] Rx#:[id number] Zosyn 3.375 gm In Dextrose 5% 100 50 in Water 50 ml @ 100 mls/hr IV Q8H [facility] Rx#:[id number] Oral 0 Tube Feeding 0 0 0 Output: Gastric Drainage 400 150 Right Nare 400 150 Drainage 35 45 Left Abdomen RUSS Drain 25 25 Right Abdomen 10 20 Urine Catheter Amount 250 350 Other: Urine Appearance Clear Clear Urine Color Pale Dark Yellow Urine Odor Normal General appearance: cooperative and no acute distress Head Head exam: Present atraumatic and normocephalic Respiratory Additional comments: no respiratory distress, normal inspiratory effort Cardiovascular Cardiovascular exam: Present RRR GI/Abdominal Additional comments: dressings dry, stoma looks pink with early function, belly minimally distended, drains are serosang, non enteric Extremities Exam Additional comments: well perfused A/P Narrative A/P Narrative: Doing reasonably well this am Add a basal rate to [employer] for better pain control, will hold off on Toradol for now given her elevated BUN Leave NGT one more day and remove tomorrow Add Hep SQ for DVT prophylaxis Start TPN when available Continue IV ABs for now Apply VAC later on today, ambulate when able Time Spent With Patient Time: Total time spent is greater than 50% in coordination of care (as documented) at patient's floor/unit and/or counseling patient:
[2021-08-05] MEDS: 0.9 % SODIUM CHLORIDE 1,000 ML IV SCH ×2 (10:30→23:54)
[2021-08-05] MEDS: PROMETHAZINE 25 MG/ML VIAL IV PRN (10:38)
[2021-08-05] MEDS: LOSARTAN 25 MG TABLET PO SCH (10:39)
--- NOTE | 2021-08-05 11:46 | Operative Note ---
DATE OF OPERATION: 08/04/2021 PREOPERATIVE DIAGNOSIS: Rectosigmoid anastomotic leak. POSTOPERATIVE DIAGNOSIS: Rectosigmoid anastomotic leak. OPERATIVE PROCEDURE PERFORMED: 1. Exploratory laparotomy with washout and drainage. 2. Repair of rectosigmoid anastomotic leak. 3. Diverting loop ileostomy. SURGEON: Mehran Ortiz M.D. CERTIFIED MEDICAL DOSIMETRIST: Hernán Burnett M.D. ANESTHESIA: General. PREOPERATIVE MEDICATIONS: Zosyn 3.375 grams IV, Flagyl 500 mg IV, and Cipro 400 mg IV. INDICATIONS FOR PROCEDURE: The patient is a 71-year-old female who is roughly a week out from a colostomy takedown and reversal with Dr. Burnett with a stapled rectosigmoid anastomosis. She had done well for a period of time, but then had become increasingly uncomfortable with pain, nausea, fevers, tachycardia, along with an elevated white count. A suspicion of a potential anastomotic leak grew and a CT scan was obtained on the morning of 08/04/2021 with rectal contrast demonstrating substantial evidence of extravasation and leak at the rectosigmoid anastomosis. Based on all of this, we recommended proceeding to the operating room for exploration, washout and either a takedown and/or repair of the anastomosis with a stomal diversion, either as a colostomy or diverting loop ileostomy. Risks, benefits, potential complications, and alternative treatment options were all discussed with her at length. She understood the gravity of the situation and the need to proceed to the operating room in a fairly expedited manner and wished to proceed. PROCEDURE IN DETAIL: The patient was taken to the OR and placed supine on the OR table, placed under general anesthesia and intubated. Bilateral SCDs were applied. A nasogastric tube was already in place. A Frank catheter was placed as well. Arms were placed out on arm boards under the direction of the entire OR team, and she was positioned carefully on the table in as safe a manner as possible through the efforts of the entire OR team. The abdomen was then widely prepped and draped in a sterile fashion. Procedure began with takedown of the prior incision, and we dissected down through the subcutaneous tissues to the level of the fascial closure, which was still intact, and the previously-placed PDS sutures were removed to open up the fascia along the full length of the incision. It became immediately apparent that there was foul, enteric-appearing fluid in the abdominal cavity. This was irrigated out and suctioned free. The omentum was cleared from the underlying aspect of the incision. The bowel was mobilized up out of the pelvis to reveal an area of obvious leakage at the rectosigmoid anastomosis that appeared to have a breach at what was likely the closure of the common channel enterotomy. The anastomosis otherwise appeared to be well perfused and intact and without substantial tension, so the decision was made at that point to go ahead and close the area of the leak site with a series of full-thickness interrupted 3-0 silk sutures. We then irrigated the area out extensively and then brought in drains from both the right and left sides to position it around the anastomosis. These were a 10-[place] RUSS drains, the largest drains that we had. They were secured in place with 3-0 silk sutures. Once we irrigated this area out and made sure that everything appeared to be hemostatic and that the anastomosis itself now appeared to be well approximated and intact, we then made preparations for a diverting loop ileostomy. We irrigated out the upper abdomen, which contained a large amount of succuss as well, continued to irrigate and break up any areas of loculated interloop fluid. These were all irrigated free and suctioned out and then we chose an area roughly 20 to 30 cm proximal to the ileocecal valve and made a small standard opening roughly at the level of the umbilicus in the right mid lateral abdominal wall in standard fashion and delivered the loop of ileum up through this for a planned diverting loop ileostomy. A 14-[place] red rubber Frank catheter was positioned as a stomal bridge underneath this and we then made preparations for closure prior to maturation of the stoma. We irrigated out a final time and made sure there was no active bleeding or hemorrhage, and the incision was then closed at the fascial level with a running looped 0 PDS. Great care was taken to avoid any injury to underlying structures, and the bowel was kept down and away. Sponge, needle, and instrument counts were checked multiple times and found to be correct. We irrigated out a final time and then elected to go ahead and pack the incision open with a moistened Kerlix roll rather than close the skin due to the risk of infection. Next, the loop ileostomy was matured with a longitudinally-oriented incision on the antimesenteric surface and the mucocutaneous junction was secured with a series of interrupted 3-0 Vicryl sutures. Patency in the efferent and afferent limbs was then checked briefly and the stomal bridge was secured in place. Stomal appliance was applied over this. An ABD pad was applied over the fascial closure and this completed the procedure. The patient was then awakened, extubated, and transferred to PACU in satisfactory condition. No apparent complications or issues. Sponge, needle, and instrument counts were correct. Findings were as discussed above. Estimated blood loss was roughly 50 mL. BW:maryann Job ID: [id number] Doc ID: [id number] Mehran Ortiz M.D.
[2021-08-05] MEDS: [UNRECOGNIZED DRUG - OTHER] IV SCH (12:29)
[2021-08-05] MEDS: POTASSIUM CHLORIDE IV SCH (12:29)
[2021-08-05] MEDS: CALCIUM GLUCONATE IV SCH (12:29)
[2021-08-05] MEDS: SODIUM CHLORIDE IV SCH (12:29)
[2021-08-05] MEDS: FAT EMULSION 20% 250 ML IV SCH (16:11)
[2021-08-05] MEDS: HYDROmorphone 0.5 MG/0.5 ML SYRINGE IV PRN (18:25)
[2021-08-05] MEDS: HEPARIN 5,000 UNIT/ML VIAL SQ SCH (20:24)
[2021-08-06] MEDS: HYDROmorphone 0.5 MG/0.5 ML SYRINGE IV PRN (04:13)
[2021-08-06] MEDS: 0.9 % SODIUM CHLORIDE 10 ML SYRINGE IV SCH ×5 (05:32→20:07)
[2021-08-06] MEDS: PIPERACILLIN SODIUM/TAZOBACTAM 3.375 GM in DEXTROSE 5% IN WATER 50 ML IV SCH ×3 (05:32→21:28)
[2021-08-06] MEDS: 0.9 % SODIUM CHLORIDE 1,000 ML IV SCH ×2 (05:34→12:23)
[2021-08-06 06:15] LABS: Hematocrit 25.4 % (34.1-44.9); Hemoglobin 8.4 g/dL (11.2-15.7); Mean Cell Volume 88.5 fL (80.0-100.0); Mean Corpuscular HGB Conc 33.1 g/dL (31.0-36.0); Mean Platelet Volume 9.1 fL (7.4-10.4); Platelet Count 393 K/mcL (140-440); RBC 2.87 M/mcL (3.59-5.38); Red Cell Distribution Width 13.2 % (11.5-14.5)
[2021-08-06 06:40] LABS: Blood Urea Nitrogen 35 mg/dL (8-23); Calcium 8.1 mg/dL (8.6-10.4); Carbon Dioxide 25 mmol/L (22-30); Chloride 101 mmol/L (96-108); Glomerular Filtration Rate 75; Glucose 176 mg/dL (70-105)
[2021-08-06] MEDS: HEPARIN 5,000 UNIT/ML VIAL SQ SCH ×2 (09:01→20:15)
[2021-08-06] MEDS: LOSARTAN 25 MG TABLET PO SCH (09:02)
[2021-08-06] MEDS: FLUTICASONE HFA 220MCG INHALER INH SCH ×2 (09:13→20:12)
[2021-08-06] MEDS: HYDROmorphone PCA 30 MG/30 ML PCA.VIAL IV PRN ×2 (10:05→13:37)
--- NOTE | 2021-08-06 10:30 | General Surgery Progress Note ---
SUBJECTIVE Subjective Patient information: Note initiated : 08/06/21 at 10:23 am Service Date, if different from initiated Date: [] Patient: Marge Benitez 71 y/o F admitted on 07/28/21 for Colostomy Reversal. Chief Complaint: [POD #2,#9] Has ambulated today and pain control seems better overall. Voiding large amounts. TPN is running at appropriate rate. Principal diagnosis: Postop day #8 status post ostomy reversal Constitutional Vitals: Vital Signs Temp Pulse Resp BP Pulse Ox 97.7 F 106 H 16 126/63 96 08/06/21 07:34 08/06/21 07:34 08/06/21 10:05 08/06/21 07:34 08/06/21 07:34 Period Temp Pulse Resp BP Sys/Allen Pulse Ox Last 24 Hr 96.6 F-98.7 F 99-113 14-20 110-139/57-75 92-96 Intake and Output 08/05/21 08/06/21 08/06/21 21:59 05:59 13:59 Intake Total 50 1380 15 Output Total 250 1210 575 Balance -200 170 -560 Weight 117 lb 8 oz Intake & Output: Intake & Output 08/05/21 08/06/21 08/06/21 21:59 05:59 13:59 Intake Total 50 1380 15 Output Total 250 1210 575 Balance -200 170 -560 Weight 117 lb 8 oz Intake: IV 50 1300 Sodium Chloride 0.9% 1,000 ml @ 1000 75 mls/hr IV .[id number] [facility] Rx#: [id number] Intralipid 20% 250 ml @ 25 mls/ 250 hr IV [id number] [facility] Rx#: [id number] Zosyn 3.375 gm In Dextrose 5% 50 50 in Water 50 ml @ 100 mls/hr IV Q8H [facility] Rx#:[id number] Oral 80 Tube Feeding 0 0 0 GI Tube Flush 15 Output: Gastric Drainage 500 Right Nare 500 Drainage 35 25 Left Abdomen RUSS Drain 15 15 Mid ABD wound vac 0 Right Abdomen 20 10 Drainage 50 Left Abdomen RUSS Drain 30 Right Abdomen 20 Urine Catheter Amount 550 450 Stool 200 125 100 Other: Urine Appearance Cloudy Uretheral (Jacobs) Clear Clear Urine Color Light Alexandrea Uretheral (Jacobs) Dark Alexandrea Light Alexandrea Stool Color Green Green Green Stool Consistency Watery Watery Liquid General appearance: cooperative and no acute distress Head Head exam: Present atraumatic and normocephalic Eye Eye exam: Present normal appearance Respiratory Additional comments: no respiratory distress Cardiovascular Cardiovascular exam: Present normal rate and rhythm and RRR GI/Abdominal Additional comments: soft and non distended, VAC in place at midline wound. Drains appear enteric today in smaller amounts. Ostomy working well with large amount of succus and air Neurological Exam Neurological exam: Present oriented X3 Psychiatric Additional comments: affect appropriate to situation A/P Narrative A/P Narrative: POD #2,#9 Pain control seems better today. Enteric drainage at pelvic drains noted and likely indicative of leaking of residual colonic content. Empty drains frequently and broaden AB coverage for now. She seems fully diverted with current ostomy so will hope for clearance of pelvic drains in coming days. Continue NPO for now but anticipate NGT removal and leave jacobs given need for stricter I/Os Care conference planned for later today Time Spent With Patient Time: Total time spent is greater than 50% in coordination of care (as documented) at patient's floor/unit and/or counseling patient:
[2021-08-06] MEDS: [UNRECOGNIZED DRUG - OTHER] IV SCH (11:19)
[2021-08-06] MEDS: CALCIUM GLUCONATE IV SCH (11:19)
[2021-08-06] MEDS: POTASSIUM CHLORIDE IV SCH (11:19)
[2021-08-06] MEDS: SODIUM CHLORIDE IV SCH (11:19)
[2021-08-06] MEDS: CIPROFLOXACIN 400 MG/200 ML BAG IV SCH ×2 (11:30→20:06)
[2021-08-07] MEDS: ACETAMINOPHEN 650 MG/65 ML BAG IV PRN ×4 (00:01→19:49)
[2021-08-07] MEDS: ONDANSETRON 4 MG/2 ML VIAL IV PRN ×4 (00:03→20:59)
[2021-08-07] MEDS: 0.9 % SODIUM CHLORIDE 1,000 ML IV SCH ×3 (00:10→16:20)
[2021-08-07] MEDS: PIPERACILLIN SODIUM/TAZOBACTAM 3.375 GM in DEXTROSE 5% IN WATER 50 ML IV SCH ×3 (05:34→22:27)
[2021-08-07] MEDS: 0.9 % SODIUM CHLORIDE 10 ML SYRINGE IV SCH ×4 (05:35→21:06)
[2021-08-07 06:34] LABS: Hematocrit 24.9 % (34.1-44.9); Hemoglobin 8.1 g/dL (11.2-15.7); Mean Cell Volume 90.2 fL (80.0-100.0); Mean Corpuscular HGB Conc 32.5 g/dL (31.0-36.0); Mean Platelet Volume 9.2 fL (7.4-10.4); Platelet Count 389 K/mcL (140-440); RBC 2.76 M/mcL (3.59-5.38); Red Cell Distribution Width 13.2 % (11.5-14.5); WBC 15.4 K/mcL (4.5-11.0)
[2021-08-07 06:54] LABS: ALT/SGPT 9 U/L (<40); AST/SGOT 20 U/L (<32); Albumin 1.9 gm/dL (3.2-5.2); Albumin/Globulin Ratio 0.6 (1.0-2.3); Alkaline Phosphatase 62 U/L (39-117); Bilirubin,Direct < 0.2 mg/dL (0-0.3); Bilirubin,Total 0.3 mg/dL (0.1-1.0); Blood Urea Nitrogen 21 mg/dL (8-23); Carbon Dioxide 26 mmol/L (22-30); Chloride 101 mmol/L (96-108); Glomerular Filtration Rate 93; Glucose 155 mg/dL (70-105); Lactate Dehydrogenase 204 U/L (135-225); Phosphorous 1.6 mg/dL (2.5-4.5); Triglycerides 128 mg/dL (<150); Uric Acid 0.9 mg/dL (2.5-8.0)
[2021-08-07] MEDS: LOSARTAN 25 MG TABLET PO SCH (08:05)
[2021-08-07] MEDS: CIPROFLOXACIN 400 MG/200 ML BAG IV SCH ×2 (08:05→20:59)
[2021-08-07] MEDS: HEPARIN 5,000 UNIT/ML VIAL SQ SCH ×2 (08:05→20:58)
[2021-08-07] MEDS: FLUTICASONE HFA 220MCG INHALER INH SCH ×2 (08:25→21:06)
--- NOTE | 2021-08-07 09:14 | General Surgery Progress Note ---
SUBJECTIVE Subjective Patient information: Note initiated : 08/07/21 at 9:06 am Service Date, if different from initiated Date: [] Patient: Mareg Benitez 71 y/o F admitted on 07/28/21 for Colostomy Reversal. Chief Complaint: [POD#3,#10] Overall she feels much better today with much improved pain control and better ambulation. No temps or substantial tachycardia overnight. Principal diagnosis: Postop day #10 status post ostomy reversal Constitutional Vitals: Vital Signs Temp Pulse Resp BP Pulse Ox 97.3 F 86 16 132/73 93 08/07/21 07:39 08/07/21 07:39 08/07/21 07:39 08/07/21 07:39 08/07/21 07:39 Period Temp Pulse Resp BP Sys/Allen Pulse Ox Last 24 Hr 97.3 F-100.6 F 85-112 16-22 118-148/60-78 93-96 Intake and Output 08/06/21 08/07/21 08/07/21 21:59 05:59 13:59 Intake Total 1350 65 115 Output Total 1410 1425 470 Balance -60 -1360 -355 Weight 118 lb 11.2 oz Intake & Output: Intake & Output 08/06/21 08/07/21 08/07/21 21:59 05:59 13:59 Intake Total 1350 65 115 Output Total 1410 1425 470 Balance -60 -1360 -355 Weight 118 lb 11.2 oz Intake: IV 1300 65 115 Sodium Chloride 0.9% 1,000 ml @ 1000 75 mls/hr IV .[id number] [facility] Rx#: [id number] Zosyn 3.375 gm In Dextrose 5% 100 50 in Water 50 ml @ 100 mls/hr IV Q8H [facility] Rx#:[id number] Oral 0 0 GI Tube Flush 50 Output: Drainage 29 15 Left Abdomen RUSS Drain 12 10 Mid ABD wound vac 5 Right Abdomen 12 5 Drainage 6 0 20 Left Abdomen RUSS Drain 3 0 10 Right Abdomen 3 0 10 Urine Catheter Amount 950 1050 325 Stool 425 360 125 Other: Urine Appearance Clear Clear Clear Uretheral (Jacobs) Clear Urine Color Bright Yellow Pale Dark Yellow Uretheral (Jacobs) Bright Yellow Urine Odor Normal Stool Color Brown Black Brown Green Stool Consistency Liquid Liquid Liquid General appearance: cooperative and no acute distress Head Head exam: Present atraumatic, normal inspection and normocephalic Eye Eye exam: Present normal appearance Respiratory Additional comments: no respiratory distress Cardiovascular Cardiovascular exam: Present normal rate and rhythm and RRR GI/Abdominal Additional comments: belly soft and flat, minimal tenderness, JPD drains scant enteric drainage, ostomy looks viable and functional, midline VAC in place Additional comments: jacobs in place Extremities Exam Additional comments: well perfused Neurological Exam Neurological exam: Present oriented X3 Psychiatric Psychiatric exam: Present normal affect A/P Assessment and plan (1) Colostomy in place: Assessment and plan: Doing well this am - looks and feels much better Well hydrated with marked improvement in urine output and renal function Continue current ABs, D/C Jacobs, Clear Sips, Increase activity as tolerated Re check labs in AM, Continue TPN Status: Acute Time Spent With Patient Time: Total time spent is greater than 50% in coordination of care (as documented) at patient's floor/unit and/or counseling patient:
[2021-08-07] MEDS ORDERED: SODIUM CHLORIDE IV SCH (11:00)
[2021-08-07] MEDS ORDERED: [UNRECOGNIZED DRUG - OTHER] IV SCH (11:00)
[2021-08-07] MEDS ORDERED: CALCIUM GLUCONATE IV SCH (11:00)
[2021-08-07] MEDS ORDERED: POTASSIUM CHLORIDE IV SCH (11:00)
[2021-08-07] MEDS: FAT EMULSION 20% 250 ML IV SCH (16:19)
[2021-08-07] MEDS: PROMETHAZINE 25 MG/ML VIAL IV PRN (21:12)
[2021-08-08] MEDS: PROMETHAZINE 25 MG/ML VIAL IV PRN ×2 (04:04→09:00)
[2021-08-08] MEDS: 0.9 % SODIUM CHLORIDE 10 ML SYRINGE IV SCH ×4 (05:06→20:12)
[2021-08-08] MEDS: PIPERACILLIN SODIUM/TAZOBACTAM 3.375 GM in DEXTROSE 5% IN WATER 50 ML IV SCH (05:58)
[2021-08-08] MEDS: 0.9 % SODIUM CHLORIDE 1,000 ML IV SCH ×3 (06:28→17:49)
[2021-08-08] MEDS: ONDANSETRON 4 MG/2 ML VIAL IV PRN ×3 (06:42→16:03)
[2021-08-08] MEDS: ACETAMINOPHEN 650 MG/65 ML BAG IV PRN ×2 (06:42→13:53)
[2021-08-08 06:48] LABS: Hematocrit 25.6 % (34.1-44.9); Hemoglobin 8.4 g/dL (11.2-15.7); Mean Cell Volume 89.2 fL (80.0-100.0); Mean Corpuscular HGB Conc 32.8 g/dL (31.0-36.0); Mean Platelet Volume 9.1 fL (7.4-10.4); Platelet Count 428 K/mcL (140-440); RBC 2.87 M/mcL (3.59-5.38); Red Cell Distribution Width 13.1 % (11.5-14.5); WBC 20.5 K/mcL (4.5-11.0)
[2021-08-08 07:24] LABS: Blood Urea Nitrogen 13 mg/dL (8-23); Calcium 8.5 mg/dL (8.6-10.4); Carbon Dioxide 20 mmol/L (22-30); Chloride 99 mmol/L (96-108); Glomerular Filtration Rate 98; Glucose 156 mg/dL (70-105)
[2021-08-08] MEDS: LOSARTAN 25 MG TABLET PO SCH (08:02)
[2021-08-08] MEDS: PRAMIPEXOLE 0.25 MG TABLET PO PRN (08:02)
[2021-08-08] MEDS: METHOCARBAMOL 1,000 MG/10 ML VIAL IV PRN (08:02)
[2021-08-08] MEDS: CIPROFLOXACIN 400 MG/200 ML BAG IV SCH ×2 (08:03→20:17)
[2021-08-08] MEDS: HEPARIN 5,000 UNIT/ML VIAL SQ SCH ×2 (08:03→20:17)
[2021-08-08] MEDS: FLUTICASONE HFA 220MCG INHALER INH SCH ×2 (08:10→20:11)
[2021-08-08 08:11] LABS: Phosphorous 2.7 mg/dL (2.5-4.5)
[2021-08-08] MEDS: LORazepam 2 MG/ML VIAL IV PRN (09:45)
--- NOTE | 2021-08-08 10:18 | General Surgery Progress Note ---
SUBJECTIVE Subjective Patient information: Note initiated : 08/08/21 at 10:08 am Service Date, if different from initiated Date: [] Patient: Marge Benitez 71 y/o F admitted on 07/28/21 for Colostomy Reversal. Chief Complaint: [POD #4, #11] Did well through most of the day yesterday but not feeling well this am with both Nausea and severe issues with Restless Leg as her most dominant issues. She has had decent ostomy function and only scant drainage out of the pelvic drains per nursing. Principal diagnosis: Postop day #10 status post ostomy reversal Constitutional Vitals: Vital Signs Temp Pulse Resp BP Pulse Ox 99.5 F H 105 H 18 171/87 92 08/08/21 08:00 08/08/21 08:00 08/08/21 08:00 08/08/21 08:00 08/08/21 08:00 Period Temp Pulse Resp BP Sys/Allen Pulse Ox Last 24 Hr 97 F-100.1 F 84-107 14-28 139-171/76-87 92-97 Intake and Output 08/07/21 08/08/21 08/08/21 21:59 05:59 13:59 Intake Total 465 730 641 Output Total 580 1966 1200 Balance -115 -1236 -559 Weight 115 lb 12.8 oz Intake & Output: Intake & Output 08/07/21 08/08/21 08/08/21 21:59 05:59 13:59 Intake Total 465 730 641 Output Total 580 1966 1200 Balance -115 -1236 -559 Weight 115 lb 12.8 oz Intake: IV 465 730 641 Sodium Chloride 0.9% 1,000 ml @ 350 230 326 75 mls/hr IV .[id number] [facility] Rx#: [id number] Intralipid 20% 250 ml @ 25 mls/ 250 hr IV [id number] [facility] Rx#: [id number] Zosyn 3.375 gm In Dextrose 5% 50 50 50 in Water 50 ml @ 100 mls/hr IV Q8H [facility] Rx#:[id number] Oral 0 Output: Drainage 5 16 Left Abdomen RUSS Drain 5 13 Right Abdomen 3 Urine Catheter Amount 250 1400 800 Stool 325 550 400 Other: Urine Appearance Uretheral (Jacobs) Clear Urine Color Bright Yellow Straw Uretheral (Jacobs) Straw Straw Stool Color Brown Green Exam: appears anxious and restless but in NAD Respiratory Additional comments: no respiratory distress Cardiovascular Cardiovascular exam: Present RRR GI/Abdominal Additional comments: belly seems soft and flat. Midline VAC in place doing well. JPD scant lightening enteric drainage. Stoma has liquid stool and appears well perfused Extremities Exam Additional comments: no edema, well perfused A/P Narrative A/P Narrative: POD #4, #11 Increasing WBC and low grade temps despite overall looking quite stable. Will change to Meropenem and add an Antifungal as well and consider adding Vanco if WBC and temps not trending down by tomorrow Also will add Ativan PRN for anxiety Re check labs in AM Hold off on Clears for now given degree of nausea, likely d/c jacobs tomorrow if she's feeling more ambulatory Time Spent With Patient Time: Total time spent is greater than 50% in coordination of care (as documented) at patient's floor/unit and/or counseling patient:
[2021-08-08] MEDS: CALCIUM GLUCONATE IV SCH (10:43)
[2021-08-08] MEDS: SODIUM CHLORIDE IV SCH (10:43)
[2021-08-08] MEDS: POTASSIUM CHLORIDE IV SCH (10:43)
[2021-08-08] MEDS: [UNRECOGNIZED DRUG - OTHER] IV SCH (10:43)
[2021-08-08] MEDS: FLUCONAZOLE 200 MG/100 ML BAG IV SCH (10:43)
[2021-08-08] MEDS: MEROPENEM 1 GM in 0.9 % SODIUM CHLORIDE 100 ML IV SCH ×2 (11:49→22:24)
[2021-08-08] MEDS: HYDROmorphone PCA 30 MG/30 ML PCA.VIAL IV PRN (13:41)
[2021-08-08] MEDS ORDERED: MEROPENEM 0.5 GM in 0.9 % SODIUM CHLORIDE 50 ML IV SCH (14:00)
[2021-08-09] MEDS: ACETAMINOPHEN 650 MG/65 ML BAG IV PRN ×4 (00:03→23:57)
[2021-08-09] MEDS: 0.9 % SODIUM CHLORIDE 1,000 ML IV SCH ×3 (05:16→21:45)
[2021-08-09] MEDS: MEROPENEM 1 GM in 0.9 % SODIUM CHLORIDE 100 ML IV SCH ×3 (05:16→21:54)
[2021-08-09] MEDS: 0.9 % SODIUM CHLORIDE 10 ML SYRINGE IV SCH ×3 (05:17→20:20)
[2021-08-09 07:02] LABS: Hematocrit 25.7 % (34.1-44.9); Hemoglobin 8.4 g/dL (11.2-15.7); Mean Cell Volume 89.9 fL (80.0-100.0); Mean Corpuscular HGB Conc 32.7 g/dL (31.0-36.0); Mean Platelet Volume 9.5 fL (7.4-10.4); Platelet Count 481 K/mcL (140-440); RBC 2.86 M/mcL (3.59-5.38); Red Cell Distribution Width 13.4 % (11.5-14.5); WBC 18.7 K/mcL (4.5-11.0)
[2021-08-09] MEDS: ONDANSETRON 4 MG/2 ML VIAL IV PRN ×3 (07:12→21:06)
[2021-08-09 07:24] LABS: Blood Urea Nitrogen 18 mg/dL (8-23); Calcium 8.3 mg/dL (8.6-10.4); Carbon Dioxide 23 mmol/L (22-30); Chloride 104 mmol/L (96-108); Glomerular Filtration Rate 98; Glucose 150 mg/dL (70-105)
[2021-08-09 07:25] LABS: ALT/SGPT 10 U/L (<40); AST/SGOT 18 U/L (<32); Albumin/Globulin Ratio 0.6 (1.0-2.3); Alkaline Phosphatase 79 U/L (39-117); Bilirubin,Direct < 0.2 mg/dL (0-0.3); Bilirubin,Total 0.2 mg/dL (0.1-1.0); Globulin 3.3 gm/dL (2.2-3.7); Lactate Dehydrogenase 163 U/L (135-225); Phosphorous 3.2 mg/dL (2.5-4.5); Triglycerides 128 mg/dL (<150); Uric Acid 0.9 mg/dL (2.5-8.0)
[2021-08-09] MEDS: CIPROFLOXACIN 400 MG/200 ML BAG IV SCH ×2 (08:12→20:11)
[2021-08-09] MEDS: FLUTICASONE HFA 220MCG INHALER INH SCH ×2 (08:26→20:14)
[2021-08-09] MEDS: LOSARTAN 25 MG TABLET PO SCH (08:31)
[2021-08-09] MEDS: HEPARIN 5,000 UNIT/ML VIAL SQ SCH ×2 (08:31→20:18)
[2021-08-09] MEDS: FLUCONAZOLE 200 MG/100 ML BAG IV SCH (09:33)
[2021-08-09] MEDS: PROMETHAZINE 25 MG/ML VIAL IV PRN (10:26)
--- NOTE | 2021-08-09 10:48 | General Surgery Progress Note ---
SUBJECTIVE Subjective Patient information: Note initiated : 08/09/21 at 10:44 am Service Date, if different from initiated Date: [] Patient: Marge Benitez 71 y/o F admitted on 07/28/21 for Colostomy Reversal. Chief Complaint: [POD #5, #12] She feels better today, about to get up and ambulate, nausea persists but not as severe Principal diagnosis: Postop day #12 status post ostomy reversal Constitutional Vitals: Vital Signs Temp Pulse Resp BP Pulse Ox 100.0 F H 98 H 20 159/81 98 08/09/21 07:21 08/09/21 07:21 08/09/21 05:47 08/09/21 07:21 08/09/21 07:21 Period Temp Pulse Resp BP Sys/Allen Pulse Ox Last 24 Hr 97.3 F-100.7 F 82-103 16-24 138-169/77-91 95-98 Intake and Output 08/08/21 08/09/21 08/09/21 21:59 05:59 13:59 Intake Total 295 1165 365 Output Total 450 1213 875 Balance -155 -48 -510 Weight 120 lb 4.8 oz Intake & Output: Intake & Output 08/08/21 08/09/21 08/09/21 21:59 05:59 13:59 Intake Total 295 1165 365 Output Total 450 1213 875 Balance -155 -48 -510 Weight 120 lb 4.8 oz Intake: IV 265 1165 365 Sodium Chloride 0.9% 1,000 ml @ 1000 75 mls/hr IV .[id number] [facility] Rx#: [id number] Merrem 1 gm In Sodium Chloride 100 100 0.9% 100 ml @ 100 mls/hr IV Q8H [facility] Rx#:[id number] Oral 30 0 Output: Drainage 13 Left Abdomen RUSS Drain 3 Mid ABD wound vac 0 Right Abdomen 10 Urine Catheter Amount 150 675 550 Stool 300 525 325 Other: Urine Appearance Clear Uretheral (Frank) Clear Clear Urine Color Straw Bright Yellow Uretheral (Frank) Straw Straw Stool Color Green Green Green Stool Consistency Watery Watery Liquid Exam: remains anxious but NAD Respiratory Additional comments: no respiratory distress Cardiovascular Cardiovascular exam: Present normal rate and rhythm and RRR GI/Abdominal Additional comments: belly seems soft and flat, some expected tendernss, VAC in place, JPDs scant thinning enteric, excellent output in stoma Extremities Exam Additional comments: well perfused A/P Narrative A/P Narrative: Seems better today overall Will D/C Frank and start clears Continue broad spectrum IV ABs with WBC coming back down albeit low grade temps continue High risk of intra abdominal absces - consider CT later this week if temps and elevated WBC persist Increase activity level as able and re check labs in AM Time Spent With Patient Time: Total time spent is greater than 50% in coordination of care (as documented) at patient's floor/unit and/or counseling patient:
[2021-08-09] MEDS: SODIUM CHLORIDE IV SCH (11:21)
[2021-08-09] MEDS: POTASSIUM CHLORIDE IV SCH (11:21)
[2021-08-09] MEDS: [UNRECOGNIZED DRUG - OTHER] IV SCH (11:21)
[2021-08-09] MEDS: CALCIUM GLUCONATE IV SCH (11:21)
[2021-08-09] MEDS: HYDROmorphone PCA 30 MG/30 ML PCA.VIAL IV PRN (13:19)
[2021-08-10] MEDS: 0.9 % SODIUM CHLORIDE 1,000 ML IV SCH ×2 (04:05→10:37)
[2021-08-10] MEDS: MEROPENEM 1 GM in 0.9 % SODIUM CHLORIDE 100 ML IV SCH ×3 (05:13→23:03)
[2021-08-10] MEDS: 0.9 % SODIUM CHLORIDE 10 ML SYRINGE IV SCH ×3 (05:57→21:38)
[2021-08-10 07:25] LABS: Hematocrit 27.1 % (34.1-44.9); Hemoglobin 8.6 g/dL (11.2-15.7); Mean Cell Volume 91.6 fL (80.0-100.0); Mean Corpuscular HGB Conc 31.7 g/dL (31.0-36.0); Mean Platelet Volume 10.3 fL (7.4-10.4); Platelet Count 512 K/mcL (140-440); RBC 2.96 M/mcL (3.59-5.38); Red Cell Distribution Width 13.4 % (11.5-14.5); WBC 14.5 K/mcL (4.5-11.0)
[2021-08-10 07:54] LABS: Blood Urea Nitrogen 15 mg/dL (8-23); Calcium 8.2 mg/dL (8.6-10.4); Carbon Dioxide 22 mmol/L (22-30); Chloride 98 mmol/L (96-108); Glomerular Filtration Rate 98; Glucose 128 mg/dL (70-105)
[2021-08-10] MEDS: FLUCONAZOLE 200 MG/100 ML BAG IV SCH (08:14)
[2021-08-10] MEDS: HEPARIN 5,000 UNIT/ML VIAL SQ SCH ×2 (08:14→21:37)
[2021-08-10] MEDS: FLUTICASONE HFA 220MCG INHALER INH SCH ×2 (08:14→21:17)
[2021-08-10] MEDS: LOSARTAN 25 MG TABLET PO SCH (08:14)
[2021-08-10 08:23] LABS: Phosphorous 2.9 mg/dL (2.5-4.5)
[2021-08-10] MEDS: CIPROFLOXACIN 400 MG/200 ML BAG IV SCH ×2 (09:03→21:17)
[2021-08-10] MEDS: PROMETHAZINE 25 MG/ML VIAL IV PRN (09:06)
[2021-08-10] MEDS ORDERED: CALCIUM GLUCONATE IV SCH (11:00)
[2021-08-10] MEDS ORDERED: [UNRECOGNIZED DRUG - OTHER] IV SCH (11:00)
[2021-08-10] MEDS ORDERED: SODIUM CHLORIDE IV SCH (11:00)
[2021-08-10] MEDS ORDERED: POTASSIUM PHOSPHATE IV SCH (11:00)
[2021-08-10] MEDS: ONDANSETRON 4 MG/2 ML VIAL IV PRN (13:27)
[2021-08-10] MEDS: FAT EMULSION 20% 250 ML IV SCH (15:42)
[2021-08-10] MEDS: HYDROmorphone PCA 30 MG/30 ML PCA.VIAL IV PRN (16:40)
[2021-08-11] MEDS: 0.9 % SODIUM CHLORIDE 1,000 ML IV SCH ×2 (04:14→12:32)
[2021-08-11] MEDS: MEROPENEM 1 GM in 0.9 % SODIUM CHLORIDE 100 ML IV SCH ×3 (05:59→22:02)
[2021-08-11] MEDS: 0.9 % SODIUM CHLORIDE 10 ML SYRINGE IV SCH ×3 (05:59→22:02)
[2021-08-11] MEDS: CIPROFLOXACIN 400 MG/200 ML BAG IV SCH ×2 (08:20→21:56)
[2021-08-11] MEDS: LOSARTAN 25 MG TABLET PO SCH (08:20)
[2021-08-11] MEDS: HEPARIN 5,000 UNIT/ML VIAL SQ SCH ×2 (08:20→21:55)
[2021-08-11] MEDS: FLUTICASONE HFA 220MCG INHALER INH SCH ×2 (08:21→21:57)
[2021-08-11 09:33] LABS: ALT/SGPT 29 U/L (<40); AST/SGOT 47 U/L (<32); Albumin 2.2 gm/dL (3.2-5.2); Albumin/Globulin Ratio 0.7 (1.0-2.3); Alkaline Phosphatase 104 U/L (39-117); Bilirubin,Direct < 0.2 mg/dL (0-0.3); Bilirubin,Total 0.2 mg/dL (0.1-1.0); Blood Urea Nitrogen 16 mg/dL (8-23); Calcium 8.2 mg/dL (8.6-10.4); Carbon Dioxide 24 mmol/L (22-30); Chloride 98 mmol/L (96-108); Globulin 3.2 gm/dL (2.2-3.7); Glomerular Filtration Rate 98; Glucose 144 mg/dL (70-105); Lactate Dehydrogenase 169 U/L (135-225); Phosphorous 2.8 mg/dL (2.5-4.5); Triglycerides 93 mg/dL (<150)
--- NOTE | 2021-08-11 09:33 | General Surgery Progress Note ---
SUBJECTIVE Subjective Patient information: Note initiated : 08/11/21 at 9:30 am Service Date, if different from initiated Date: [] Patient: Marge Benitez 71 y/o F admitted on 07/28/21 for Colostomy Reversal. Chief Complaint: [] Principal diagnosis: Postop day #13 status post ostomy reversal Interval history: Patient feels better this morning, she is ambulatory. She continues to have good ileostomy output, decreased output out of the pelvic drains. No fevers, chills. Nausea much improved. Constitutional Vitals: Vital Signs Temp Pulse Resp BP Pulse Ox 97.6 F 91 H 22 125/67 97 08/11/21 07:39 08/11/21 07:39 08/11/21 07:39 08/11/21 07:39 08/11/21 07:39 Period Temp Pulse Resp BP Sys/Allen Pulse Ox Last 24 Hr 97.6 F-99.7 F 91-112 16-24 123-145/67-86 92-97 Intake and Output 08/10/21 08/11/21 08/11/21 21:59 05:59 13:59 Intake Total 1037 863 150 Output Total 865 858 555 Balance 172 5 -405 Weight 117 lb 1.6 oz Intake & Output: Intake & Output 08/10/21 08/11/21 08/11/21 21:59 05:59 13:59 Intake Total 1037 863 150 Output Total 865 858 555 Balance 172 5 -405 Weight 117 lb 1.6 oz Intake: IV 1037 613 100 Sodium Chloride 0.9% 1,000 ml @ 937 63 75 mls/hr IV .[id number] [facility] Rx#: [id number] Intralipid 20% 250 ml @ 25 mls/ 250 hr IV MoWeFr@1600 [facility] Rx#: [id number] Merrem 1 gm In Sodium Chloride 100 100 100 0.9% 100 ml @ 100 mls/hr IV Q8H [facility] Rx#:[id number] Oral 250 50 Output: Drainage 15 8 5 Left Abdomen RUSS Drain 3 Right Abdomen 15 5 5 Void Amount 500 500 400 Stool 350 350 150 Other: Urine Appearance Clear Clear Urine Color Bright Yellow Bright Yellow General appearance: cooperative and no acute distress GI/Abdominal GI/Abdominal exam: Present soft; Absent distended or tenderness Additional comments: Incision is clean dry and intact, and wound VAC. A/P Narrative A/P Narrative: Slowly improving. Advance diet to regular, continue with ambulation. Wean TPN to off over the next few days. We will decrease IV medications and changed to p.o. Time Spent With Patient Time: Total time spent is greater than 50% in coordination of care (as documented) at patient's floor/unit and/or counseling patient:
[2021-08-11] MEDS: FLUCONAZOLE 200 MG/100 ML BAG IV SCH (09:55)
[2021-08-11] MEDS ORDERED: POTASSIUM PHOSPHATE IV SCH (11:30)
[2021-08-11] MEDS ORDERED: CALCIUM GLUCONATE IV SCH (11:30)
[2021-08-11] MEDS ORDERED: [UNRECOGNIZED DRUG - OTHER] IV SCH (11:30)
[2021-08-11] MEDS ORDERED: SODIUM CHLORIDE IV SCH (11:30)
[2021-08-11] MEDS ORDERED: TPN PER PHARMACY IV ONE (15:59)
[2021-08-11] MEDS: HYDROmorphone PCA 30 MG/30 ML PCA.VIAL IV PRN (17:12)
[2021-08-11] MEDS: METHOCARBAMOL 1,000 MG/10 ML VIAL IV PRN (19:33)
[2021-08-11] MEDS: oxyCODONE HCL 5 MG TABLET PO PRN (19:34)
[2021-08-11] MEDS: ONDANSETRON 4 MG/2 ML VIAL IV PRN (19:56)
[2021-08-11] MEDS: HYDROmorphone 0.5 MG/0.5 ML SYRINGE IV PRN (21:56)
[2021-08-12] MEDS: 0.9 % SODIUM CHLORIDE 1,000 ML IV SCH ×2 (00:51→16:32)
[2021-08-12] MEDS: HYDROmorphone 0.5 MG/0.5 ML SYRINGE IV PRN ×5 (04:00→22:09)
[2021-08-12] MEDS: MEROPENEM 1 GM in 0.9 % SODIUM CHLORIDE 100 ML IV SCH ×3 (05:36→21:45)
[2021-08-12] MEDS: 0.9 % SODIUM CHLORIDE 10 ML SYRINGE IV SCH ×3 (05:36→21:45)
[2021-08-12 06:49] LABS: Basophils # (Auto) 0.08 K/mcL (0.00-0.30); Basophils % (Auto) 0.5 % (0.0-2.0); Eosinophils # (Auto) 0.14 K/mcL (0.00-0.70); Eosinophils % (Auto) 0.9 % (0.0-7.0); Hematocrit 24.2 % (34.1-44.9); Lymphocytes # (Auto) 1.72 K/mcL (1.50-4.80); Lymphocytes % (Auto) 10.9 % (15.5-49.0); Mean Cell Volume 88.6 fL (80.0-100.0); Mean Corpuscular HGB Conc 33.1 g/dL (31.0-36.0); Mean Platelet Volume 10.7 fL (7.4-10.4); Monocytes # (Auto) 1.03 K/mcL (0.10-0.90); Monocytes % (Auto) 6.6 % (1.0-12.0); Neutrophils % (Auto) 81.1 % (38.0-78.0); Platelet Count 431 K/mcL (140-440); RBC 2.73 M/mcL (3.59-5.38); Red Cell Distribution Width 13.4 % (11.5-14.5); WBC 15.7 K/mcL (4.5-11.0)
[2021-08-12 07:13] LABS: ALT/SGPT 36 U/L (<40); AST/SGOT 53 U/L (<32); Albumin 2.1 gm/dL (3.2-5.2); Albumin/Globulin Ratio 0.6 (1.0-2.3); Alkaline Phosphatase 117 U/L (39-117); Bilirubin,Direct < 0.2 mg/dL (0-0.3); Bilirubin,Total 0.2 mg/dL (0.1-1.0); Blood Urea Nitrogen 15 mg/dL (8-23); Calcium 8.2 mg/dL (8.6-10.4); Carbon Dioxide 22 mmol/L (22-30); Chloride 99 mmol/L (96-108); Globulin 3.3 gm/dL (2.2-3.7); Glomerular Filtration Rate 98; Glucose 115 mg/dL (70-105); Lactate Dehydrogenase 185 U/L (135-225); Phosphorous 2.8 mg/dL (2.5-4.5); Triglycerides 120 mg/dL (<150); Uric Acid 1.5 mg/dL (2.5-8.0)
[2021-08-12] MEDS: oxyCODONE HCL 5 MG TABLET PO PRN ×3 (08:00→18:26)
[2021-08-12] MEDS: HEPARIN 5,000 UNIT/ML VIAL SQ SCH ×2 (08:16→21:45)
[2021-08-12] MEDS: LOSARTAN 25 MG TABLET PO SCH (08:16)
[2021-08-12] MEDS: FLUCONAZOLE 200 MG/100 ML BAG IV SCH (08:17)
[2021-08-12] MEDS: FLUTICASONE HFA 220MCG INHALER INH SCH ×2 (08:18→22:45)
[2021-08-12] MEDS: CIPROFLOXACIN 400 MG/200 ML BAG IV SCH ×2 (09:18→21:44)
--- NOTE | 2021-08-12 14:33 | General Surgery Progress Note ---
SUBJECTIVE Subjective Patient information: Note initiated : 08/12/21 at 2:32 pm Service Date, if different from initiated Date: [] Patient: Marge Benitez 71 y/o F admitted on 07/28/21 for Colostomy Reversal. Chief Complaint: [] Principal diagnosis: Postop day #14 status post ostomy reversal Interval history: Patient feels better this morning, no further nausea, only mild intermittent crampy abdominal pain. Ostomy is functioning well. She tolerated small amount of regular diet but is not taking for diet as of yet. Patient is ambulatory. Constitutional Vitals: Vital Signs Temp Pulse Resp BP Pulse Ox 96.6 F L 84 18 128/25 95 08/12/21 11:54 08/12/21 11:54 08/12/21 11:54 08/12/21 11:54 08/12/21 11:54 Period Temp Pulse Resp BP Sys/Allen Pulse Ox Last 24 Hr 96.6 F-98.8 F 84-101 16-95 117-142/25-75 92-96 Intake and Output 08/12/21 08/12/21 08/12/21 05:59 13:59 21:59 Intake Total 400 740 Output Total 1260 1062 Balance -860 -322 Weight 117 lb 6.4 oz Patient Weight 08/13/21 05:59 Weight 117 lb 6.4 oz Intake & Output: Intake & Output 08/12/21 08/12/21 08/12/21 05:59 13:59 21:59 Intake Total 400 740 Output Total 1260 1062 Balance -860 -322 Weight 117 lb 6.4 oz Intake: IV 300 100 Calcium Gluconate 10 Meq Sodium 0 Chloride 280 Meq Potassium Phosphate 60 Meq Magnesium Sulfate 8.12 Meq In Clinimix 5% -20% Solution 2,000 ml @ 60 mls /hr IV DAILY@1100 [facility] Rx#: [id number] Merrem 1 gm In Sodium Chloride 100 100 0.9% 100 ml @ 100 mls/hr IV Q8H [facility] Rx#:[id number] Oral 100 440 GI Tube Flush 200 Output: Drainage 12 Left Abdomen RUSS Drain 6 Right Abdomen 6 Drainage 110 Left Abdomen RUSS Drain 5 Mid ABD wound vac 100 Right Abdomen 5 Void Amount 1050 600 Stool 100 450 Other: Meal Breakfast Percent of Meal Consumed 75% Feeding Ability Independent Urine Appearance Clear Urine Color Bright Yellow Light Alexandrea Urine Odor Normal Stool Color Brown Stool Consistency Liquid General appearance: cooperative and no acute distress GI/Abdominal GI/Abdominal exam: Present soft; Absent distended or tenderness Additional comments: Drains with small amount of output. A/P Narrative A/P Narrative: White count still slightly elevated, patient otherwise is doing well. Afebrile, decreased nausea. We will start some Imodium to slow down small bowel transit to increase absorption capacity. Continue to encourage regular diet, will wean TPN as p.o. intake increases. Time Spent With Patient Time: Total time spent is greater than 50% in coordination of care (as documented) at patient's floor/unit and/or counseling patient:
[2021-08-12] MEDS: ONDANSETRON 4 MG/2 ML VIAL IV PRN (23:01)
[2021-08-13] MEDS: 0.9 % SODIUM CHLORIDE 1,000 ML IV SCH ×3 (02:10→19:10)
[2021-08-13] MEDS: oxyCODONE HCL 5 MG TABLET PO PRN ×6 (03:17→23:47)
[2021-08-13] MEDS: 0.9 % SODIUM CHLORIDE 10 ML SYRINGE IV SCH ×3 (05:27→21:23)
[2021-08-13] MEDS: MEROPENEM 1 GM in 0.9 % SODIUM CHLORIDE 100 ML IV SCH ×3 (05:27→21:23)
[2021-08-13] MEDS: HYDROmorphone 0.5 MG/0.5 ML SYRINGE IV PRN (07:39)
[2021-08-13] MEDS: FLUCONAZOLE 200 MG/100 ML BAG IV SCH (09:09)
[2021-08-13] MEDS: ACETAMINOPHEN 650 MG/65 ML BAG IV PRN (09:09)
[2021-08-13] MEDS: LOSARTAN 25 MG TABLET PO SCH (09:31)
[2021-08-13] MEDS: HEPARIN 5,000 UNIT/ML VIAL SQ SCH ×2 (09:31→21:22)
[2021-08-13] MEDS: LOPERAMIDE 2 MG CAPSULE PO SCH (09:31)
[2021-08-13] MEDS: FLUTICASONE HFA 220MCG INHALER INH SCH ×2 (10:30→21:29)
[2021-08-13] MEDS: CIPROFLOXACIN 400 MG/200 ML BAG IV SCH ×2 (10:49→21:23)
--- NOTE | 2021-08-13 13:39 | General Surgery Progress Note ---
SUBJECTIVE Subjective Patient information: Note initiated : 08/13/21 at 1:38 pm Service Date, if different from initiated Date: [] Patient: Marge Benitez 71 y/o F admitted on 07/28/21 for Colostomy Reversal. Chief Complaint: [] Principal diagnosis: Postop day #15 status post ostomy reversal Interval history: Improving overnight, tolerating p.o. diet. Patient does have some crampy abdominal pain which comes and goes however she has been ambulatory. TPN weaned off yesterday. Constitutional Vitals: Vital Signs Temp Pulse Resp BP Pulse Ox 97.6 F 85 17 137/83 95 08/13/21 12:00 08/13/21 12:00 08/13/21 12:00 08/13/21 12:00 08/13/21 12:00 Period Temp Pulse Resp BP Sys/Allen Pulse Ox Last 24 Hr 97 F-98.3 F 83-90 17-24 126-147/75-83 94-95 Intake and Output 08/12/21 08/13/21 08/13/21 21:59 05:59 13:59 Intake Total 1560 1322 465 Output Total 1031 713 500 Balance 529 609 -35 Weight 116 lb 14.4 oz Intake & Output: Intake & Output 08/12/21 08/13/21 08/13/21 21:59 05:59 13:59 Intake Total 1560 1322 465 Output Total 1031 713 500 Balance 529 609 -35 Weight 116 lb 14.4 oz Intake: IV 1100 1022 465 Sodium Chloride 0.9% 1,000 ml @ 1000 722 75 mls/hr IV .[id number] [facility] Rx#: [id number] Merrem 1 gm In Sodium Chloride 100 100 100 0.9% 100 ml @ 100 mls/hr IV Q8H [facility] Rx#:[id number] Oral 260 300 GI Tube Flush 200 Output: Drainage 6 Left Abdomen RUSS Drain 3 Right Abdomen 3 Drainage 13 Left Abdomen RUSS Drain 10 Right Abdomen 3 Void Amount 450 600 350 Stool 575 100 150 Other: Urine Appearance Clear Clear Urine Color Light Alexandrea Bright Yellow Urine Odor Normal Stool Color Green Green Stool Consistency Watery General appearance: cooperative and no acute distress GI/Abdominal GI/Abdominal exam: Present normal bowel sounds and soft Additional comments: Incision is clean dry and intact covered with wound VAC, drains with minimal output, ostomy functioning. A/P Narrative A/P Narrative: Patient is progressing well, awaiting full return of bowel function. Likely home in the next day or 2. Time Spent With Patient Time: Total time spent is greater than 50% in coordination of care (as documented) at patient's floor/unit and/or counseling patient:
[2021-08-13] MEDS: LORazepam 2 MG/ML VIAL IV PRN (14:31)
[2021-08-14] MEDS: oxyCODONE HCL 5 MG TABLET PO PRN ×4 (03:52→18:13)
[2021-08-14] MEDS: MEROPENEM 1 GM in 0.9 % SODIUM CHLORIDE 100 ML IV SCH (05:23)
[2021-08-14] MEDS: 0.9 % SODIUM CHLORIDE 10 ML SYRINGE IV SCH ×3 (05:23→21:45)
[2021-08-14 06:52] LABS: Basophils # (Auto) 0.06 K/mcL (0.00-0.30); Basophils % (Auto) 0.5 % (0.0-2.0); Eosinophils # (Auto) 0.19 K/mcL (0.00-0.70); Eosinophils % (Auto) 1.7 % (0.0-7.0); Hematocrit 23.2 % (34.1-44.9); Hemoglobin 7.7 g/dL (11.2-15.7); Lymphocytes # (Auto) 1.82 K/mcL (1.50-4.80); Mean Cell Volume 88.5 fL (80.0-100.0); Mean Corpuscular HGB Conc 33.2 g/dL (31.0-36.0); Mean Platelet Volume 10.3 fL (7.4-10.4); Monocytes # (Auto) 0.81 K/mcL (0.10-0.90); Monocytes % (Auto) 7.1 % (1.0-12.0); Neutrophils % (Auto) 74.7 % (38.0-78.0); Platelet Count 509 K/mcL (140-440); RBC 2.62 M/mcL (3.59-5.38); Red Cell Distribution Width 13.2 % (11.5-14.5); WBC 11.3 K/mcL (4.5-11.0)
[2021-08-14 07:16] LABS: Blood Urea Nitrogen 12 mg/dL (8-23); Calcium 7.5 mg/dL (8.6-10.4); Carbon Dioxide 23 mmol/L (22-30); Chloride 99 mmol/L (96-108); Glomerular Filtration Rate 98; Glucose 90 mg/dL (70-105)
[2021-08-14] MEDS: ACETAMINOPHEN 650 MG/65 ML BAG IV PRN (07:28)
[2021-08-14] MEDS: LOPERAMIDE 2 MG CAPSULE PO SCH (08:54)
[2021-08-14] MEDS: LOSARTAN 25 MG TABLET PO SCH (08:54)
[2021-08-14] MEDS: HEPARIN 5,000 UNIT/ML VIAL SQ SCH ×2 (08:54→21:45)
[2021-08-14] MEDS: CIPROFLOXACIN 400 MG/200 ML BAG IV SCH (08:55)
[2021-08-14] MEDS: FLUCONAZOLE 200 MG/100 ML BAG IV SCH (09:00)
[2021-08-14] MEDS: ONDANSETRON 4 MG/2 ML VIAL IV PRN (09:09)
[2021-08-14] MEDS: FLUTICASONE HFA 220MCG INHALER INH SCH ×2 (09:21→21:46)
[2021-08-14] MEDS: 0.9 % SODIUM CHLORIDE 1,000 ML IV SCH (11:39)
--- NOTE | 2021-08-14 11:42 | General Surgery Progress Note ---
SUBJECTIVE Subjective Patient information: Note initiated : 08/14/21 at 11:40 am Service Date, if different from initiated Date: [] Patient: Marge Benitez 71 y/o F admitted on 07/28/21 for Colostomy Reversal. Chief Complaint: [] Principal diagnosis: Postop day #16 status post ostomy reversal Interval history: Patient feels well overnight, has been ambulatory. No fevers chills nausea or vomiting. She is starting to tolerate diet and gradually increasing her activity level. Constitutional Vitals: Vital Signs Temp Pulse Resp BP Pulse Ox 97.3 F 74 16 113/68 97 08/14/21 11:19 08/14/21 11:19 08/14/21 11:19 08/14/21 11:19 08/14/21 11:19 Period Temp Pulse Resp BP Sys/Allen Pulse Ox Last 24 Hr 97.3 F-99.5 F 74-93 16-20 113-147/67-83 94-99 Intake and Output 08/13/21 08/14/21 08/14/21 21:59 05:59 13:59 Intake Total 2728 442 6359 Output Total 1075 607 250 Balance 145 -137 1335 Weight 116 lb 3.2 oz Intake & Output: Intake & Output 08/13/21 08/14/21 08/14/21 21:59 05:59 13:59 Intake Total 3983 575 3646 Output Total 1075 607 250 Balance 145 -137 1335 Weight 116 lb 3.2 oz Intake: IV 0541 038 3155 Sodium Chloride 0.9% 1,000 ml @ 1000 1000 75 mls/hr IV .[id number] [facility] Rx#: [id number] Merrem 1 gm In Sodium Chloride 100 100 100 0.9% 100 ml @ 100 mls/hr IV Q8H [facility] Rx#:[id number] Oral 120 170 120 Output: Drainage 7 Left Abdomen RUSS Drain 7 Mid ABD wound vac 0 Right Abdomen 0 Void Amount 825 400 200 Stool 250 200 50 Other: Meal Dinner 1pk saltines Breakfast Percent of Meal Consumed 50% 50% Feeding Ability Independent Independent Urine Appearance Clear Clear Clear Urine Color Bright Yellow Bright Yellow Pale Urine Odor Normal Stool Color Green Green Stool Consistency Liquid Loose General appearance: cooperative and no acute distress GI/Abdominal GI/Abdominal exam: Present soft; Absent distended or tenderness Additional comments: Midline incision dressed in wound VAC. Right-sided RUSS removed without difficulty. A/P Narrative A/P Narrative: Slow improvement although mild dizziness over the last 2 days. Tolerating regular diet. We will change all IV medications to p.o. medications. We will give a unit of blood to see if that helps with the dizziness. Anticipate home in the next several days. Time Spent With Patient Time: Total time spent is greater than 50% in coordination of care (as documented) at patient's floor/unit and/or counseling patient:
[2021-08-14] MEDS ORDERED: 0.9 % SODIUM CHLORIDE 250 ML IV SCH (11:45)
[2021-08-14] MEDS: metroNIDAZOLE 500 MG TABLET PO SCH ×2 (13:56→21:45)
[2021-08-14] MEDS: CIPROFLOXACIN 500 MG TABLET PO SCH (21:44)
[2021-08-14] MEDS: LORazepam 2 MG/ML VIAL IV PRN (21:45)
[2021-08-15] MEDS: metroNIDAZOLE 500 MG TABLET PO SCH ×3 (05:11→20:46)
[2021-08-15] MEDS: oxyCODONE HCL 5 MG TABLET PO PRN ×2 (05:11→18:10)
[2021-08-15] MEDS: 0.9 % SODIUM CHLORIDE 10 ML SYRINGE IV SCH ×3 (05:55→20:46)
[2021-08-15] MEDS: LOSARTAN 25 MG TABLET PO SCH (08:30)
[2021-08-15] MEDS: HEPARIN 5,000 UNIT/ML VIAL SQ SCH ×2 (08:31→20:46)
[2021-08-15] MEDS: LOPERAMIDE 2 MG CAPSULE PO SCH (08:31)
[2021-08-15] MEDS: CIPROFLOXACIN 500 MG TABLET PO SCH ×2 (08:31→20:46)
[2021-08-15] MEDS: FLUTICASONE HFA 220MCG INHALER INH SCH ×2 (08:34→20:55)
--- NOTE | 2021-08-15 10:23 | General Surgery Progress Note ---
SUBJECTIVE Subjective Patient information: Note initiated : 08/15/21 at 10:22 am Service Date, if different from initiated Date: [] Patient: Marge Benitez 71 y/o F admitted on 07/28/21 for Colostomy Reversal. Chief Complaint: [] Principal diagnosis: Postop day #17 status post ostomy reversal Interval history: Less dizziness overnight, patient continues to be amatory, tolerating regular diet. No fevers chills nausea or vomiting Constitutional Vitals: Vital Signs Temp Pulse Resp BP Pulse Ox 97.5 F 86 14 121/74 91 08/15/21 07:08 08/15/21 07:08 08/15/21 07:08 08/15/21 07:08 08/15/21 07:08 Period Temp Pulse Resp BP Sys/Allen Pulse Ox Last 24 Hr 97.3 F-98.9 F 73-94 14-20 113-167/66-84 91-99 Intake and Output 08/14/21 08/15/21 08/15/21 21:59 05:59 13:59 Intake Total 325 570 50 Output Total 750 140 Balance -425 430 50 Weight 117 lb 12.8 oz Intake & Output: Intake & Output 08/14/21 08/15/21 08/15/21 21:59 05:59 13:59 Intake Total 325 570 50 Output Total 750 140 Balance -425 430 50 Weight 117 lb 12.8 oz Intake: IV 0 Sodium Chloride 0.9% 250 ml @ 0 20 mls/hr IV .[id number] [facility] Rx#: [id number] Oral 0 570 50 Blood Product 325 Output: Drainage 15 Left Abdomen RUSS Drain 15 Void Amount 600 Stool 150 125 Other: Meal Breakfast Percent of Meal Consumed 100% Urine Appearance Clear Urine Color Pale Stool Size Moderate Stool Color Green Brown Green Stool Consistency Soft Soft Liquid Liquid # Voids 1 1 General appearance: cooperative and no acute distress GI/Abdominal GI/Abdominal exam: Absent soft, distended or tenderness Additional comments: Incision dressed in wound VAC, ileostomy is intact A/P Narrative A/P Narrative: Much improved, tolerating regular diet, ambulatory. Anticipate discharge tomorrow if dizziness resolves. Time Spent With Patient Time: Total time spent is greater than 50% in coordination of care (as documented) at patient's floor/unit and/or counseling patient:
[2021-08-15] MEDS: LORazepam 2 MG/ML VIAL IV PRN (20:46)
[2021-08-16] MEDS: oxyCODONE HCL 5 MG TABLET PO PRN ×2 (03:13→17:20)
[2021-08-16] MEDS: metroNIDAZOLE 500 MG TABLET PO SCH ×3 (06:05→21:27)
[2021-08-16] MEDS: 0.9 % SODIUM CHLORIDE 10 ML SYRINGE IV SCH ×3 (06:06→21:31)
[2021-08-16 06:43] LABS: Basophils # (Auto) 0.13 K/mcL (0.00-0.30); Basophils % (Auto) 1.2 % (0.0-2.0); Eosinophils # (Auto) 0.22 K/mcL (0.00-0.70); Eosinophils % (Auto) 2.1 % (0.0-7.0); Hematocrit 29.7 % (34.1-44.9); Hemoglobin 9.8 g/dL (11.2-15.7); Lymphocytes # (Auto) 1.97 K/mcL (1.50-4.80); Lymphocytes % (Auto) 18.6 % (15.5-49.0); Mean Cell Volume 88.1 fL (80.0-100.0); Mean Platelet Volume 9.8 fL (7.4-10.4); Monocytes # (Auto) 0.83 K/mcL (0.10-0.90); Monocytes % (Auto) 7.8 % (1.0-12.0); Neutrophils % (Auto) 70.3 % (38.0-78.0); Platelet Count 510 K/mcL (140-440); RBC 3.37 M/mcL (3.59-5.38); Red Cell Distribution Width 12.9 % (11.5-14.5); WBC 10.6 K/mcL (4.5-11.0)
[2021-08-16 07:04] LABS: Blood Urea Nitrogen 15 mg/dL (8-23); Calcium 8.3 mg/dL (8.6-10.4); Carbon Dioxide 25 mmol/L (22-30); Chloride 97 mmol/L (96-108); Glomerular Filtration Rate 98; Glucose 100 mg/dL (70-105)
[2021-08-16] MEDS: CIPROFLOXACIN 500 MG TABLET PO SCH ×2 (08:33→21:27)
[2021-08-16] MEDS: LOPERAMIDE 2 MG CAPSULE PO SCH (08:33)
[2021-08-16] MEDS: LOSARTAN 25 MG TABLET PO SCH (08:33)
[2021-08-16] MEDS: HEPARIN 5,000 UNIT/ML VIAL SQ SCH ×2 (08:34→21:28)
[2021-08-16] MEDS: FLUTICASONE HFA 220MCG INHALER INH SCH ×2 (08:35→21:27)
--- NOTE | 2021-08-16 08:47 | General Surgery Progress Note ---
SUBJECTIVE Subjective Patient information: Note initiated : 08/16/21 at 8:45 am Service Date, if different from initiated Date: [] Patient: Marge Benitez 71 y/o F admitted on 07/28/21 for Colostomy Reversal. Chief Complaint: [] Principal diagnosis: Postop day #18 status post ostomy reversal Interval history: Patient is doing much better today, has been ambulatory, tolerating p.o. diet, no fevers chills nausea or vomiting. Dizziness is much improved. Patient's only hesitation with being discharged is uncertainty with being able to take care of the ileostomy by herself. Constitutional Vitals: Vital Signs Temp Pulse Resp BP Pulse Ox 98.5 F 83 16 125/77 93 08/16/21 07:11 08/16/21 03:17 08/16/21 07:11 08/16/21 07:11 08/16/21 07:11 Period Temp Pulse Resp BP Sys/Allen Pulse Ox Last 24 Hr 97.7 F-99.7 F 76-95 12-20 120-130/69-79 93-97 Intake and Output 08/15/21 08/16/21 08/16/21 21:59 05:59 13:59 Intake Total 50 500 0 Output Total 150 510 Balance -100 -10 0 Weight 114 lb 3.2 oz Intake & Output: Intake & Output 08/15/21 08/16/21 08/16/21 21:59 05:59 13:59 Intake Total 50 500 0 Output Total 150 510 Balance -100 -10 0 Weight 114 lb 3.2 oz Intake: Oral 50 500 0 Output: Drainage 10 Left Abdomen RUSS Drain 10 Void Amount 450 Stool 150 50 Other: Meal Dinner Percent of Meal Consumed 75% Feeding Ability Independent Urine Appearance Clear Urine Color Bright Yellow Stool Size Small Stool Color Brown Green Stool Consistency Soft Liquid # Voids 1 # Bowel Movements 1 General appearance: cooperative and no acute distress GI/Abdominal GI/Abdominal exam: Present soft; Absent distended, guarding or tenderness Additional comments: Ileostomy functioning. Midline wound dressed with wound VAC. Minimal out of RUSS drain A/P Narrative A/P Narrative: Slowly improving. Patient ready for discharge once she is comfortable with ileostomy and wound VAC care at home. Plan: Nurses will work with her today and possibly wound ostomy nurse tomorrow to get her ready for discharge. Time Spent With Patient Time: Total time spent is greater than 50% in coordination of care (as documented) at patient's floor/unit and/or counseling patient:
[2021-08-17] MEDS: oxyCODONE HCL 5 MG TABLET PO PRN ×2 (00:46→14:52)
[2021-08-17] MEDS: PRAMIPEXOLE 0.25 MG TABLET PO PRN (00:46)
[2021-08-17] MEDS: ONDANSETRON 4 MG/2 ML VIAL IV PRN (05:05)
[2021-08-17] MEDS: 0.9 % SODIUM CHLORIDE 10 ML SYRINGE IV SCH ×2 (05:51→14:07)
[2021-08-17] MEDS: metroNIDAZOLE 500 MG TABLET PO SCH ×2 (06:25→15:46)
[2021-08-17] MEDS: HEPARIN 5,000 UNIT/ML VIAL SQ SCH (08:35)
[2021-08-17] MEDS: LOSARTAN 25 MG TABLET PO SCH (08:35)
[2021-08-17] MEDS: CIPROFLOXACIN 500 MG TABLET PO SCH (08:35)
[2021-08-17] MEDS: LOPERAMIDE 2 MG CAPSULE PO SCH (08:35)
[2021-08-17] MEDS: FLUTICASONE HFA 220MCG INHALER INH SCH (08:36)
--- NOTE | 2021-08-17 13:08 | Discharge Summary ---
Discharge Provider Provider Patient information: Note initiated : 08/17/21 at 1:08 pm Service Date, if different from initiated Date: [] Patient: Marge Benitez 71 y/o F admitted on 07/28/21 for Colostomy Reversal. Chief Complaint: [] Date of admission: 07/28/21 07:36 Discharge date: 08/17/21 Primary care physician: Noa Key COURSE Hospital Course Hospital course: Patient was admitted for and underwent an uneventful ostomy reversal. Patient initially had return of bowel function, however on postop day #7 she started having fevers, CT scan was done which revealed a leak in the anastomosis. She was taken back to the operating room for exploratory laparotomy, oversew of the leak with diverting ileostomy. Postop from that she progressed without difficulty, is now tolerating a regular diet, ambulatory and pain is controlled. Discharge diagnosis: Status post ostomy reversal, placement of loop ileostomy Time Spent with Patient Time attestation: Total time spent providing and/or coordinating discharge services: Physical Examination Vital Signs Vital signs: Temp Pulse Resp BP Pulse Ox 98.0 F 78 16 130/74 93 08/17/21 08:00 08/17/21 08:00 08/17/21 08:00 08/17/21 08:00 08/17/21 08:00 Discharge Plan Patient/Caregiver Discharge Instructions Activity: increase activity as tolerated Diet: Regular Diet Activity Restrictions/Additional Instructions: Normal activity as tolerated. Follow-up with me in 2 days. Home health for wound VAC and ostomy assistance. Patient will need walker. Prescriptions: New loperamide 2 mg Capsule 2 mg PO DAILY Qty: 90 0RF metronidazole 500 mg Tablet 500 mg PO Q8 Qty: 21 0RF ciprofloxacin HCl 500 mg Tablet 500 mg PO BID Qty: 14 0RF oxycodone 5 mg Tablet 5 mg PO Q4-6HP PRN (Reason: Per Pain Protocol) Qty: 10 0RF Continued losartan 25 mg tablet 25 mg PO QAM 0RF pramipexole 0.125 mg tablet 0.25 mg PO QHS 0RF Flovent HFA 220 mcg/actuation HFA aerosol inhaler 2 puff inhalation BID 0RF Plegridy 125 mcg/0.5 mL Syringe 125 mcg SUBCUT Q2W 0RF Creon 36,000-114,000- 180,000 unit Capsule,Delayed Release(Dr/Ec) 1 - 5 cap PO TID 0RF Rx Instructions: Patient take 2 at lunch, 1 with a snack and 2 with dinner Linzess 72 mcg Capsule 72 mcg PO QAM 0RF Other Ambulatory Orders: Wound Care Instructions (CONT) Location: None Selected Ordered By: Hernán Burnett Follow Up Plan Follow up with: Hernán Burnett MD [Physician] - 08/19/21 1:00 pm (Please bring your insurance cards with you. Please arrive at 1:00pm for your 1:15pm appointment.) Patient Disposition: Home, Self-Care Hospital Course: Patient was admitted for and underwent an uneventful ostomy reversal. Patient initially had return of bowel function, however on postop day #7 she started having fevers, CT scan was done which revealed a leak in the anastomosis. She was taken back to the operating room for exploratory laparotomy, oversew of the leak with diverting ileostomy. Postop from that she progressed without difficulty, is now tolerating a regular diet, ambulatory and pain is controlled. Discharge Orders: Discharge Order (Routine); Ordered 08/17/21 Ordered By: Hernán Burnett Pending Pending Pending: Resuscitation Status Resuscitate (Full Code) Diet Regular Diet Start 2020Aug 11 933 Ciprofloxacin (Ciprofloxacin 500 Mg Tablet) 500 mg PO BID [facility]; Protocol Last Admin: 08/17/21 08:35 Dose: 500 mg Documented by: Admin: 08/16/21 21:27 Dose: 500 mg Documented by: Admin: 08/16/21 08:33 Dose: 500 mg Documented by: Admin: 08/15/21 20:46 Dose: 500 mg Documented by: Admin: 08/15/21 08:31 Dose: 500 mg Documented by: Admin: 08/14/21 21:44 Dose: 500 mg Documented by: PRUDENCE Fluticasone Propionate (Fluticasone Hfa 220mcg Inhaler) 2 puff INH BID [facility] Last Admin: 08/17/21 08:36 Dose: Not Given Documented by: Admin: 08/16/21 21:27 Dose: Not Given Documented by: Admin: 08/16/21 08:35 Dose: Not Given Documented by: Admin: 08/15/21 20:55 Dose: Not Given Documented by: [email or web address] Admin: 08/15/21 08:34 Dose: Not Given Documented by: Admin: 08/14/21 21:46 Dose: Not Given Documented by: Admin: 08/14/21 09:21 Dose: Not Given Documented by: ROGERSTRIGYady Admin: 08/13/21 21:29 Dose: Not Given Documented by: Admin: 08/13/21 10:30 Dose: Not Given Documented by: ROGERSTRIGYady Admin: 08/12/21 22:45 Dose: Not Given Documented by: Admin: 08/12/21 08:18 Dose: Not Given Documented by: Admin: 08/11/21 21:57 Dose: Not Given Documented by: Admin: 08/11/21 08:21 Dose: Not Given Documented by: Admin: 08/10/21 21:17 Dose: Not Given Documented by: Admin: 08/10/21 08:14 Dose: Not Given Documented by: Admin: 08/09/21 20:14 Dose: Not Given Documented by: MARIA DEL ROSARIO Admin: 08/09/21 08:26 Dose: Not Given Documented by: Admin: 08/08/21 20:11 Dose: Not Given Documented by: MARIA DEL ROSARIO Admin: 08/08/21 08:10 Dose: Not Given Documented by: Admin: 08/07/21 21:06 Dose: Not Given Documented by: Admin: 08/07/21 08:25 Dose: Not Given Documented by: Admin: 08/06/21 20:12 Dose: Not Given Documented by: Admin: 08/06/21 09:13 Dose: Not Given Documented by: [email or web address] Admin: 08/05/21 20:25 Dose: 2 puff Documented by: Admin: 08/05/21 08:40 Dose: Not Given Documented by: Admin: 08/04/21 21:30 Dose: Not Given Documented by: [email or web address] Admin: 08/04/21 10:10 Dose: Not Given Documented by: Admin: 08/03/21 21:35 Dose: Not Given Documented by: Admin: 08/03/21 09:52 Dose: Not Given Documented by: Admin: 08/02/21 22:11 Dose: Not Given Documented by: Admin: 08/02/21 10:49 Dose: Not Given Documented by: Admin: 08/01/21 22:13 Dose: Not Given Documented by: Admin: 08/01/21 11:44 Dose: Not Given Documented by: Admin: 07/31/21 21:15 Dose: Not Given Documented by: Admin: 07/31/21 10:52 Dose: Not Given Documented by: Admin: 07/30/21 20:36 Dose: 2 puff Documented by: MARIA DEL ROSARIO Admin: 07/30/21 08:14 Dose: 2 puff Documented by: Admin: 07/29/21 22:32 Dose: 2 puff Documented by: MARIA DEL ROSARIO Admin: 07/29/21 07:47 Dose: Not Given Documented by: Admin: 07/28/21 21:45 Dose: Not Given Documented by: MAGALY Heparin Sodium (Porcine) (Heparin Flush 10 Units/Ml 5 Ml Syringe) 2 ml IV Q12 CRESCENCIO Last Admin: 08/17/21 08:36 Dose: 2 ml Documented by: Admin: 08/16/21 21:31 Dose: 2 ml Documented by: Admin: 08/16/21 08:34 Dose: 2 ml Documented by: Admin: 08/15/21 20:47 Dose: 2 ml Documented by: Admin: 08/15/21 08:32 Dose: 2 ml Documented by: Admin: 08/14/21 21:46 Dose: 2 ml Documented by: Admin: 08/14/21 08:54 Dose: 2 ml Documented by: Admin: 08/13/21 22:40 Dose: 2 ml Documented by: MARIA DEL ROSARIO Admin: 08/13/21 10:49 Dose: 2 ml Documented by: Admin: 08/12/21 23:01 Dose: 2 ml Documented by: MARIA DEL ROSARIO Admin: 08/12/21 12:47 Dose: 2 ml Documented by: Admin: 08/12/21 08:19 Dose: Not Given Documented by: Admin: 08/11/21 21:57 Dose: 2 ml Documented by: Admin: 08/11/21 08:21 Dose: Not Given Documented by: Admin: 08/10/21 21:17 Dose: Not Given Documented by: Admin: 08/10/21 08:15 Dose: Not Given Documented by: Admin: 08/09/21 20:14 Dose: Not Given Documented by: MARIA DEL ROSARIO Admin: 08/09/21 08:26 Dose: Not Given Documented by: Admin: 08/08/21 20:12 Dose: Not Given Documented by: MARIA DEL ROSARIO Admin: 08/08/21 08:11 Dose: Not Given Documented by: Admin: 08/07/21 21:06 Dose: Not Given Documented by: Admin: 08/07/21 07:01 Dose: Not Given Documented by: Admin: 08/06/21 20:19 Dose: Not Given Documented by: Admin: 08/06/21 09:02 Dose: Not Given Documented by: Admin: 08/05/21 20:18 Dose: Not Given Documented by: MARIA DEL ROSARIO Admin: 08/05/21 08:40 Dose: Not Given Documented by: Admin: 08/04/21 21:30 Dose: Not Given Documented by: Admin: 08/04/21 10:10 Dose: Not Given Documented by: Admin: 08/03/21 21:36 Dose: 2 ml Documented by: PRUDENCE Heparin Sodium (Porcine) (Heparin 5,000 Unit/Ml Vial) 5,000 unit SQ Q12 CRESCENCIO Last Admin: 08/17/21 08:35 Dose: 5,000 unit Documented by: Admin: 08/16/21 21:28 Dose: 5,000 unit Documented by: Admin: 08/16/21 08:34 Dose: 5,000 unit Documented by: Admin: 08/15/21 20:46 Dose: 5,000 unit Documented by: Admin: 08/15/21 08:31 Dose: 5,000 unit Documented by: Admin: 08/14/21 21:45 Dose: 5,000 unit Documented by: Admin: 08/14/21 08:54 Dose: 5,000 unit Documented by: Admin: 08/13/21 21:22 Dose: 5,000 unit Documented by: MARIA DEL ROSARIO Admin: 08/13/21 09:31 Dose: 5,000 unit Documented by: Admin: 08/12/21 21:45 Dose: 5,000 unit Documented by: MARIA DEL ROSARIO Admin: 08/12/21 08:16 Dose: 5,000 unit Documented by: Admin: 08/11/21 21:55 Dose: 5,000 unit Documented by: Admin: 08/11/21 08:20 Dose: 5,000 unit Documented by: Admin: 08/10/21 21:37 Dose: 5,000 unit Documented by: Admin: 08/10/21 08:14 Dose: 5,000 unit Documented by: Admin: 08/09/21 20:18 Dose: 5,000 unit Documented by: MARIA DEL ROSARIO Admin: 08/09/21 08:31 Dose: 5,000 unit Documented by: Admin: 08/08/21 20:17 Dose: 5,000 unit Documented by: MARIA DEL ROSARIO Admin: 08/08/21 08:03 Dose: 5,000 unit Documented by: Admin: 08/07/21 20:58 Dose: 5,000 unit Documented by: [email or web address] Admin: 08/07/21 08:05 Dose: 5,000 unit Documented by: Admin: 08/06/21 20:15 Dose: 5,000 unit Documented by: Admin: 08/06/21 09:01 Dose: 5,000 unit Documented by: Admin: 08/05/21 20:24 Dose: 5,000 unit Documented by: MARIA DEL ROSARIO Hydromorphone HCl (Hydromorphone 0.5 Mg/0.5 Ml Syringe) 0.5 - 1 mg IV Q2HP PRN; Protocol PRN Reason: Per Pain Protocol Last Admin: 08/13/21 07:39 Dose: 1 mg Documented by: Admin: 08/12/21 22:09 Dose: 1 mg Documented by: MARIA DEL ROSARIO Admin: 08/12/21 18:27 Dose: 1 mg Documented by: MARIA DEL ROSARIO Admin: 08/12/21 12:45 Dose: 1 mg Documented by: Admin: 08/12/21 07:59 Dose: 1 mg Documented by: Admin: 08/12/21 04:00 Dose: 1 mg Documented by: Admin: 08/11/21 21:56 Dose: 1 mg Documented by: Admin: 08/06/21 04:13 Dose: 0.5 mg Documented by: MARIA DEL ROSARIO Admin: 08/05/21 18:25 Dose: 1 mg Documented by: SOFÍA Loperamide HCl (Loperamide 2 Mg Capsule) 2 mg PO DAILY [facility] Last Admin: 08/17/21 08:35 Dose: 2 mg Documented by: Admin: 08/16/21 08:33 Dose: 2 mg Documented by: Admin: 08/15/21 08:31 Dose: 2 mg Documented by: Admin: 08/14/21 08:54 Dose: 2 mg Documented by: Admin: 08/13/21 09:31 Dose: 2 mg Documented by: WILBERTO Lorazepam (Lorazepam 2 Mg/Ml Vial) 0 mg IV Q3-4HP PRN PRN Reason: ANXIETY/SEDATION Last Admin: 08/15/21 20:46 Dose: 0.5 mg Documented by: Admin: 08/14/21 21:45 Dose: 0.5 mg Documented by: Admin: 08/13/21 14:31 Dose: 0.5 mg Documented by: Admin: 08/08/21 09:45 Dose: 0.5 mg Documented by: AYESHA Losartan Potassium (Losartan 25 Mg Tablet) 25 mg PO QAM [facility] Last Admin: 08/17/21 08:35 Dose: 25 mg Documented by: Admin: 08/16/21 08:33 Dose: 25 mg Documented by: Admin: 08/15/21 08:30 Dose: 25 mg Documented by: Admin: 08/14/21 08:54 Dose: 25 mg Documented by: Admin: 08/13/21 09:31 Dose: 25 mg Documented by: Admin: 08/12/21 08:16 Dose: 25 mg Documented by: Admin: 08/11/21 08:20 Dose: 25 mg Documented by: Admin: 08/10/21 08:14 Dose: 25 mg Documented by: Admin: 08/09/21 08:31 Dose: 25 mg Documented by: Admin: 08/08/21 08:02 Dose: 25 mg Documented by: Admin: 08/07/21 08:05 Dose: 25 mg Documented by: Admin: 08/06/21 09:02 Dose: 25 mg Documented by: Admin: 08/05/21 10:39 Dose: 25 mg Documented by: Admin: 08/04/21 10:09 Dose: Not Given Documented by: Admin: 08/03/21 09:52 Dose: 25 mg Documented by: [email or web address] Admin: 08/02/21 13:11 Dose: 25 mg Documented by: Admin: 08/01/21 11:40 Dose: 25 mg Documented by: FABIANA Methocarbamol (Methocarbamol 1,000 Mg/10 Ml Vial) 750 mg IV Q6-8HP PRN PRN Reason: Muscle Spasm Last Admin: 08/11/21 19:33 Dose: 750 mg Documented by: Admin: 08/08/21 08:02 Dose: 750 mg Documented by: Admin: 08/03/21 22:20 Dose: 750 mg Documented by: PRUDENCE Metronidazole (Metronidazole 500 Mg Tablet) 500 mg PO Q8 CRESCENCIO; Protocol Last Admin: 08/17/21 06:25 Dose: 500 mg Documented by: Admin: 08/16/21 21:27 Dose: 500 mg Documented by: Admin: 08/16/21 13:11 Dose: 500 mg Documented by: Admin: 08/16/21 06:05 Dose: 500 mg Documented by: Admin: 08/15/21 20:46 Dose: 500 mg Documented by: Admin: 08/15/21 13:17 Dose: 500 mg Documented by: Admin: 08/15/21 05:11 Dose: 500 mg Documented by: Admin: 08/14/21 21:45 Dose: 500 mg Documented by: Admin: 08/14/21 13:56 Dose: 500 mg Documented by: WILBERTO Ondansetron HCl (Ondansetron 4 Mg/2 Ml Vial) 4 mg IV Q4HP PRN; Protocol PRN Reason: Nausea And Vomiting Last Admin: 08/17/21 05:05 Dose: 4 mg Documented by: Admin: 08/14/21 09:09 Dose: 4 mg Documented by: Admin: 08/12/21 23:01 Dose: 4 mg Documented by: MARIA DEL ROSARIO Admin: 08/11/21 19:56 Dose: 4 mg Documented by: Admin: 08/10/21 13:27 Dose: 4 mg Documented by: Admin: 08/09/21 21:06 Dose: 4 mg Documented by: MARIA DEL ROSARIO Admin: 08/09/21 13:18 Dose: 4 mg Documented by: Admin: 08/09/21 07:12 Dose: 4 mg Documented by: Admin: 08/08/21 16:03 Dose: 4 mg Documented by: Admin: 08/08/21 10:50 Dose: 4 mg Documented by: Admin: 08/08/21 06:42 Dose: 4 mg Documented by: Admin: 08/07/21 20:59 Dose: 4 mg Documented by: Admin: 08/07/21 17:54 Dose: 4 mg Documented by: Admin: 08/07/21 10:51 Dose: 4 mg Documented by: Admin: 08/07/21 00:03 Dose: 4 mg Documented by: Admin: 08/05/21 23:58 Dose: 4 mg Documented by: MARIA DEL ROSARIO Admin: 08/05/21 05:55 Dose: 4 mg Documented by: Admin: 08/04/21 18:38 Dose: 4 mg Documented by: CODI Oxycodone HCl (Oxycodone Hcl 5 Mg Tablet) 5 mg PO Q4-6HP PRN; Protocol PRN Reason: Per Pain Protocol Last Admin: 08/17/21 00:46 Dose: 5 mg Documented by: Admin: 08/16/21 17:20 Dose: 5 mg Documented by: Admin: 08/16/21 03:13 Dose: 5 mg Documented by: Admin: 08/15/21 18:10 Dose: 5 mg Documented by: Admin: 08/15/21 05:11 Dose: 5 mg Documented by: Admin: 08/14/21 18:13 Dose: 5 mg Documented by: Admin: 08/14/21 13:56 Dose: 5 mg Documented by: Admin: 08/14/21 07:55 Dose: 5 mg Documented by: Admin: 08/14/21 03:52 Dose: 5 mg Documented by: MARIA DEL ROSARIO Admin: 08/13/21 23:47 Dose: 5 mg Documented by: MARIA DEL ROSARIO Admin: 08/13/21 19:09 Dose: 5 mg Documented by: MARIA DEL ROSARIO Admin: 08/13/21 14:30 Dose: 5 mg Documented by: Admin: 08/13/21 09:08 Dose: 5 mg Documented by: Admin: 08/13/21 03:17 Dose: 5 mg Documented by: MARIA DEL ROSARIO Admin: 08/12/21 18:26 Dose: 5 mg Documented by: MARIA DEL ROSARIO Admin: 08/12/21 12:46 Dose: 5 mg Documented by: Admin: 08/12/21 08:00 Dose: 5 mg Documented by: Admin: 08/11/21 19:34 Dose: 5 mg Documented by: ABRAHAN Linaclotide [Linzess (] 72 Mcg Capsule) 1 dose PO DAILY CRESCENCIO Last Admin: 08/17/21 08:36 Dose: Not Given Documented by: Admin: 08/16/21 08:35 Dose: Not Given Documented by: Admin: 08/15/21 08:34 Dose: Not Given Documented by: Admin: 08/14/21 09:22 Dose: Not Given Documented by: Admin: 08/13/21 10:30 Dose: Not Given Documented by: Admin: 08/12/21 08:20 Dose: Not Given Documented by: Admin: 08/11/21 08:21 Dose: Not Given Documented by: Admin: 08/10/21 08:15 Dose: Not Given Documented by: Admin: 08/09/21 08:26 Dose: Not Given Documented by: Admin: 08/08/21 08:11 Dose: Not Given Documented by: Admin: 08/07/21 08:14 Dose: Not Given Documented by: Admin: 08/06/21 09:03 Dose: Not Given Documented by: [email or web address] Admin: 08/05/21 08:41 Dose: Not Given Documented by: Admin: 08/04/21 10:10 Dose: Not Given Documented by: Admin: 08/03/21 09:52 Dose: Not Given Documented by: Admin: 08/02/21 10:39 Dose: Not Given Documented by: Admin: 08/01/21 11:43 Dose: Not Given Documented by: Admin: 07/31/21 11:21 Dose: 1 dose Documented by: Admin: 07/30/21 10:09 Dose: Not Given Documented by: Admin: 07/29/21 12:42 Dose: 1 dose Documented by: Admin: 07/29/21 07:48 Dose: Not Given Documented by: IHSAN Pramipexole Dihydrochloride (Pramipexole 0.25 Mg Tablet) 0.25 mg PO QDAY PRN PRN Reason: Restless legs Last Admin: 08/17/21 00:46 Dose: 0.25 mg Documented by: Admin: 08/08/21 08:02 Dose: 0.25 mg Documented by: Admin: 08/04/21 02:02 Dose: 0.25 mg Documented by: Admin: 08/03/21 11:58 Dose: 0.25 mg Documented by: GLO Sodium Chloride (0.9 % Sodium Chloride 10 Ml Syringe) 10 ml IV Q8 CRESCENCIO Last Admin: 08/17/21 05:51 Dose: Not Given Documented by: Admin: 08/16/21 21:31 Dose: Not Given Documented by: Admin: 08/16/21 13:11 Dose: 10 ml Documented by: Admin: 08/16/21 06:06 Dose: Not Given Documented by: Admin: 08/15/21 20:46 Dose: 10 ml Documented by: Admin: 08/15/21 13:18 Dose: 10 ml Documented by: Admin: 08/15/21 05:55 Dose: Not Given Documented by: Admin: 08/14/21 21:45 Dose: 10 ml Documented by: Admin: 08/14/21 16:12 Dose: 10 ml Documented by: Admin: 08/14/21 05:23 Dose: 10 ml Documented by: MARIA DEL ROSARIO Admin: 08/13/21 21:23 Dose: 10 ml Documented by: Admin: 08/13/21 14:14 Dose: 10 ml Documented by: ROGERSTRIGYady Admin: 08/13/21 05:27 Dose: 10 ml Documented by: MARIA DEL ROSARIO Admin: 08/12/21 21:45 Dose: 10 ml Documented by: MARIA DEL ROSARIO Admin: 08/12/21 14:15 Dose: 10 ml Documented by: [email or web address] Admin: 08/12/21 05:36 Dose: 10 ml Documented by: Admin: 08/11/21 22:02 Dose: Not Given Documented by: Admin: 08/11/21 15:29 Dose: Not Given Documented by: Admin: 08/11/21 05:59 Dose: Not Given Documented by: Admin: 08/10/21 21:38 Dose: Not Given Documented by: Admin: 08/10/21 13:53 Dose: Not Given Documented by: Admin: 08/10/21 05:57 Dose: Not Given Documented by: MARIA DEL ROSARIO Admin: 08/09/21 20:20 Dose: Not Given Documented by: MARIA DEL ROSARIO Admin: 08/09/21 13:50 Dose: Not Given Documented by: Admin: 08/09/21 05:17 Dose: Not Given Documented by: MARIA DEL ROSARIO Admin: 08/08/21 20:12 Dose: Not Given Documented by: MARIA DEL ROSARIO Admin: 08/08/21 13:17 Dose: Not Given Documented by: Admin: 08/08/21 05:06 Dose: Not Given Documented by: Admin: 08/07/21 21:06 Dose: Not Given Documented by: Admin: 08/07/21 13:27 Dose: Not Given Documented by: Admin: 08/07/21 05:35 Dose: Not Given Documented by: Admin: 08/06/21 20:07 Dose: Not Given Documented by: Admin: 08/06/21 13:40 Dose: Not Given Documented by: [email or web address] Admin: 08/06/21 05:32 Dose: Not Given Documented by: MARIA DEL ROSARIO Admin: 08/05/21 21:08 Dose: Not Given Documented by: MARIA DEL ROSARIO Admin: 08/05/21 16:14 Dose: Not Given Documented by: Admin: 08/05/21 05:48 Dose: Not Given Documented by: Admin: 08/04/21 21:30 Dose: Not Given Documented by: CODI Shift Summary 08/17/21 04:05 Shift Summary by Sammie Nichole Primary Diagnosis: Colostomy reversal, Exploratory laparotomy w/ ileostomy Registration Status: Day of Hospitalization: Day 20. admit on 07/28 Date of Surgery (if applicable): 07/28 colostomy reversal, 08/04 exploratory laparotomy w/ washout, repair anastomotic leak, drain placement and diverting loop ileostomy Pertinent Medical Dx/Issues (may be more than one): Multiple bowel surgeries, HT N, MS, restless legs. Interventions (O2, wounds, diuresis, etc): wound vac to midline incision with 125mmHg continues suction, RUSS left abdomen, PO antibiotics; ambulate TID Vital Signs with Trends: VSS on RA Meds (abo, pain, BP, etc): PO ABX, PO Roxicodone 5mg PRN, ativan PRN Lines/Tubes: Double lumen PICC line to left basilic heparin locked. RUSS, Wound vac changed Tue/Tue/Fri, Ileostomy to right abdomen with liquid green/brown fluid with some soft/loose BM, ostomy bag is changed once during this shift Oxygen needs (home use vs. current use): RA Lab/Rad results: Calcium low but improving, creatinine low Date of last BM: 08/17/2021 Elimination: BRP, ileostomy Recommendations/questions for MD (DC Frank? DC CM? PICC needed?): Trends (is the patient improving?): A&Ox4, use call light appropriately. Pt improving overall, one small episode of anxiety regarding discharge. Activity: up with SBA, Expected date of discharge: 08/17/21 Discharge Plan (needs, disposition, etc): Home with HH Initialized on 08/17/21 04:05 - END OF NOTE
== END 2021-08-17 15:15 | disposition home or self-care (01) | DRG 330 ==
LOC: MEDSUR 07:36
PROVIDERS: ADMIT Surgery; ATTEND Surgery